=== PATIENT | female | born 1960 | race Caucasian/White ===

== ENCOUNTER → 2020-06-11 08:49 | Outpatient (BNVA) | payer BC, SELFPAY | PROVIDERS: PCP Internal Medicine; Referring Provider Internal Medicine; Visit Provider Orthopaedic Surgery | DX: Z76.89 Persons encountering health services in other specified circumstances (principal) ==

== ENCOUNTER → 2020-07-31 09:37 | Outpatient (BNVA) | payer BC, SELFPAY | PROVIDERS: PCP Internal Medicine; Visit Provider Physician Assistant ==

== ENCOUNTER 2020-09-11 10:22 | Day surgery (SDC) | payer BC, SELFPAY ==
--- NOTE | 2020-09-10 10:02 | HO.ANESPROP2 ---
Documented by User: Marianne Alvarez 09/10/20 10:02 HPI - Anesthesia Eval Consult details Narrative: 60yo F for Colonoscopy PMFSH Active Problems Active Problems: All Active Problems (Updated 07/31/20 @ 10:30 by Helena Sousa PA-C) Family history of colonic polyps (Acute) Past Medical History Medical History Acid reflux Hematuria High cholesterol Hypertension Osteoarthritis of left hip Family History Family History Father Cancer Mother Cancer Maternal Grandmother Colon cancer Surgical History Surgical History H/O total hysterectomy with bilateral salpingo-oophorectomy (BSO) History of umbilical hernia repair Status post total hip replacement, left (~06/07/19) Social History Social History Household Members: Significant Other and Children Alcohol intake: current Alcohol intake frequency: a few times a week Smoking Status: Never smoker Use of substances other than those prescribed or required for medical reasons: No Advance Directives: No Advance Directives Information Provided: Yes Current occupational status: employed 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 Meds Allergies Allergy/AdvReac Type Severity Reaction Status Date / Time No Known Allergies Allergy Verified 06/11/20 09:21 [No Known Allergies*] Home Medications Medication Instructions Recorded Confirmed Last Taken Type amlodipine 5 mg tablet 5 mg PO DAILY 06/11/20 07/31/20 Unknown History atorvastatin 10 mg tablet 10 mg PO BEDTIME 06/11/20 07/31/20 Unknown History omeprazole 20 mg capsule,delayed 20 mg PO BID 06/11/20 07/31/20 09/11/20 07:30 History release Exam Exam Date and Time: September 10, 2020 1002 Assessment and Plan Assessment Anesthesia Assessment: Chart Reviewed Documented by User: Samira Vanegas 09/11/20 12:44 PMFSH Past Medical History Medical History Acid reflux Hematuria High cholesterol Hypertension Osteoarthritis of left hip Family History Family History Father Cancer Mother Cancer Maternal Grandmother Colon cancer Surgical History Surgical History H/O total hysterectomy with bilateral salpingo-oophorectomy (BSO) History of umbilical hernia repair Status post total hip replacement, left (~06/07/19) Social History Social History Household Members: Significant Other and Children Alcohol intake: current Alcohol intake frequency: a few times a week Smoking Status: Never smoker Use of substances other than those prescribed or required for medical reasons: No Advance Directives: No Advance Directives Information Provided: Yes Current occupational status: employed 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
[2020-09-11 10:55] VITALS: BP 153/92; PULSE 82; RESP 16; TEMP 36.5; O2SAT 98; BMI 25.7
[2020-09-11] MEDS: Lactated Ringers 1,000 ML 100 ML IVCONT (11:02)
--- NOTE | 2020-09-11 11:15 | P.HPSUR_ITS ---
Pre-Procedural Eval Section B Chief Complaint: Screening Details of Present Illness: COLON CANCER SCREENING--SISTER WITH MULTIPLE POLYPS- MGM COLON CA/POLYPS NO CLINICAL CHANGE Relevant Family History (Specify if Yes): Yes Relevant Social History: None Present Medications: see Short Stay Collaborative assessment Medical History: Significant History (GERD, HYPERTENSION) History of Previous Operations: Relevant previous surgery/procedure and date(s) (COLO 10 YR AGO NEG) Allergies: Allergies Allergy/AdvReac Type Severity Reaction Status Date / Time No Known Allergies Allergy Verified 06/11/20 09:21 [No Known Allergies*] Review of Systems Sugical H&P ROS: Negative: Constitution, Respiratory, Neurological, Psychiatric and Gastrointestinal and Yes, Specify: Cardiovascular (HTN) Exam Surgical H&P Exam: Normal: HEENT, Normal: Heart, Normal: Lungs, Normal: Extremities, Normal: Abdomen and Normal: Skin Plan Diagnosis/Plan: Unchanged I have reviewed the history and physical and performed a pertinent physical examination on my patient. No changes have occurred unless specified.YES
[2020-09-11 11:48] VITALS: BP 104/72; PULSE 78; RESP 16; TEMP 36.7; O2SAT 100
--- NOTE | 2020-09-11 11:51 | PM.OP ---
Brief Operative Note Date of Service: 09/11/20 Pre-op diagnosis: COLON CANCER SCREENING--NEW HX OF POLYPS IN HER SISTER. + HX MGM Post-op diagnosis: other (CECAL POLYP, INTERNAL HEMORRHOIDS) Procedure: COLONOSCOPY WITH EXCISIONAL POLYPECTOMY--COLD BX FORCEPS Implants: NONE Surgeon: Francia Clifton MD Anesthesia: MAC (MD BEVERLY) Estimated blood loss (mL): 5 Pathology: other (CECAL) Condition: stable Disposition: PACU
[2020-09-11 12:03] VITALS: BP 144/86; PULSE 79; RESP 17; TEMP 36.7; O2SAT 98
--- NOTE | 2020-09-11 12:47 | HO.POSTANES ---
Post Anesthesia Evaluation Post Anesthesia Evaluation Vital Signs: Vital Signs Temp Pulse Resp BP Pulse Ox 09/11/20 12:03 98.1 F 79 17 144/86 H 98 09/11/20 11:48 98.1 F 78 16 104/72 100 09/11/20 10:55 97.7 F 82 16 153/92 H 98 Anesthesia: Monitored Mental Status: Awake Pain Control: Satisfactory Nausea/Vomiting: None Hydration: Adequate Anesthesia-Related Issues: No Anes. Related Issues
--- NOTE | 2020-09-16 09:29 | W.PM.OPN ---
Operative Note Operative Note Date of Service: 09/11/20 Narrative: Pre-op diagnosis: COLON CANCER SCREENING--NEW HX OF POLYPS IN HER SISTER. + HX MGM Post-op diagnosis: other (CECAL POLYP, INTERNAL HEMORRHOIDS) Procedure: COLONOSCOPY WITH EXCISIONAL POLYPECTOMY--COLD BX FORCEPS Implants: NONE Surgeon: Francia Clifton MD Anesthesia: MAC (MD BEVERLY) FINDINGS: ELENI: Spincter tone adequate Adult slim colonoscope was introduced without difficulty and advanced into rectosigmoid, descending and transverse colon. As we approached the right colon some residue was noted requiring some additional flushing and suctioning. We entered cecum. Appendiceal orifice was seen;as was the ileocecal valve. There was a diminutive polyp excised in the cecum. Scope was slowly with drawn, good rotational views. ARV was clear. Estimated blood loss (mL): 5 Pathology: other (CECAL)-path: Tubular adenoma. Condition: stable Disposition: PACU PLAN: With family hx and diminutive tubular adenoma in the cecum, repeat colon cancer screening will be 5 years.
== END 2020-09-11 13:05 | disposition home or self-care (01) ==
PROVIDERS: PCP Internal Medicine; Visit Provider Internal Medicine Gastroenterology
PROC: 0DJD8ZZ Inspection of Lower Intestinal Tract, Via Natural or Artificial Opening Endoscopic (ICD-10-PCS; CPT 45378; principal; 2020-09-11 12:50)
DX: Z12.11 Encounter for screening for malignant neoplasm of colon (principal); Z83.71 Family history of colonic polyps; D12.0 Benign neoplasm of cecum; K57.30 Diverticulosis of large intestine without perforation or abscess without bleeding; K64.8 Other hemorrhoids; K21.9 Gastro-esophageal reflux disease without esophagitis; I10 Essential (primary) hypertension; Z79.899 Other long term (current) drug therapy; Z96.642 Presence of left artificial hip joint
CPT/HCPCS: 45380; 88305

== ENCOUNTER → 2020-10-02 13:04 | Outpatient (BNVA) | payer BC, SELFPAY | PROVIDERS: PCP Internal Medicine; Visit Provider Physician Assistant ==

== ENCOUNTER 2020-11-05 08:47 | Outpatient (REF) | payer BC, SELFPAY ==
[2020-11-05 10:42] LABS: Alanine Aminotransferase 49 U/L (0-31); Alkaline Phosphatase 94 U/L (39-117); Anion Gap 15 (12-20); Aspartate Amino Transferase 85 U/L (5-31); Bilirubin Direct 0.2 mg/dL (0.0-0.5); Bilirubin Total 0.5 mg/dL (0.0-1.0); Blood Urea Nitrogen 8 mg/dL (9-16); Carbon Dioxide 24 mmol/L (22-29); Chloride 103 mmol/L (96-108); Cholesterol 232 mg/dL; Estimated Glomerular Filt Rate > 60; Glucose Fasting 86 mg/dL (60-99); HDL Cholesterol 75 mg/dL; LDL Cholesterol Calculated 137 mg/dl; Lipase 10 U/L (8-78); Potassium 4.1 mmol/L (3.3-5.1); Sodium 138 mmol/L (135-145); Total Protein 6.7 g/dL (6.5-8.0); Triglycerides 101 mg/dL
== END 2020-11-05 08:48 | disposition home or self-care (01) ==
LOC: HO.10HDL 08:47
PROVIDERS: Visit Provider Internal Medicine
DX: E78.00 Pure hypercholesterolemia, unspecified (principal); R14.0 Abdominal distension (gaseous)
CPT/HCPCS: 36415; 80053; 80061; 80076; 82248; 83690

== ENCOUNTER 2020-11-21 07:41 | Outpatient (REF) | payer BC, SELFPAY ==
--- NOTE | ~2020-11-21 | US_ITS ---
EXAMINATION: US ABDOMEN COMPLETE CLINICAL INFORMATION: Elevated liver function tests. COMPARISON: CT abdomen and pelvis without and with contrast dated 07/24/2015. TECHNIQUE: Real-time imaging of the abdominal viscera. FINDINGS: PANCREAS: Normal. ABDOMINAL AORTA: The proximal, mid, and distal segments are normal in caliber. INFERIOR VENA CAVA: Visualized portions are normal. LIVER: Liver echotexture is increased The liver is normal in size. The liver contour is normal. No focal hepatic lesion. There is no intrahepatic biliary duct dilatation seen. GALLBLADDER: Normal. The gallbladder is physiologically distended without evidence of stones, sludge, polyps, wall thickening or pericholecystic fluid. COMMON BILE DUCT: Normal in caliber measuring 0.42 cm in diameter. RIGHT KIDNEY: Normal. No hydronephrosis. No renal calculi or focal parenchymal lesions. The kidney measures 10.6 cm in maximum dimension. LEFT KIDNEY: Normal. No hydronephrosis. No renal calculi or focal parenchymal lesions. The kidney measures 11.1 cm in maximum dimension. SPLEEN: Normal. The spleen measures 9.1 cm in maximum dimension. FREE FLUID: None. US/US abdomen complete IMPRESSION: Echogenic liver otherwise unremarkable exam.
== END 2020-11-21 07:42 | disposition home or self-care (01) ==
LOC: HO.US 07:41
PROVIDERS: Visit Provider Internal Medicine
DX: R94.5 Abnormal results of liver function studies (principal)
CPT/HCPCS: 76700

== ENCOUNTER 2021-01-13 09:44 | Inpatient (IN) | payer BC, SELFPAY ==
--- NOTE | ~2021-01-13 | CT_ITS ---
EXAMINATION: CT ABDOMEN AND PELVIS WITH CONTRAST CLINICAL INFORMATION: Left lower quadrant pain. Recent antibiotics for diverticulitis. COMPARISON: Ultrasound of the abdomen dated 11/21/2020. CT scan of the abdomen and pelvis dated 07/24/2015. TECHNIQUE: Multidetector CT volumetric acquisition of the abdomen and pelvis was performed after the administration of 85 mL of intravenous Omnipaque 350 The data set was reformatted in the sagittal and coronal planes and reviewed on an independent workstation. This CT examination was performed using dose optimization techniques as appropriate, variously including the following: *Automated exposure control *Adjustment of mA and/or kV according to patient size (this includes techniques or standardized protocols for targeted exams where dose is matched to indication/reason for exam; i.e. extremities or head) *Use of iterative reconstruction technique DLP: 656 mGy-cm. FINDINGS: LOWER CHEST: Scattered areas of atelectasis in the lung bases bilaterally. Small retrocardiac hiatal hernia is seen. LIVER, GALLBLADDER, BILIARY TREE: Liver normal size and diffusely lower in attenuation compared to the spleen, consistent with mild hepatic steatosis. Small volume ascites is seen surrounding the liver and extending into the right paracolic gutter and pelvis.. No focal cystic or solid hepatic mass or intra-or extrahepatic ductal dilatation. Hepatic and portal veins patent. Gallbladder partially distended and within normal limits. PANCREAS: Normal. No ductal dilatation, mass, or surrounding stranding. SPLEEN: Normal size and appearance. Splenic vein patent. ADRENAL GLANDS AND KIDNEYS: Adrenal glands normal. Kidneys bilaterally symmetric in size and function. No focal mass, hydronephrosis, nephrolithiasis or perinephric stranding. URETERS AND BLADDER: Ureters decompressed and within normal limits. Bladder decompressed and not adequately assessed. PELVIC ORGANS: Uterus surgically absent. Ovaries not visualized and likely also surgically absent. No suspicious adnexal mass. GASTROINTESTINAL TRACT: There is an approximately 10 cm long segment of the proximal sigmoid colon, which is circumferentially thickened with wall edema and prominent surrounding fat stranding and edema. There is also a focal adjacent to by 1.2 cm hypodense collection along the antimesenteric border of the colon (series 3, image 72), possibly a small contained microperforation with abscess formation. No free air is seen. There is relative obstruction to the upstream colon, which is markedly distended with multiple air-fluid levels seen. The ascending colon measures up to 7.4 cm in diameter and the transverse colon 6.5 cm in diameter. No evidence of pneumatosis intestinalis is seen. The terminal ileum and distal small bowel loops are also mildly dilated. Duodenum and jejunal loops are decompressed and unremarkable. ABDOMINAL WALL: Small fat-containing umbilical and supraumbilical ventral wall hernias noted. LYMPHOVASCULAR STRUCTURES: Abdominal aorta normal in caliber. No periaortic collections. Mildly enlarged retroperitoneal lymph nodes are seen, largest of which is a para-aortic 1.4 x 0.7 cm lymph node just below the level of the renal cornelia (series 3, image 34). . BONES: Left total hip arthroplasty is in place. No other significant bone findings. CT/CT abdomen pelvis w con IMPRESSION: 1. 10 cm long segment of proximal sigmoid colon: Inflammation is seen, likely representing acute segmental diverticulitis. There is suspicion of subtle contained microperforation with small abscess formation as described above. This segment of inflamed bowel does cause obstruction with abnormal dilatation and air-fluid levels seen within the upstream colon and distal ileum. Posttreatment, follow-up with barium enema or colonoscopy is recommended to exclude an underlying mass in this location. 2. Small volume free fluid in the abdomen and pelvis. 3. Nonspecific mild enlargement of retroperitoneal lymph nodes, measuring up to 1.4 x 0.7 cm. 4. Small retrocardiac hiatal hernia small fat-containing umbilical and supraumbilical ventral wall hernias. 5. Hepatic steatosis.: This critical result was discussed with 01/13/2021, 1:37 PM and it was ascertained that the content and urgency of this report was understood at the time of direct communication.
[2021-01-13 09:46] VITALS: BP 159/80; PULSE 103; RESP 19; TEMP 36.7; O2SAT 96; BMI 26.6
--- NOTE | 2021-01-13 10:07 | ED_ITS ---
HPI - Abdominal Pain General Chief Complaint: Abdominal Pain Stated Complaint: Abd pain Time Seen by Provider: 01/13/21 10:02 Source: patient Mode of arrival: ambulatory Limitations: no limitations History of Present Illness MD elicited complaint: abdominal pain Pertinent past history: diverticulitis Onset (ago): day(s) (10) Pain Consistency: constant Location: LLQ Severity: moderate Quality: stabbing Radiation: none Migration to: no migration Exacerbating factors: movement Relieving factors: other (constipation) Context: recent antibiotic use (jsut completed 10 days of cipro without any relief. ) Associated symptoms: nausea and constipation (mucousy intermittent bouts of blood no flatus today) Related Data Home Medications Medication Instructions Recorded Confirmed amlodipine 5 mg tablet 5 mg PO DAILY 06/11/20 01/13/21 atorvastatin 10 mg tablet 20 mg PO BEDTIME 06/11/20 01/13/21 omeprazole 20 mg capsule,delayed 20 mg PO BID 06/11/20 01/13/21 release fluoxetine 10 mg capsule 10 mg PO QAM 10/02/20 01/13/21 Allergies Allergy/AdvReac Type Severity Reaction Status Date / Time No Known Allergies Allergy Verified 01/13/21 09:46 [No Known Allergies*] Review of Systems Review of Systems Constitutional : No Weight loss, No Fever, No Chills ENT/Mouth : No sore throat, No Rhinorrhea Eyes: No Swelling, No Redness Cardiovascular : No Chest Pain, No SOB, NoEdema Respiratory : No Cough, No Sputum, No Wheezing Gastrointestinal : Positive Nausea, no Vomiting, no Diarrhea, positive abdominal Pain, pos Hematochezia, No Melena, pos constipation Genitourinary : No Dysuria, No Urinary Frequency, No Hematuria, No Urgency Musculoskeletal : No joint pain, No Myalgias, No Joint Swelling Skin : No Skin Lesions, No rash Neuro : No Weakness, No Numbness, No Dizziness, No Headache Psych : No Anxiety/Panic, No Depression Heme/Lymph: No Bruising, No Lymphadenopathy Endocrine : No Polyuria, No Polydipsia All other systems reviewed and are negative. Physical Exam Vital Signs: Vital Signs: Last Vital Signs Temp 98.1 F 01/13/21 09:46 Pulse 89 01/13/21 11:09 Resp 16 01/13/21 11:09 BP 161/89 H 01/13/21 11:09 Pulse Ox 97 01/13/21 11:09 Body Mass Index 26.6 Appearance: Alert. Oriented X3. No acute distress. Eyes: Pupils equal, round and reactive to light. ENT: Pharynx normal. Neck: Normal inspection. Neck supple. CVS: Normal heart rate and rhythm. Pulses normal. Respiratory: No respiratory distress. Breath sounds normal. Abdomen: Soft and distended with moderate LLQ pain, mild vol guarding no rebound, hypoactive BS Skin: Skin warm and dry. Normal skin color. Normal skin turgor. Extremities: No lower extremity edema. No calf ttp Neuro: Oriented X 3. No motor deficit. No sensory deficit. Course Course Course Narrative: at this time infection is suspected 138pm IV zosyn ordered call to surgery 138pm MDM - Abdominal Pain MDM Narrative Medical decision making narrative: 60 yo female hx of HTN, diverticulitis, prior hysterectomy and hernia repair as a child completed cipro x 10 days for presumed clinical diverticulitis, at this time worsening pain now constipation, lack of flatus and nausea - does not feel better, at this time labs, IVF, IV morphine for pain, CT scan for obstruction/mass/abscess - dispo per results and findings. Lab Data Result diagrams: 01/13/21 10:26 01/13/21 10:26 Labs: Lab Results 01/13/21 01/13/21 01/13/21 Range/Units 10:26 10:26 10:26 WBC 10.6 (4.8-10.8) X10*3/uL RBC 4.26 (4.20-5.50) X10*6/uL Hgb 13.6 (12.0-16.0) g/dl Hct 40.3 (37-47) % MCV 94.6 (80-98) fL MCH 31.9 (27.0-33.0) pg MCHC 33.7 (31.0-35.0) g/dl RDW 13.9 (11.0-16.0) % Plt Count 399 (160-400) X10*3/uL MPV 8.8 L (9.4-12.3) fL Immature Gran % (Auto) 1.2 H (0.0-0.4) % Neut % (Auto) 80.2 H (45-73) % Lymph % (Auto) 8.4 L (20-40) % [place] % (Auto) 9.8 (2-11) % Eos % (Auto) 0.2 (0-4) % Baso % (Auto) 0.2 (0-2) % Lymph # (Auto) 0.9 L (1.2-4.9) X10*3/uL [place] # (Auto) 1.0 (0.1-1.2) X10*3/uL Eos # (Auto) 0.0 (0.0-0.4) X10*3/uL Baso # (Auto) 0.0 (0.0-0.2) X10*3/uL Abs Immat Gran (auto) 0.13 H (0.00-0.03) X10*3/uL Absolute Neuts (auto) 8.5 H (2.0-8.3) X10*3/uL Absolute Nucleated RBC 0.000 (0.0-0.012) X10*3/uL Nucleated RBC % (auto) 0.0 (0.0-0.2) /100WBC PT 10.8 (9.9-13.0) SEC INR 1.0 (0.9-1.1) APTT 31.7 (24.1-38.0) SEC Sodium 137 (135-145) mmol/L Potassium 3.9 (3.3-5.1) mmol/L Chloride 101 (96-108) mmol/L Carbon Dioxide 23 (22-29) mmol/L Anion Gap 17 (12-20) BUN 8 L (9-16) mg/dL Creatinine 0.71 (0.5-1.4) mg/dL Estim Creat Clear Calc 86.2 Estimated GFR > 60 Random Glucose 115 (60-115) mg/dL Lactic Acid (0.5-2.0) mmol/L Calcium 8.7 (8.4-10.2) mg/dL Magnesium 2.5 (1.6-2.6) mg/dL Total Bilirubin 0.7 (0.0-1.0) mg/dL Direct Bilirubin 0.3 (0.0-0.5) mg/dL AST 34 H D (5-31) U/L ALT 23 (0-31) U/L Alkaline Phosphatase 90 (39-117) U/L Total Protein 6.3 L (6.5-8.0) g/dL Albumin 3.5 (3.5-5.0) g/dL Lipase 24 (8-78) U/L COVID-19 (NAE) (Negative) COVID-19 Clin Com 01/13/21 01/13/21 Range/Units 10:26 10:48 WBC (4.8-10.8) X10*3/uL RBC (4.20-5.50) X10*6/uL Hgb (12.0-16.0) g/dl Hct (37-47) % MCV (80-98) fL MCH (27.0-33.0) pg MCHC (31.0-35.0) g/dl RDW (11.0-16.0) % Plt Count (160-400) X10*3/uL MPV (9.4-12.3) fL Immature Gran % (Auto) (0.0-0.4) % Neut % (Auto) (45-73) % Lymph % (Auto) (20-40) % [place]ima % (Auto) (2-11) % Eos % (Auto) (0-4) % Baso % (Auto) (0-2) % Lymph # (Auto) (1.2-4.9) X10*3/uL [place] # (Auto) (0.1-1.2) X10*3/uL Eos # (Auto) (0.0-0.4) X10*3/uL Baso # (Auto) (0.0-0.2) X10*3/uL Abs Immat Gran (auto) (0.00-0.03) X10*3/uL Absolute Neuts (auto) (2.0-8.3) X10*3/uL Absolute Nucleated RBC (0.0-0.012) X10*3/uL Nucleated RBC % (auto) (0.0-0.2) /100WBC PT (9.9-13.0) SEC INR (0.9-1.1) APTT (24.1-38.0) SEC Sodium (135-145) mmol/L Potassium (3.3-5.1) mmol/L Chloride (96-108) mmol/L Carbon Dioxide (22-29) mmol/L Anion Gap (12-20) BUN (9-16) mg/dL Creatinine (0.5-1.4) mg/dL Estim Creat Clear Calc Estimated GFR Random Glucose (60-115) mg/dL Lactic Acid 1.2 (0.5-2.0) mmol/L Calcium (8.4-10.2) mg/dL Magnesium (1.6-2.6) mg/dL Total Bilirubin (0.0-1.0) mg/dL Direct Bilirubin (0.0-0.5) mg/dL AST (5-31) U/L ALT (0-31) U/L Alkaline Phosphatase (39-117) U/L Total Protein (6.5-8.0) g/dL Albumin (3.5-5.0) g/dL Lipase (8-78) U/L COVID-19 (NAE) Negative (Negative) COVID-19 Clin Com See Note Discharge Plan Discharge Clinical Impression: Diverticulitis, Obstruction of bowel, Diverticulitis of large intestine with complication Patient Disposition: Admitted As Inpatient Prescriptions: No Action omeprazole 20 mg capsule,delayed release(DR/EC) 20 mg PO BID RF: 0 atorvastatin 10 mg tablet 20 mg PO BEDTIME RF: 0 amlodipine 5 mg tablet 5 mg PO DAILY RF: 0 fluoxetine 10 mg capsule 10 mg PO QAM RF: 0 PMFSH Past Medical History Attestation statement: The following information was validated with the patient. Medical History Acid reflux Hematuria High cholesterol Hypertension Osteoarthritis of left hip Surgical History H/O total hysterectomy with bilateral salpingo-oophorectomy (BSO) History of dental surgery History of umbilical hernia repair Status post total hip replacement, left (~06/07/19) Family History Family History (Updated 10/02/20 @ 13:43 by Helena Sousa PA-C) Father Cancer Mother Cancer Maternal Grandmother Colon cancer Other Tubular adenoma Social History Social History (Updated 01/13/21 @ 10:30 by Domonique Osuna DO) Household Members: Significant Other and Children Alcohol intake: current Alcohol intake frequency: 0-2 drinks per day Patient Tobacco Use Status: Never used Tobacco Advance Directives: Yes Advance Directives Information Provided: Yes Advance Directives on File: No Patient : No Current occupational status: employed 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
[2021-01-13 10:34] LABS: MANUAL DIFF FLAG NO
[2021-01-13] MEDS: Morphine Sulfate 4 MG/ML CARTRIDGE IVPUSH (10:34)
[2021-01-13] MEDS: ondansetron HCL 4 MG/2 ML VIAL IVPUSH (10:34)
[2021-01-13] MEDS: 0.9 % Sodium Chloride 1,000 ML 999 ML IVCONT (10:34)
[2021-01-13 10:35] LABS: Basophils Percent Auto 0.2 % (0-2); Eosinophils Percent Auto 0.2 % (0-4); Hematocrit 40.3 % (37-47); Hemoglobin 13.6 g/dl (12.0-16.0); Imm Gran Abs Auto 0.13 X10*3/uL (0.00-0.03); Imm Gran Pct Auto 1.2 % (0.0-0.4); Lymphocytes Absolute Auto 0.9 X10*3/uL (1.2-4.9); Lymphocytes Percent Auto 8.4 % (20-40); Mean Corpuscular HGB Conc 33.7 g/dl (31.0-35.0); Mean Corpuscular Hemoglobin 31.9 pg (27.0-33.0); Mean Corpuscular Volume 94.6 fL (80-98); Mean Platelet Volume 8.8 fL (9.4-12.3); Monocytes Percent Auto 9.8 % (2-11); Neutrophils Absolute Auto 8.5 X10*3/uL (2.0-8.3); Neutrophils Percent Auto 80.2 % (45-73); Platelet Count 399 X10*3/uL (160-400); Red Blood Count 4.26 X10*6/uL (4.20-5.50); Red Cell Distribution Width 13.9 % (11.0-16.0); White Blood Count 10.6 X10*3/uL (4.8-10.8)
[2021-01-13 10:40] LABS: Prothrombin Time 10.8 SEC (9.9-13.0)
[2021-01-13 10:43] LABS: Partial Thromboplastin Time 31.7 SEC (24.1-38.0)
[2021-01-13 10:49] LABS: Lactic Acid 1.2 mmol/L (0.5-2.0)
[2021-01-13 11:07] LABS: Alanine Aminotransferase 23 U/L (0-31); Albumin Level 3.5 g/dL (3.5-5.0); Alkaline Phosphatase 90 U/L (39-117); Aspartate Amino Transferase 34 U/L (5-31); Bilirubin Direct 0.3 mg/dL (0.0-0.5); Bilirubin Total 0.7 mg/dL (0.0-1.0); Lipase 24 U/L (8-78); Magnesium 2.5 mg/dL (1.6-2.6); Total Protein 6.3 g/dL (6.5-8.0)
[2021-01-13 11:09] VITALS: BP 161/89; PULSE 89; RESP 16; O2SAT 97
[2021-01-13 11:25] LABS: COVID-19 Test Negative (Negative); IDNOW Serial# 9DD0AD1C
[2021-01-13 12:01] LABS: Anion Gap 17 (12-20); Blood Urea Nitrogen 8 mg/dL (9-16); Calcium 8.7 mg/dL (8.4-10.2); Carbon Dioxide 23 mmol/L (22-29); Chloride 101 mmol/L (96-108); Creatinine Clr Calc Pharmacy 86.2; Estimated Glomerular Filt Rate > 60; Glucose Random 115 mg/dL (60-115); Potassium 3.9 mmol/L (3.3-5.1); Sodium 137 mmol/L (135-145)
[2021-01-13] MEDS: iohexoL 350 MG/ML 100 ML INFUS..BTL IV (12:15)
[2021-01-13] MEDS: LORazepam 2 MG/ML VIAL 1 MG IVPUSH (14:03)
[2021-01-13] MEDS: Piperacillin Sodium/Tazobactam 3.375 GM in 0.9 % Sodium Chloride 50 ML IV ×2 (14:03→19:58)
[2021-01-13 14:04] VITALS: BP 147/79; PULSE 96; RESP 16; TEMP 36.7; O2SAT 96
--- NOTE | 2021-01-13 14:05 | PC.NURSE ---
PT DESCRIBES ONGOING INTERMITTENT LOWER ABD PAIN, SOMEWHAT IMPROVED WITH MOP GIVEN EARLIER TODAY. GIVEN ATIVAN, PT AGREEABLE TO PLAN FOR REASSESSMENT OF PAIN. ABX RUNNING. PT AWARE OF PLAN FOR CARE. VSS.
--- NOTE | 2021-01-13 15:07 | PC.NURSE ---
in to reassess for pain, pt sleeping at this time, will defer assessment until transport
--- NOTE | 2021-01-13 15:13 | PC.NURSE ---
REPORT GIVEN TO ENGINE DESIGNER
[2021-01-13 15:59] VITALS: BP 158/83; PULSE 94; RESP 18; TEMP 36.4; O2SAT 96
[2021-01-13] MEDS: Dextrose 5 % and Lactated Ring 1,000 ML 125 ML IVCONT (16:03)
[2021-01-13] MEDS: 0.9 % Sodium Chloride Flush 3 ML SYRINGE IVFLUSH (16:04)
[2021-01-13] MEDS: Omeprazole 20 MG CAPSULE.DR PO (16:06)
[2021-01-13] MEDS: Enoxaparin Sodium 40 MG/0.4 ML SYRINGE SUBCUT (16:07)
[2021-01-13 19:24] VITALS: BP 163/71; PULSE 87; RESP 18; TEMP 36.6; O2SAT 97
[2021-01-13] MEDS: Atorvastatin Calcium 20 MG TABLET PO (20:32)
[2021-01-13 22:03] LABS: Appearance Urine HAZY; Color Urine YELLOW; Glucose Urine UA NEG (NEG); Leukocyte Esterase Urine NEG (NEG); Nitrite Urine NEG (NEG); PH 5.5 (5.0-8.0); Urine Blood 3+ (NEG); Urine Ketones 5 MG/DL (NEG); Urine Protein 1+ MG/DL (NEG-TRACE)
[2021-01-13 22:13] LABS: WBC Urine 0 /HPF (0-4)
[2021-01-13 22:14] LABS: Bacteria Urine 1+ /LPF; Squamous Epithelial Cell Urine 1+ /LPF
[2021-01-13 23:20] VITALS: BP 127/73; PULSE 82; RESP 18; TEMP 36.3; O2SAT 96
[2021-01-14] MEDS: Dextrose 5 % and Lactated Ring 1,000 ML 125 ML IVCONT ×3 (01:06→20:29)
[2021-01-14] MEDS: Piperacillin Sodium/Tazobactam 3.375 GM in 0.9 % Sodium Chloride 50 ML IV ×4 (02:17→20:24)
[2021-01-14 03:56] VITALS: BP 136/65; PULSE 79; RESP 16; TEMP 36.3; O2SAT 96
[2021-01-14] MEDS: Omeprazole 20 MG CAPSULE.DR PO ×2 (05:22→14:48)
--- NOTE | 2021-01-14 05:43 | P.HPGS_ITS ---
History of Present Illness History of Present Illness Date of Service: 01/14/21 Chief complaint: SIGMOID DIVERTICULITIS WITH MICROPERFORATION Narrative: Swati Mackey is a 60 year old female presenting with complaints of abdominal pain in the left lower quadrant. She has a prior history of diverticulitis and was recently treated with a ten day course of Cipro, without resolution of her symptoms. The abdominal pain is associated with constipation. A recent colonoscopy performed by Dr. Clifton was significant only for a tubular adenoma. Evauation in the ED revealed a normal WBC but CT of the abdomen and pelvis noted acute diverticulitis with a microperforation. She is admitted to the surgical service for IV antibiotics. Review of Systems Constitutional: Constitutional: Denies chills, Denies fever(s), Denies headache(s) and Denies poor appetite ENT: Denies dizziness and Denies headache(s) Cardiovascular: Cardiovascular: Denies chest pain, Denies rapid heart rate, Denies palpitations and Denies slow heart rate Respiratory: Respiratory: Denies chest congestion, Denies cough, Denies pain on inspiration and Denies wheezing Gastrointestinal: Gastrointestinal: Reports abdominal pain, Reports bloating, Reports change in stool character, Reports constipation, Denies diarrhea, Denies nausea, Denies vomiting and Denies hematemesis Musculoskeletal: Musculoskeletal: Denies back pain, Denies arthralgias, Denies joint swelling and Denies numbness Integumentary/Breasts: Skin/Breast: Denies change in pigmentation, Denies erythema and Denies rash Neurologic: Denies dizziness, Denies headache(s) and Denies numbness Psychiatric: Psychiatric: Denies anxiety and Denies depression Endocrine: Endocrine: Denies palpitations Hematologic/Lymphatic: Hematologic/Lymphatic: Denies easy bleeding, Denies easy bruising and Denies lymphadenopathy Allergic/Immunologic: Allergic/Immunologic: Denies wheezing PMFSH Past Medical History Medical History Acid reflux Hematuria High cholesterol Hypertension Osteoarthritis of left hip Family History Family History Father Cancer Mother Cancer Maternal Grandmother Colon cancer Other Tubular adenoma Surgical History Surgical History H/O total hysterectomy with bilateral salpingo-oophorectomy (BSO) History of dental surgery History of umbilical hernia repair Status post total hip replacement, left (~06/07/19) Social History Social History Household Members: Significant Other and Children Housing: House Do you presently have visiting nurse or other home services: No Alcohol intake: current Alcohol intake frequency: 0-2 drinks per day Patient Tobacco Use Status: Never used Tobacco Use of substances other than those prescribed or required for medical reasons: No Currently Displaying Signs/Symptoms of Drug Intoxication Withdrawal: No Have you been hit, kicked, punched, or otherwise hurt by someone within the past year? If so, by whom?: No Do you feel safe in your current relationship?: Yes Is there a partner from a previous relationship who is making you feel unsafe now?: No Are you made to feel afraid or neglected: No Advance Directives: Yes Advance Directives Information Provided: Yes Advance Directives on File: No Advance Directives Date on File: 01/13/21 Do you have thoughts of harming others: None Do you have a plan to hurt others: No Plan Recently lost weight without trying: No How much weight loss: Not applicable Eating poorly because of decreased appetite: No Nutrition screen score: 0 Nutrition Risks: No Nutritional Risk Patient : No : No Poor oral hygiene: No Current occupational status: employed 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 Meds Allergies Allergy/AdvReac Type Severity Reaction Status Date / Time No Known Allergies Allergy Verified 01/13/21 09:46 [No Known Allergies*] Active Medications: Current Medications Generic Name Dose Route Start Last Admin Trade Name Freq PRN Reason Stop Dose Admin Acetaminophen 650 mg 01/13/21 14:58 Acetaminophen 325 Mg Tablet PO Q6H PRN Pain, Mild (Pain Scale 1-3) Amlodipine Besylate 5 mg 01/14/21 09:00 Amlodipine Besylate 5 Mg Tablet PO DAILY SESAR Protocol Atorvastatin Calcium 20 mg 01/13/21 21:00 01/13/21 20:32 Atorvastatin Calcium 20 Mg Tablet PO 20 mg BEDTIME SESAR Administration Enoxaparin Sodium 40 mg 01/13/21 15:00 01/13/21 16:07 Enoxaparin Sodium 40 Mg/0.4 Ml Syringe SUBCUT 40 mg Q24H SESAR Administration Fluoxetine HCl 10 mg 01/14/21 09:00 Fluoxetine Hcl 10 Mg Capsule PO DAILY SESAR Dextrose/Lactated Ringer's 1,000 mls @ 125 mls/hr 01/13/21 14:58 01/14/21 01:06 D5lr IVCONT 125 mls/hr .Q8H SESAR Administration Piperacillin Sod/Tazobactam 50 mls @ 100 mls/hr 01/13/21 20:00 01/14/21 03:10 Sod 3.375 gm/ Sodium Chloride IV Infused Q6H SESAR Infusion Morphine Sulfate 4 mg 01/13/21 14:58 Morphine Sulfate 4 Mg/Ml Cartridge IVPUSH Q3H PRN Pain, Severe (Pain Scale 7-10) Omeprazole 20 mg 01/13/21 16:30 01/14/21 05:22 Omeprazole 20 Mg Capsule.Dr PO 20 mg BID@0630,1630 SESAR Administration Oxycodone HCl 5 mg 01/13/21 14:58 Oxycodone Hcl Immed Release 5 Mg Tablet PO Q6H PRN Pain, Moderate (Pain Scale 4-6 Pharmacy Consult 1 each 01/13/21 10:12 Consult Rx Perform Med Rec MISCELLANE ONCE PRN Consult order Sodium Chloride 3 ml 01/13/21 16:00 01/14/21 01:35 0.9 % Sodium Chloride Flush 3 Ml Syringe IVFLUSH Not Given [facility] Zolpidem Tartrate 5 mg 01/13/21 14:58 Zolpidem Tartrate 5 Mg Tablet PO BEDTIME PRN Insomnia Home Medications Medication Instructions Recorded Confirmed Last Taken Type amlodipine 5 mg tablet 5 mg PO DAILY 06/11/20 01/13/21 01/13/21 History atorvastatin 10 mg tablet 20 mg PO BEDTIME 06/11/20 01/13/21 1 Day Ago History ~01/12/21 omeprazole 20 mg capsule,delayed 20 mg PO BID 06/11/20 01/13/21 01/13/21 History release fluoxetine 10 mg capsule 10 mg PO QAM 10/02/20 01/13/21 01/13/21 History Physical Exam Vital Signs: Vital Signs: Last Vital Signs Temp 97.3 F 01/14/21 03:56 Pulse 79 01/14/21 03:56 Resp 16 01/14/21 03:56 BP 136/65 01/14/21 03:56 Pulse Ox 96 01/14/21 03:56 Body Mass Index 26.6 Const: General: cooperative, comfortable and well developed Nutritional Appearance: well nourished Orientation/consciousness: patient oriented x3 Eyes: Sclerae: sclerae normal EOM: EOMs intact bilaterally Neck: Neck: Yes normal visual inspection Resp: Effort & Inspection: normal respiratory effort, no cough, no respiratory distress and no stridor Cardio: Jugular venous distension: no JVD GI: Inspection: Yes distended Palpation (GI): Firmness to palpation present (GI), Tenderness to palpation present (GI) in the LUQ, no guarding and not rigid Percussion: Yes dullness to percussion Auscultation: normal bowel sounds Rectal Exam - Female: deferred Skin: General skin exam: dry skin Rashes: no rashes Neuro: General: patient oriented x3 and no focal motor deficits Extrem: General: Yes full ROM and Yes no clubbing, cyanosis or edema Psych: Appearance: grossly normal Results Results Labs: Short CBC 01/13/21 Range/Units 10:26 WBC 10.6 (4.8-10.8) X10*3/uL Hgb 13.6 (12.0-16.0) g/dl Hct 40.3 (37-47) % Plt Count 399 (160-400) X10*3/uL BMP 01/13/21 10:26 Sodium 137 Potassium 3.9 Chloride 101 Carbon Dioxide 23 BUN 8 L Creatinine 0.71 Calcium 8.7 Liver Function 01/13/21 Range/Units 10:26 Total Bilirubin 0.7 (0.0-1.0) mg/dL Direct Bilirubin 0.3 (0.0-0.5) mg/dL AST 34 H D (5-31) U/L ALT 23 (0-31) U/L Alkaline Phosphatase 90 (39-117) U/L Albumin 3.5 (3.5-5.0) g/dL Urine 01/13/21 Range/Units 21:48 Urine Color YELLOW Urine Appearance HAZY Urine pH 5.5 (5.0-8.0) Ur Specific [place] 1.020 (1.005-1.025) Urine Protein 1+ H (NEG-TRACE) MG/DL Urine Glucose (UA) NEG (NEG) MG/DL Assessment and Plan (1) Diverticulitis of large intestine with complication: Status: Acute Patient presents with abdominal pain in the left lower quadrant found to have acute diverticulitis of the sigmoid colon with a localized micro perforation. She has had multiple episodes possibly up to 6 over the last several years but this is the 1st to require hospitalization. The symptoms usually improved with oral antibiotics. This morning she reports continued abdominal distension and pain but did pass some flatus and a small amount of stool which is the 1st time in 2 days. She will need continued IV antibiotics for the next several days. Ideally, once the current episode has resolved she would be scheduled for elective sigmoid colectomy to prevent further recurrences. The patient understands and agrees with the plan. (2) Obstruction of bowel: Qualifiers: Intestinal obstruction extent: unspecified extent Intestinal obstruction type: unspecified Qualified Code(s): K56.609 - Unspecified intestinal obstruction, unspecified as to partial versus complete obstruction Status: Acute Quality Stroke Does the patient have a stroke diagnosis?: No VTE Prior VTE?: No VTE Risk Level:: Surgical - moderate VTE Device Contraindication: N/A - Device Ordered VTE Drug Contraindication: N/A - Med Ordered Procedures Date of Service Date of Service: 01/14/21
[2021-01-14 06:44] LABS: MANUAL DIFF FLAG NO
[2021-01-14 06:53] LABS: Basophils Percent Auto 0.4 % (0-2); Eosinophils Percent Auto 0.5 % (0-4); Hematocrit 36.1 % (37-47); Hemoglobin 11.9 g/dl (12.0-16.0); Imm Gran Abs Auto 0.08 X10*3/uL (0.00-0.03); Lymphocytes Absolute Auto 1.1 X10*3/uL (1.2-4.9); Lymphocytes Percent Auto 13.2 % (20-40); Mean Corpuscular Hemoglobin 31.7 pg (27.0-33.0); Mean Corpuscular Volume 96.3 fL (80-98); Monocytes Absolute Auto 1.1 X10*3/uL (0.1-1.2); Monocytes Percent Auto 12.8 % (2-11); Neutrophils Percent Auto 72.1 % (45-73); Platelet Count 351 X10*3/uL (160-400); Red Blood Count 3.75 X10*6/uL (4.20-5.50); Red Cell Distribution Width 14.1 % (11.0-16.0); White Blood Count 8.3 X10*3/uL (4.8-10.8)
[2021-01-14 07:10] VITALS: BP 138/72; PULSE 112; RESP 18; TEMP 36.6; O2SAT 91
[2021-01-14 07:42] LABS: Anion Gap 11 (12-20); Blood Urea Nitrogen 8 mg/dL (9-16); Calcium 8.1 mg/dL (8.4-10.2); Carbon Dioxide 28 mmol/L (22-29); Chloride 104 mmol/L (96-108); Creatinine Clr Calc Pharmacy 87.4; Estimated Glomerular Filt Rate > 60; Glucose Random 119 mg/dL (60-115); Potassium 3.8 mmol/L (3.3-5.1); Sodium 139 mmol/L (135-145)
[2021-01-14] MEDS: amLODIPine Besylate 5 MG TABLET PO (09:01)
[2021-01-14] MEDS: FLUoxetine HCl 10 MG CAPSULE PO (09:01)
--- NOTE | 2021-01-14 10:05 | MHC.CM.PN ---
CM MET WITH PT WHO REPORTS SHE LIVES WITH HER SON AND S/O. SHE REPORTS SHE IS FULLY INDEPENDENT WITH ALL CARE AND MOBILITY, USES NO DME AND HAS NO SERVICES. PT REPORTS SHE HAS A HCP COMPLETED NAMING HER SISTER, JOE, HER AGENT. PT CONFIRMS HER PCP IS SAMMI UGALDE. CURRENT DC PLAN IS HOME WITH NO SERVICES PT WILL SELF ARRANGE TRANSPORTATION
[2021-01-14 11:20] VITALS: BP 150/90; PULSE 88; RESP 18; TEMP 35.5; O2SAT 94
[2021-01-14] MEDS: oxyCODONE HCl Immed Release 5 MG TABLET PO (14:48)
[2021-01-14] MEDS: Enoxaparin Sodium 40 MG/0.4 ML SYRINGE SUBCUT (14:49)
[2021-01-14 15:17] VITALS: BP 161/84; PULSE 89; RESP 20; TEMP 36; O2SAT 97
[2021-01-14] MEDS: Simethicone 80 MG TAB.CHEW 160 MG PO (15:39)
[2021-01-14 19:14] VITALS: BP 157/80; PULSE 94; RESP 20; TEMP 36.5; O2SAT 97
[2021-01-14] MEDS: Atorvastatin Calcium 20 MG TABLET PO (20:25)
[2021-01-14 23:38] VITALS: BP 165/78; PULSE 86; RESP 18; TEMP 36.1; O2SAT 96
[2021-01-15] VITALS (7 sets, daily range): BP systolic 141–170; BP diastolic 66–82; PULSE 80–95; RESP 17–20; TEMP 36.1–37.2; O2SAT 93–97
[2021-01-15] MEDS: Piperacillin Sodium/Tazobactam 3.375 GM in 0.9 % Sodium Chloride 50 ML IV ×4 (02:02→20:54)
[2021-01-15] MEDS: Omeprazole 20 MG CAPSULE.DR PO ×2 (06:20→15:43)
[2021-01-15] MEDS: Dextrose 5 % and Lactated Ring 1,000 ML 125 ML IVCONT ×2 (06:21→15:43)
--- NOTE | 2021-01-15 08:38 | PM.PNGS ---
Subjective Subjective Date of Service: 01/15/21 Interval history: Reports gas pain after starting clear liquid diet. She feels she drank too much which increased her distension. She is passing gas denies any bowel movement. Physical Exam Vital Signs: Vital Signs: Last Vital Signs Temp 97.2 F 01/15/21 07:12 Pulse 82 01/15/21 07:12 Resp 18 01/15/21 07:12 BP 169/78 H 01/15/21 07:12 Pulse Ox 95 01/15/21 07:12 Body Mass Index 26.6 Const: General: comfortable and no acute distress Nutritional Appearance: well nourished Orientation/consciousness: patient oriented x3 Resp: Effort & Inspection: normal respiratory effort GI: Other: Distended, tympanitic, tender left lower quadrant without rebound or guarding Skin: Other: Warm, dry, no rash Neuro: General: patient oriented x3 Extrem: Other: No edema Progress Note: A&P Assessment and plan (1) Diverticulitis of large intestine with complication: Status: Acute Assessment and Plan: 60-year-old female presenting with recurrent episode of diverticulitis with micro perforation. Patient continues to have abdominal pain and now reports abdominal distention after starting clear liquids. I recommended she hold off on the clear liquids. She was encouraged to ambulate in the hallways today. Continue IV antibiotics. Will not advance diet until she begins passing her bowels. Fall Risk Details Current Medications: Current Medications Generic Name Dose Route Start Last Admin Trade Name Freq PRN Reason Stop Dose Admin Acetaminophen 650 mg 01/13/21 14:58 Acetaminophen 325 Mg Tablet PO Q6H PRN Pain, Mild (Pain Scale 1-3) Amlodipine Besylate 5 mg 01/14/21 09:00 01/14/21 09:01 Amlodipine Besylate 5 Mg Tablet PO 5 mg DAILY SESAR Administration Protocol Atorvastatin Calcium 20 mg 01/13/21 21:00 01/14/21 20:25 Atorvastatin Calcium 20 Mg Tablet PO 20 mg BEDTIME SESAR Administration Enoxaparin Sodium 40 mg 01/13/21 15:00 01/14/21 14:49 Enoxaparin Sodium 40 Mg/0.4 Ml Syringe SUBCUT 40 mg Q24H SESAR Administration Fluoxetine HCl 10 mg 01/14/21 09:00 01/14/21 09:01 Fluoxetine Hcl 10 Mg Capsule PO 10 mg DAILY SESAR Administration Dextrose/Lactated Ringer's 1,000 mls @ 125 mls/hr 01/13/21 14:58 01/15/21 06:21 D5lr IVCONT 125 mls/hr .Q8H SESAR Administration Piperacillin Sod/Tazobactam 50 mls @ 100 mls/hr 01/13/21 20:00 01/15/21 03:53 Sod 3.375 gm/ Sodium Chloride IV Infused Q6H SESAR Infusion Morphine Sulfate 4 mg 01/13/21 14:58 Morphine Sulfate 4 Mg/Ml Cartridge IVPUSH Q3H PRN Pain, Severe (Pain Scale 7-10) Omeprazole 20 mg 01/13/21 16:30 01/15/21 06:20 Omeprazole 20 Mg Capsule.Dr PO 20 mg BID@0630,1630 SESAR Administration Oxycodone HCl 5 mg 01/13/21 14:58 01/14/21 14:48 Oxycodone Hcl Immed Release 5 Mg Tablet PO 5 mg Q6H PRN Administration Pain, Moderate (Pain Scale 4-6 Pharmacy Consult 1 each 01/13/21 10:12 Consult Rx Perform Med Rec MISCELLANE ONCE PRN Consult order Sodium Chloride 3 ml 01/13/21 16:00 01/15/21 01:30 0.9 % Sodium Chloride Flush 3 Ml Syringe IVFLUSH Not Given QSHIFT [facility] Zolpidem Tartrate 5 mg 01/13/21 14:58 Zolpidem Tartrate 5 Mg Tablet PO BEDTIME PRN Insomnia Time Spent With Patient Time: Total time spent is greater than 50% in coordination of care (as documented) at patient's floor/unit and/or counseling patient: Time with patient: 15 - 24 minutes Procedures Date of Service Date of Service: 01/15/21 Quality Stroke Does the patient have a stroke diagnosis?: No VTE Prior VTE?: No VTE Risk Level:: Surgical - moderate VTE Device Contraindication: N/A - Device Ordered VTE Drug Contraindication: N/A - Med Ordered
[2021-01-15] MEDS: amLODIPine Besylate 5 MG TABLET PO (09:06)
[2021-01-15] MEDS: Simethicone 80 MG TAB.CHEW PO ×3 (09:06→20:53)
[2021-01-15] MEDS: FLUoxetine HCl 10 MG CAPSULE PO (09:06)
[2021-01-15] MEDS: Enoxaparin Sodium 40 MG/0.4 ML SYRINGE SUBCUT (14:07)
[2021-01-15] MEDS: oxyCODONE HCl Immed Release 5 MG TABLET PO ×2 (14:08→20:54)
[2021-01-15] MEDS: Atorvastatin Calcium 20 MG TABLET PO (20:53)
[2021-01-15] MEDS: 0.9 % Sodium Chloride Flush 3 ML SYRINGE IVFLUSH (20:54)
[2021-01-16] MEDS: Piperacillin Sodium/Tazobactam 3.375 GM in 0.9 % Sodium Chloride 50 ML IV ×4 (01:14→19:50)
[2021-01-16 03:43] VITALS: BP 147/70; PULSE 83; RESP 18; TEMP 36.1; O2SAT 93
[2021-01-16] MEDS: Omeprazole 20 MG CAPSULE.DR PO ×2 (06:19→15:26)
[2021-01-16] MEDS: Dextrose 5 % and Lactated Ring 1,000 ML 125 ML IVCONT ×3 (06:20→13:35)
[2021-01-16 08:00] VITALS: BP 164/80; PULSE 87; RESP 18; TEMP 36.1; O2SAT 96
[2021-01-16] MEDS: amLODIPine Besylate 5 MG TABLET PO (08:53)
[2021-01-16] MEDS: FLUoxetine HCl 10 MG CAPSULE PO (08:54)
--- NOTE | 2021-01-16 09:24 | P.PNGS_ITS ---
Subjective Subjective Date of Service: 01/16/21 Interval history: Patient reports passing bowels which are loose but not diarrhea. She continues to pass flatus. She feels less distended. She seems to be tolerating the clear liquids. She would like to try solid food Physical Exam Vital Signs: Vital Signs: Last Vital Signs Temp 97.0 F 01/16/21 08:00 Pulse 87 01/16/21 08:00 Resp 18 01/16/21 08:00 BP 164/80 H 01/16/21 08:00 Pulse Ox 96 01/16/21 08:00 Body Mass Index 26.6 Const: General: comfortable and no acute distress Resp: Effort & Inspection: normal respiratory effort GI: Other: Distended and tympanitic but less so the compared to yesterday Inspection: Yes normal to inspection Palpation (GI): Soft to palpation and Firmness to palpation present (GI) Skin: Other: Warm and dry, no rash Extrem: Other: No edema Progress Note: A&P Assessment and plan (1) Diverticulitis: Status: Acute (2) Obstruction of bowel: Status: Acute Assessment and Plan: The patient is slowly improving and is now passing stool therefore I will increase her diet to a regular low residue diet. I suggested she go slow and hold off if she becomes more distended. She expressed understanding and agrees with the plan. Continue IV antibiotics. Fall Risk Details Current Medications: Current Medications Generic Name Dose Route Start Last Admin Trade Name Freq PRN Reason Stop Dose Admin Acetaminophen 650 mg 01/13/21 14:58 Acetaminophen 325 Mg Tablet PO Q6H PRN Pain, Mild (Pain Scale 1-3) Amlodipine Besylate 5 mg 01/14/21 09:00 01/16/21 08:53 Amlodipine Besylate 5 Mg Tablet PO 5 mg DAILY SESAR Administration Protocol Atorvastatin Calcium 20 mg 01/13/21 21:00 01/15/21 20:53 Atorvastatin Calcium 20 Mg Tablet PO 20 mg BEDTIME SESAR Administration Enoxaparin Sodium 40 mg 01/13/21 15:00 01/15/21 14:07 Enoxaparin Sodium 40 Mg/0.4 Ml Syringe SUBCUT 40 mg Q24H SESAR Administration Fluoxetine HCl 10 mg 01/14/21 09:00 01/16/21 08:54 Fluoxetine Hcl 10 Mg Capsule PO 10 mg DAILY SESAR Administration Dextrose/Lactated Ringer's 1,000 mls @ 125 mls/hr 01/13/21 14:58 01/16/21 06:20 D5lr IVCONT 125 mls/hr .Q8H SESAR Administration Piperacillin Sod/Tazobactam 50 mls @ 100 mls/hr 01/13/21 20:00 01/16/21 08:53 Sod 3.375 gm/ Sodium Chloride IV 100 mls/hr Q6H SESAR Administration Morphine Sulfate 4 mg 01/13/21 14:58 Morphine Sulfate 4 Mg/Ml Cartridge IVPUSH Q3H PRN Pain, Severe (Pain Scale 7-10) Omeprazole 20 mg 01/13/21 16:30 01/16/21 06:19 Omeprazole 20 Mg Capsule.Dr PO 20 mg BID@0630,1630 SESAR Administration Oxycodone HCl 5 mg 01/13/21 14:58 01/15/21 20:54 Oxycodone Hcl Immed Release 5 Mg Tablet PO 5 mg Q6H PRN Administration Pain, Moderate (Pain Scale 4-6 Pharmacy Consult 1 each 01/13/21 10:12 Consult Rx Perform Med Rec MISCELLANE ONCE PRN Consult order Simethicone 80 mg 01/15/21 08:37 01/15/21 20:53 Simethicone 80 Mg Tab.Chew PO 80 mg QID PRN Administration Gas pain Sodium Chloride 3 ml 01/13/21 16:00 01/16/21 08:53 0.9 % Sodium Chloride Flush 3 Ml Syringe IVFLUSH Not Given QSHIFT [facility] Zolpidem Tartrate 5 mg 01/13/21 14:58 Zolpidem Tartrate 5 Mg Tablet PO BEDTIME PRN Insomnia Time Spent With Patient Time: Total time spent is greater than 50% in coordination of care (as documented) at patient's floor/unit and/or counseling patient: Time with patient: 15 - 24 minutes Procedures Date of Service Date of Service: 01/16/21 Quality Stroke Does the patient have a stroke diagnosis?: No VTE Prior VTE?: No VTE Risk Level:: Surgical - moderate VTE Device Contraindication: N/A - Device Ordered VTE Drug Contraindication: N/A - Med Ordered
[2021-01-16 12:00] VITALS: BP 158/91; PULSE 90; RESP 18; TEMP 36.1; O2SAT 94
[2021-01-16] MEDS: Simethicone 80 MG TAB.CHEW PO (13:35)
[2021-01-16] MEDS: Enoxaparin Sodium 40 MG/0.4 ML SYRINGE SUBCUT (13:36)
[2021-01-16 15:50] VITALS: BP 171/87; PULSE 87; RESP 16; TEMP 35.7; O2SAT 94
[2021-01-16 16:01] VITALS: BP 147/65
[2021-01-16 17:16] VITALS: BP 148/53; PULSE 106; RESP 20; TEMP 36.3; O2SAT 97
[2021-01-16] MEDS: Atorvastatin Calcium 20 MG TABLET PO (19:51)
[2021-01-17] VITALS: BP 152/72; PULSE 82; RESP 16; TEMP 36.7; O2SAT 94
[2021-01-17] MEDS: 0.9 % Sodium Chloride Flush 3 ML SYRINGE IVFLUSH ×2 (01:05→08:18)
[2021-01-17] MEDS: Piperacillin Sodium/Tazobactam 3.375 GM in 0.9 % Sodium Chloride 50 ML IV ×2 (02:19→08:18)
[2021-01-17 04:00] VITALS: BP 158/90; PULSE 74; RESP 16; TEMP 36.6; O2SAT 97
[2021-01-17] MEDS: Omeprazole 20 MG CAPSULE.DR PO (06:13)
[2021-01-17 07:14] VITALS: BP 159/79; PULSE 80; RESP 18; TEMP 36.2; O2SAT 94
[2021-01-17] MEDS: FLUoxetine HCl 10 MG CAPSULE PO (08:18)
[2021-01-17] MEDS: amLODIPine Besylate 5 MG TABLET PO (08:18)
--- NOTE | 2021-01-17 08:45 | P.DS_ITS ---
DS: Providers Provider Date of Service: 01/17/21 Date of admission: 01/13/21 14:37 Date of discharge: 01/17/21 Primary care physician: Vaibhav Mccormack MD Admitting clinician: Nitish Ibarra Discharging clinician: Nitish Ibarra DS: Diagnosis Discharge Diagnosis (1) Diverticulitis: Status: Acute (2) Obstruction of bowel: Status: Acute DS: Medications Discharge Medications Home Medications: Home Medications Medication Instructions Recorded Confirmed amlodipine 5 mg tablet 5 mg PO DAILY 06/11/20 01/13/21 atorvastatin 10 mg tablet 20 mg PO BEDTIME 06/11/20 01/13/21 omeprazole 20 mg capsule,delayed 20 mg PO BID 06/11/20 01/13/21 release fluoxetine 10 mg capsule 10 mg PO QAM 10/02/20 01/13/21 DS: Summary Hospital Course Hospital Course: Swati Mackey is a 60 year old female presenting with complaints of abdominal p ain in the left lower quadrant. She has a prior history of diverticulitis and was recently treated with a ten day course of Cipro, without resolution of her symptoms. The abdominal pain is associated with constipation. A recent colonoscopy performed by Dr. Clifton was significant only for a tubular adenoma. Evauation in the ED revealed a normal WBC but CT of the abdomen and pelvis noted acute diverticulitis with a microperforation. She is admitted to the surgical service for IV antibiotics. On examination the patient was noted to be tender in the left lower quadrant with no palpable mass. She was distended with tympany to percussion. The patient was made NPO started on IV fluids and IV Zosyn. Over the next several days the abdominal pain did improve and she began to pass flatus. She was subsequently started on clear liquids and after starting with a liquid bowel movement on 01/16/2021, she was advanced to a regular diet. She initially noted marked distention of the abdomen after eating a peanut butter sandwich but over the next 24 hours she was able to tolerate a regular diet without nausea, vomiting, or increased abdominal distension. Her bowels continue to move in the abdominal pain is subsiding. Patient will be discharged to home today, 01/17/2021. She will be placed on Augmentin for the next 10 days. I have asked her to return to the office in 1 week for follow-up examination. She understands that she had a micro perforation of the sigmoid colon due to diverticulitis which is recurrence. This would be amenable to an elective sigmoid colectomy which could be performed laparoscopically. We will discuss this further when she returns to the office next week. She should return to the hospital if she develops increased abdominal pain, fever, chills, or difficulty passing her stool. Time Spent with Patient Time attestation: Total time spent providing and/or coordinating discharge s ervices: Discharge coordination time: Less than 30 minutes Quality: Stroke Does the patient have a stroke diagnosis?: No Physical Exam Vital Signs: Vital Signs: Last Vital Signs Temp 97.2 F 01/17/21 07:14 Pulse 80 01/17/21 07:14 Resp 18 01/17/21 07:14 BP 159/79 H 01/17/21 07:14 Pulse Ox 94 01/17/21 07:14 Body Mass Index 26.6 Const General: cooperative, comfortable and well developed Nutritional Appearance: well nourished Orientation/consciousness: patient oriented x3 Resp Effort & Inspection: normal respiratory effort GI Inspection: Yes normal to inspection and Yes distended Palpation (GI): Soft to palpation, nontender and no guarding Percussion: Yes tympanic to percussion Auscultation: normal bowel sounds Skin General skin exam: no rashes or lesions noted Neuro General: patient oriented x3 Extrem General: No edema DS: Data Data Completed and Pending Labs on day of discharge: Preliminary micro results at discharge 01/13/21 10:48 Blood Culture - Preliminary Blood - Venous No growth after 48 hours. 01/13/21 10:26 Blood Culture - Preliminary Blood - Venous No growth after 48 hours. Discharge Plan Discharge Patient Disposition: Home, Self-Care Discharge Diagnosis: Sigmoid diverticulitis, perforation Referrals: Nitish Ibarra MD [Physician] - 1 Week Vaibhav Mccormack MD [Primary Care Provider] - 1 Week Discharge Medications: New amoxicillin-pot clavulanate [Augmentin] 500-125 mg tablet 1 tab PO Q8H Qty: 30 RF: 0 Continued omeprazole 20 mg capsule,delayed release(DR/EC) 20 mg PO BID RF: 0 atorvastatin 10 mg tablet 20 mg PO BEDTIME RF: 0 amlodipine 5 mg tablet 5 mg PO DAILY RF: 0 fluoxetine 10 mg capsule 10 mg PO QAM RF: 0 Discharge Orders: Discharge Order (Routine); Ordered 01/17/21 Ordered By: Nitish Ibarra Diet: advance to usual diet Activity on Discharge: As tolerated Stand Alone Forms: Patient Portal Discharge page Care Plan Goals: abdominal pain left lower abdomen Health Concerns: diverticulitis Plan of Treatment: po antibiotics, follow up in one week Assessment: sigmoid diverticulitis with micro perforation
--- NOTE | 2021-01-17 08:47 | MHC.CM.PN ---
PATIENT IS DISCHARGED HOME - SELF CARE. RN AWARE OF PLAN.
[2021-01-17 11:39] VITALS: BP 141/75; PULSE 83; RESP 16; TEMP 36.3; O2SAT 95
--- NOTE | 2021-01-17 12:10 | P.PNGS_ITS ---
Subjective Subjective Date of Service: 01/17/21 Interval history: Patient feels much improved, tolerating regular diet, moving her bowels with decreased distension and decreased abdominal pain. She feels ready for discharge to home. Physical Exam Vital Signs: Vital Signs: Last Vital Signs Temp 97.3 F 01/17/21 11:39 Pulse 83 01/17/21 11:39 Resp 16 01/17/21 11:39 BP 141/75 H 01/17/21 11:39 Pulse Ox 95 01/17/21 11:39 Body Mass Index 26.6 Const: General: cooperative, comfortable and well developed Nutritional Appearance: well nourished Orientation/consciousness: patient oriented x3 Resp: Effort & Inspection: normal respiratory effort GI: Inspection: Yes normal to inspection and Yes distended Palpation (GI): Soft to palpation, nontender and no guarding Percussion: Yes tympanic to percussion Auscultation: normal bowel sounds Skin: General skin exam: no rashes or lesions noted Neuro: General: patient oriented x3 Extrem: General: No edema Progress Note: A&P Assessment and plan (1) Diverticulitis of large intestine with complication: Status: Acute Assessment and Plan: Patient feels much improved today, reports moving her bowels and flatus. She is tolerating regular diet without nausea or vomiting. She still has some distension but this is much improved from yesterday. She feels ready for discharge to home. She will be discharged on oral antibiotics. I have asked her to return to the office in 1-2 weeks for follow-up examination. She expressed understanding and agrees with the plan. Fall Risk Details Current Medications: Current Medications Generic Name Dose Route Start Last Admin Trade Name Jorge Luis PRN Reason Stop Dose Admin Acetaminophen 650 mg 01/13/21 14:58 Acetaminophen 325 Mg Tablet PO Q6H PRN Pain, Mild (Pain Scale 1-3) Amlodipine Besylate 5 mg 01/14/21 09:00 01/17/21 08:18 Amlodipine Besylate 5 Mg Tablet PO 5 mg DAILY SESAR Administration Protocol Atorvastatin Calcium 20 mg 01/13/21 21:00 01/16/21 19:51 Atorvastatin Calcium 20 Mg Tablet PO 20 mg BEDTIME SESAR Administration Enoxaparin Sodium 40 mg 01/13/21 15:00 01/16/21 13:36 Enoxaparin Sodium 40 Mg/0.4 Ml Syringe SUBCUT 40 mg Q24H SESAR Administration Fluoxetine HCl 10 mg 01/14/21 09:00 01/17/21 08:18 Fluoxetine Hcl 10 Mg Capsule PO 10 mg DAILY SESAR Administration Piperacillin Sod/Tazobactam 50 mls @ 100 mls/hr 01/13/21 20:00 01/17/21 09:02 Sod 3.375 gm/ Sodium Chloride IV Infused Q6H SESAR Infusion Morphine Sulfate 4 mg 01/13/21 14:58 Morphine Sulfate 4 Mg/Ml Cartridge IVPUSH Q3H PRN Pain, Severe (Pain Scale 7-10) Omeprazole 20 mg 01/13/21 16:30 01/17/21 06:13 Omeprazole 20 Mg Capsule.Dr PO 20 mg BID@0630,1630 SESAR Administration Oxycodone HCl 5 mg 01/13/21 14:58 01/15/21 20:54 Oxycodone Hcl Immed Release 5 Mg Tablet PO 5 mg Q6H PRN Administration Pain, Moderate (Pain Scale 4-6 Pharmacy Consult 1 each 01/13/21 10:12 Consult Rx Perform Med Rec MISCELLANE ONCE PRN Consult order Simethicone 80 mg 01/15/21 08:37 01/16/21 13:35 Simethicone 80 Mg Tab.Chew PO 80 mg QID PRN Administration Gas pain Sodium Chloride 3 ml 01/13/21 16:00 01/17/21 08:18 0.9 % Sodium Chloride Flush 3 Ml Syringe IVFLUSH 3 ml QSHIFT SESAR Administration Zolpidem Tartrate 5 mg 01/13/21 14:58 Zolpidem Tartrate 5 Mg Tablet PO BEDTIME PRN Insomnia Time Spent With Patient Time: Total time spent is greater than 50% in coordination of care (as doc umented) at patient's floor/unit and/or counseling patient: Time with patient: 15 - 24 minutes Procedures Date of Service Date of Service: 01/17/21 Quality Stroke Does the patient have a stroke diagnosis?: No VTE Prior VTE?: No VTE Risk Level:: Surgical - moderate VTE Device Contraindication: N/A - Device Ordered VTE Drug Contraindication: N/A - Med Ordered
== END 2021-01-17 12:30 | disposition home or self-care (01) | DRG 244 ==
LOC: HO.ED 13:49 → HO.EDOVER 14:40 → HO.S3 14:50
PROVIDERS: Admitting Provider Surgery; Emergency Provider Emergency Medicine; PCP Internal Medicine; Visit Provider Surgery
DX: K57.80 Diverticulitis of intestine, part unspecified, with perforation and abscess without bleeding (principal); K56.609 Unspecified intestinal obstruction, unspecified as to partial versus complete obstruction; Z20.822 Contact with and (suspected) exposure to COVID-19; Z79.899 Other long term (current) drug therapy
CPT/HCPCS: 36415; 74177; 80048; 80076; 81001; 81003; 83605; 83690; 83735; 85025; 85610; 85730; 87040; 87635; 99285; J1650; J2060; J2270; J2405; J2543; Q9967

== ENCOUNTER → 2021-01-25 09:57 | Outpatient (BNVA) | payer BC, SELFPAY | PROVIDERS: PCP Internal Medicine; Referring Provider Internal Medicine; Visit Provider Surgery ==

== ENCOUNTER 2021-02-05 10:36 | Inpatient (IN) | payer BC, SELFPAY ==
--- NOTE | ~2021-02-05 | XR_ITS ---
EXAMINATION: XR CHEST CLINICAL INFORMATION: Tube placement. COMPARISON: None TECHNIQUE: Frontal portable view of the chest was obtained. 9:33 PM FINDINGS: Gastric catheter tube tip in stomach. Gaseous distended loops of bowel seen in the upper abdomen. Lungs are normally aerated. No pleural effusion or pneumothorax. The cardiac and mediastinal contours are normal. There is no pulmonary vascular congestion. XR/XR chest 1V IMPRESSION: Gastric catheter tube tip in stomach.
--- NOTE | ~2021-02-05 | XR_ITS ---
EXAMINATION: XR ABDOMEN KUB CLINICAL INDICATION: Bowel dilatation. Follow-up. COMPARISON: KUB 02/05/2021. CT abdomen and pelvis 02/05/2021 TECHNIQUE: Supine portable AP x2 views of the abdomen. FINDINGS: There is a nasogastric tube present with tip overlying the proximal stomach and sidehole likely at the esophagogastric junction. There is gaseous distention of the large and small bowel, both appear mildly decreased from prior exam 02/05/2021. There is no definite pneumatosis. No interval bowel displacement. Visualized lung bases appear clear. XR/XR KUB IMPRESSION: 1. Gaseous distention large and small bowel mildly decreased from prior exam 02/05/2021. 2. NG tube in proximal stomach, side hole likely at the esophagogastric junction.
--- NOTE | ~2021-02-05 | XR_ITS ---
EXAMINATION: XR ABDOMEN COMPLETE CLINICAL INDICATION: Abdominal pain, distention and vomiting fecal material COMPARISON: None TECHNIQUE: 2 views of the abdomen. FINDINGS: There is moderate distended small bowel and colonic loops with gas suggestive of generalized ileus. Grossly no free fluid seen. There is no organomegaly. No gross bony abnormality. XR/XR abdomen min 2V IMPRESSION: Distended small bowel loops and colon suggestive of generalized ileus. Recommend CT abdomen and pelvis exam with IV contrast
--- NOTE | ~2021-02-05 | CT_ITS ---
EXAMINATION: CT ABDOMEN AND PELVIS WITH CONTRAST CLINICAL INFORMATION: abd pain, rule out complicated diverticulitis COMPARISON: None. TECHNIQUE: Multidetector volumetric imaging was performed from the superior aspect of the liver through the pubic symphysis following administration of 85 cc of Omnipaque intravenous contrast Sagittal and coronal reformatted images were obtained on the technologist workstation.. This CT examination was performed using dose optimization techniques as appropriate, variously including the following: *Automated exposure control *Adjustment of mA and/or kV according to patient size (this includes techniques or standardized protocols for targeted exams where dose is matched to indication/reason for exam; i.e. extremities or head) *Use of iterative reconstruction technique DLP: 612 mGy-cm FINDINGS: LUNG BASES: The visualized lung bases are unremarkable. Small hiatal hernia LIVER, GALLBLADDER, AND BILIARY TREE: The liver is normal in size, shape, and attenuation. No focal hepatic lesion or biliary ductal dilatation is present. The gallbladder is unremarkable with no evidence of radiopaque gallstones, gallbladder wall thickening, or obvious pericholecystic inflammatory changes. PANCREAS: Unremarkable. SPLEEN: Unremarkable. ADRENAL GLANDS: Unremarkable. KIDNEYS AND URETERS: The kidneys are normal in size, shape, and attenuation. No hydronephrosis, hydroureter, or calculi seen. No perinephric stranding. BLADDER: Decompressed GASTROINTESTINAL TRACT: Scattered colonic diverticulosis. There is focal colonic wall thickening seen or so in the region of the sigmoid colon where there is pericolonic inflammatory changes and surrounding fluid. There is distention to the more proximal colon and small bowel concerning for distal bowel obstruction. ABDOMINAL WALL: No significant hernia is appreciated. LYMPHOVASCULAR STRUCTURES: Vascular calcification within the aorta iliac system. Atherosclerotic disease within the aorta iliac system with the calcified and soft thrombus seen in the distal aorta in particular. Circumaortic left renal vein. PELVIC VISCERA: Surgically absent. OSSEOUS STRUCTURES: Unremarkable. CT/CT abdomen pelvis w con IMPRESSION: Dilated fluid-filled loops of distal small bowel and colon extending up to focal circumferential thickening in the proximal sigmoid colon with pericolonic inflammatory change and fluid. There are scattered diverticula seen. Overall the degree of focal inflammatory changes have slightly decreased from 01/13/2021. Although sequela of focal diverticulitis would be possible, the degree of upstream obstruction is somewhat atypical. Underlying lesion and/or perforated lesion in this location cannot be excluded with clinical correlation and/or colonoscopy recommended.
[2021-02-05 11:54] VITALS: BP 149/96; PULSE 118; RESP 18; TEMP 36.6; O2SAT 99; BMI 26.6
[2021-02-05 12:13] LABS: Hematocrit 41.7 % (37-47); Hemoglobin 14.2 g/dl (12.0-16.0); Mean Corpuscular HGB Conc 34.1 g/dl (31.0-35.0); Platelet Count 522 X10*3/uL (160-400); Red Blood Count 4.58 X10*6/uL (4.20-5.50); Red Cell Distribution Width 14.6 % (11.0-16.0); White Blood Count 7.8 X10*3/uL (4.8-10.8)
[2021-02-05 12:48] LABS: Alanine Aminotransferase 21 U/L (0-31); Albumin Level 3.8 g/dL (3.5-5.0); Alkaline Phosphatase 100 U/L (39-117); Anion Gap 21 (12-20); Aspartate Amino Transferase 14 U/L (5-31); Bilirubin Direct 0.4 mg/dL (0.0-0.5); Bilirubin Total 0.6 mg/dL (0.0-1.0); Blood Urea Nitrogen 37 mg/dL (9-16); Calcium 9.1 mg/dL (8.4-10.2); Carbon Dioxide 25 mmol/L (22-29); Chloride 94 mmol/L (96-108); Creatinine Clr Calc Pharmacy 58.2; Estimated Glomerular Filt Rate 54; Glucose Random 137 mg/dL (60-115); Lipase < 4 U/L (8-78); Potassium 4.3 mmol/L (3.3-5.1); Sodium 136 mmol/L (135-145); Total Protein 6.8 g/dL (6.5-8.0)
[2021-02-05 12:54] LABS: Atypical Lymph Absolute Manual 0.1 x10*3/uL; Atypical Lymphs Percent Manual 1 % (0-6); Band Neutrophils Percent 7 % (3-5); Basophils Abs Manual 0.1 X10*3/uL (0.0-0.3); Basophils Percent Manual 1 % (0-1); Lymphocytes Absolute Manual 0.9 X10*3/uL (0.6-4.8); Lymphocytes Percent Manual 11 % (20-40); Monocytes Absolute Manual 0.8 X10*3/uL (0.0-1.2); Monocytes Percent Manual 10 % (2-11); Neutrophils Percent Manual 70 % (45-73)
[2021-02-05 12:55] LABS: Large Platelet PRESENT; Platelet Estimate INCREASED (NORMAL); Platelet Morphology Comment NOTED; RBC Morphology NORMAL
--- NOTE | 2021-02-05 17:35 | ED_ITS ---
HPI - Abdominal Pain General Chief Complaint: Abdominal Pain Stated Complaint: destruction, throwing up Time Seen by Provider: 02/05/21 17:32 Source: patient Mode of arrival: ambulatory Limitations: no limitations History of Present Illness HPI narrative: 60-year-old female with history of diverticular disease, patient was admitted recently for diverticulitis with microperforation, patient scheduled to have colectomy by Dr. Ibarra as an outpatient in a week, patient returned today for persistent of the abdominal pain, unable to have bowel movement with vomiting, patient had a bowel movement before coming to the hospital today and passing gas. No fever, no chills. Patient was discharged home on Augmentin. Related Data Home Medications Medication Instructions Recorded Confirmed amlodipine 5 mg tablet 5 mg PO DAILY 06/11/20 01/25/21 atorvastatin 10 mg tablet 20 mg PO BEDTIME 06/11/20 01/13/21 omeprazole 20 mg capsule,delayed 20 mg PO BID 06/11/20 01/13/21 release fluoxetine 10 mg capsule 10 mg PO QAM 10/02/20 01/13/21 Previous Rx's Medication Instructions Recorded amoxicillin 500 mg-potassium 1 tab PO Q8H #30 tab 01/17/21 clavulanate 125 mg tablet (Augmentin) erythromycin 500 mg tablet 500 mg PO .COMPLEX #6 tab 01/25/21 neomycin 500 mg tablet 1 g PO TID #6 tab 01/25/21 sodium,potassium,mag sulfates 17.5 480 ml PO .COMPLEX 1 Days #354 ml 01/29/21 gram-3.13 gram-1.6 gram oral soln (Suprep Bowel Prep Kit) Allergies Allergy/AdvReac Type Severity Reaction Status Date / Time No Known Allergies Allergy Verified 01/13/21 09:46 [No Known Allergies*] Review of Systems Review of Systems All other systems are reviewed and are negative Constitutional: Reports as per HPI and Reports no additional constitutional complaints Eyes: Reports as per HPI and Reports no additional eye complaints Reports system reviewed and no additional complaints, except as documented Cardiovascular: Reports as per HPI and Reports no additional cardiovascular complaints Respiratory: Reports as per HPI and Reports no additional respiratory complaints Gastrointestinal: Reports as per HPI and Reports no additional gastrointestinal complaints Genitourinary: Reports no additional female genitourinary complaints Musculoskeletal: Reports no additional musculoskeletal complaints Skin/Breast: Reports system reviewed and no additional complaints, except as docu Psychiatric: Reports no additional psychiatric complaints Endocrine: Reports no additional endocrine complaints Hematologic/Lymphatic: Reports no additional hematologic/lymphatic complaints Allergic/Immunologic: Reports no additional allergic/immunologic complaints Reports system reviewed and no additional complaints, except as documented and Reports Abnormal speech present Physical Exam Vital Signs: Vital Signs: Last Vital Signs Temp 98.7 F 02/05/21 19:13 Pulse 110 H 02/05/21 19:13 Resp 18 02/05/21 19:13 BP 159/91 H 02/05/21 19:13 Pulse Ox 99 02/05/21 19:13 Body Mass Index 26.6 Vital signs have been reviewed as appeared to be correct. Blood pressure normal. Heart rate elevated. Respiration rate normal. Temperature normal. Oxygen saturation normal. Appearance: Alert. Oriented X3. No acute distress. Head: Normal external exam. Normocephalic. Atraumatic. No Singh signs noted. No raccoon eyes noted Eyes: PERRLA. EOMI. Conjunctiva and sclera normal. Eyelids normal. ENT: TM's Normal. Pharynx normal. Uvula midline. Moist mucous membranes. No trismus noted. No drooling noted. No muffled voice noted. Neck: Normal inspection. Neck supple. FROM. No adenopathy. Thyroid Normal. No meningeal signs. No neck mass noted. CVS: Normal heart rate and rhythm. Heart sound normal. No murmurs noted. Pulses normal throughout. Respiratory: No respiratory distress. Painless inspiration. Breath sounds normal. No wheezes/rales/rhonchi noted. Chest nontender. No accessory muscle usage noted or decreased air movement noted. Abdomen: Distended, mild diffuse tenderness, no rebound tenderness, no guarding. Bowel sounds normal in all 4 quadrants. No distention noted. No organomegaly noted. No visible injury noted. Back: No CVA tenderness. Full range of motion noted. Skin: Skin warm and dry. Normal skin color. Normal skin turgor. No rashes/lesions/lacerations noted. Extremities: No lower extremity edema. Extremities exhibit normal range of motion. Extremities nontender. Neuro: Oriented X 3. Cranial nerve exam: II-XII are grossly intact No motor deficit. No sensory deficit. Reflexes normal. Course Course Course Narrative: Assessment and plan. A 60 year old female history of diverticular disease patient is already scheduled to have elective colectomy by Dr. Ibarra, patient had a recent admission for diverticular disease and microperforation patient return for distended abdomen, vomiting fecal material, however patient today had 1 small bowel movement and passing small amounts of flatus. CT abdomen pelvis is consistent with bowel obstruction, the case discussed with Dr. Martin who recommended patient to get NGT and admit to the surgical service. MDM - Abdominal Pain Medical Records Attestation: I reviewed the patient's medical records. Lab Data Attestation: I reviewed the patient's lab results. Result diagrams: 02/05/21 12:05 02/05/21 12:04 Labs: Lab Results 02/05/21 02/05/21 Range/Units 12:04 12:05 WBC 7.8 (4.8-10.8) X10*3/uL RBC 4.58 D (4.20-5.50) X10*6/uL Hgb 14.2 (12.0-16.0) g/dl Hct 41.7 (37-47) % MCV 91.0 (80-98) fL MCH 31.0 (27.0-33.0) pg MCHC 34.1 (31.0-35.0) g/dl RDW 14.6 (11.0-16.0) % Plt Count 522 H D (160-400) X10*3/uL MPV 9.0 L (9.4-12.3) fL Immature Gran % (Auto) Cancelled Neut % (Auto) Cancelled Lymph % (Auto) Cancelled [place] % (Auto) Cancelled Eos % (Auto) Cancelled Baso % (Auto) Cancelled Lymph # (Auto) Cancelled [place] # (Auto) Cancelled Eos # (Auto) Cancelled Baso # (Auto) Cancelled Abs Immat Gran (auto) Cancelled Absolute Neuts (auto) Cancelled Absolute Nucleated RBC 0.000 (0.0-0.012) X10*3/uL Nucleated RBC % (auto) 0.0 (0.0-0.2) /100WBC Neutrophils % (Manual) 70 (45-73) % Band Neutrophils % 7 H (3-5) % Lymphocytes % (Manual) 11 L (20-40) % Atypical Lymphs % (Man) 1 (0-6) % Monocytes % (Manual) 10 (2-11) % Basophils % (Manual) 1 (0-1) % Abs Neuts (Manual) 6.0 (2.2-7.9) X10*3/uL Lymphocytes # (Manual) 0.9 (0.6-4.8) X10*3/uL Atyp Lymphs # (Manual) 0.1 x10*3/uL Monocytes # (Manual) 0.8 (0.0-1.2) X10*3/uL Basophils # (Manual) 0.1 (0.0-0.3) X10*3/uL Platelet Estimate INCREASED (NORMAL) Large Platelets PRESENT Plt Morphology Comment NOTED RBC Morphology NORMAL Sodium 136 (135-145) mmol/L Potassium 4.3 (3.3-5.1) mmol/L Chloride 94 L (96-108) mmol/L Carbon Dioxide 25 (22-29) mmol/L Anion Gap 21 H (12-20) BUN 37 H D (9-16) mg/dL Creatinine 1.05 (0.5-1.4) mg/dL Estim Creat Clear Calc 58.2 Estimated GFR 54 Random Glucose 137 H (60-115) mg/dL Calcium 9.1 D (8.4-10.2) mg/dL Total Bilirubin 0.6 (0.0-1.0) mg/dL Direct Bilirubin 0.4 (0.0-0.5) mg/dL AST 14 D (5-31) U/L ALT 21 (0-31) U/L Alkaline Phosphatase 100 (39-117) U/L Total Protein 6.8 (6.5-8.0) g/dL Albumin 3.8 (3.5-5.0) g/dL Lipase < 4 L (8-78) U/L Imaging Data CT scan - abdomen: Radiologist's impression: Dilated fluid-filled loops of distal small bowel and colon extending up to focal circumferential thickening in the proximal sigmoid colon with pericolonic inflammatory change and fluid. There are scattered diverticula seen. Overall the degree of focal inflammatory changes have slightly decreased from 01/13/2021. Although sequela of focal diverticulitis would be possible, the degree of upstream obstruction is somewhat atypical. Underlying lesion and/or perforated lesion in this location cannot be excluded with clinical correlation and/or colonoscopy recommended. Discharge Plan Discharge Clinical Impression: 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, Partial small bowel obstruction Patient Disposition: Admitted As Inpatient Prescriptions: No Action Suprep Bowel Prep Kit 17.5-3.13-1.6 gram recon soln 480 ml PO .COMPLEX 1 Days Qty: 354 RF: 0 amoxicillin-pot clavulanate [Augmentin] 500-125 mg tablet 1 tab PO Q8H Qty: 30 RF: 0 omeprazole 20 mg capsule,delayed release(DR/EC) 20 mg PO BID RF: 0 atorvastatin 10 mg tablet 20 mg PO BEDTIME RF: 0 amlodipine 5 mg tablet 5 mg PO DAILY RF: 0 fluoxetine 10 mg capsule 10 mg PO QAM RF: 0 neomycin 500 mg tablet 1 g PO TID Qty: 6 RF: 0 erythromycin 500 mg tablet 500 mg PO .COMPLEX Qty: 6 RF: 0 PMFSH Past Medical History Medical History Acid reflux Diverticulitis Hematuria High cholesterol Hypertension Osteoarthritis of left hip Surgical History H/O total hysterectomy with bilateral salpingo-oophorectomy (BSO) History of dental surgery History of umbilical hernia repair Status post total hip replacement, left (~06/07/19) Family History Family History Father Cancer Mother Cancer Maternal Grandmother Colon cancer Other Tubular adenoma Social History Social History Household Members: Significant Other and Children Housing: House Do you presently have visiting nurse or other home services: No Alcohol intake: current Alcohol intake frequency: 0-2 drinks per day Alcohol type: wine Patient Tobacco Use Status: Never used Tobacco Use of substances other than those prescribed or required for medical reasons: No Advance Directives: Yes Advance Directives on File: Yes Advance Directives Date on File: 01/13/21 Patient : No service: No Current occupational status: employed Current occupation: [employer]- right handed
[2021-02-05 19:13] VITALS: BP 159/91; PULSE 110; RESP 18; TEMP 37.1; O2SAT 99
--- NOTE | 2021-02-05 19:17 | PC.NURSE ---
pt a&ox3, iv inserted, pt aware we need a urine, pt awaiting ct scan, vss, will continue to monitor.
[2021-02-05] MEDS: iohexoL 350 MG/ML 100 ML INFUS..BTL IV (19:36)
[2021-02-05] MEDS: Lidocaine HCl 4 % MPF w/MADgic 5 ML AMPUL 1 APPL TOPICAL (21:37)
--- NOTE | 2021-02-05 21:40 | PC.NURSE ---
NG tube placed, pt tolerated well, cxr ordered to confirm placement, will continue to monitor.
--- NOTE | 2021-02-05 21:53 | PHA.MEDREC ---
Pharmacy Consult ? Medication Reconciliation Pharmacy has completed the medication reconciliation.
--- NOTE | 2021-02-05 22:03 | PM.HPGS ---
History of Present Illness History of Present Illness Date of Service: 02/05/21 Chief complaint: destruction, throwing up Narrative: Swati Mackey is a 60 year old female who recently was admitted for treatment of sigmoid diverticulitis with micro perforation. She completed her antibiotic therapy on an outpatient basis. Following discharge, she had increasing difficulty with constipation. She met with Dr. Ibarra and plans were made to proceed with elective surgery. She was started on MiraLax. The symptoms of constipation seem to wax and wane. Over the past few days, she has become more distended. She reports that her abdomen is uncomfortable. She has been experiencing moderately severe crampy abdominal pain. This morning, she had an episode of feculent emesis. She then passed significant amount of loose stool. She came to the emergency department for further evaluation. Laboratory studies demonstrated a normal white blood count. BUN was elevated at 37. A CT scan of the abdomen and pelvis was obtained. It showed some improvement in the appearance of the sigmoid diverticulitis. The small bowel appeared dilated through the ileocecal valve. The right colon was fluid-filled. Review of Systems Constitutional: Constitutional: Reports no additional constitutional complaints and Denies headache(s) Eyes: Eyes: Reports requires corrective lenses ENT: Reports Normal hearing present, Denies dizziness and Denies headache(s) Cardiovascular: Cardiovascular: Denies chest pain, Denies irregular heart rhythm, Denies palpitations and Reports dyspnea (Associated with current abdominal distension and pressure) Respiratory: Respiratory: Denies cough, Reports dyspnea (Associated with current abdominal distension and pressure) and Denies wheezing Gastrointestinal: Gastrointestinal: Reports abdominal pain (Intermittent, crampy), Denies hematochezia, Reports change in bowel habits, Reports constipation and Denies nausea Genitourinary: Genitourinary: Denies urinary frequency, Denies nocturia and Denies dysuria Musculoskeletal: Comments: Left hip pain, history of total hip Integumentary/Breasts: Skin/Breast: Denies pruritus and Denies rash Neurologic: Reports Normal hearing present, Denies dizziness, Denies headache(s), Denies memory loss and Denies convulsions Psychiatric: Psychiatric: Denies memory loss Endocrine: Endocrine: Denies cold intolerance, Denies heat intolerance and Denies palpitations Hematologic/Lymphatic: Hematologic/Lymphatic: Denies easy bleeding Allergic/Immunologic: Allergic/Immunologic: Denies wheezing PMFSH Past Medical History Medical History Acid reflux Diverticulitis Hematuria High cholesterol Hypertension Osteoarthritis of left hip Family History Family History (Updated 02/05/21 @ 22:11 by Gianna Martin MD) Father Cancer Mother Cancer Maternal Grandmother Colon cancer Other Tubular adenoma Surgical History Surgical History H/O total hysterectomy with bilateral salpingo-oophorectomy (BSO) History of dental surgery History of umbilical hernia repair Status post total hip replacement, left (~06/07/19) Social History Social History Household Members: Significant Other and Children Housing: House Do you presently have visiting nurse or other home services: No Alcohol intake: current Alcohol intake frequency: 0-2 drinks per day Alcohol type: wine Patient Tobacco Use Status: Never used Tobacco Use of substances other than those prescribed or required for medical reasons: No Advance Directives: Yes Advance Directives on File: Yes Advance Directives Date on File: 01/13/21 Patient : No service: No Current occupational status: retired Current occupation: [employer]- right handed Meds Allergies Allergy/AdvReac Type Severity Reaction Status Date / Time No Known Allergies Allergy Verified 01/13/21 09:46 [No Known Allergies*] Active Medications: Current Medications Generic Name Dose Route Start Last Admin Trade Name Freq PRN Reason Stop Dose Admin Pharmacy Consult 1 each 02/05/21 21:39 Consult Rx Perform Med Rec MISCELLANE ONCE PRN Consult order Home Medications Medication Instructions Recorded Confirmed Last Taken Type amlodipine 5 mg tablet 5 mg PO DAILY 06/11/20 02/05/21 02/04/21 History omeprazole 20 mg capsule,delayed 20 mg PO BID 06/11/20 02/05/21 02/04/21 History release fluoxetine 10 mg capsule 10 mg PO QAM 10/02/20 02/05/21 02/04/21 History atorvastatin 20 mg tablet 1 tab PO BEDTIME 02/05/21 02/05/21 02/04/21 History Physical Exam Vital Signs: Vital Signs: Last Vital Signs Temp 98.7 F 02/05/21 19:13 Pulse 110 H 08/10/21 19:13 Resp 18 02/05/21 19:13 BP 159/91 H 02/05/21 19:13 Pulse Ox 99 02/05/21 19:13 Body Mass Index 26.6 Const: General: cooperative, healthy appearing and anxious Orientation/consciousness: patient oriented x3 HENMT: Head: Yes normocephalic and Yes atraumatic Eyes: Sclerae: sclerae normal EOM: EOMs intact bilaterally Resp: Effort & Inspection: normal respiratory effort Auscultation: clear to auscultation bilaterally Cardio: Rate: regular rate Rhythm: regular rhythm GI: Other: Distended, soft, bowel sounds active, no palpable masses, nontender Rectal Exam - Female: deferred Skin: Other: Normal color, warm and dry Neuro: General: patient oriented x3 Cranial nerves: Yes Normal hearing present Extrem: General: Yes normal to inspection Results Results Labs: Short CBC 02/05/21 Range/Units 12:05 WBC 7.8 (4.8-10.8) X10*3/uL Hgb 14.2 (12.0-16.0) g/dl Hct 41.7 (37-47) % Plt Count 522 H D (160-400) X10*3/uL BMP 02/05/21 12:04 Sodium 136 Potassium 4.3 Chloride 94 L Carbon Dioxide 25 BUN 37 H D Creatinine 1.05 Calcium 9.1 D Liver Function 02/05/21 Range/Units 12:04 Total Bilirubin 0.6 (0.0-1.0) mg/dL Direct Bilirubin 0.4 (0.0-0.5) mg/dL AST 14 D (5-31) U/L ALT 21 (0-31) U/L Alkaline Phosphatase 100 (39-117) U/L Albumin 3.8 (3.5-5.0) g/dL Chest x-ray: image reviewed Abdomen CT scan report/results: report reviewed and image reviewed Assessment and Plan (1) Diverticulitis of large intestine with complication: Status: Acute (2) Partial small bowel obstruction: Status: Acute 60-year-old female with diverticulitis of the sigmoid colon now presenting with signs of partial large bowel obstruction, obstipation and small-bowel distension. She has evidence of dehydration as well with mild tachycardia and elevated BUN. NG tube has been placed. IV hydration has been initiated and will be continued. She will be placed on Zosyn. She is scheduled for elective resection of the sigmoid colon in about 2 weeks, but it appears that more urgent surgery will be needed. If she demonstrates significant clinical the improvement over a short period of time, an attempt at gentle bowel prep prior to surgery may be appropriate. Further plans will be made depending upon clinical progress. Quality Stroke Does the patient have a stroke diagnosis?: No VTE Prior VTE?: No VTE Risk Level:: Surgical - moderate VTE Device Contraindication: N/A - Device Ordered VTE Drug Contraindication: Treatment Not Indicated Procedures Date of Service Date of Service: 02/05/21
--- NOTE | 2021-02-05 22:22 | MHC.CM.PN ---
CM met with admitted pt, with bed assignment pending. Pt is A&Ox3. Was recently admitted to [facility] 01/13-01/17 with diverticulitis/microperforation. Admitted with diverticulitis/small bowel obstruction. HCP is not on file. HCP/sister Meenakshi Borges ([phone]). Copy requested. Pt lives with S.O. and her son. Pt is retired. Pt has no DME and no services. Pt is very independent. D/C plan is home without services. Pt will arrange transportation. CM to follow for d/c needs.
--- NOTE | 2021-02-05 22:23 | PC.NURSE ---
surgeon came to see patient, requested NG tube to be places at [facility], surgeon is allowing the patient to have ice chips at this time.
[2021-02-05] MEDS: Piperacillin Sodium/Tazobactam 3.375 GM in 0.9 % Sodium Chloride 50 ML IV (23:16)
[2021-02-05 23:20] VITALS: BP 116/95; PULSE 108; RESP 20; O2SAT 98
[2021-02-05 23:21] LABS: Influenza A PCR NEGATIVE (Negative); Influenza B PCR NEGATIVE (Negative); Resp Syncy Virus RNA Qual PCR NEGATIVE (Negative); SARS COV2 PCR INHOUSE NEGATIVE (Negative)
[2021-02-05] MEDS: Dextrose 5 % and Lactated Ring 1,000 ML 100 ML IVCONT (23:40)
[2021-02-06 00:38] LABS: Appearance Urine CLEAR; Color Urine YELLOW; Glucose Urine UA NEG (NEG); Leukocyte Esterase Urine NEG (NEG); Nitrite Urine NEG (NEG); UACC Culture Trigger NO; Urine Blood 2+ (NEG); Urine Ketones NEG (NEG); Urine Protein NEG (NEG-TRACE)
[2021-02-06 00:40] LABS: UPreg QC Valid YES; Urine Pregnancy NEGATIVE (NEGATIVE)
[2021-02-06 00:48] LABS: Bacteria Urine TRACE /LPF; Squamous Epithelial Cell Urine 1+ /LPF; WBC Urine 0 /HPF (0-4)
--- NOTE | 2021-02-06 02:45 | PC.NURSE ---
Report given to M/S RN.
[2021-02-06 03:30] VITALS: BMI 25.8
[2021-02-06 04:00] VITALS: BP 142/79; PULSE 94; RESP 16; TEMP 36.2; O2SAT 98
[2021-02-06] MEDS: Piperacillin Sodium/Tazobactam 3.375 GM in 0.9 % Sodium Chloride 50 ML IV ×4 (05:34→22:06)
[2021-02-06 06:49] LABS: Hematocrit 33.8 % (37-47); Hemoglobin 11.5 g/dl (12.0-16.0); Mean Corpuscular Volume 91.1 fL (80-98); Mean Platelet Volume 9.1 fL (9.4-12.3); Platelet Count 429 X10*3/uL (160-400); Red Blood Count 3.71 X10*6/uL (4.20-5.50); Red Cell Distribution Width 14.6 % (11.0-16.0); White Blood Count 6.1 X10*3/uL (4.8-10.8)
[2021-02-06 07:09] LABS: Anion Gap 14 (12-20); Blood Urea Nitrogen 30 mg/dL (9-16); Carbon Dioxide 29 mmol/L (22-29); Chloride 98 mmol/L (96-108); Creatinine Clr Calc Pharmacy 70.1; Estimated Glomerular Filt Rate > 60; Glucose Fasting 104 mg/dL (60-99); Potassium 3.7 mmol/L (3.3-5.1); Sodium 137 mmol/L (135-145)
[2021-02-06 07:26] LABS: Calcium 7.9 mg/dL (8.4-10.2)
[2021-02-06 07:39] VITALS: BP 153/76; PULSE 87; RESP 16; TEMP 37.1; O2SAT 99
[2021-02-06] MEDS: FLUoxetine HCl 10 MG CAPSULE PO (08:04)
[2021-02-06] MEDS: amLODIPine Besylate 5 MG TABLET PO (08:04)
--- NOTE | 2021-02-06 08:48 | P.PNGS_ITS ---
Subjective Subjective Date of Service: 02/06/21 <Christina Johnson PA-C - Last Filed: 02/06/21 08:53> 02/06/21 <Vaibhav Velasquez MD - Last Filed: 02/06/21 09:11> Interval history: Feels a little better this morning. Wants NGT out. Passing flatus and has liquid BM. <Christina Johnson PA-C - Last Filed: 02/06/21 08:53> Physical Exam Vital Signs: Vital Signs: Last Vital Signs Temp 98.7 F 02/06/21 07:39 Pulse 87 02/06/21 07:39 Resp 16 02/06/21 07:39 BP 153/76 H 02/06/21 07:39 Pulse Ox 99 02/06/21 07:39 Body Mass Index 25.8 <CAROL Adame Last Filed: 02/06/21 08:53> Const: General: no acute distress <Christina Johnson PA-C - Last Filed: 02/06/21 08:53> Orientation/consciousness: patient oriented x3 <Christina Johnson PA-C - Last Filed: 02/06/21 08:53> Resp: Effort & Inspection: normal respiratory effort <CAROL Adame Last Filed: 02/06/21 08:53> Auscultation: clear to auscultation bilaterally <Christina Johnson PA-C - Last Filed: 02/06/21 08:53> Cardio: Rate: regular rate <Christina Johnson PA-C - Last Filed: 02/06/21 08:53> GI: Inspection: Yes distended <CAROL Adame Last Filed: 02/06/21 08:53> Palpation (GI): Soft to palpation, Tenderness to palpation present (GI) (mild), no guarding and not rigid <CAROL Adame Last Filed: 02/06/21 08:53> Percussion: Yes tympanic to percussion <CAROL Adame Last Filed: 02/06/21 08:53> Skin: General skin exam: no rashes or lesions noted <Christina Johnson PA-C - Last Filed: 02/06/21 08:53> Neuro: General: patient oriented x3 <Christina Johnson PA-C - Last Filed: 02/06/21 08:53> Extrem: General: Yes no clubbing, cyanosis or edema <Christina Johnson PA-C - Last Filed: 02/06/21 08:53> Procedures Date of Service Date of Service: 02/06/21 <Christina Johnson PA-C - Last Filed: 02/06/21 08:53> Progress Note: A&P Assessment and plan (1) Diverticulosis large intestine w/o perforation or abscess w/o bleeding: Status: Acute <CAROL Adame Last Filed: 02/06/21 08:53> Assessment and Plan: She passing flatus and BMs She has she has mild pain Abdomen distended but soft no guarding rebound I have reviewed her CAT scan with radiologist - tapering of the an area of the sigmoid consistent with narrowing likely from diverticular disease, patent otherwise with stool distally Will do serial abdominal exam Explained to the patient that if she does not get better, she may need resection, possible stoma this admission Otherwise benign findings currently Seen and examined - agree with TYESHA Johnson <Vaibhav Velasquez MD - Last Filed: 02/06/21 09:11> Assessment and Plan: ?60-year-old female with history of diverticulitis of the sigmoid colon now presenting with signs of partial large bowel obstruction, obstipation and small-bowel distension.? Patient feels slightly improved this morning. NGT with scanty output. Remains distended and tympanitic. Will review imaging. Will likely need resection during stay given the obstruction. Encouraged OOB/ambulation.? Further plans will be made depending upon clinical progress. Patient comfortable with plan. <CAROL Adame Last Filed: 02/06/21 08:53> Fall Risk Details Current Medications: Current Medications Generic Name Dose Route Start Last Admin Trade Name Freq PRN Reason Stop Dose Admin Acetaminophen 650 mg 02/05/21 22:23 Acetaminophen 325 Mg Tablet PO Q6H PRN Fever Amlodipine Besylate 5 mg 02/06/21 09:00 02/06/21 08:04 Amlodipine Besylate 5 Mg Tablet PO 5 mg DAILY SESAR Administration Protocol Fluoxetine HCl 10 mg 02/06/21 09:00 02/06/21 08:04 Fluoxetine Hcl 10 Mg Capsule PO 10 mg DAILY SESAR Administration Dextrose/Lactated Ringer's 1,000 mls @ 100 mls/hr 02/05/21 22:23 02/06/21 06:08 D5lr IVCONT 100 mls/hr .Q10H SESAR Infusion Piperacillin Sod/Tazobactam 50 mls @ 100 mls/hr 02/05/21 23:00 02/06/21 06:08 Sod 3.375 gm/ Sodium Chloride IV Infused Q6H SESAR Infusion Morphine Sulfate 4 mg 02/05/21 22:23 Morphine Sulfate 4 Mg/Ml Cartridge IVPUSH Q3H PRN Pain, severe Protocol Multi-Ingred Medicated Throat [place] 1 spray 02/05/21 22:23 Throat [place], Medicated 20 Ml Bottle MUCOUS MEM Q2H PRN Sore Throat Omeprazole 20 mg 02/06/21 06:30 02/06/21 06:07 Omeprazole 20 Mg Capsule.Dr TAO Not Given BID@0630,1630 [facility] Ondansetron HCl 4 mg 02/05/21 22:23 Ondansetron Hcl 4 Mg/2 Ml Vial IVPUSH Q8H PRN Nausea Pharmacy Consult 1 each 02/05/21 21:39 Consult Rx Perform Med Rec MISCELLANE ONCE PRN Consult order <Christina Johnson PA-C - Last Filed: 02/06/21 08:53> Time Spent With Patient Time: Total time spent is greater than 50% in coordination of care (as documented) at patient's floor/unit and/or counseling patient: <Christina Johnson PA-C - Last Filed: 02/06/21 08:53> Time with patient: 15 - 24 minutes <Christina Johnson PA-C - Last Filed: 02/06/21 08:53> Quality Stroke Does the patient have a stroke diagnosis?: No <Christina Johnson PA-C - Last Filed: 02/06/21 08:53> VTE Prior VTE?: No <Christina Johnson PA-C - Last Filed: 02/06/21 08:53> VTE Risk Level:: Surgical - moderate <Christina Johnson PA-C - Last Filed: 02/06/21 08:53> VTE Device Contraindication: N/A - Device Ordered <Christina Johnson PA-C - Last Filed: 02/06/21 08:53> VTE Drug Contraindication: Treatment Not Indicated <Christina Johnson PA-C - Last Filed: 02/06/21 08:53>
[2021-02-06] MEDS: Acetaminophen 325 MG TABLET 650 MG PO ×2 (08:57→17:25)
[2021-02-06] MEDS: Dextrose 5 % and Lactated Ring 1,000 ML 100 ML IVCONT ×2 (10:16→22:04)
[2021-02-06 11:39] VITALS: BP 151/72; PULSE 91; RESP 18; TEMP 36.3; O2SAT 98
--- NOTE | 2021-02-06 12:04 | MHC.CM.PN ---
EMR REVIEWED, PT REMAINS NPO W/NASOGASTRIC TUBE, MILD PAIN, +LOOSE STOOL, PER SURGICAL LIKELY PT WILL NEED COLON RESECTION THIS ADMISSION, NO PLAN FOR D/C TODAY. CM WILL FOLLOW.
[2021-02-06 15:10] VITALS: BP 148/71; PULSE 82; RESP 20; TEMP 36; O2SAT 98
--- NOTE | 2021-02-06 16:17 | PM.EVENT ---
Event Note Date of Service: 02/06/21 Event Note: Seen on afternoon rounds Says she feels better She states that she passed large amount of this afternoon Denies abdominal pain Abdomen softer Stable vital sign No guarding rebound No significant tenderness Exam remains benign follow-up x-ray tomorrow Clinically improved compared to earlier
[2021-02-06] MEDS: Omeprazole 20 MG CAPSULE.DR PO (17:24)
[2021-02-06 19:00] VITALS: BP 131/73; PULSE 84; RESP 20; TEMP 36.1; O2SAT 97
[2021-02-07] VITALS (7 sets, daily range): BP systolic 140–163; BP diastolic 70–82; PULSE 78–94; RESP 16–18; TEMP 36.2–36.8; O2SAT 96–98
[2021-02-07] MEDS: Omeprazole 20 MG CAPSULE.DR PO ×2 (05:43→17:36)
[2021-02-07] MEDS: Piperacillin Sodium/Tazobactam 3.375 GM in 0.9 % Sodium Chloride 50 ML IV ×3 (05:43→17:37)
[2021-02-07] MEDS: Dextrose 5 % and Lactated Ring 1,000 ML 100 ML IVCONT ×2 (08:49→20:38)
[2021-02-07] MEDS: FLUoxetine HCl 10 MG CAPSULE PO (08:50)
[2021-02-07] MEDS: amLODIPine Besylate 5 MG TABLET PO (08:50)
--- NOTE | 2021-02-07 10:34 | P.PNGS_ITS ---
Subjective Subjective Date of Service: 02/07/21 <Christina Johnson PA-C - Last Filed: 02/07/21 10:38> 02/07/21 <Vaibhav Velasquez MD - Last Filed: 02/07/21 13:54> Interval history: Feels a little better this morning, no pain. Continues to pass flatus. <Christina Johnson PA-C - Last Filed: 02/07/21 10:38> Physical Exam Vital Signs: Vital Signs: Last Vital Signs Temp 97.4 F 02/07/21 08:00 Pulse 92 02/07/21 08:00 Resp 18 02/07/21 08:00 BP 158/82 H 02/07/21 08:00 Pulse Ox 96 02/07/21 08:00 Body Mass Index 25.8 <CAROL Adame Last Filed: 02/07/21 10:38> Const: General: comfortable, no acute distress and alert <Christina Johnson PA-C - Last Filed: 02/07/21 10:38> Orientation/consciousness: patient oriented x3 <Christina Johnson PA-C - Last Filed: 02/07/21 10:38> HENMT: Other: NGT in place <Christina Johnson PA-C - Last Filed: 02/07/21 10:38> Resp: Effort & Inspection: normal respiratory effort <Christina Johnson PA-C - Last Filed: 02/07/21 10:38> GI: Inspection: Yes distended <Christina Johnson PA-C - Last Filed: 02/07/21 10:38> Palpation (GI): Soft to palpation, nontender, no guarding and not rigid <Christina Johnson PA-C - Last Filed: 02/07/21 10:38> Percussion: Yes tympanic to percussion <CAROL Adame Last Filed: 02/07/21 10:38> Skin: General skin exam: no rashes or lesions noted <CAROL Adame Last Filed: 02/07/21 10:38> Neuro: General: patient oriented x3 <CAROL Adame Last Filed: 02/07/21 10:38> Extrem: General: Yes no clubbing, cyanosis or edema <Christina Johnson PA-C - Last Filed: 02/07/21 10:38> Procedures Date of Service Date of Service: 02/07/21 <Christina Johnson PA-C - Last Filed: 02/07/21 10:38> Progress Note: A&P Assessment and plan (1) Diverticulitis of large intestine with complication: Status: Acute <Christina Johnson PA-C - Last Filed: 02/07/21 10:38> Assessment and Plan: Says she continues to pass flatus However, abdomen remains distended although soft She denies pain although does have discomfort Abdominal x-ray shows a little bit of improvement with regards to the small bowel dilatation CAT scans reviewed with the radiologist Dr. daugherty - seems to have long segment narrowing in sigmoid likely from diverticular disease, seen as well with previous CAT scans Seems unlikely to completely resolved If she does not improve significantly by tomorrow, plan sigmoid resection, likely stoma due to unprepped bowel and edema seen on CT scan Exam remains benign Seen and examined - agree with TYESHA Johnson <Vaibhav Velasquez MD - Last Filed: 02/07/21 13:54> Assessment and Plan: 60-year-old female with history of diverticulitis of the sigmoid colon now presenting with signs of partial large bowel obstruction, obstipation and small-bowel distension.? Patient feels improved and AXR with some interval improvement of bowel dilatation however she remains distended and tympanitic. Will continue ngt, NPO status, IVF and will observe for one more day. If no further improvement tomorrow, will need sigmoid resection, likely stoma. Encouraged OOB/ambulation. Patient comfortable with plan. <Christina Johnson PA-C - Last Filed: 02/07/21 10:38> Fall Risk Details Current Medications: Current Medications Generic Name Dose Route Start Last Admin Trade Name Freq PRN Reason Stop Dose Admin Acetaminophen 650 mg 02/05/21 22:23 02/06/21 17:25 Acetaminophen 325 Mg Tablet PO 650 mg Q6H PRN Administration Fever Amlodipine Besylate 5 mg 02/06/21 09:00 02/07/21 08:50 Amlodipine Besylate 5 Mg Tablet PO 5 mg DAILY SESAR Administration Protocol Fluoxetine HCl 10 mg 02/06/21 09:00 02/07/21 08:50 Fluoxetine Hcl 10 Mg Capsule PO 10 mg DAILY SESAR Administration Dextrose/Lactated Ringer's 1,000 mls @ 100 mls/hr 02/05/21 22:23 02/07/21 08:49 D5lr IVCONT 100 mls/hr .Q10H SESAR Administration Piperacillin Sod/Tazobactam 50 mls @ 100 mls/hr 02/05/21 23:00 02/07/21 07:09 Sod 3.375 gm/ Sodium Chloride IV Infused Q6H SESAR Infusion Morphine Sulfate 4 mg 02/05/21 22:23 Morphine Sulfate 4 Mg/Ml Cartridge IVPUSH Q3H PRN Pain, severe Protocol Multi-Ingred Medicated Throat [place] 1 spray 02/05/21 22:23 Throat [place], Medicated 20 Ml Bottle MUCOUS MEM Q2H PRN Sore Throat Omeprazole 20 mg 02/06/21 06:30 02/07/21 05:43 Omeprazole 20 Mg Capsule. PO 20 mg BID@0630,1630 SESRA Administration Ondansetron HCl 4 mg 02/05/21 22:23 Ondansetron Hcl 4 Mg/2 Ml Vial IVPUSH Q8H PRN Nausea Pharmacy Consult 1 each 02/05/21 21:39 Consult Rx Perform Med Rec MISCELLANE ONCE PRN Consult order <Christina Johnson PA-C - Last Filed: 02/07/21 10:38> Time Spent With Patient Time: Total time spent is greater than 50% in coordination of care (as d ocumented) at patient's floor/unit and/or counseling patient: <Christina Johnson PA-C - Last Filed: 02/07/21 10:38> Time with patient: less than 15 minutes <Christina Johnson PA-C - Last Filed: 02/07/21 10:38> Quality Stroke Does the patient have a stroke diagnosis?: No <Christina Johnson PA-C - Last Filed: 02/07/21 10:38> VTE Prior VTE?: No <Christina Johnson PA-C - Last Filed: 02/07/21 10:38> VTE Risk Level:: Surgical - moderate <Christina Johnson PA-C - Last Filed: 02/07/21 10:38> VTE Device Contraindication: N/A - Device Ordered <Christina Johnson PA-C - Last Filed: 02/07/21 10:38> VTE Drug Contraindication: Treatment Not Indicated <Christina Johnson PA-C - Last Filed: 02/07/21 10:38>
[2021-02-08] VITALS (20 sets, daily range): BP systolic 133–159; BP diastolic 64–83; PULSE 81–98; RESP 14–20; TEMP 36.1–36.6; O2SAT 95–100
[2021-02-08] MEDS: Piperacillin Sodium/Tazobactam 3.375 GM in 0.9 % Sodium Chloride 50 ML IV ×3 (00:06→17:56)
[2021-02-08] MEDS: Dextrose 5 % and Lactated Ring 1,000 ML 100 ML IVCONT ×3 (06:19→22:07)
--- NOTE | 2021-02-08 08:22 | PM.EVENT ---
Event Note Date of Service: 02/08/21 Event Note: seen and examined passing flatus abd however remains markedly distended she feels bloated as well will proceed with laparotomy, sigmoid resection, likely stoma reviewed with her the technique, explained risks, benefits and alterantives she wants to proceed - says she has been having these issues for a few months
[2021-02-08] MEDS: amLODIPine Besylate 5 MG TABLET PO (08:45)
--- NOTE | 2021-02-08 10:26 | HO.ANESPROP2 ---
[facility] Active Problems Active Problems: All Active Problems (Updated 02/05/21 @ 21:34 by Evita Maldonado MD) 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 (Acute) Partial small bowel obstruction (Acute) Diverticulitis of large intestine with complication (Acute) Diverticulosis large intestine w/o perforation or abscess w/o bleeding (Acute) Tubular adenoma (Acute) Family history of colonic polyps (Acute) Past Medical History Medical History Acid reflux Diverticulitis Hematuria High cholesterol Hypertension Osteoarthritis of left hip Family History Family History (Updated 02/05/21 @ 22:11 by Gianna Martin MD) Father Cancer Mother Cancer Maternal Grandmother Colon cancer Other Tubular adenoma Surgical History Surgical History H/O total hysterectomy with bilateral salpingo-oophorectomy (BSO) History of dental surgery History of umbilical hernia repair Status post total hip replacement, left (~06/07/19) Social History Social History Household Members: Significant Other Housing: House Do you presently have visiting nurse or other home services: No Alcohol intake: current Alcohol intake frequency: does not drink Alcohol type: wine Patient Tobacco Use Status: Never used Tobacco Smoked in Last 30 Days: No Second Hand Smoke Exposure: No Use of substances other than those prescribed or required for medical reasons: No Currently Displaying Signs/Symptoms of Drug Intoxication Withdrawal: No Any prior treatment program specific to substance use: No Have you been hit, kicked, punched, or otherwise hurt by someone within the past year? If so, by whom?: No Do you feel safe in your current relationship?: Yes Is there a partner from a previous relationship who is making you feel unsafe now?: No Are you made to feel afraid or neglected: No Are you DNR?: No Advance Directives: Yes Advance Directives Information Provided: No Advance Directives on File: Yes Advance Directives Date on File: 01/13/21 Do you have thoughts of harming others: None Do you have a plan to hurt others: No Plan Recently lost weight without trying: No Eating poorly because of decreased appetite: No Nutrition Risks: No Nutritional Risk Patient : No : No Poor oral hygiene: No service: No Current occupational status: retired Current occupation: [employer]- right handed Meds Allergies Allergy/AdvReac Type Severity Reaction Status Date / Time No Known Allergies Allergy Verified 01/13/21 09:46 [No Known Allergies*] Active Medications: Current Medications Generic Name Dose Route Start Last Admin Trade Name Jorge Luis PRN Reason Stop Dose Admin Acetaminophen 650 mg 02/05/21 22:23 02/06/21 17:25 Acetaminophen 325 Mg Tablet PO 650 mg Q6H PRN Administration Fever Amlodipine Besylate 5 mg 02/06/21 09:00 02/08/21 08:45 Amlodipine Besylate 5 Mg Tablet PO 5 mg DAILY SESAR Administration Protocol Fluoxetine HCl 10 mg 02/06/21 09:00 02/08/21 08:48 Fluoxetine Hcl 10 Mg Capsule PO Not Given DAILY SESAR Dextrose/Lactated Ringer's 1,000 mls @ 100 mls/hr 02/05/21 22:23 02/08/21 06:19 D5lr IVCONT 100 mls/hr .Q10H SESAR Administration Piperacillin Sod/Tazobactam 50 mls @ 100 mls/hr 02/05/21 23:00 02/08/21 06:21 Sod 3.375 gm/ Sodium Chloride IV Infused Q6H SESAR Infusion Morphine Sulfate 4 mg 02/05/21 22:23 Morphine Sulfate 4 Mg/Ml Cartridge IVPUSH Q3H PRN Pain, severe Protocol Multi-Ingred Medicated Throat [place] 1 spray 02/05/21 22:23 Throat [place], Medicated 20 Ml Bottle MUCOUS MEM Q2H PRN Sore Throat Omeprazole 20 mg 02/06/21 06:30 02/08/21 05:50 Omeprazole 20 Mg Capsule. PO Not Given BID@0630,1630 SESAR Ondansetron HCl 4 mg 02/05/21 22:23 Ondansetron Hcl 4 Mg/2 Ml Vial IVPUSH Q8H PRN Nausea Pharmacy Consult 1 each 02/05/21 21:39 Consult Rx Perform Med Rec MISCELLANE ONCE PRN Consult order Home Medications Medication Instructions Recorded Confirmed Last Taken Type amlodipine 5 mg tablet 5 mg PO DAILY 06/11/20 02/05/21 02/04/21 History omeprazole 20 mg capsule,delayed 20 mg PO BID 12/02/05/21 02/04/21 History release fluoxetine 10 mg capsule 10 mg PO QAM 10/02/20 02/05/21 02/04/21 History atorvastatin 20 mg tablet 1 tab PO BEDTIME 02/05/21 02/05/21 02/04/21 History Exam Exam Date and Time: February 08, 2021 1026 Height,Weight and Vital Signs: Height 5 ft 5 in Weight 70.4 kg Last Vital Signs Temp 97.0 F 02/08/21 10:03 Pulse 83 02/08/21 10:03 Resp 16 02/08/21 10:03 BP 159/77 H 02/08/21 10:03 Pulse Ox 96 02/08/21 10:03 Pertinent Lab Results Pertinent Lab Results: Laboratory Tests 02/05/21 02/05/21 02/05/21 12:04 12:05 22:27 WBC 7.8 RBC 4.58 D Hgb 14.2 Hct 41.7 MCV 91.0 MCH 31.0 MCHC 34.1 RDW 14.6 Plt Count 522 H D MPV 9.0 L Immature Gran % (Auto) Cancelled Neut % (Auto) Cancelled Lymph % (Auto) Cancelled [place] % (Auto) Cancelled Eos % (Auto) Cancelled Baso % (Auto) Cancelled Lymph # (Auto) Cancelled [place] # (Auto) Cancelled Eos # (Auto) Cancelled Baso # (Auto) Cancelled Abs Immat Gran (auto) Cancelled Absolute Neuts (auto) Cancelled Absolute Nucleated RBC 0.000 Nucleated RBC % (auto) 0.0 Neutrophils % (Manual) 70 Band Neutrophils % 7 H Lymphocytes % (Manual) 11 L Atypical Lymphs % (Man) 1 Monocytes % (Manual) 10 Basophils % (Manual) 1 Abs Neuts (Manual) 6.0 Lymphocytes # (Manual) 0.9 Atyp Lymphs # (Manual) 0.1 Monocytes # (Manual) 0.8 Basophils # (Manual) 0.1 Platelet Estimate INCREASED Large Platelets PRESENT Plt Morphology Comment NOTED RBC Morphology NORMAL Sodium 136 Potassium 4.3 Chloride 94 L Carbon Dioxide 25 Anion Gap 21 H BUN 37 H D Creatinine 1.05 Estim Creat Clear Calc 58.2 Estimated GFR 54 Random Glucose 137 H Fasting Glucose Calcium 9.1 D Total Bilirubin 0.6 Direct Bilirubin 0.4 AST 14 D ALT 21 Alkaline Phosphatase 100 Total Protein 6.8 Albumin 3.8 Lipase < 4 L Urine Color Urine Appearance Urine pH Ur Specific [place] Urine Protein Urine Glucose (UA) Urine Ketones Urine Blood Urine Nitrite Ur Leukocyte Esterase Urine RBC Urine WBC Ur Squamous Epith Cells Urine Bacteria Urine Test Coronavirus (PCR) NEGATIVE Influenza Type A (PCR) NEGATIVE Influenza Type B (PCR) NEGATIVE RSV RNA Qual (PCR) NEGATIVE 02/06/21 02/06/21 02/06/21 00:31 00:31 06:04 WBC 6.1 RBC 3.71 L Hgb 11.5 L Hct 33.8 L MCV 91.1 MCH 31.0 MCHC 34.0 RDW 14.6 Plt Count 429 H MPV 9.1 L Immature Gran % (Auto) Neut % (Auto) Lymph % (Auto) [place] % (Auto) Eos % (Auto) Baso % (Auto) Lymph # (Auto) [place] # (Auto) Eos # (Auto) Baso # (Auto) Abs Immat Gran (auto) Absolute Neuts (auto) Absolute Nucleated RBC 0.000 Nucleated RBC % (auto) 0.0 Neutrophils % (Manual) Band Neutrophils % Lymphocytes % (Manual) Atypical Lymphs % (Man) Monocytes % (Manual) Basophils % (Manual) Abs Neuts (Manual) Lymphocytes # (Manual) Atyp Lymphs # (Manual) Monocytes # (Manual) Basophils # (Manual) Platelet Estimate Large Platelets Plt Morphology Comment RBC Morphology Sodium Potassium Chloride Carbon Dioxide Anion Gap BUN Creatinine Estim Creat Clear Calc Estimated GFR Random Glucose Fasting Glucose Calcium Total Bilirubin Direct Bilirubin AST ALT Alkaline Phosphatase Total Protein Albumin Lipase Urine Color YELLOW Urine Appearance CLEAR Urine pH 6.0 Ur Specific [place] 1.010 Urine Protein NEG Urine Glucose (UA) NEG Urine Ketones NEG Urine Blood 2+ H Urine Nitrite NEG Ur Leukocyte Esterase NEG Urine RBC 10-14 H Urine WBC 0 Ur Squamous Epith Cells 1+ Urine Bacteria TRACE Urine Test NEGATIVE Coronavirus (PCR) Influenza Type A (PCR) Influenza Type B (PCR) RSV RNA Qual (PCR) 02/06/21 06:04 WBC RBC Hgb Hct MCV MCH MCHC RDW Plt Count MPV Immature Gran % (Auto) Neut % (Auto) Lymph % (Auto) [place] % (Auto) Eos % (Auto) Baso % (Auto) Lymph # (Auto) [place] # (Auto) Eos # (Auto) Baso # (Auto) Abs Immat Gran (auto) Absolute Neuts (auto) Absolute Nucleated RBC Nucleated RBC % (auto) Neutrophils % (Manual) Band Neutrophils % Lymphocytes % (Manual) Atypical Lymphs % (Man) Monocytes % (Manual) Basophils % (Manual) Abs Neuts (Manual) Lymphocytes # (Manual) Atyp Lymphs # (Manual) Monocytes # (Manual) Basophils # (Manual) Platelet Estimate Large Platelets Plt Morphology Comment RBC Morphology Sodium 137 Potassium 3.7 Chloride 98 Carbon Dioxide 29 Anion Gap 14 BUN 30 H Creatinine 0.86 Estim Creat Clear Calc 70.1 Estimated GFR > 60 Random Glucose Fasting Glucose 104 H Calcium 7.9 L D Total Bilirubin Direct Bilirubin AST ALT Alkaline Phosphatase Total Protein Albumin Lipase Urine Color Urine Appearance Urine pH Ur Specific [place] Urine Protein Urine Glucose (UA) Urine Ketones Urine Blood Urine Nitrite Ur Leukocyte Esterase Urine RBC Urine WBC Ur Squamous Epith Cells Urine Bacteria Urine Test Coronavirus (PCR) Influenza Type A (PCR) Influenza Type B (PCR) RSV RNA Qual (PCR) Airway Mallampati Class: II TM Dist: >3cm Neck ROM: Full
--- NOTE | 2021-02-08 12:33 | MHC.CM.PN ---
CM ATTEMPTED TO CHECK IN W/PT HOWEVER PT IN SURGERY FOR SIGMOID RECTION AT THIS TIME, NO PLAN FOR D/C, ANTICIPATE PT WILL BE HERE THROUGH W/E AND D/C EARLY NEXT WEEK. D/C PLAN: HOME NO SERVICES, FAMILY FOR TRANSPORT
--- NOTE | 2021-02-08 13:31 | W.PM.OPN ---
Operative Note Operative Note Date of Service: 02/08/21 Narrative: Preop diagnosis: Sigmoid obstruction Postop diagnosis: Sigmoid obstruction, with a long stricture, diverticular abscess, extensive adhesions, chronic fibrotic changes, with marked distention of the colon proximally and entire small bowel Procedure: Laparotomy, decompression of the small bowel loops via an enterotomy in the distal ileum, sigmoid resection, with extensive lysis of adhesions, drainage of diverticular abscess, end-colostomy Surgeon: Vaibhav Velasquez MD 1st dental front office assistant: TYESHA Johnson The patient is a 60 year female was at multiple admissions for some sigmoid obstruction likely from chronic diverticular disease. She was actually scheduled already for resection on February 19. However, she was readmitted 3 days ago for again colonic obstruction from the same segment in the sigmoid. She had marked distention of the proximal colon as well as the small bowel loops. She had an NG tube placed with some improvement. However, remained markedly distended despite passage of flatus so I explained to her that it will be best to proceed with resection and colostomy. I explained to her the technique of the procedure. I reviewed the risks including but not limited to bleeding, infections, bowel injury, urinary tract injury, stoma complications, postop pain, as well as the benefits and alternatives. She says she understood and wanted to proceed. She was brought to the operating room. I had marked ideal stoma locations on her abdominal wall. She was placed in general anesthesia via endotracheal tube. She was then positioned in modified lithotomy. I made sure that all pressure points on the legs and the extremities were protected. The abdomen and the perineum and perianal area were prepped and draped in the usual sterile fashion. A surgical time-out had been done. The patient received scheduled Zosyn preoperatively. I made a low midline incision using a blade 10 and this was carried down through the full-thickness of skin and subcutaneous fat to the fascia with electrocautery. The fascia was incised. The peritoneum was entered. Immediately, the markedly distended small bowel loops eviscerated through the incision. These bowel loops were also noted to be edematous and erythematous likely from increased intraluminal pressure. There was note of a lot of ascitic fluid as well. I initially attempted to retract these distended bowel loops away from the pelvis and placed the patient in head-down position. However, in view of the marked distention of the small bowel loops, we had difficulty with retraction and visualization. I therefore decided to decompress the small bowel loops in view of this marked distension. I chose a point in the distal ileum for our enterotomy. I applied stay sutures and a short longitudinal incision using electrocautery. The lumen was entered. We proceeded to then decompress the entire small bowel from the proximal jejunum by milking its contents all the way to the enterotomy and suctioning this with a pool sucker. This part of the procedure took several minutes because of the amount of enteric contents and gas that we had to suction. Eventually, I felt we had adequately decompressed the small bowel loops. Despite being decompressed, the small bowel loops were floppy in view of the likely chronic distension. I closed the enterotomy transversely with Dexon 2-0 sutures full-thickness fashion interrupted and running seromuscular Dexon 2-0 sutures, imbricating the closure underneath the muscular sutures. There was note of a good patent lumen after closure. I was therefore able to then position the small bowel loops away from the pelvis. Thesewere retracted into the upper abdomen using multiple lap pads, kept in place with the Bookwalter retractors. I had therefore achieved good visualization of the pelvis on the left side of the pelvis. I could immediately see a very edematous, long segment of fibrotic sigmoid colon. This was markedly adherent to the sidewall as well. There was note of a lot of omentum as well that were stuck around this area so we had to carefully divide this with the LigaSure. By doing so able I was able to achieve better visualization of this sigmoid colon. We were able to retract the omentum away from the pelvis as well and this was packed in the upper abdomen. I proceeded to then gently free up the fibrotic, densely adherent and edematous sigmoid colon from the pelvic sidewall by carefully dividing the peritoneal attachments in a fine dissection using the right angle clamp and electrocautery. We carefully proceeded with this form of dissection and intermittently did blunt dissection in a finger-fracture technique using my thumb and the index finger. We proceeded slowly starting from proximal to distal. We encountered a diverticular abscess in the distal area of the sigmoid colon adherent to the pelvic sidewall. Pus was drained and this was suctioned out. We continued to separate the sigmoid colon all the way and divided the peritoneal attachments in the distal sigmoid. This entire area appeared fibrotic, very indurated and friable. However, eventually , despite the poor planes, I was able to separate this chronically indurated and fibrotic segment from the pelvic sidewall. I was able to therefore feel for a supple distal sigmoid near the rectosigmoid. I divided the rest of the thickened peritoneal attachments of this segment of sigmoid using electrocautery to allow further mobilization. This allowed as better length of the sigmoid mesentery to work with. I was able to palpate for a supple segment of the proximal sigmoid. I was therefore at this time able to define the segment of the sigmoid that I would transect proximal and distal to this diseased area. I shows the point of transection. I thinned out the peritoneum and created a mesenteric defect. I used a TA 60 mm stapler and this segment of the distal sigmoid was transected using the stapler. I closed the open end of the distal sigmoid with a running Dexon 2-0 stitch to prevent leakage of stool. I then proceeded to create a mesenteric window at the supple area of the sigmoid proximal to this diseased segment. I again created a mesenteric defect. I divided this segment with the JOANNE 90 mm thick stapler. I then proceeded to continue to thin out the mesenteric attachments of this disease sigmoid using electrocautery. I then used the LigaSure to divide the mesentery and completely transected this diseased segment which was then sent as a specimen. This was about 10 cm in length. There was note of good hemostasis on the resected mesentery. I then proceeded to mobilize the proximal sigmoid and left colon by dividing the peritoneal attachments along the white line of Toldt. I used electrocautery with right angle clamps to divide the attachments. The remaining proximal sigmoid left colon remained very distended and the mesentery was foreshortened as well likely from this chronic process. I initially did not have enough length to allow the stump to go through the abdominal wall as the stoma. I therefore decided to mobilize more of the proximal left colon and part of the flexure. I therefore had to lengthen the fascial incision. I extended this to just above the level of the umbilicus. With retraction of the abdominal wall using a large Kennedy retractor, I was able to visualize more the proximal sigmoid at the lateral attachments and continued to divide this with electrocautery all the way to just at the splenic flexure. I divided the bands that were tethering the left colon to the retroperitoneum. We also contained did some blunt dissection to further lengthen the mesentery of the left colon. By doing so eventually, I was able to see that the remaining sigmoid and left colon would reach through the abdominal wall previously marked for the stoma site. I excised a discoid piece of skin using a blade 10 on the left lower quadrant that had been marked earlier. I cauterized the thick subcutaneous layer down to the anterior sheath. I incised the anterior sheath with electrocautery. I did muscle-splitting of the rectus muscle and incised the posterior sheath to create our stoma opening. I enlarged this opening using the Glaxstar retractors. I then dilated this opening to accommodate four of my fingers. I used a Laya to grasp the staple line of the proximal sigmoid and this was pulled out through the opening. It appeared that we had adequate length. I decided to mature the the stoma so we can observe for viability. I excised the staple line using scissors. I secured the edges of the bowel wall circumferentially with Dexon 3-0 interrupted sutures through the subdermal layer. We had good blood supply and the stoma appeared viable despite being erythematous. I then copiously irrigated the pelvis and the left side of the colon. We suctioned out the irrigant fluid. I observed for hemostasis. Once hemostasis was ensured, I then proceeded to remove all lap pads and retractors. I positioned the small bowel loops back into the abdominal cavity, making sure that there were no twisting. There was no evidence of any bowel injury throughout the entire small bowel loops as we inspected this from the jejunum all the way to the ileocecal valve. I then proceeded to close the fascia with a running Maxon 1 stitch. Skin closure was achieved with skin marybeth. All incisions were infiltrated with Marcaine 0.5% for postop analgesia. A stoma appliance was placed around the colostomy. Dressings were applied. The procedure was then completed. The stoma remained viable-looking and not ischemic on examination at the end. The patient tolerated the procedure well. There were no immediate complications noted. Initial and final counts of sponges and instruments were correct. Estimated blood loss was about 75 cc Patient was then extubated without difficulty and transferred to the recovery room with stable vital signs.
--- NOTE | 2021-02-08 13:55 | PM.OP ---
Brief Operative Note Date of Service: 02/08/21 Pre-op diagnosis: Sigmoid obstruction Post-op diagnosis: same (With long segment of fibrotic sigmoid, diverticular abscess, adhesions, marked distention of the proximal colon and small bowel) Procedure: Laparotomy, extensive lysis of adhesions, decompression of the small bowel with enterotomy, sigmoid resection, end colostomy Surgeon: Vaibhav Velasquez MD Anesthesia: GETA Was an Social And Political Studies Professor used for this Procedure?: Yes Social And Political Studies Professor: Christina Johnson Estimated blood loss (mL): 75 Pathology: other (Sigmoid) Condition: stable Disposition: PACU
[2021-02-08] MEDS: HYDROmorphone HCl 0.5 MG/0.5 ML SYRINGE IVPUSH (14:05)
--- NOTE | 2021-02-08 16:38 | PM.EVENT ---
Event Note Date of Service: 02/08/21 Event Note: Seen postop -underwent sigmoid resection, end colostomy today Pain seems adequately controlled Good urine output Abdomen soft Stoma appears viable - small amounts of gas passed Pain management - has HEARING CONSULTANT Incentive spirometry Hope to DC NG tube tomorrow Significant other Brian updated
--- NOTE | 2021-02-08 16:52 | PC.NURSE ---
P unable to document in MAR on CANVAS MARKER morphine pump,PACU notified IT department Morphine CANVAS MARKER pump in place,no basal rate,1 mg bolus available to patient every 10 min,maximum 6 boluses per hour E patient educated on use of CANVAS MARKER pump
[2021-02-09] VITALS (19 sets, daily range): BP systolic 124–151; BP diastolic 60–76; PULSE 87–104; RESP 16–20; TEMP 36–36.7; O2SAT 96–98
[2021-02-09] MEDS: Piperacillin Sodium/Tazobactam 3.375 GM in 0.9 % Sodium Chloride 50 ML IV ×4 (00:07→18:29)
--- NOTE | 2021-02-09 03:48 | PC.NURSE ---
PATIENTS GENETICS PHYSICIAN PUMP WAS DOCUMENTED PER WORKLIST FLOWSHEET, ORDERS NOTED AND MORPHINE 1MG BOLUS ALLOWED Q 10 MINUTES FOR MAX 6/HOUR. SOMEHOW THERE WAS AN INABILITY TO DOCUMENT ON THE MAR FOLLOWED OVER FROM PACU AND 09-06 SHIFT (SEE 09-06 RN NOTE) SHE ALERTED PHARMACY, IT, AND NURSING ACADEMIC INTERN. GENETICS PHYSICIAN USE AND EDUCATIONS PERFORMED WITH POST OP PATIENT. BUTTON TO ADMINISTER WITHIN REACH, PATIENT HOWEVER, STATES PAIN LEVEL 1/10 AND STATED NO NEED TO UTILIZE GENETICS PHYSICIAN BUT VERBALIZES UNDERSTANDING OF USAGE. WILL CONTINUE TO MONITOR CLOSELY.
[2021-02-09] MEDS: Dextrose 5 % and Lactated Ring 1,000 ML 100 ML IVCONT ×2 (06:41→16:22)
[2021-02-09 06:50] LABS: Hematocrit 33.4 % (37-47); Hemoglobin 11.1 g/dl (12.0-16.0); Mean Corpuscular HGB Conc 33.2 g/dl (31.0-35.0); Mean Corpuscular Hemoglobin 30.9 pg (27.0-33.0); Mean Platelet Volume 9.8 fL (9.4-12.3); Platelet Count 391 X10*3/uL (160-400); Red Blood Count 3.59 X10*6/uL (4.20-5.50); Red Cell Distribution Width 14.5 % (11.0-16.0); White Blood Count 7.6 X10*3/uL (4.8-10.8)
[2021-02-09 07:10] LABS: Anion Gap 13 (12-20); Blood Urea Nitrogen 9 mg/dL (9-16); Calcium 7.5 mg/dL (8.4-10.2); Carbon Dioxide 26 mmol/L (22-29); Chloride 105 mmol/L (96-108); Creatinine Clr Calc Pharmacy 86.2; Estimated Glomerular Filt Rate > 60; Glucose Fasting 155 mg/dL (60-99); Potassium 3.2 mmol/L (3.3-5.1); Sodium 141 mmol/L (135-145)
[2021-02-09 07:27] LABS: Band Neutrophils Percent 17 % (3-5); Lymphocytes Absolute Manual 1.1 X10*3/uL (0.6-4.8); Lymphocytes Percent Manual 15 % (20-40); Monocytes Absolute Manual 0.6 X10*3/uL (0.0-1.2); Monocytes Percent Manual 8 % (2-11); Neutrophils Absolute Manual 5.9 X10*3/uL (2.2-7.9); Neutrophils Percent Manual 60 % (45-73)
[2021-02-09 07:28] LABS: RBC Morphology NOTED
[2021-02-09 07:29] LABS: Burr Cells 2+ (3-5) /OIF; Platelet Estimate NORMAL (NORMAL); Platelet Morphology Comment NORMAL
[2021-02-09] MEDS: FLUoxetine HCl 10 MG CAPSULE PO (08:24)
[2021-02-09] MEDS: amLODIPine Besylate 5 MG TABLET PO (08:24)
--- NOTE | 2021-02-09 10:35 | PM.PNGS ---
Subjective Subjective Date of Service: 02/09/21 Interval history: Feels okay. Good pain control with IV acetaminophen and CLASP MACHINE OPERATOR. Would like NG tube removed. No nausea. Ostomy output has been moderate. RN has changed ostomy appliance and surgical dressing due to leakage from ostomy appliance. Physical Exam Vital Signs: Vital Signs: Last Vital Signs Temp 97 F 02/09/21 07:07 Pulse 92 02/09/21 08:00 Resp 18 02/09/21 08:00 BP 134/70 02/09/21 08:00 Pulse Ox 97 02/09/21 08:00 Body Mass Index 25.8 Const: Other: Alert, appears comfortable Orientation/consciousness: patient oriented x3 Resp: Effort & Inspection: normal respiratory effort Auscultation: clear to auscultation bilaterally Cardio: Rate: regular rate Rhythm: regular rhythm GI: Other: Softly distended, hypoactive bowel sounds, dressings clean dry and intact Skin: Other: Normal color, warm and dry Neuro: General: patient oriented x3 Cognition (Neuro): normal cognition Procedures Date of Service Date of Service: 02/09/21 Progress Note: A&P Assessment and plan (1) Partial small bowel obstruction: Status: Acute (2) Diverticulitis of large intestine with complication: Status: Acute Assessment and Plan: Doing well day 1 post Alexander procedure with decompression of distended small bowel. NG tube remains in place. Will clamped for 4 hours and if residual is low will remove NG tube and begin clear liquid diet. Continue CLASP MACHINE OPERATOR and IV fluids, IV acetaminophen. Out of bed, ambulate, DC Brown. Fall Risk Details Current Medications: Current Medications Generic Name Dose Route Start Last Admin Trade Name Jorge Luis PRN Reason Stop Dose Admin Amlodipine Besylate 5 mg 02/06/21 09:00 02/09/21 08:24 Amlodipine Besylate 5 Mg Tablet PO 5 mg DAILY SESAR Administration Protocol Fluoxetine HCl 10 mg 02/06/21 09:00 02/09/21 08:24 Fluoxetine Hcl 10 Mg Capsule PO 10 mg DAILY SESAR Administration Dextrose/Lactated Ringer's 1,000 mls @ 100 mls/hr 02/05/21 22:23 02/09/21 06:41 D5lr IVCONT 100 mls/hr .Q10H SESAR Administration Morphine Sulfate 100 mg in 100 mls @ 0 mls/hr 02/08/21 15:06 IVCONT .Q0M [facility] Protocol Per Protocol Acetaminophen 1,000 mg in 100 mls @ 400 mls/hr 02/08/21 16:13 02/09/21 10:18 Ofirmev IV Infused Q6H [facility] Infusion Piperacillin Sod/Tazobactam 50 mls @ 100 mls/hr 02/08/21 18:00 02/09/21 06:29 Sod 3.375 gm/ Sodium Chloride IV Infused Q6H SESAR Infusion Multi-Ingred Medicated Throat [place] 1 spray 02/05/21 22:23 Throat [place], Medicated 20 Ml Bottle MUCOUS MEM Q2H PRN Sore Throat Naloxone HCl 0.2 mg 02/08/21 16:13 Naloxone Hcl 0.4 Mg/Ml Vial IVPUSH Q2M PRN Excessive sedation or RR < 8 Ondansetron HCl 4 mg 02/05/21 22:23 Ondansetron Hcl 4 Mg/2 Ml Vial IVPUSH Q8H PRN Nausea Pharmacy Consult 1 each 02/05/21 21:39 Consult Rx Perform Med Rec MISCELLANE ONCE PRN Consult order Time Spent With Patient Time: Total time spent is greater than 50% in coordination of care (as documented) at patient's floor/unit and/or counseling patient: Time with patient: less than 15 minutes Quality Stroke Does the patient have a stroke diagnosis?: No VTE Prior VTE?: No VTE Risk Level:: Surgical - moderate VTE Device Contraindication: N/A - Device Ordered VTE Drug Contraindication: Treatment Not Indicated
--- NOTE | 2021-02-09 12:47 | HO.POSTANES ---
Post Anesthesia Evaluation Post Anesthesia Evaluation Vital Signs: Vital Signs Temp Pulse Resp BP Pulse Ox 02/09/21 11:09 98 F 91 20 149/76 H 96 02/09/21 10:00 88 20 138/68 96 02/09/21 08:00 92 18 134/70 97 02/09/21 07:07 97 F 92 18 134/70 97 02/09/21 06:00 87 18 134/74 97 02/09/21 05:56 96.8 F 87 18 134/71 97 02/09/21 04:00 89 18 142/69 H 97 02/09/21 03:54 97.8 F 89 18 142/69 H 97 02/09/21 02:00 96.8 F 87 18 124/71 98 Anesthesia: General Endotracheal-GETA and General Mental Status: Awake Pain Control: Satisfactory Nausea/Vomiting: None Hydration: Adequate Anesthesia-Related Issues: No Anes. Related Issues
--- NOTE | 2021-02-09 17:53 | PC.NURSE ---
1645: WITNESSED NEW MORPHINE BAG HUNG VIA PRINTING PRESSMAN PUMP. 100MG/100ML BAG. UNABLE TO DOCUMENT VIA COMPUTER SYSTEM DUE TO INABILITY TO ENTER 0 FOR CONTINUOUS RATE AND FIELD WAS REQUIRED. MARIO FROM PHARMACY CONTACTED BY CHAPINCITO VAUGHN. MORPHINE IS 1MG BOLUS WITH 10 MINUTE LOCKOUT AND 6 BOLUS PER HOUR ALLOWED.
--- NOTE | 2021-02-09 17:59 | PC.NURSE ---
P unable to document Kimber ,at 1645 changed Morphine bag 100mg/100ml on a INSURANCE ACCOUNT ASSISTANT,witnessed by RN Vianey Eaton ,as ordered 1mg bolus,every 10 min,maximum 6 boluses per hour I pharmacy notified of not being able to enter 0 under infusion rate on a flow sheet but unable to fix the problem,paper documentation in patient room,e-mail sent to IT Sabrina Villalba patient instructed on use of wood heel attacher ,pain controlled
[2021-02-10] VITALS (9 sets, daily range): BP systolic 131–155; BP diastolic 66–78; PULSE 85–96; RESP 8–20; TEMP 35.5–36.7; O2SAT 95–98
[2021-02-10] MEDS: Piperacillin Sodium/Tazobactam 3.375 GM in 0.9 % Sodium Chloride 50 ML IV ×4 (00:42→17:11)
[2021-02-10] MEDS: Dextrose 5 % and Lactated Ring 1,000 ML 100 ML IVCONT ×3 (02:04→22:06)
--- NOTE | 2021-02-10 06:45 | PC.NURSE ---
SPECIAL DELIVERY MAIL CARRIER DOCUMENTATION CONTINUES FROM THE WORKLIST AUG DOCUMENTATION ONLY, 09-06 RN STILL UNABLE TO SCAN AND FULFILL ON MED AUG. NSG JOURNALISM INTERN, PHARMACY, AND IT AWARE PER 09-06 RN REPORT. PATIENT PAIN WELL CONTROLLED, 08/08 THIS 8 HOUR SHIFT, VSS, SPECIAL DELIVERY MAIL CARRIER NOT UTILIZED, RUNNING TOTAL 1ML/MG SAME AT SHIFT START, PROGRAM IS 1MG EVERY 10 MINUTES FOR 6/HOUR
[2021-02-10] MEDS: FLUoxetine HCl 10 MG CAPSULE PO (08:51)
[2021-02-10] MEDS: amLODIPine Besylate 5 MG TABLET PO (08:51)
--- NOTE | 2021-02-10 11:03 | PC.NURSE ---
Witnessed morphine ROTARY DRILLER HELPER discontinue with Anahi Levine. 99ml wasted
--- NOTE | 2021-02-10 11:38 | P.PNGS_ITS ---
Subjective Subjective Date of Service: 02/10/21 Interval history: Feels okay. Still somewhat distended. Passing flatus and liquid stool per colostomy. Tolerating clear liquid diet but does not feel ready for solid food yet. Good pain control. Not using MARKING MACHINE TENDER. Physical Exam Vital Signs: Vital Signs: Last Vital Signs Temp 96 F L 02/10/21 10:00 Pulse 94 02/10/21 10:00 Resp 18 02/10/21 10:00 BP 145/78 H 02/10/21 10:00 Pulse Ox 96 02/10/21 10:00 Body Mass Index 25.8 Const: General: cooperative, no acute distress and alert Resp: Effort & Inspection: normal respiratory effort Auscultation: clear to auscultation bilaterally Cardio: Rate: regular rate Rhythm: regular rhythm GI: Other: Still somewhat distended, softer, no significant tenderness, bowel sounds active, left lower quadrant ostomy pink and healthy. Brown liquid stool present in bag. Incision clean, slightly open at superior aspect, no erythema Skin: Other: Normal color, warm and dry Procedures Date of Service Date of Service: 02/10/21 Progress Note: A&P Assessment and plan (1) Diverticulitis of large intestine with complication: Status: Acute (2) Partial small bowel obstruction: Status: Acute Assessment and Plan: Doing well day 2 post Alexander procedure for diverticular disease with stricture. Will DC MARKING MACHINE TENDER, continue acetaminophen, add oxycodone p.r.n.. Continue on clear liquid diet for now. Fall Risk Details Current Medications: Current Medications Generic Name Dose Route Start Last Admin Trade Name Freq PRN Reason Stop Dose Admin Amlodipine Besylate 5 mg 02/06/21 09:00 02/10/21 08:51 Amlodipine Besylate 5 Mg Tablet PO 5 mg DAILY SESAR Administration Protocol Fluoxetine HCl 10 mg 02/06/21 09:00 02/10/21 08:51 Fluoxetine Hcl 10 Mg Capsule PO 10 mg DAILY SESAR Administration Dextrose/Lactated Ringer's 1,000 mls @ 100 mls/hr 02/05/21 22:23 02/10/21 11:24 D5lr IVCONT 100 mls/hr .Q10H SESAR Administration Acetaminophen 1,000 mg in 100 mls @ 400 mls/hr 02/08/21 16:13 02/10/21 11:07 Ofirmev IV Infused Q6H SESAR Infusion Piperacillin Sod/Tazobactam 50 mls @ 100 mls/hr 02/08/21 18:00 02/10/21 11:24 Sod 3.375 gm/ Sodium Chloride IV 100 mls/hr Q6H SESAR Administration Multi-Ingred Medicated Throat [place] 1 spray 02/05/21 22:23 Throat [place], Medicated 20 Ml Bottle MUCOUS MEM Q2H PRN Sore Throat Naloxone HCl 0.2 mg 02/08/21 16:13 Naloxone Hcl 0.4 Mg/Ml Vial IVPUSH Q2M PRN Excessive sedation or RR < 8 Ondansetron HCl 4 mg 02/05/21 22:23 Ondansetron Hcl 4 Mg/2 Ml Vial IVPUSH Q8H PRN Nausea Pharmacy Consult 1 each 02/05/21 21:39 Consult Rx Perform Med Rec MISCELLANE ONCE PRN Consult order Time Spent With Patient Time: Total time spent is greater than 50% in coordination of care (as documented) at patient's floor/unit and/or counseling patient: Time with patient: less than 15 minutes Quality Stroke Does the patient have a stroke diagnosis?: No VTE Prior VTE?: No VTE Risk Level:: Surgical - moderate VTE Device Contraindication: N/A - Device Ordered VTE Drug Contraindication: Treatment Not Indicated
--- NOTE | 2021-02-10 12:44 | MHC.CM.PN ---
REFERRAL MADE TO [facility] PT WILL LIKELY NEED SN SERVICES FOR NEW OSTOMY.
[2021-02-11] VITALS (7 sets, daily range): BP systolic 116–153; BP diastolic 57–73; PULSE 85–92; RESP 15–18; TEMP 35.5–36.9; O2SAT 94–98
[2021-02-11] MEDS: Piperacillin Sodium/Tazobactam 3.375 GM in 0.9 % Sodium Chloride 50 ML IV ×5 (00:39→23:39)
[2021-02-11] MEDS: FLUoxetine HCl 10 MG CAPSULE PO (07:55)
[2021-02-11] MEDS: amLODIPine Besylate 5 MG TABLET PO (07:55)
[2021-02-11] MEDS: Dextrose 5 % and Lactated Ring 1,000 ML 100 ML IVCONT ×2 (07:55→23:39)
[2021-02-11] MEDS: ondansetron HCL 4 MG/2 ML VIAL IVPUSH (08:17)
--- NOTE | 2021-02-11 08:24 | PM.PNGS ---
Subjective Subjective Date of Service: 02/11/21 <Christina Johnson PA-C - Last Filed: 02/11/21 08:27> 02/11/21 <Vaibhav Velasquez MD - Last Filed: 02/11/21 08:39> Interval history: Feeling ok. Incision pain tolerable. Tolerating clear liquids. Feels hungry today. Colostomy began to have bilious output. Emptying bag on own. <Christina Johnson PA-C - Last Filed: 02/11/21 08:27> Physical Exam Vital Signs: Vital Signs: Last Vital Signs Temp 96.8 F 02/11/21 07:53 Pulse 88 02/11/21 07:55 Resp 18 02/11/21 04:00 BP 144/71 H 02/11/21 07:55 Pulse Ox 96 02/11/21 07:53 Body Mass Index 25.8 <Christina Johnson PA-C - Last Filed: 02/11/21 08:27> Const: General: comfortable, no acute distress and alert <Christina Johnson PA-C - Last Filed: 02/11/21 08:27> Orientation/consciousness: patient oriented x3 <CAROL Adame Last Filed: 02/11/21 08:27> Resp: Effort & Inspection: normal respiratory effort <CAROL Adame Last Filed: 02/11/21 08:27> Cardio: Rate: regular rate <Christina Johnson PA-C - Last Filed: 02/11/21 08:27> GI: Inspection: Yes incision (clean) and Yes other (ostomy pink centrally, bilious output in bag) <Christina Johnson PA-C - Last Filed: 02/11/21 08:27> Palpation (GI): Soft to palpation, Tenderness to palpation present (GI) (incisional, mild), no guarding and not rigid <CAROL Adame Last Filed: 02/11/21 08:27> Skin: General skin exam: no rashes or lesions noted <CAROL Adame Last Filed: 02/11/21 08:27> Neuro: General: patient oriented x3 <Christina Johnson PA-C - Last Filed: 02/11/21 08:27> Extrem: General: Yes no clubbing, cyanosis or edema <Christina Johnson PA-C - Last Filed: 02/11/21 08:27> Procedures Date of Service Date of Service: 02/11/21 <Christina Johnson PA-C - Last Filed: 02/11/21 08:27> Progress Note: A&P Assessment and plan (1) Partial small bowel obstruction: Status: Acute <CAROL Adame Last Filed: 02/11/21 08:27> (2) Diverticulitis of large intestine with complication: Status: Acute <Christina Johnson PA-C - Last Filed: 02/11/21 08:27> Assessment and Plan: She had been doing well over the weekend Stoma functioning well No significant pain She looks well However, she says she just had some bilious emesis now Abdomen remained soft Stoma with good output Will put back on clear liquids for now and re-evaluate later on Seen and examined - agree with TYESHA Johnson <Vaibhav Velasquez MD - Last Filed: 02/11/21 08:39> Assessment and Plan: Doing well day 3 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 Will advance to low residue diet. Begin ostomy education. <CAROL Adame Last Filed: 02/11/21 08:27> Fall Risk Details Current Medications: Current Medications Generic Name Dose Route Start Last Admin Trade Name Jorge Luis PRN Reason Stop Dose Admin Amlodipine Besylate 5 mg 02/06/21 09:00 02/11/21 07:55 Amlodipine Besylate 5 Mg Tablet PO 5 mg DAILY SESAR Administration Protocol Fluoxetine HCl 10 mg 02/06/21 09:00 02/11/21 07:55 Fluoxetine Hcl 10 Mg Capsule PO 10 mg DAILY SESAR Administration Dextrose/Lactated Ringer's 1,000 mls @ 100 mls/hr 02/05/21 22:23 02/11/21 07:55 [id number] IVCONT 100 mls/hr .Q10H SESAR Administration Acetaminophen 1,000 mg in 100 mls @ 400 mls/hr 02/08/21 16:13 02/11/21 05:05 Ofirmev IV Infused Q6H SESAR Infusion Piperacillin Sod/Tazobactam 50 mls @ 100 mls/hr 02/08/21 18:00 02/11/21 07:51 Sod 3.375 gm/ Sodium Chloride IV Infused Q6H SESAR Infusion Multi-Ingred Medicated Throat [place] 1 spray 02/05/21 22:23 Throat [place], Medicated 20 Ml Bottle MUCOUS MEM Q2H PRN Sore Throat Naloxone HCl 0.2 mg 02/08/21 16:13 Naloxone Hcl 0.4 Mg/Ml Vial IVPUSH Q2M PRN Excessive sedation or RR < 8 Ondansetron HCl 4 mg 02/05/21 22:23 02/11/21 08:17 Ondansetron Hcl 4 Mg/2 Ml Vial IVPUSH 4 mg Q8H PRN Administration Nausea Oxycodone HCl 5 mg 02/11/21 08:18 Oxycodone Hcl Immed Release 5 Mg Tablet PO Q4H PRN Pain, Moderate (Pain Scale 4-6 Pharmacy Consult 1 each 02/05/21 21:39 Consult Rx Perform Med Rec MISCELLANE ONCE PRN Consult order <Christina Johnson PA-C - Last Filed: 02/11/21 08:27> Time Spent With Patient Time: Total time spent is greater than 50% in coordination of care (as documented) at patient's floor/unit and/or counseling patient: <Christina Johnson PA-C - Last Filed: 02/11/21 08:27> Time with patient: 15 - 24 minutes <Christina Johnson PA-C - Last Filed: 02/11/21 08:27> Quality Stroke Does the patient have a stroke diagnosis?: No <Christina Johnson PA-C - Last Filed: 02/11/21 08:27> VTE Prior VTE?: No <CAROL Adame Last Filed: 02/11/21 08:27> VTE Risk Level:: Surgical - moderate <CAROL Adame Last Filed: 02/11/21 08:27> VTE Device Contraindication: N/A - Device Ordered <CAROL Adame Last Filed: 02/11/21 08:27> VTE Drug Contraindication: Treatment Not Indicated <Christina Johnson PA-C - Last Filed: 02/11/21 08:27>
--- NOTE | 2021-02-11 13:21 | MHC.CM.PN ---
EMR REVIEWED, PER SURGICAL PT PLACED BACK ON CLEAR LIQUIDS D/T BILIOUS EMESIS THIS MORNING, CM WILL CONT TO FOLLOW. D/C PLAN: HOME W/[facility], FAMILY FOR TRANSPORT
--- NOTE | 2021-02-11 16:22 | PM.EVENT ---
Event Note Date of Service: 02/11/21 Event Note: I had put her back on clear liquids after she had vomiting early this morning. She feels much better no further episodes of nausea or vomiting after that abdomen remained soft, nontender, stoma with good output including gas she says she still remains hungry so I really try her on regular diet again clinically looks well
[2021-02-12 03:56] VITALS: BP 155/60; PULSE 92; RESP 18; TEMP 36.1; O2SAT 95
[2021-02-12] MEDS: Piperacillin Sodium/Tazobactam 3.375 GM in 0.9 % Sodium Chloride 50 ML IV ×4 (06:04→23:39)
[2021-02-12 07:20] VITALS: BP 142/62; PULSE 84; RESP 18; TEMP 36.1; O2SAT 97
[2021-02-12] MEDS: amLODIPine Besylate 5 MG TABLET PO (07:45)
[2021-02-12] MEDS: FLUoxetine HCl 10 MG CAPSULE PO (07:45)
--- NOTE | 2021-02-12 11:12 | PM.PNGS ---
Subjective Subjective Date of Service: 02/12/21 <Christina Johnson PA-C - Last Filed: 02/12/21 11:15> 02/12/21 <Vaibhav Velasquez MD - Last Filed: 02/12/21 16:57> Interval history: No further vomiting yesterday. Tolerated solid diet. Some gas cramps but mild. OOB and ambulating. Stoma with good output. Can empty ostomy appliance. <Christina Johnson PA-C - Last Filed: 02/12/21 11:15> Physical Exam Vital Signs: Vital Signs: Last Vital Signs Temp 96.9 F 02/12/21 07:20 Pulse 84 02/12/21 07:20 Resp 18 02/12/21 07:20 BP 142/62 H 02/12/21 07:20 Pulse Ox 97 02/12/21 07:20 Body Mass Index 25.8 <Christina Johnson PA-C - Last Filed: 02/12/21 11:15> Const: General: no acute distress and alert <Christina Johnson PA-C - Last Filed: 02/12/21 11:15> Orientation/consciousness: patient oriented x3 <Christina Johnson PA-C - Last Filed: 02/12/21 11:15> Resp: Effort & Inspection: normal respiratory effort <CAROL Adame Last Filed: 02/12/21 11:15> GI: Other: stoma pink centrally, enteric output <Christina Johnson PA-C - Last Filed: 02/12/21 11:15> Inspection: No distended and Yes incision (clean) <Christina Johnson PA-C - Last Filed: 02/12/21 11:15> Palpation (GI): Soft to palpation, Tenderness to palpation present (GI) (mild, incisional), no guarding and not rigid <CAROL Adame Last Filed: 02/12/21 11:15> Skin: General skin exam: no rashes or lesions noted <CAROL Adame Last Filed: 02/12/21 11:15> Neuro: General: patient oriented x3 <CAROL Adame Last Filed: 02/12/21 11:15> Procedures Date of Service Date of Service: 02/12/21 <Christina Johnson PA-C - Last Filed: 02/12/21 11:15> Progress Note: A&P Assessment and plan (1) Diverticulitis of large intestine with complication: Status: Acute <Christina Johnson PA-C - Last Filed: 02/12/21 11:15> Assessment and Plan: Looks well Tolerating diet No vomiting Abdomen soft Stoma functioning well Incision clean Likely home tomorrow <Vaibhav Velasquez MD - Last Filed: 02/12/21 16:57> (2) Partial small bowel obstruction: Status: Acute <Christina Johnson PA-C - Last Filed: 02/12/21 11:15> Assessment and Plan: Doing well day 4 post Alexander procedure for diverticular disease with stricture. Continue pain control. Continue low residue diet. Dc IVF. Continue ostomy education. Will add metamucil to bulk up stools. Encouragd ambulation. Possible home in next 1-2 days if continues to do well. <Christina Johnson PA-C - Last Filed: 02/12/21 11:15> Fall Risk Details Current Medications: Current Medications Generic Name Dose Route Start Last Admin Trade Name Freq PRN Reason Stop Dose Admin Amlodipine Besylate 5 mg 02/06/21 09:00 02/12/21 07:45 Amlodipine Besylate 5 Mg Tablet PO 5 mg DAILY SESAR Administration Protocol Fluoxetine HCl 10 mg 02/06/21 09:00 02/12/21 07:45 Fluoxetine Hcl 10 Mg Capsule PO 10 mg DAILY SESAR Administration Piperacillin Sod/Tazobactam 50 mls @ 100 mls/hr 02/08/21 18:00 02/12/21 06:55 Sod 3.375 gm/ Sodium Chloride IV Infused Q6H SESAR Infusion Multi-Ingred Medicated Throat [place] 1 spray 02/05/21 22:23 Throat [place], Medicated 20 Ml Bottle MUCOUS MEM Q2H PRN Sore Throat Naloxone HCl 0.2 mg 02/08/21 16:13 Naloxone Hcl 0.4 Mg/Ml Vial IVPUSH Q2M PRN Excessive sedation or RR < 8 Ondansetron HCl 4 mg 02/05/21 22:23 02/11/21 08:17 Ondansetron Hcl 4 Mg/2 Ml Vial IVPUSH 4 mg Q8H PRN Administration Nausea Oxycodone HCl 5 mg 02/11/21 08:18 Oxycodone Hcl Immed Release 5 Mg Tablet PO Q4H PRN Pain, Moderate (Pain Scale 4-6 Pharmacy Consult 1 each 02/05/21 21:39 Consult Rx Perform Med Rec MISCELLANE ONCE PRN Consult order <Christina Johnson PA-C - Last Filed: 02/12/21 11:15> Time Spent With Patient Time: Total time spent is greater than 50% in coordination of care (as documented) at patient's floor/unit and/or counseling patient: <Christina Johnson PA-C - Last Filed: 02/12/21 11:15> Time with patient: 15 - 24 minutes <Christina Johnson PA-C - Last Filed: 02/12/21 11:15> Quality Stroke Does the patient have a stroke diagnosis?: No <Christina Johnson PA-C - Last Filed: 02/12/21 11:15> VTE Prior VTE?: No <Christina Johnson PA-C - Last Filed: 02/12/21 11:15> VTE Risk Level:: Surgical - moderate <Christina Johnson PA-C - Last Filed: 02/12/21 11:15> VTE Device Contraindication: N/A - Device Ordered <Christina Johnson PA-C - Last Filed: 02/12/21 11:15> VTE Drug Contraindication: Treatment Not Indicated <Christina Johnson PA-C - Last Filed: 02/12/21 11:15>
[2021-02-12 12:00] VITALS: BP 158/71; PULSE 100; RESP 18; TEMP 36.1; O2SAT 97
[2021-02-12 15:32] VITALS: BP 148/73; PULSE 92; RESP 18; TEMP 36.9; O2SAT 97
[2021-02-12 19:33] VITALS: BP 162/76; PULSE 95; RESP 18; TEMP 36.6; O2SAT 96
[2021-02-12 23:52] VITALS: BP 145/66; PULSE 87; RESP 16; TEMP 36.9; O2SAT 95
[2021-02-13 03:43] VITALS: BP 140/70; PULSE 86; RESP 16; TEMP 36.4; O2SAT 99
[2021-02-13] MEDS: Piperacillin Sodium/Tazobactam 3.375 GM in 0.9 % Sodium Chloride 50 ML IV (06:10)
[2021-02-13 07:24] VITALS: BP 140/75; PULSE 81; RESP 16; TEMP 36.4; O2SAT 96
--- NOTE | 2021-02-13 07:48 | P.PNGS_ITS ---
Subjective Subjective Date of Service: 02/13/21 <Christina Johnson PA-C - Last Filed: 02/13/21 08:17> 02/13/21 <Vaibhav Velasquez MD - Last Filed: 02/13/21 08:51> Interval history: Feels well. Tolerating solid diet without nausea, vomiting. Passing large amount of flatus via colostomy and enteric output. No significant abdominal pain. Wants to go home. <Christina Johnson PA-C - Last Filed: 02/13/21 08:17> Physical Exam Vital Signs: Vital Signs: Last Vital Signs Temp 97.5 F 02/13/21 07:24 Pulse 81 02/13/21 07:24 Resp 16 02/13/21 07:24 BP 140/75 H 02/13/21 07:24 Pulse Ox 96 02/13/21 07:24 Body Mass Index 25.8 <Chrsitina Johnson PA-C - Last Filed: 02/13/21 08:17> Const: General: comfortable, no acute distress and alert <Christina Johnson PA-C - Last Filed: 02/13/21 08:17> Orientation/consciousness: patient oriented x3 <Christina Johnson PA-C - Last Filed: 02/13/21 08:17> Resp: Effort & Inspection: normal respiratory effort <CAROL Adame Last Filed: 02/13/21 08:17> GI: Other: stoma pink centrally, enteric output in appliance <Christina Johnson PA-C - Last Filed: 02/13/21 08:17> Inspection: No distended and Yes incision (clean) <Christina Johnson PA-C - Last Filed: 02/13/21 08:17> Palpation (GI): Soft to palpation, nontender, no guarding and not rigid <CAROL Adame Last Filed: 02/13/21 08:17> Skin: General skin exam: no rashes or lesions noted <CAROL Adame Last Filed: 02/13/21 08:17> Neuro: General: patient oriented x3 <CAROL Adame Last Filed: 02/13/21 08:17> Extrem: General: Yes no clubbing, cyanosis or edema <Christina Johnson PA-C - Last Filed: 02/13/21 08:17> Procedures Date of Service Date of Service: 02/13/21 <CAROL Adame Last Filed: 02/13/21 08:17> Progress Note: A&P Assessment and plan (1) Diverticulitis of large intestine with complication: Status: Acute <CAROL Adame Last Filed: 02/13/21 08:17> Assessment and Plan: Continues to feel well Tolerating diet Good stoma function Abdomen soft Some redness on 1 small area of the incision - I released to skin marybeth, drained thick serosanguineous fluid consistent with subcutaneous fat necrosis Applied light packing and dressings Okay to DC home Seen and examined - agree with TYESHA Johnson <Vaibhav Velasquez MD - Last Filed: 02/13/21 08:51> (2) Partial small bowel obstruction: Status: Acute <CAROL Adame Last Filed: 02/13/21 08:17> Assessment and Plan: Continues to do well day 5 post Alexander procedure for diverticular disease with stricture. Tolerating solid diet with good ostomy output. VSS. Abd exam benign, ostomy viable with large amount of gas and enteric output. Incision clean. Stable for discharge to home today with VNA services and follow up in office. Patient comfortable with plan. <CAROL Adame Last Filed: 02/13/21 08:17> Fall Risk Details Current Medications: Current Medications Generic Name Dose Route Start Last Admin Trade Name Freq PRN Reason Stop Dose Admin Amlodipine Besylate 5 mg 02/06/21 09:00 02/12/21 07:45 Amlodipine Besylate 5 Mg Tablet PO 5 mg DAILY SESAR Administration Protocol Fluoxetine HCl 10 mg 02/06/21 09:00 02/12/21 07:45 Fluoxetine Hcl 10 Mg Capsule PO 10 mg DAILY SESAR Administration Piperacillin Sod/Tazobactam 50 mls @ 100 mls/hr 02/08/21 18:00 02/13/21 06:56 Sod 3.375 gm/ Sodium Chloride IV Infused Q6H SESAR Infusion Multi-Ingred Medicated Throat [place] 1 spray 02/05/21 22:23 Throat [place], Medicated 20 Ml Bottle MUCOUS MEM Q2H PRN Sore Throat Naloxone HCl 0.2 mg 02/08/21 16:13 Naloxone Hcl 0.4 Mg/Ml Vial IVPUSH Q2M PRN Excessive sedation or RR < 8 Ondansetron HCl 4 mg 02/05/21 22:23 02/11/21 08:17 Ondansetron Hcl 4 Mg/2 Ml Vial IVPUSH 4 mg Q8H PRN Administration Nausea Oxycodone HCl 5 mg 02/11/21 08:18 Oxycodone Hcl Immed Release 5 Mg Tablet PO Q4H PRN Pain, Moderate (Pain Scale 4-6 Pharmacy Consult 1 each 02/05/21 21:39 Consult Rx Perform Med Rec MISCELLANE ONCE PRN Consult order Psyllium Hydrophilic Mucilloid 3.4 gm 02/12/21 12:00 02/12/21 11:36 Psyllium Seed 3.4 Gm Powd.Pack PO 3.4 gm DAILY SESAR Administration <Christina Johnson PA-C - Last Filed: 02/13/21 08:17> Time Spent With Patient Time: Total time spent is greater than 50% in coordination of care (as doc umented) at patient's floor/unit and/or counseling patient: <Christina Johnson PA-C - Last Filed: 02/13/21 08:17> Time with patient: 15 - 24 minutes <Christina Johnson PA-C - Last Filed: 02/13/21 08:17> Quality Stroke Does the patient have a stroke diagnosis?: No <Christina Johnson PA-C - Last Filed: 02/13/21 08:17> VTE Prior VTE?: No <Christina Johnson PA-C - Last Filed: 02/13/21 08:17> VTE Risk Level:: Surgical - moderate <Christina Johnson PA-C - Last Filed: 02/13/21 08:17> VTE Device Contraindication: N/A - Device Ordered <CAROL Adame Last Filed: 02/13/21 08:17> VTE Drug Contraindication: Treatment Not Indicated <Christina Johnson PA-C - Last Filed: 02/13/21 08:17>
[2021-02-13] MEDS: FLUoxetine HCl 10 MG CAPSULE PO (08:32)
[2021-02-13] MEDS: amLODIPine Besylate 5 MG TABLET PO (08:32)
--- NOTE | 2021-02-13 09:05 | MHC.CM.PN ---
Addendum entered by Lorenza Gutierrez RN 02/13/21 09:08: PER VNA REQUEST, SUPPLIES WILL BE SENT HOME W/PT. Original Note: PT DISCHARGING HOME W/[facility] FOR ALF/ NEW OSTOMY, FAMILY FOR TRANSPORT.
--- NOTE | 2021-02-13 10:14 | W.MHC.F2F ---
Service Date Service Date: 02/13/21 Encounter Date of encounter: 02/13/21 Reasons for Services Signs and symptoms assessed: Abdominal pain, ostomy appearance and output, incision Reason for intermediate: wound care (ostomy care) and postoperative assessment and/or care MD Overseeing Care: Vaibhav Velasquez Homebound: Leaving the home is medically contraindicated at this time without the asist of a device and/or another person due th the listed conditions above and below. Reason homebound: weakness related to hospital stay and unable to drive Homebound supporting statement: Ms. Mackey is a 60 year old female who underwent a sav[place] procedure for diverticular stricture and SBO. She will need VNA services for ostomy care. Certification: Based on the above findings, I certify that this patient is confined to the home and needs intermittent intermediate care, physical therapy and/or speech therapy, or continues to need occupational therapy. The patient is under my care, and I have initiated the establishment of the plan of care. The patient will be followed by a physician who will periodically review the plan of care.
--- NOTE | 2021-02-13 10:45 | P.DS_ITS ---
DS: Providers Provider Date of Service: 02/13/21 Date of admission: 02/05/21 22:01 Primary care physician: Vaibhav Mccormack MD Admitting clinician: Gianna Martin Consults: 02/06/21 08:32 Consult to General Surgery Routine Consulting Provider: Gianna Martin Reason for consultation: sigmoid diverticular disease with obstruction Has provider been notified: Yes Attending physician on discharge: Vaibhav Velasquez DS: Diagnosis Discharge Diagnosis (1) Diverticulitis of large intestine with complication: Status: Acute (2) Partial small bowel obstruction: Status: Acute DS: Medications Discharge Medications Home Medications: Home Medications Medication Instructions Recorded Confirmed amlodipine 5 mg tablet 5 mg PO DAILY 06/11/20 02/05/21 omeprazole 20 mg capsule,delayed 20 mg PO BID 06/11/20 02/05/21 release fluoxetine 10 mg capsule 10 mg PO QAM 10/02/20 02/05/21 atorvastatin 20 mg tablet 1 tab PO BEDTIME 02/05/21 02/05/21 Previous Rx's Medication Instructions Recorded colostomy bags 11 06/30 655 mL #20 ea 02/13/21 ([employer] EasiClose Wide Outlet) oxycodone 5 mg tablet 5 mg PO Q4H PRN #30 tab 02/13/21 ring (ostomy supply) 2 #1 ea 02/13/21 DS: Summary Hospital Course Hospital Course: BRIEF HPI: Swati Mackey is a 60 year old female who recently was admitted for treatment of sigmoid diverticulitis with micro perforation.? She completed her antibiotic therapy on an outpatient basis.? Following discharge, she had increasing difficulty with constipation.? She met with Dr. Ibarra and plans were made to proceed with elective surgery.? She was started on MiraLax.? The symptoms of constipation seem to wax and wane.? Over the past few days, she has become more distended.? She reports that her abdomen is uncomfortable.? She has been experiencing moderately severe crampy abdominal pain.? This morning, she had an episode of feculent emesis.? She then passed significant amount of loose stool.? She came to the emergency department for further evaluation.? Laboratory studies demonstrated a normal white blood count.? BUN was elevated at 37. A CT scan of the abdomen and pelvis was obtained.? It showed some improvement in the appearance of the sigmoid diverticulitis.? The small bowel appeared dilated through the ileocecal valve.? The right colon was fluid-filled.? HOSPITAL COURSE: ?? She was admitted to the surgical service for further treatment of partial large bowel obstruction, obstipation and small-bowel distension.? An NG tube was been placed.? IV hydration was continued.? She was started on Zosyn.? She was scheduled for an elective resection of the sigmoid colon in about 2 weeks, but it was thought that more urgent surgery will be needed given her obstructive symptoms.? Over the next few days, she had no real improvement in her symptoms and still remained significantly distended. It was therefore recommended to proceed with ex lap, sigmoid resection, possible ostomy during the stay. The patient agreed and she was added onto the OR schedule. On 02/08/21, laparotomy, decompression of the small bowel loops via an enterotomy in the distal ileum, sigmoid resection, with extensive lysis of adhesions, drainage of diverticular abscess, end-colostomy was performed by Dr. Velasquez without immediate complications. The patient tolerated the procedure well. The patient had an uncomplicated recovery course. Her colostomy began to produce stool output immediately post operatively and this continued. On POD #1 her NGT was removed after trial clamping. She was started on clear liquids. Her price was removed. She was ambulated. 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 She had adequate pain control with this and this was continued until POD #2 when she was transitioned to PRN analgesics. On POD #3 she was advanced to solid food. She had one episode of nausea and vomiting but this resolved and she continued to tolerate solids afterwards. Colostomy education was performed and her bag was changed. Her ostomy looked viable appearing and continued with good stool output and flatus. On the day of discharge, the patient was clinically appearing well with good pain control, PO intake and good GI function with a clean incision and viable ostomy. She was discharged to home on 02/13/21 with VNA services. Status at Discharge Functional status at discharge: independent ambulation Overall status at discharge: patient is progressing back to baseline Time Spent with Patient Time attestation: Total time spent providing and/or coordinating discharge services: Discharge coordination time: Greater than 30 minutes Quality: Stroke Does the patient have a stroke diagnosis?: No Physical Exam Vital Signs: Vital Signs: Last Vital Signs Temp 97.5 F 02/13/21 07:24 Pulse 81 02/13/21 07:24 Resp 16 02/13/21 07:24 BP 140/75 H 02/13/21 07:24 Pulse Ox 96 02/13/21 07:24 Body Mass Index 25.8 Const: General: healthy appearing, comfortable, no acute distress and alert Orientation/consciousness: patient oriented x3 GI: Other: ostomy pink centrally, enteric output in bag Inspection: No distended and Yes incision (clean) Palpation (GI): Soft to palpation, Tenderness to palpation present (GI) (mild incisional), no guarding and not rigid Skin: General skin exam: no rashes or lesions noted Neuro: General: patient oriented x3 DS: Data Data Completed and Pending Completed studies during hospitalization [Text1]: 02/08/21 12:35 Surgical [PTH] Routine Colon, sigmoid, segmental resection:? Diverticular-associated segmental colitis. Discharge Plan Discharge Patient Disposition: Home Health Service Discharge Diagnosis: diverticular stricture Referrals: Lakshmi CANO [Outside] - 1 Day (PLEASE CALL ABOVE NUMBER IF YOU DO NOT HEAR FROM A NURSE BY NOON ON 02/14/21.) Vaibhav Velasquez MD [Physician] - 02/21/21 Vaibhav Mccormack MD [Primary Care Provider] - 1 Week Discharge Medications: New oxycodone 5 mg tablet 5 mg PO Q4H PRN (Reason: pain) Qty: 30 RF: 0 Continued atorvastatin 20 mg tablet 1 tab PO BEDTIME RF: 0 omeprazole 20 mg capsule,delayed release(DR/EC) 20 mg PO BID RF: 0 amlodipine 5 mg tablet 5 mg PO DAILY RF: 0 fluoxetine 10 mg capsule 10 mg PO QAM RF: 0 No Action No Sting Barrier Film Pads, Medicated 2 pad topical .each ostomy change Qty: 60 RF: 3 (DME) ring (ostomy supply) 2 misc See Rx Instructions .Route Qty: 1 RF: 10 (DME) [employer] EasiClose Wide Outlet 11 1/2-655 -mL misc See Rx Instructions .Route Qty: 20 RF: 2 Discharge Orders: Discharge Order (Routine); Ordered 02/13/21 Ordered By: Christina Johnson Diet: regular diet Activity on Discharge: No heavy lifting Stand Alone Forms: Patient Portal Discharge page Activity Restrictions/Additional Instructions: If the incision area is tender, you may apply an ice pack for short intervals (No more than 20 minutes on, followed by at least 20 minutes off). Do not apply heat. Do not use creams, lotions, or topical antibiotics unless instructed to do so by your surgeon. These can cause infection or allergic reaction. Ok to shower. You have marybeth closing your incision and these will be removed approximately 10-14 days after surgery. Okay to do dry dressings daily on open part of incision NO HEAVY LIFTING (>10lbs). Call Your Doctor If: -Your temperature exceeds 101.5? F -You experience excessive pain or swelling -You have an unexpected reaction to medication -You have excessive bleeding -You experience continued vomiting/nausea -Your incision begins to separate -Your incision shows signs of infection such as increased redness, swelling, excessive pain, drainage (light blood or clear fluid is normal) or heat Care Plan Goals: Return to baseline health and activity following recovery period. Health Concerns: Diverticular stricture, SBO s/p savannah procedure Plan of Treatment: discharge to home with vna services, f/u in office Assessment: 60 year old female with diverticular stricture, SBO s/p savannah procedure doing well and stable for discharge to home. Discharge Date/Time: 02/13/21 10:15
== END 2021-02-13 10:15 | disposition home health service (06) | DRG 221 ==
LOC: HO.ED 21:34 → HO.EDOVER 02-06 00:36 → HO.S3 02-06 02:22
PROVIDERS: Physician Assistant Surgical; Surgery; Admitting Provider Internal Medicine; Emergency Provider Emergency Medicine; PCP Internal Medicine; Visit Provider Surgery
PROC: 0D1N074 Bypass Sigmoid Colon to Cutaneous with Autologous Tissue Substitute, Open Approach (ICD-10-PCS; CPT 49000; principal; 2021-02-08 12:00)
DX: K57.40 Diverticulitis of both small and large intestine with perforation and abscess without bleeding (principal); E86.0 Dehydration; K66.0 Peritoneal adhesions (postprocedural) (postinfection); K57.32 Diverticulitis of large intestine without perforation or abscess without bleeding; K21.9 Gastro-esophageal reflux disease without esophagitis; Z20.822 Contact with and (suspected) exposure to COVID-19; Z96.642 Presence of left artificial hip joint
CPT/HCPCS: 0241U; 36415; 71045; 74018; 74019; 74177; 80048; 80076; 81001; 81025; 83690; 85007; 85025; 85027; 86850; 86900; 86901; 88307; 99024; 99285; J0131; J1100; J1170; J2250; J2270; J2405; J2543; Q9967

== ENCOUNTER 2021-02-20 20:02 | Emergency (ER) | payer BC, SELFPAY ==
[2021-02-20 20:30] VITALS: BP 136/75; PULSE 102; RESP 18; TEMP 36.9; O2SAT 97; BMI 25.0
--- NOTE | 2021-02-20 21:25 | PC.NURSE ---
patient coming to the desk stating that she just scheduled an appointment with her doctor in the am to get more colostomy supplies and follow up on the stoma care. patient offered to see a provider at this time and alerting provider staff to patient. patient contniues to state she is leaving and walking out from the department. breathing is even and unlabored no distress noted.
== END 2021-02-20 21:28 | disposition left against medical advice (07) ==
PROVIDERS: Emergency Provider Emergency Medicine; PCP Internal Medicine
DX: Z48.00 Encounter for change or removal of nonsurgical wound dressing (principal)
CPT/HCPCS: 99281

== ENCOUNTER → 2021-02-21 09:21 | Outpatient (BNVA) | payer BC, SELFPAY | PROVIDERS: PCP Internal Medicine; Visit Provider Surgery ==

== ENCOUNTER → 2021-03-07 09:21 | Outpatient (BNVA) | payer BC, SELFPAY | PROVIDERS: PCP Internal Medicine; Referring Provider Internal Medicine; Visit Provider Surgery ==

== ENCOUNTER 2021-03-26 14:57 | Outpatient (REF) | payer BC, SELFPAY ==
[2021-03-26 15:10] LABS: MANUAL DIFF FLAG NO
[2021-03-26 15:22] LABS: Basophils Absolute Auto 0.1 X10*3/uL (0.0-0.2); Basophils Percent Auto 0.5 % (0-2); Eosinophils Percent Auto 0.3 % (0-4); Hematocrit 34.9 % (37-47); Hemoglobin 11.4 g/dl (12.0-16.0); Imm Gran Abs Auto 0.06 X10*3/uL (0.00-0.03); Imm Gran Pct Auto 0.6 % (0.0-0.4); Lymphocytes Absolute Auto 1.3 X10*3/uL (1.2-4.9); Mean Corpuscular HGB Conc 32.7 g/dl (31.0-35.0); Mean Corpuscular Hemoglobin 32.2 pg (27.0-33.0); Mean Corpuscular Volume 98.6 fL (80-98); Mean Platelet Volume 8.9 fL (9.4-12.3); Monocytes Absolute Auto 1.1 X10*3/uL (0.1-1.2); Monocytes Percent Auto 11.2 % (2-11); Neutrophils Absolute Auto 7.5 X10*3/uL (2.0-8.3); Neutrophils Percent Auto 74.4 % (45-73); Platelet Count 287 X10*3/uL (160-400); Red Blood Count 3.54 X10*6/uL (4.20-5.50); Red Cell Distribution Width 20.9 % (11.0-16.0)
[2021-03-26 15:54] LABS: Alanine Aminotransferase 24 U/L (0-31); Albumin Level 4.4 g/dL (3.5-5.0); Alkaline Phosphatase 100 U/L (39-117); Anion Gap 18 (12-20); Aspartate Amino Transferase 32 U/L (5-31); Blood Urea Nitrogen 17 mg/dL (9-16); C Reactive Protein 0.57 mg/dL (< or = 0.50); Calcium 9.8 mg/dL (8.4-10.2); Carbon Dioxide 22 mmol/L (22-29); Chloride 104 mmol/L (96-108); Estimated Glomerular Filt Rate > 60; Glucose Random 106 mg/dL (60-115); Potassium 5.2 mmol/L (3.3-5.1); Sodium 139 mmol/L (135-145); Total Protein 7.3 g/dL (6.5-8.0)
[2021-03-26 16:19] LABS: Vitamin B12 185 pg/mL (200-900)
== END 2021-03-26 14:58 | disposition home or self-care (01) ==
LOC: HO.LAB 14:57
PROVIDERS: PCP Internal Medicine; Visit Provider Internal Medicine
DX: R21 Rash and other nonspecific skin eruption (principal); I10 Essential (primary) hypertension; Z93.3 Colostomy status
CPT/HCPCS: 36415; 80053; 82607; 85025; 86140

== ENCOUNTER → 2021-04-10 09:52 | Outpatient (BNVA) | payer BC, SELFPAY | PROVIDERS: PCP Internal Medicine; Visit Provider Surgery ==

== ENCOUNTER → 2021-05-20 15:11 | Outpatient (BNVA) | payer BC, SELFPAY | PROVIDERS: PCP Internal Medicine; Referring Provider Internal Medicine; Visit Provider Surgery ==

== ENCOUNTER 2021-06-11 10:55 | Outpatient (REF) | payer BC, SELFPAY ==
[2021-06-11 12:21] LABS: Blood Urea Nitrogen 10 mg/dL (9-16); Estimated Glomerular Filt Rate > 60
== END 2021-06-11 10:56 | disposition home or self-care (01) ==
LOC: HO.LAB 10:55
PROVIDERS: Visit Provider Surgery
DX: K57.40 Diverticulitis of both small and large intestine with perforation and abscess without bleeding (principal); Z93.3 Colostomy status
CPT/HCPCS: 36415; 82565; 84520

== ENCOUNTER 2021-06-17 08:51 | Outpatient (REF) | payer BC, SELFPAY ==
--- NOTE | ~2021-06-17 | CT_ITS ---
EXAMINATION: CT ABDOMEN AND PELVIS WITH CONTRAST CLINICAL INFORMATION: Colostomy status COMPARISON: KUB 02/07/[address] abdomen pelvis 02/05/2021 TECHNIQUE: Multidetector volumetric images were obtained from the superior aspect of the liver through the pubic symphysis following administration 85 mL of Omnipaque 350 intravenous contrast. Sagittal and coronal reformatted images were obtained on the technologist's workstation. This CT examination was performed using dose optimization techniques as appropriate, variously including the following: *Automated exposure control *Adjustment of mA and/or kV according to patient size (this includes techniques or standardized protocols for targeted exams where dose is matched to indication/reason for exam; i.e. extremities or head) *Use of iterative reconstruction technique DLP: 365 mGy-cm FINDINGS: Visualized lung bases demonstrate minimal dependent atelectasis. The liver is normal in size but demonstrates diffusely decreased attenuation. The gallbladder is normal in appearance. The pancreas, spleen and adrenal glands are unremarkable. Symmetrically enhancing kidneys. There is no hydronephrosis bilaterally. The stomach is relatively decompressed. Normal caliber loops of small bowel. The patient is status post partial left colectomy with a left lower quadrant ostomy. The distalmost approximately 25 cm of colon is decompressed and therefore not accurately evaluated, however, there does appear to be mild diffuse mucosal thickening in this region. Anastomotic suture line within the distal sigmoid colon is unremarkable. Normal caliber abdominal aorta which demonstrates mild atherosclerotic disease. Circumaortic left renal vein. No gross retroperitoneal lymphadenopathy. The bladder is essentially decompressed and therefore not accurately evaluated. The uterus is surgically absent. No gross free pelvic fluid. No inguinal lymphadenopathy. Partially visualized left hip prosthesis. Mild diffuse degenerative changes of the spine. CT/CT abdomen pelvis w con IMPRESSION: 1. The patient is status post partial left colectomy with a left lower quadrant ostomy. The distalmost approximately 25 cm of colon is decompressed and therefore not accurately evaluated, however, there does appear to be mild diffuse mucosal thickening in this region. Clinical correlation recommended. 2. Diffusely decreased liver attenuation suggesting hepatic steatosis. Correlation with liver enzymes recommended. Fleischner guidelines were followed.
[2021-06-17] MEDS: iohexoL 350 MG/ML 100 ML INFUS..BTL 85 ML IV (09:56)
== END 2021-06-17 08:52 | disposition home or self-care (01) ==
LOC: HO.CT 08:51
PROVIDERS: PCP Internal Medicine; Visit Provider Surgery
DX: R93.3 Abnormal findings on diagnostic imaging of other parts of digestive tract (principal); Z93.3 Colostomy status
CPT/HCPCS: 74177; Q9967

== ENCOUNTER → 2021-06-27 09:20 | Outpatient (BNVA) | payer BC, SELFPAY | PROVIDERS: PCP Internal Medicine; Referring Provider Internal Medicine; Visit Provider Surgery ==

== ENCOUNTER 2021-08-02 12:39 | Inpatient (IN) | payer BC, SELFPAY ==
--- NOTE | 2021-07-24 | ECG_ITS ---
Test Reason : preop Blood Pressure : / mmHG Vent. Rate : 087 BPM Atrial Rate : 087 BPM P-R Int : 118 ms QRS Dur : 076 ms QT Int : 366 ms P-R-T Axes : 019 031 -08 degrees QTc Int : 440 ms Normal sinus rhythm Nonspecific ST abnormality Abnormal ECG When compared with ECG of 10-MAY-2019 09:44, Nonspecific T wave abnormality, worse in Inferior leads Referred By: Marianne Alvarez Electronically Signed By:SHAHRIAR HERRERA MD
[2021-07-24 11:57] VITALS: BP 134/65; PULSE 102; RESP 20; O2SAT 97; BMI 27.8
--- NOTE | 2021-07-24 12:04 | P.CONAN_ITS ---
Documented by User: Marianne Alvarez NP 08/06/21 14:38 HPI - Anesthesia Eval Consult details Narrative: 61yo F for Hand Assisted Laparoscopic Colostomy Reversal, Poss open, Poss Divert ing Stoma s/p bowel resection with ostomy 01/2021 with GA-ETT 7 Covid + 07/03/21, mild symptoms, fully resolved by PAT appointment PMF Active Problems Active Problems: All Active Problems (Updated 07/24/21 @ 11:53 by Marichuy Parra RN) Family history of colonic polyps (Acute) Tubular adenoma (Acute) 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 (Acute) Partial small bowel obstruction (Acute) Status post Alexander procedure (Acute) Past Medical History Medical History Acid reflux COVID-19 vaccine series completed Diverticulitis Hematuria High cholesterol History of COVID-19 Hypertension Osteoarthritis of left hip Family History Family History Father Cancer Mother Cancer Maternal Grandmother Colon cancer Other Tubular adenoma Family history of problems with anesthesia: No Surgical History Surgical History H/O colonoscopy H/O total hysterectomy with bilateral salpingo-oophorectomy (BSO) History of colon resection History of dental surgery Hx of bilateral inguinal hernia repair Hx of cystoscopy Status post total hip replacement, left (~06/07/19) History of Problems with Anesthesia: No Social History Social History Household Members: Family Housing: House Are you a primary home care and home health aides teacher to a significant other at home: No Do you presently have visiting nurse or other home services: No Alcohol intake: current Alcohol intake frequency: does not drink Alcohol type: wine Patient Tobacco Use Status: Never used Tobacco Second Hand Smoke Exposure: No Advance Directives Date on File: 01/13/21 service: No 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 Narrative Narrative: Covid at start of June, fully recovered No CP/SOB with ADLs and activity >4mets Meds Allergies Allergy/AdvReac Type Severity Reaction Status Date / Time No Known Allergies Allergy Verified 06/27/21 09:29 [No Known Allergies*] Home Medications Medication Instructions Recorded Confirmed Last Taken Type amlodipine 5 mg tablet 5 mg PO DAILY 06/11/20 07/24/21 08/02/21 History omeprazole 20 mg capsule,delayed 20 mg PO BID 06/11/20 07/24/21 08/02/21 History release atorvastatin 20 mg tablet 1 tab PO BEDTIME 02/05/21 07/24/21 02/04/21 History Lactobacillus acidophilus and 1 cap PO DAILY 07/24/21 07/24/21 Unknown History rhamnosus 15 billion cell capsule (Probiotic) Exam Exam Date and Time: July 24, 2021 1204 Pertinent Lab Results Pertinent Lab Results: Lab Results 07/24/21 07/24/21 07/24/21 Range/Units 12:42 12:55 12:55 WBC 13.0 H (4.8-10.8) X10*3/uL RBC 3.51 L (4.20-5.50) X10*6/uL Hgb 11.3 L (12.0-16.0) g/dl Hct 34.3 L (37.0-47.0) % MCV 97.7 (80.0-98.0) fL MCH 32.2 (27.0-33.0) pg MCHC 32.9 (31.0-35.0) g/dl RDW 13.6 (11.0-16.0) % Plt Count 296 (160-400) X10*3/uL MPV 9.5 (9.4-12.3) fL Absolute Nucleated RBC 0.000 (0.0-0.012) X10*3/uL Nucleated RBC % (auto) 0.0 (0.0-0.2) /100WBC Sodium 137 (135-145) mmol/L Potassium 4.8 (3.3-5.1) mmol/L Chloride 103 (96-108) mmol/L Carbon Dioxide 22 (22-29) mmol/L Anion Gap 17 (12-20) BUN 15 (9-16) mg/dL Creatinine 1.26 (0.5-1.4) mg/dL Estim Creat Clear Calc 47.5 Estimated GFR 43 Random Glucose 95 (60-115) mg/dL Calcium 9.4 (8.4-10.2) mg/dL Blood Type O Positive Antibody Screen NEGATIVE Narrative Narrative: EKG 06/2021 NSR @ [address] abn Airway Adult Head Mouth w/Numbe Teeth: 1. pending implants, missing teeth Heart: RRR Lungs: CTAB Assessment and Plan Assessment Anesthesia Assessment: Anesthesia Plan Discussed and PAT Visit Final Anesthetic Review Family History of Problems with Anesthesia: No History of Problems with Anesthesia: No Documented by User: Monse Sánchez MD 08/02/21 08:32 [facility] Past Medical History Medical History Acid reflux COVID-19 vaccine series completed Diverticulitis Hematuria High cholesterol History of COVID-19 Hypertension Osteoarthritis of left hip Family History Family History Father Cancer Mother Cancer Maternal Grandmother Colon cancer Other Tubular adenoma Surgical History Surgical History H/O colonoscopy H/O total hysterectomy with bilateral salpingo-oophorectomy (BSO) History of colon resection History of dental surgery Hx of bilateral inguinal hernia repair Hx of cystoscopy Status post total hip replacement, left (~06/07/19) Social History Social History Household Members: Family Housing: House Are you a primary home care and home health aides teacher to a significant other at home: No Do you presently have visiting nurse or other home services: No Alcohol intake: current Alcohol intake frequency: does not drink Alcohol type: wine Patient Tobacco Use Status: Never used Tobacco Second Hand Smoke Exposure: No Advance Directives Date on File: 01/13/21 service: No 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 Allergies Allergy/AdvReac Type Severity Reaction Status Date / Time No Known Allergies Allergy Verified 06/27/21 09:29 [No Known Allergies*] Home Medications Medication Instructions Recorded Confirmed Last Taken Type amlodipine 5 mg tablet 5 mg PO DAILY 12/14/20 01/26/22 02/04/22 History omeprazole 20 mg capsule,delayed 20 mg PO BID 06/11/20 07/24/21 08/02/21 History release atorvastatin 20 mg tablet 1 tab PO BEDTIME 02/05/21 07/24/21 02/04/21 History Lactobacillus acidophilus and 1 cap PO DAILY 07/24/21 07/24/21 Unknown History rhamnosus 15 billion cell capsule (Probiotic) Exam Airway Mallampati Class: II TM Dist: >3cm Neck ROM: Full Adult Head Mouth w/Numbe Teeth: 1. pending implants, missing teeth Loose/Missing/Broken Teeth: No Assessment and Plan Final Anesthetic Review NPO: Yes ASA Class: II Final Preanesthetic Review: Meds/Allgs Chart Reviewed, Consent Obtained/Reviewed and Anes Risks/Benef Reviewed Patient Risk: Low Procedure Risk: Low Anesthetic Plan Anesthetic Plan: GA Disposition: Standard PACU
[2021-07-24 13:38] LABS: Hematocrit 34.3 % (37.0-47.0); Hemoglobin 11.3 g/dl (12.0-16.0); Mean Corpuscular HGB Conc 32.9 g/dl (31.0-35.0); Mean Corpuscular Hemoglobin 32.2 pg (27.0-33.0); Mean Corpuscular Volume 97.7 fL (80.0-98.0); Mean Platelet Volume 9.5 fL (9.4-12.3); Platelet Count 296 X10*3/uL (160-400); Red Blood Count 3.51 X10*6/uL (4.20-5.50); Red Cell Distribution Width 13.6 % (11.0-16.0)
[2021-07-24 13:57] LABS: Anion Gap 17 (12-20); Blood Urea Nitrogen 15 mg/dL (9-16); Calcium 9.4 mg/dL (8.4-10.2); Carbon Dioxide 22 mmol/L (22-29); Chloride 103 mmol/L (96-108); Creatinine Clr Calc Pharmacy 47.5; Estimated Glomerular Filt Rate 43; Glucose Random 95 mg/dL (60-115); Potassium 4.8 mmol/L (3.3-5.1); Sodium 137 mmol/L (135-145)
[2021-08-02] VITALS (17 sets, daily range): BP systolic 135–164; BP diastolic 62–87; PULSE 76–100; RESP 16–18; TEMP 36.1–36.6; O2SAT 96–99
[2021-08-02 07:53] LABS: COVID-19 Test Negative (Negative)
[2021-08-02] MEDS: Lactated Ringers 1,000 ML 100 ML IVCONT ×2 (08:10→23:10)
--- NOTE | 2021-08-02 08:20 | P.HPSUR_ITS ---
Pre-Procedural Eval Section A Date of Service: 08/02/21 Section B Chief Complaint: Status post Alexander procedure Details of Present Illness: Has a history of urgent sigmoidresection with end-colostomy last January 2021 for diverticular disease; has been doing well since then Relevant Social History: None Present Medications: see Short Stay Collaborative assessment Medical History: Significant History History of Previous Operations: Relevant previous surgery/procedure and date(s) ( Alexander's procedure in January 2021) Allergies: Allergies Allergy/AdvReac Type Severity Reaction Status Date / Time No Known Allergies Allergy Verified 06/27/21 09:29 [No Known Allergies*] Review of Systems Sugical H&P ROS: Negative: Constitution, Cardiovascular, Respiratory, Neurological, Psychiatric, Hem-Onc, Allergic/Immunologic, Gastrointestinal, Genitourinary, Musculoskeletal, Integumentary, Endocrine and Eyes/Ears/Nose/Throat Exam Surgical H&P Exam: Normal: HEENT, Normal: Heart, Normal: Lungs, Normal: E xtremities, Normal: Skin and Normal: Neurological and Significant Findings: Abdomen ( has stoma on the left side) Plan Diagnosis/Plan: Unchanged I have reviewed the history and physical and performed a pertinent physical examination on my patient. No changes have occurred unless specified.
--- NOTE | 2021-08-02 12:26 | W.PM.OPN ---
Operative Note Operative Note Date of Service: 08/02/21 Narrative: Preop diagnosis: Status post Alexander's procedure for diverticular stricture Postop diagnosis: The same Procedure: Hand assisted laparoscopic reversal of colostomy with anastomosis of the remaining sigmoid to the rectum, extensive lysis of adhesions, diverting loop ileostomy , intraop flexible sigmoidoscopy Surgeon: Vaibhav Velasquez MD warehouse administrative assistant: TYESHA Vasquez Alex Patient is a 61 year female who had gone urgent sigmoid resection with end colostomy last January, because of diverticular stricture It obstruction. She also had some this is at that time. She is here to have the cyst stoma reversed. She understood technique of planned reversal with laparoscopic had a cyst, the possibility of a diverting stoma. She was aware of the risks, benefits, and alternatives She was brought to the operating room placed in modified lithotomy position under general anesthesia via endotracheal tube. Brown catheter was inserted. I closed the stoma with a running Dexon 1 stitch to prevent this from leaking during the procedure. The abdomen and the noe anal area were prepped and draped in the usual sterile fashion. A surgical time-out was done. The patient received Cefotan 2 g IV preoperatively. I made a short midline infraumbilical incision using blade 15. This was carried down with electrocautery through the full-thickness skin down to the fascia. This noted that the area is significantly fibrotic because of her previous laparotomy. We incised the fascia and opened the peritoneum. There was note of a lot of adherent omentum surrounding the area so we had to do a lot of lysis of adhesions using electrocautery, Metzenbaum scissors, and blunt dissection of the fingers. This took some extended period of time. Eventually was able to position the GelPort into the area. We insufflated to a pressure of 15 mmHg. With laparoscopic visualization through the GelPort, I was able to insert 5/12 mm port in the epigastric area below the subcostal margin. Of the laparoscope into this epigastric port. I placed my hand through the GelPort. The patient placed in a head down and right side down position. This allowed us to reflect some of the small bowel loops away from the pelvis. However, there was note of extensive adhesions tethering many of the small bowel was to the pelvis and we had to do a lot of dissection using the LigaSure. Again this part of the procedure took an extended period of the time until were able to reflect the small bowel loops away from the pelvis. I was able to therefore to the pelvis and we attempted to visualize the [place]. There was note of a lot of scattering and fibrotic changes in the pelvis although I saw what appeared to be the end of the pouch. However the rest of the the sigmoid seemed to be very adherent to the pelvic side wall and we could not clearly identify this. I therefore had the 1st senior executive assistant TYESHA Johnson insert a dilator through the rectum. We then proceeded to try to advance it although the very end of the pouch but we could not advance this because of significantly angulated rectum which was very adherent to the left pelvic sidewall. The rectosigmoid was also markedly adherent to the sidewall making it difficult to achieve a good angle to allow the dilator to advance to the end of the pouch We therefore proceeded to mobilize more of this plastered sigmoid by dividing the peritoneum tethering this to the sidewall. We had to proceed carefully to avoid injury to the retroperitoneal area including the ureter The planes were not very define but were able to at least separate the rectum and rectosigmoid from the left pelvic sidewall with this careful dissection. This allowed us to released the angulation in the rectum and the rectosigmoid. We therefore attempted to advance the dilator through anus and were now able to advance close to the beginning of the Alexander's pouch. with adequate mobilization of the Alexander's pouch, we then proceeded to bring down the end-colostomy I deflated and then made an incision on the skin surrounding the stoma using blade 15. this was carried down full-thickness of the skin and subcutaneous fat with electrocautery. With continued with gentle dissection with the right angle clamp and electrocautery to separate the bowel wall from the of the subcutaneous fat until we were able to reach the fascia. I was able to therefore define the interface of the serosa of the bowel and the fascial edge. We entered the peritoneum and gently this entire stoma from the the defect with Metzenbaum scissors as well as electrocautery. We dissected circumferentially releasing all these adhesions until were able to completely bring down the stoma into the peritoneal cavity. I then proceeded to close the fascia on this old colostomy site. I then proceeded to out and of the stoma through the midline incision. Excised the end of this to open the lumen. I then proceeded to make this with a medium-sized dilator. I applied appy Prolene 3-0 pursestring. I positioned the anvil of the 28 mm EEA stapler through the lumen and tighten the pursestring. I removed some of the thick fat surrounding the anvil. I tested the remaining colon sigmoid for length and these appeared to reach all the way down into the pelvis without any tension. I did lyse some more adhesions the left colon to the omentum using Metzenbaum scissors and electrocautery to allow as more length. I then proceeded to we apply the GelPort and re-insufflated. It my hand into the GelPort and reflected all the bowel loops away from the pelvis. The 1st senior executive assistant then proceeded to advance the 28 mm EEA apparatus to the anus and gently advanced this to the length of the pouch until we were able to reach the very beginning of the pouch. It was noted earlier that there was a lot of residual stool in this pouch. I was able to position the center of the stapler on the anterior wall of the pouch. The spike was therefore activated. We attached the anvil into the spike and this was locked in place. We made sure that there was no twisting on the left colon. We then proceeded to activate the EEA stapler to create our circumferential anastomosis. The entire apparatus was pulled out without difficulty. we insufflated the rectum with a bulb syringe to see if there was any leak from the staple line with this immersed in irrigating fluid. There was no bubbling despite multiple insufflations. I also did an intraop flexible sigmoidoscopy to examine the anastomotic line. We were able to see this and this appeared intact. Furthermore, these appeared to be viable and healthy looking I proceeded to desufflate and removed the entire flexible sigmoidoscope. I then examined the anastomotic donuts. I had noticed that 1 quadrant of the do not at the distal ring appeared to be thinned out. I therefore felt that it would be best to divert this anastomosis because of the risk of leaking. with laparoscopic visualization therefore, I proceeded to identify the cecum and by doing so I was able to identify the terminal ileum. I traced the terminal ileum proximally and identified a segment that would pull out as loop ileostomy to the old stoma opening I created a small mesenteric defect into this segment and passed a Lazara drainage through this. We then proceeded to pull up the Lazara drain to the stoma opening. We applied the stoma bridge. Examination of this exteriorized segment of follows however reveal that there was a small tear from the stoma bridge and was drain so we had to repair this with full-thickness Dexon 3-0 sutures along with a 2nd layer of his seromuscular stitch I also decided to bring out stoma more proximally to this . I created a mesenteric defect more proximally. I brought out this segment which is just maybe an inch more proximal than the previous segment. The stoma bridge was reposition I then proceeded to retrace this loop distally and confirmed that this was going into the terminal ileum. The fascial opening on the stoma will appeared to be too large so I closed this and tighten this a little bit with a Maxon 1 stitch. I then copiously irrigated the peritoneal cavity. There was no evidence of any injury any leak. There was no evidence of bleeding and there was good hemostasis on all the areas of dissection. I therefore removed the GelPort and the Esteban wound retractor.. I closed the fascia with a running Maxon 1 stitch. I closed the skin vision with skin marybeth after irrigating the subcutaneous layer . The epigastric port was still in place we examined the holmium laparoscopically. There was no bowel loops caught within the fascial closure. Stoma was noted and this appeared viable and not twisted I therefore desufflated through this port and removed all ports. I but sure the stoma by making an incision transversely on the anterior wall and entering the lumen. I secured the thickness of the bowel looked with Dexon 3-0 sutures to the subdermal layer circumferentially I test did the efferent and afferent limbs of the loop ostomy in this were both patent We infiltrated the incisions with Marcaine 0.5% for postop analgesia. Dressings were applied. The stoma appliance was position The procedure was then completed. The patient tolerated procedure well. There were no complication noted. Initial and final counts of sponges and instruments were correct. Estimated blood loss was about 200 cc . The patient was extubated without difficulty and transferred to the recovery room with stable vital signs. There was note of good urine output and this was clear and nonbloody
--- NOTE | 2021-08-02 12:45 | P.BOP_ITS ---
Brief Operative Note Date of Service: 08/02/21 <CAROL Adame Last Filed: 08/02/21 12:48> Pre-op diagnosis: colostomy in place, s/p savannah procedure <CAROL Adame Last Filed: 08/02/21 12:48> Post-op diagnosis: same <Christina Johnson PA-C - Last Filed: 08/02/21 12:48> Procedure: hand assisted laparoscopic colostomy closure with rectosigmoid anastomosis and diverting loop ileostomy, extensive lysis of adhesions, intraop flex sig <Christina Johnson PA-C - Last Filed: 08/02/21 12:48> Surgeon: Vaibhav Velasquez MD <CAROL Adame Last Filed: 08/02/21 12:48> Anesthesia: GETA <Christina Johnson PA-C - Last Filed: 08/02/21 12:48> Was an Automotive Software Engineer used for this Procedure?: Yes <Christina Johnson PA-C - Last Filed: 08/02/21 12:48> No <Vaibhav Velasquez MD - Last Filed: 08/02/21 14:57> Automotive Software Engineer: Christina Johnson <CAROL Adame Last Filed: 08/02/21 12:48> Estimated blood loss (mL): 50 <CAROL Adame Last Filed: 08/02/21 12:48> Pathology: other (colostomy) <CAROL Adame Last Filed: 08/02/21 12:48> Condition: stable <CAROL Adame Last Filed: 08/02/21 12:48> Disposition: PACU <CAROL Adame Last Filed: 08/02/21 12:48>
[2021-08-02] MEDS: fentaNYL citrate/PF 100 MCG/2 ML VIAL 50 MCG IVPUSH (13:02)
[2021-08-02] MEDS: fentaNYL citrate/PF 100 MCG/2 ML VIAL 25 MCG IVPUSH ×3 (13:11→13:38)
[2021-08-02] MEDS: Morphine Sulfate/NS 100 MG/100 ML PLAST..BAG IVCONT (14:30)
--- NOTE | 2021-08-02 14:57 | PM.EVENT ---
Event Note Date of Service: 08/02/21 Event Note: Seen postop Underwent hand assisted laparoscopic reversal of a colostomy with getting ileostomy today Seems to have adequate pain control Urine output adequate, clear Stable vital signs Abdomen soft, stoma viable I had explained to the patient the procedure with was done Her significant other Brian Serna was also updated by phone [phone] Doing well postop
[2021-08-02] MEDS: Omeprazole 20 MG CAPSULE.DR PO (17:16)
[2021-08-02] MEDS: Atorvastatin Calcium 20 MG TABLET PO (21:09)
[2021-08-03 03:53] VITALS: BP 140/73; PULSE 103; RESP 20; TEMP 36.6; O2SAT 96
[2021-08-03] MEDS: Omeprazole 20 MG CAPSULE.DR PO ×2 (05:52→15:13)
[2021-08-03 06:07] LABS: MANUAL DIFF FLAG NO
[2021-08-03 06:12] LABS: Basophils Percent Auto 0.2 % (0-2); Eosinophils Percent Auto 0.1 % (0-4); Hematocrit 30.8 % (37.0-47.0); Hemoglobin 10.1 g/dl (12.0-16.0); Imm Gran Abs Auto 0.05 X10*3/uL (0.00-0.03); Imm Gran Pct Auto 0.5 % (0.0-0.4); Lymphocytes Absolute Auto 1.1 X10*3/uL (1.2-4.9); Lymphocytes Percent Auto 10.1 % (20-40); Mean Corpuscular HGB Conc 32.8 g/dl (31.0-35.0); Mean Corpuscular Hemoglobin 33.2 pg (27.0-33.0); Mean Corpuscular Volume 101.3 fL (80.0-98.0); Mean Platelet Volume 9.7 fL (9.4-12.3); Monocytes Percent Auto 9.4 % (2-11); Neutrophils Absolute Auto 8.5 x10*3/uL (2.0-8.3); Neutrophils Percent Auto 79.7 % (45-73); Platelet Count 242 X10*3/uL (160-400); Red Blood Count 3.04 X10*6/uL (4.20-5.50); Red Cell Distribution Width 14.6 % (11.0-16.0); White Blood Count 10.7 X10*3/uL (4.8-10.8)
[2021-08-03 06:38] LABS: Anion Gap 11 (12-20); Blood Urea Nitrogen 7 mg/dL (9-16); Calcium 8.1 mg/dL (8.4-10.2); Carbon Dioxide 26 mmol/L (22-29); Chloride 106 mmol/L (96-108); Creatinine Clr Calc Pharmacy 71.3; Estimated Glomerular Filt Rate > 60; Glucose Random 134 mg/dL (60-115); Potassium 3.9 mmol/L (3.3-5.1); Sodium 139 mmol/L (135-145)
[2021-08-03] MEDS: amLODIPine Besylate 5 MG TABLET PO (07:17)
[2021-08-03 07:25] VITALS: BP 136/66; PULSE 101; RESP 18; TEMP 36.9; O2SAT 95
--- NOTE | 2021-08-03 09:20 | MHC.CM.PN ---
FULLY INDEPENDENT LIVES WITH SON AND SIGNIFICANT OTHER NO DME OTHER THAN COLOSTOMY SUPPLIES. HCP IN CHART. PLAN IS HOME WITH NO NEED FOR SERVICES SHE HAS BEEN VACCINATED AGAINST COVID-19 WITH THE MODERNA SERIES AND BOOSTER (BOOSTER WAS 06/07/21) CASE MANAGEMENT FOLLOWING
--- NOTE | 2021-08-03 09:44 | P.PNGS_ITS ---
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 otherwise no events Physical Exam Verdana 4l Vital Signs: Verdana 4d Verdana 4d Vital Signs: Verdana 4d Verdana 4Bd Last Vital Signs Verdana 4d Chief Security And Safety Officer New 4d Chief Security And Safety Officer New 4d Temp 98.4 F 08/03/21 07:25 Chief Security And Safety Officer New 4d Pulse 101 H 08/03/21 07:25 Chief Security And Safety Officer New 4d Resp 18 08/03/21 07:25 BP 136/66 08/03/21 07:25 Pulse Ox 95 08/03/21 07:25 BMI result Body Mass Index 27.8 Const: General: comfortable and no acute distress Resp: Effort & Inspection: normal respiratory effort Cardio: Rhythm: regular rhythm GI: Other: soft, no guarding, stoma with liquid stools, dressings dry Objective Data Active Medications Amlodipine Besylate (Amlodipine Besylate 5 Mg Tablet) 5 mg PO DAILY [facility]; Protocol Last Admin: 08/03/21 07:17 Dose: 5 mg Documented by: AMY Atorvastatin Calcium (Atorvastatin Calcium 20 Mg Tablet) 20 mg PO BEDTIME [facility] Last Admin: 08/02/21 21:09 Dose: 20 mg Documented by: REMEDIOS Diphenhydramine HCl (Diphenhydramine Hcl 50 Mg/Ml Vial) 25 mg IVPUSH Q6H PRN PRN Reason: Itching Heparin Sodium (Porcine) (Heparin Sodium,Porcine 5,000 Unit/Ml Vial) 5,000 unit SUBCUT Q8H [facility] Lactated Ringer's (Lr) 1,000 mls @ 100 mls/hr IVCONT .Q10H [facility] Last Admin: 08/02/21 23:10 Dose: 100 mls/hr Documented by: REMEDIOS Morphine Sulfate () 100 mg in 100 mls @ 0 mls/hr IVCONT .Q0M [facility]; Protocol Last Admin: 08/02/21 14:30 Dose: 0.1 mg/hr, 0.1 mls/hr Documented by: KEEGAN Acetaminophen (Ofirmev) 1,000 mg in 100 mls @ 400 mls/hr IV Q6H PRN PRN Reason: Pain, Severe (Pain Scale 7-10) Melatonin (Melatonin 3 Mg Tablet) 6 mg PO BEDTIME PRN PRN Reason: Insomnia Naloxone HCl (Naloxone Hcl 0.4 Mg/Ml Vial) 0.2 mg IVPUSH Q2M PRN PRN Reason: Excessive sedation or RR < 8 Omeprazole (Omeprazole 20 Mg Capsule.) 20 mg PO BID@0630,1630 [facility] Last Admin: 08/03/21 05:52 Dose: 20 mg Documented by: REMEDIOS Ondansetron HCl (Ondansetron Hcl 4 Mg/2 Ml Vial) 4 mg IVPUSH Q8H PRN PRN Reason: Nausea and Vomiting Sodium Chloride (0.9 % Sodium Chloride Flush 3 Ml Syringe) 3 ml IVFLUSH QSHIFT [facility] Last Admin: 08/03/21 07:18 Dose: Not Given Documented by: AMY Non-Admin Reason: IV Running Labs CBC & Chem 7: 08/03/21 05:22 08/03/21 05:22 Labs: Laboratory Results - last 24 hr 08/03/21 08/03/21 05:22 05:22 MCV 101.3 H MCH 33.2 H MCHC 32.8 RDW 14.6 Plt Count 242 MPV 9.7 Immature Gran % (Auto) 0.5 H Neut % (Auto) 79.7 H Lymph % (Auto) 10.1 L [place] % (Auto) 9.4 Eos % (Auto) 0.1 Baso % (Auto) 0.2 Lymph # (Auto) 1.1 L [place] # (Auto) 1.0 Eos # (Auto) 0.0 Baso # (Auto) 0.0 Abs Immat Gran (auto) 0.05 H Absolute Neuts (auto) 8.5 H Absolute Nucleated RBC 0.000 Nucleated RBC % (auto) 0.0 Anion Gap 11 L Estim Creat Clear Calc 71.3 Estimated GFR > 60 Random Glucose 134 H Calcium 8.1 L D Procedures Date of Service Date of Service: 08/03/21 Progress Note: A&P Assessment and plan (1) Status post Alexander procedure: Status: Acute Assessment and Plan: s/p reversal of colostomy, diverting ileostomy stoma with liquid stools looks well pain mgt OOB labs ok dc Brown Fall Risk Details Current Medications: Current Medications Amlodipine Besylate (Amlodipine Besylate 5 Mg Tablet) 5 mg PO DAILY [facility]; Protocol Last Admin: 08/03/21 07:17 Dose: 5 mg Documented by: Atorvastatin Calcium (Atorvastatin Calcium 20 Mg Tablet) 20 mg PO BEDTIME [facility] Last Admin: 08/02/21 21:09 Dose: 20 mg Documented by: Diphenhydramine HCl (Diphenhydramine Hcl 50 Mg/Ml Vial) 25 mg IVPUSH Q6H PRN PRN Reason: Itching Heparin Sodium (Porcine) (Heparin Sodium,Porcine 5,000 Unit/Ml Vial) 5,000 unit SUBCUT Q8H [facility] Lactated Ringer's (Lr) 1,000 mls @ 100 mls/hr IVCONT .Q10H [facility] Last Admin: 08/02/21 23:10 Dose: 100 mls/hr Documented by: Morphine Sulfate () 100 mg in 100 mls @ 0 mls/hr IVCONT .Q0M [facility]; Protocol Last Admin: 08/02/21 14:30 Dose: 0.1 mg/hr, 0.1 mls/hr Documented by: Acetaminophen (Ofirmev) 1,000 mg in 100 mls @ 400 mls/hr IV Q6H PRN PRN Reason: Pain, Severe (Pain Scale 7-10) Melatonin (Melatonin 3 Mg Tablet) 6 mg PO BEDTIME PRN PRN Reason: Insomnia Naloxone HCl (Naloxone Hcl 0.4 Mg/Ml Vial) 0.2 mg IVPUSH Q2M PRN PRN Reason: Excessive sedation or RR < 8 Omeprazole (Omeprazole 20 Mg Capsule.Dr) 20 mg PO BID@0630,1630 [facility] Last Admin: 08/03/21 05:52 Dose: 20 mg Documented by: Ondansetron HCl (Ondansetron Hcl 4 Mg/2 Ml Vial) 4 mg IVPUSH Q8H PRN PRN Reason: Nausea and Vomiting Sodium Chloride (0.9 % Sodium Chloride Flush 3 Ml Syringe) 3 ml IVFLUSH QSHIFT [facility] Last Admin: 08/03/21 07:18 Dose: Not Given Documented by: Time Spent With Patient Time: Total time spent is greater than 50% in coordination of care (as documented) at patient's floor/unit and/or counseling patient: Time with patient: 15 - 24 minutes Quality Stroke Does the patient have a stroke diagnosis?: No VTE Prior VTE?: No VTE Risk Level:: Medical - moderate - high VTE Device Contraindication: N/A - Device Ordered VTE Drug Contraindication: N/A - Med Ordered
[2021-08-03] MEDS: Lactated Ringers 1,000 ML 100 ML IVCONT ×2 (10:27→21:49)
[2021-08-03] MEDS: Heparin Sodium,Porcine 5,000 UNIT/ML VIAL 5000 UNIT SUBCUT ×2 (11:48→18:43)
[2021-08-03 12:00] VITALS: BP 140/72; PULSE 109; RESP 18; TEMP 37.1; O2SAT 92
[2021-08-03 16:00] VITALS: BP 156/70; PULSE 107; RESP 18; TEMP 36.8; O2SAT 92
--- NOTE | 2021-08-03 17:33 | HO.POSTANES ---
Post Anesthesia Evaluation Post Anesthesia Evaluation Vital Signs: Vital Signs Temp Pulse Resp BP Pulse Ox 08/03/21 16:00 98.2 F 107 H 18 156/70 H 92 08/03/21 12:00 98.8 F 109 H 18 140/72 H 92 08/03/21 07:25 98.4 F 101 H 18 136/66 95 Anesthesia: General Endotracheal-GETA Mental Status: Awake Pain Control: Satisfactory Nausea/Vomiting: None Hydration: Adequate Anesthesia-Related Issues: No Anes. Related Issues
[2021-08-03 19:56] VITALS: BP 171/77; PULSE 111; RESP 18; TEMP 36.6; O2SAT 92
[2021-08-03] MEDS: Atorvastatin Calcium 20 MG TABLET PO (21:49)
[2021-08-03 23:25] VITALS: BP 154/80; PULSE 111; RESP 20; TEMP 36.6; O2SAT 90
[2021-08-04 03:10] VITALS: BP 167/79; PULSE 102; RESP 20; TEMP 36.1; O2SAT 92
[2021-08-04] MEDS: Heparin Sodium,Porcine 5,000 UNIT/ML VIAL 5000 UNIT SUBCUT ×3 (03:48→17:57)
[2021-08-04] MEDS: Omeprazole 20 MG CAPSULE.DR PO ×2 (05:54→15:58)
[2021-08-04] MEDS: amLODIPine Besylate 5 MG TABLET PO (07:19)
[2021-08-04] MEDS: 0.9 % Sodium Chloride Flush 3 ML SYRINGE IVFLUSH (07:19)
[2021-08-04 07:47] VITALS: BP 163/84; PULSE 98; RESP 18; TEMP 36; O2SAT 92
[2021-08-04] MEDS: Lactated Ringers 1,000 ML 100 ML IVCONT ×2 (09:36→20:21)
--- NOTE | 2021-08-04 09:54 | P.PNGS_ITS ---
Subjective Subjective Date of Service: 08/04/21 Interval history: good pain control stoma functioning well says she had small emesis with broth last night but everything else was ok has gotten out of bed Physical Exam Verdana 4l Vital Signs: Verdana 4d Verdana 4d Vital Signs: Verdana 4d Verdana 4Bd Last Vital Signs Verdana 4d Senior It Engineer New 4d Senior It Engineer New 4d Temp 96.8 F 08/04/21 07:47 Senior It Engineer New 4d Pulse 98 08/04/21 07:47 Senior It Engineer New 4d Resp 18 08/04/21 07:47 BP 163/84 H 08/04/21 07:47 Pulse Ox 92 08/04/21 07:47 BMI result Body Mass Index 27.8 Const: General: comfortable and no acute distress Resp: Effort & Inspection: normal respiratory effort Cardio: Rate: regular rate GI: Other: soft, dressings dry, stoma with good output - stool and gas Objective Data Active Medications Amlodipine Besylate (Amlodipine Besylate 5 Mg Tablet) 5 mg PO DAILY [facility]; Protocol Last Admin: 08/04/21 07:19 Dose: 5 mg Documented by: AMY Atorvastatin Calcium (Atorvastatin Calcium 20 Mg Tablet) 20 mg PO BEDTIME [facility] Last Admin: 08/03/21 21:49 Dose: 20 mg Documented by: REMEDIOS Diphenhydramine HCl (Diphenhydramine Hcl 50 Mg/Ml Vial) 25 mg IVPUSH Q6H PRN PRN Reason: Itching Heparin Sodium (Porcine) (Heparin Sodium,Porcine 5,000 Unit/Ml Vial) 5,000 unit SUBCUT Q8H [facility] Last Admin: 08/04/21 09:30 Dose: 5,000 unit Documented by: AMY Lactated Ringer's (Lr) 1,000 mls @ 100 mls/hr IVCONT .Q10H [facility] Last Admin: 08/04/21 09:36 Dose: 100 mls/hr Documented by: AMY Morphine Sulfate () 100 mg in 100 mls @ 0 mls/hr IVCONT .Q0M [facility]; Protocol Last Admin: 08/02/21 14:30 Dose: 0.1 mg/hr, 0.1 mls/hr Documented by: KEEGAN Acetaminophen (Ofirmev) 1,000 mg in 100 mls @ 400 mls/hr IV Q6H PRN PRN Reason: Pain, Severe (Pain Scale 7-10) Melatonin (Melatonin 3 Mg Tablet) 6 mg PO BEDTIME PRN PRN Reason: Insomnia Naloxone HCl (Naloxone Hcl 0.4 Mg/Ml Vial) 0.2 mg IVPUSH Q2M PRN PRN Reason: Excessive sedation or RR < 8 Omeprazole (Omeprazole 20 Mg Capsule.) 20 mg PO BID@0630,1630 [facility] Last Admin: 08/04/21 05:54 Dose: 20 mg Documented by: REMEDIOS Ondansetron HCl (Ondansetron Hcl 4 Mg/2 Ml Vial) 4 mg IVPUSH Q8H PRN PRN Reason: Nausea and Vomiting Sodium Chloride (0.9 % Sodium Chloride Flush 3 Ml Syringe) 3 ml IVFLUSH QSHIFT [facility] Last Admin: 08/04/21 07:19 Dose: 3 ml Documented by: AMY Labs CBC & Chem 7: 08/03/21 05:22 08/03/21 05:22 Procedures Date of Service Date of Service: 08/04/21 Progress Note: A&P Assessment and plan (1) 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: Status: Acute Assessment and Plan: s/p reversal of colostomy, diverting loop ileostomy doing well 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 incentive spirometry diet as tolerated pt voiding freely - sees blood in urine after Brown was removed - likely Brown trauma Fall Risk Details Current Medications: Current Medications Amlodipine Besylate (Amlodipine Besylate 5 Mg Tablet) 5 mg PO DAILY [facility]; Protocol Last Admin: 08/04/21 07:19 Dose: 5 mg Documented by: Atorvastatin Calcium (Atorvastatin Calcium 20 Mg Tablet) 20 mg PO BEDTIME [facility] Last Admin: 08/03/21 21:49 Dose: 20 mg Documented by: Diphenhydramine HCl (Diphenhydramine Hcl 50 Mg/Ml Vial) 25 mg IVPUSH Q6H PRN PRN Reason: Itching Heparin Sodium (Porcine) (Heparin Sodium,Porcine 5,000 Unit/Ml Vial) 5,000 unit SUBCUT Q8H [facility] Last Admin: 08/04/21 09:30 Dose: 5,000 unit Documented by: Lactated Ringer's (Lr) 1,000 mls @ 100 mls/hr IVCONT .Q10H [facility] Last Admin: 08/04/21 09:36 Dose: 100 mls/hr Documented by: Morphine Sulfate () 100 mg in 100 mls @ 0 mls/hr IVCONT .Q0M [facility]; Protocol Last Admin: 08/02/21 14:30 Dose: 0.1 mg/hr, 0.1 mls/hr Documented by: Acetaminophen (Ofirmev) 1,000 mg in 100 mls @ 400 mls/hr IV Q6H PRN PRN Reason: Pain, Severe (Pain Scale 7-10) Melatonin (Melatonin 3 Mg Tablet) 6 mg PO BEDTIME PRN PRN Reason: Insomnia Naloxone HCl (Naloxone Hcl 0.4 Mg/Ml Vial) 0.2 mg IVPUSH Q2M PRN PRN Reason: Excessive sedation or RR < 8 Omeprazole (Omeprazole 20 Mg Capsule.Dr) 20 mg PO BID@0630,1630 [facility] Last Admin: 08/04/21 05:54 Dose: 20 mg Documented by: Ondansetron HCl (Ondansetron Hcl 4 Mg/2 Ml Vial) 4 mg IVPUSH Q8H PRN PRN Reason: Nausea and Vomiting Sodium Chloride (0.9 % Sodium Chloride Flush 3 Ml Syringe) 3 ml IVFLUSH QSHIFT [facility] Last Admin: 08/04/21 07:19 Dose: 3 ml Documented by: Time Spent With Patient Time: Total time spent is greater than 50% in coordination of care (as documented) at patient's floor/unit and/or counseling patient: Time with patient: 15 - 24 minutes Quality Stroke Does the patient have a stroke diagnosis?: No VTE Prior VTE?: No VTE Risk Level:: Medical - moderate - high VTE Device Contraindication: N/A - Device Ordered VTE Drug Contraindication: N/A - Med Ordered
[2021-08-04 12:00] VITALS: BP 168/80; PULSE 104; RESP 18; TEMP 37.1; O2SAT 94
[2021-08-04 15:41] VITALS: BP 174/79; PULSE 102; RESP 18; TEMP 37.1; O2SAT 93
[2021-08-04] MEDS: ondansetron HCL 4 MG/2 ML VIAL IVPUSH (18:04)
[2021-08-04] MEDS: oxyCODONE HCl Immed Release 5 MG TABLET 10 MG PO (18:04)
[2021-08-04 19:23] VITALS: BP 179/80; PULSE 93; RESP 18; TEMP 36.3; O2SAT 93
[2021-08-04] MEDS: Atorvastatin Calcium 20 MG TABLET PO (20:21)
[2021-08-04 23:35] VITALS: BP 155/72; PULSE 93; RESP 16; TEMP 36.2; O2SAT 92
[2021-08-05] VITALS (7 sets, daily range): BP systolic 142–176; BP diastolic 60–84; PULSE 87–444; RESP 14–18; TEMP 36.2–37.1; O2SAT 91–96
[2021-08-05] MEDS: Heparin Sodium,Porcine 5,000 UNIT/ML VIAL 5000 UNIT SUBCUT ×3 (03:37→19:12)
[2021-08-05] MEDS: Omeprazole 20 MG CAPSULE.DR PO ×2 (06:22→15:50)
[2021-08-05] MEDS: Lactated Ringers 1,000 ML 100 ML IVCONT (06:23)
[2021-08-05] MEDS: amLODIPine Besylate 5 MG TABLET PO (07:37)
--- NOTE | 2021-08-05 10:45 | P.PNGS_ITS ---
Subjective Subjective Date of Service: 08/06/21 Interval history: Says she feels well Adequate pain control Tolerating regular diet Stoma functioning well Physical Exam Vital Signs: Vital Signs: Last Vital Signs Temp 98.8 F 08/05/21 07:40 Pulse 91 08/05/21 07:40 Resp 16 08/05/21 07:40 BP 143/60 H 08/05/21 07:40 Pulse Ox 91 L 08/05/21 07:40 BMI result Body Mass Index 27.8 Const: General: comfortable and no acute distress Resp: Effort & Inspection: normal respiratory effort Cardio: Rate: regular rate GI: Other: Soft, stoma functioning well, and viable, midline incision dry Objective Data Active Medications Amlodipine Besylate (Amlodipine Besylate 5 Mg Tablet) 5 mg PO DAILY [facility]; Protocol Last Admin: 08/05/21 07:37 Dose: 5 mg Documented by: MANDY Atorvastatin Calcium (Atorvastatin Calcium 20 Mg Tablet) 20 mg PO BEDTIME [facility] Last Admin: 08/04/21 20:21 Dose: 20 mg Documented by: REMEDIOS Diphenhydramine HCl (Diphenhydramine Hcl 50 Mg/Ml Vial) 25 mg IVPUSH Q6H PRN PRN Reason: Itching Heparin Sodium (Porcine) (Heparin Sodium,Porcine 5,000 Unit/Ml Vial) 5,000 unit SUBCUT Q8H [facility] Last Admin: 08/05/21 09:49 Dose: 5,000 unit Documented by: TING Acetaminophen (Ofirmev) 1,000 mg in 100 mls @ 400 mls/hr IV Q6H PRN PRN Reason: Pain, Severe (Pain Scale 7-10) Melatonin (Melatonin 3 Mg Tablet) 6 mg PO BEDTIME PRN PRN Reason: Insomnia Morphine Sulfate (Morphine Sulfate 2 Mg/Ml Cartridge) 2 mg IVPUSH Q3H PRN; Protocol PRN Reason: Pain, Severe (Pain Scale 7-10) Naloxone HCl (Naloxone Hcl 0.4 Mg/Ml Vial) 0.2 mg IVPUSH Q2M PRN PRN Reason: Excessive sedation or RR < 8 Omeprazole (Omeprazole 20 Mg Capsule.) 20 mg PO BID@0630,1630 [facility] Last Admin: 08/05/21 06:22 Dose: 20 mg Documented by: LETITIA Ondansetron HCl (Ondansetron Hcl 4 Mg/2 Ml Vial) 4 mg IVPUSH Q8H PRN PRN Reason: Nausea and Vomiting Last Admin: 08/04/21 18:04 Dose: 4 mg Documented by: AMY Oxycodone HCl (Oxycodone Hcl Immed Release 5 Mg Tablet) 10 mg PO Q4H PRN PRN Reason: Pain, Moderate (Pain Scale 4-6 Last Admin: 08/04/21 18:04 Dose: 10 mg Documented by: AMY Sodium Chloride (0.9 % Sodium Chloride Flush 3 Ml Syringe) [address] [facility] Last Admin: 08/05/21 07:38 Dose: Not Given Documented by: MANDY Non-Admin Reason: IV Running Labs CBC & Chem 7: 08/03/21 05:22 08/03/21 05:22 Procedures Date of Service Date of Service: 08/06/21 Progress Note: A&P Assessment and plan (1) Status post Alexander procedure: Status: Acute Assessment and Plan: Status post reversal of end colostomy, with a diverting loop ileostomy Looks well, has been ambulating Seems to have good pain control On regular diet Plan to DC home once pain control is adequate on p.o. pills Will remove stoma bridge prior to discharge home She looks well overall Fall Risk Details Current Medications: Current Medications Amlodipine Besylate (Amlodipine Besylate 5 Mg Tablet) 5 mg PO DAILY [facility]; Protocol Last Admin: 08/05/21 07:37 Dose: 5 mg Documented by: Atorvastatin Calcium (Atorvastatin Calcium 20 Mg Tablet) 20 mg PO BEDTIME [facility] Last Admin: 08/04/21 20:21 Dose: 20 mg Documented by: Diphenhydramine HCl (Diphenhydramine Hcl 50 Mg/Ml Vial) 25 mg IVPUSH Q6H PRN PRN Reason: Itching Heparin Sodium (Porcine) (Heparin Sodium,Porcine 5,000 Unit/Ml Vial) 5,000 unit SUBCUT Q8H [facility] Last Admin: 08/05/21 09:49 Dose: 5,000 unit Documented by: [facility]aminophen ([facility]) 1,000 mg in 100 mls @ 400 mls/hr IV Q6H PRN PRN Reason: Pain, Severe (Pain Scale 7-10) Melatonin (Melatonin 3 Mg Tablet) 6 mg PO BEDTIME PRN PRN Reason: Insomnia Morphine Sulfate (Morphine Sulfate 2 Mg/Ml Cartridge) 2 mg IVPUSH Q3H PRN; Protocol PRN Reason: Pain, Severe (Pain Scale 7-10) Naloxone HCl (Naloxone Hcl 0.4 Mg/Ml Vial) 0.2 mg IVPUSH Q2M PRN PRN Reason: Excessive sedation or RR < 8 Omeprazole (Omeprazole 20 Mg Capsule.Dr) 20 mg PO BID@0630,1630 [facility] Last Admin: 08/05/21 06:22 Dose: 20 mg Documented by: Ondansetron HCl (Ondansetron Hcl 4 Mg/2 Ml Vial) 4 mg IVPUSH Q8H PRN PRN Reason: Nausea and Vomiting Last Admin: 08/04/21 18:04 Dose: 4 mg Documented by: Oxycodone HCl (Oxycodone Hcl Immed Release 5 Mg Tablet) 10 mg PO Q4H PRN PRN Reason: Pain, Moderate (Pain Scale 4-6 Last Admin: 08/04/21 18:04 Dose: 10 mg Documented by: Sodium Chloride (0.9 % Sodium Chloride Flush 3 Ml Syringe) [facility] Last Admin: 08/05/21 07:38 Dose: Not Given Documented by: Time Spent With Patient Time: Total time spent is greater than 50% in coordination of care (as documented) at patient's floor/unit and/or counseling patient: Time with patient: 15 - 24 minutes Quality Stroke Does the patient have a stroke diagnosis?: No VTE Prior VTE?: No VTE Risk Level:: Medical - moderate - high VTE Device Contraindication: N/A - Device Ordered VTE Drug Contraindication: N/A - Med Ordered
--- NOTE | 2021-08-05 14:57 | MHC.CM.PN ---
EMR REVIEWED, PER SURGICAL PT TOLERATING DIET, OSTOMY APPEARS TO BE WORKING, ANTIC PT WILL D/C TUES HOME NO SERVICES, PT WILL NEED OSTOMY SUPPLIES UPON D/C, FAMILY FOR TRANSPORT.
[2021-08-05] MEDS: 0.9 % Sodium Chloride Flush 3 ML SYRINGE IVFLUSH (15:50)
[2021-08-05] MEDS: Atorvastatin Calcium 20 MG TABLET PO (20:35)
[2021-08-06] MEDS: 0.9 % Sodium Chloride Flush 3 ML SYRINGE IVFLUSH (00:14)
[2021-08-06] MEDS: Heparin Sodium,Porcine 5,000 UNIT/ML VIAL 5000 UNIT SUBCUT (02:37)
[2021-08-06 03:43] VITALS: BP 151/78; PULSE 84; RESP 16; TEMP 36.6; O2SAT 94
[2021-08-06] MEDS: Omeprazole 20 MG CAPSULE.DR PO (06:26)
[2021-08-06 07:29] VITALS: BP 146/73; PULSE 84; RESP 18; TEMP 36.7; O2SAT 96
--- NOTE | 2021-08-06 08:33 | PM.PNGS ---
Subjective Subjective Date of Service: 08/06/21 <Christina Johnson PA-C - Last Filed: 08/06/21 08:37> 08/06/21 <Vaibhav Velasquez MD - Last Filed: 08/06/21 09:51> Interval history: Feels well today. Pain is mild. Tolerating solid diet. Ostomy functioning well. OOB without difficulty. <Christina Johnson PA-C - Last Filed: 08/06/21 08:37> Physical Exam Vital Signs: Vital Signs: Last Vital Signs Temp 98.0 F 08/06/21 07:29 Pulse 84 08/06/21 07:29 Resp 18 08/06/21 07:29 BP 146/73 H 08/06/21 07:29 Pulse Ox 96 08/06/21 07:29 BMI result Body Mass Index 27.8 <CAROL Adame Last Filed: 08/06/21 08:37> Const: General: comfortable, no acute distress and alert <Christina Johnson PA-C - Last Filed: 08/06/21 08:37> Orientation/consciousness: patient oriented x3 <Christina Johnson PA-C - Last Filed: 08/06/21 08:37> Resp: Effort & Inspection: normal respiratory effort <CAROL Adame Last Filed: 08/06/21 08:37> GI: Other: ostomy viable appearing, soft stool in appliance <Christina Johnson PA-C - Last Filed: 08/06/21 08:37> Inspection: No distended and Yes incision (clean) <Christina Johnson PA-C - Last Filed: 08/06/21 08:37> Palpation (GI): Soft to palpation, Tenderness to palpation present (GI) (very mild incisional), no guarding and not rigid <CAROL Adame Last Filed: 08/06/21 08:37> Skin: General skin exam: no rashes or lesions noted <CAROL Adame Last Filed: 08/06/21 08:37> Neuro: General: patient oriented x3 <CAROL Adame Last Filed: 08/06/21 08:37> Extrem: General: Yes no clubbing, cyanosis or edema <Christina Johnson PA-C - Last Filed: 08/06/21 08:37> Objective Data Active Medications Amlodipine Besylate (Amlodipine Besylate 5 Mg Tablet) 5 mg PO DAILY [facility]; Protocol Last Admin: 08/05/21 07:37 Dose: 5 mg Documented by: MANDY Atorvastatin Calcium (Atorvastatin Calcium 20 Mg Tablet) 20 mg PO BEDTIME [facility] Last Admin: 08/05/21 20:35 Dose: 20 mg Documented by: MELITON Diphenhydramine HCl (Diphenhydramine Hcl 50 Mg/Ml Vial) 25 mg IVPUSH Q6H PRN PRN Reason: Itching Heparin Sodium (Porcine) (Heparin Sodium,Porcine 5,000 Unit/Ml Vial) 5,000 unit SUBCUT Q8H [facility] Last Admin: 08/06/21 02:37 Dose: 5,000 unit Documented by: LETITIA Acetaminophen (Ofirmev) 1,000 mg in 100 mls @ 400 mls/hr IV Q6H PRN PRN Reason: Pain, Severe (Pain Scale 7-10) Melatonin (Melatonin 3 Mg Tablet) 6 mg PO BEDTIME PRN PRN Reason: Insomnia Morphine Sulfate (Morphine Sulfate 2 Mg/Ml Cartridge) 2 mg IVPUSH Q3H PRN; Protocol PRN Reason: Pain, Severe (Pain Scale 7-10) Naloxone HCl (Naloxone Hcl 0.4 Mg/Ml Vial) 0.2 mg IVPUSH Q2M PRN PRN Reason: Excessive sedation or RR < 8 Omeprazole (Omeprazole 20 Mg Capsule.) 20 mg PO BID@0630,1630 [facility] Last Admin: 08/06/21 06:26 Dose: 20 mg Documented by: LETITIA Ondansetron HCl (Ondansetron Hcl 4 Mg/2 Ml Vial) 4 mg IVPUSH Q8H PRN PRN Reason: Nausea and Vomiting Last Admin: 08/04/21 18:04 Dose: 4 mg Documented by: AMY Oxycodone HCl (Oxycodone Hcl Immed Release 5 Mg Tablet) 10 mg PO Q4H PRN PRN Reason: Pain, Moderate (Pain Scale 4-6 Last Admin: 08/04/21 18:04 Dose: 10 mg Documented by: AMY Sodium Chloride (0.9 % Sodium Chloride Flush 3 Ml Syringe) 3 ml IVFLUSH QSHIFT [facility] Last Admin: 08/06/21 00:14 Dose: 3 ml Documented by: LETITIA <Christina Johnson PA-C - Last Filed: 08/06/21 08:37> Labs CBC & Chem 7: : 08/03/21 05:22 08/03/21 05:22 <Christina Johnson PA-C - Last Filed: 08/06/21 08:37> Procedures Date of Service Date of Service: 08/06/21 <CAROL Adame Last Filed: 08/06/21 08:37> Progress Note: A&P Assessment and plan (1) 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: Status: Acute <CAROL Adame Last Filed: 08/06/21 08:37> (2) Status post Alexander procedure: Status: Acute <CAROL Adame Last Filed: 08/06/21 08:37> Assessment and Plan: status post reversal of colostomy, diverting loop ileostomy looks well good GI function good stoma function abdomen soft okay to DC home follow-up in the office seen examined independently - agree with TYESHA Johnson <Vaibhav Velasquez MD - Last Filed: 08/06/21 09:51> (3) Ileostomy status: Status: Acute <Christina Johnson PA-C - Last Filed: 08/06/21 08:37> Plan 61 year old female POD #4 s/p colostomy closure with diverting loop ileostomy. Doing well post op. Tolerating solid diet and pain well controlled. Ostomy viable appearing with good output. Incision clean. Ostomy bridge removed and appliance changed. She feels ready for discharge. Will d/c to home today. She feels comfortable without VNA services.F/u in office with Dr. Velasquez 2 weeks post op. <CAROL Adame Last Filed: 08/06/21 08:37> Fall Risk Details Current Medications: Current Medications Amlodipine Besylate (Amlodipine Besylate 5 Mg Tablet) 5 mg PO DAILY [facility]; Protocol Last Admin: 08/05/21 07:37 Dose: 5 mg Documented by: Atorvastatin Calcium (Atorvastatin Calcium 20 Mg Tablet) 20 mg PO BEDTIME [facility] Last Admin: 08/05/21 20:35 Dose: 20 mg Documented by: Diphenhydramine HCl (Diphenhydramine Hcl 50 Mg/Ml Vial) 25 mg IVPUSH Q6H PRN PRN Reason: Itching Heparin Sodium (Porcine) (Heparin Sodium,Porcine 5,000 Unit/Ml Vial) 5,000 unit SUBCUT Q8H [facility] Last Admin: 08/06/21 02:37 Dose: 5,000 unit Documented by: Acetaminophen ([facility]) 1,000 mg in 100 mls @ 400 mls/hr IV Q6H PRN PRN Reason: Pain, Severe (Pain Scale 7-10) Melatonin (Melatonin 3 Mg Tablet) 6 mg PO BEDTIME PRN PRN Reason: Insomnia Morphine Sulfate (Morphine Sulfate 2 Mg/Ml Cartridge) 2 mg IVPUSH Q3H PRN; Protocol PRN Reason: Pain, Severe (Pain Scale 7-10) Naloxone HCl (Naloxone Hcl 0.4 Mg/Ml Vial) 0.2 mg IVPUSH Q2M PRN PRN Reason: Excessive sedation or RR < 8 Omeprazole (Omeprazole 20 Mg Capsule.Dr) 20 mg PO BID@0630,1630 [facility] Last Admin: 08/06/21 06:26 Dose: 20 mg Documented by: Ondansetron HCl (Ondansetron Hcl 4 Mg/2 Ml Vial) 4 mg IVPUSH Q8H PRN PRN Reason: Nausea and Vomiting Last Admin: 08/04/21 18:04 Dose: 4 mg Documented by: Oxycodone HCl (Oxycodone Hcl Immed Release 5 Mg Tablet) 10 mg PO Q4H PRN PRN Reason: Pain, Moderate (Pain Scale 4-6 Last Admin: 08/04/21 18:04 Dose: 10 mg Documented by: Sodium Chloride (0.9 % Sodium Chloride Flush 3 Ml Syringe) 3 ml IVFLUSH QSHIFT [facility] Last Admin: 08/06/21 00:14 Dose: 3 ml Documented by: <Christina Johnson PA-C - Last Filed: 08/06/21 08:37> Time Spent With Patient Time: Total time spent is greater than 50% in coordination of care (as documented) at patient's floor/unit and/or counseling patient: <Christina Johnson PA-C - Last Filed: 08/06/21 08:37> Time with patient: 25 - 35 minutes <Christina Johnson PA-C - Last Filed: 08/06/21 08:37> Quality Stroke Does the patient have a stroke diagnosis?: No <Christina Johnson PA-C - Last Filed: 08/06/21 08:37> VTE Prior VTE?: No <Christina Johnson PA-C - Last Filed: 08/06/21 08:37> VTE Risk Level:: Medical - moderate - high <Christina Johnson PA-C - Last Filed: 08/06/21 08:37> VTE Device Contraindication: N/A - Device Ordered <Christina Johnson PA-C - Last Filed: 08/06/21 08:37> VTE Drug Contraindication: N/A - Med Ordered <Christina Johnson PA-C - Last Filed: 08/06/21 08:37>
--- NOTE | 2021-08-06 08:56 | MHC.CM.PN ---
PT MEDICALLY CLEARED FOR D/C HOME SELF-CARE W/OSTOMY SUPPLIES, FAMILY FOR TRANSPORT
[2021-08-06] MEDS: amLODIPine Besylate 5 MG TABLET PO (09:03)
--- NOTE | 2021-08-06 14:06 | P.DS_ITS ---
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 She now presents for colostomy closure. HOSPITAL COURSE: On 08/02/21, a hand assisted laparoscopic reversal of colostomy with anastomosis of the remaining sigmoid to the rectum, extensive lysis of adhesions, diverting loop ileostomy, intraop?flexible sigmoidoscopy was performed by Dr. Velasquez without complication. The patient tolerated the procedure well, completed routine recovery in PACU and was admitted to the medical/surgical floor for observation. She had an uncomplicated recovery course. On POD #1, she was having incisional pain but comfortable with the R[employer] MACHINE OPERATOR. She was tolerating clear liquids and her ostomy was having liquid output. She was advanced to a solid diet. She was ambulated. Her price was removed. Her ROTARY MACHINE OPERATOR was discontinued on POD #2 and she was transitioned to PRN analgesics. She had some nausea and a small emesis. She remained inpatient for the next couple days for pain control. She began to tolerate a solid food without any nausea or vomiting. Her ostomy was viable appearing and had flatus and good solid stool output. The incision was clean appearing and her abdomen benign. Her ostomy bridge was removed and appliance ch anged on POD #4. She felt ready for discharge. She was discharged to home on 08/06/21 in stable condition. She is to follow up with Dr. Velasquez in office. Status at Discharge Functional status at discharge: independent ambulation Overall status at discharge: patient is progressing back to baseline Time Spent with Patient Time attestation: Total time spent providing and/or coordinating discharge services: Discharge coordination time: Greater than 30 minutes Quality: Stroke Does the patient have a stroke diagnosis?: No Physical Exam Vital Signs: Vital Signs: Last Vital Signs Temp 98.0 F 08/06/21 07:29 Pulse 84 08/06/21 07:29 Resp 18 08/06/21 07:29 BP 146/73 H 08/06/21 07:29 Pulse Ox 96 08/06/21 07:29 BMI result Body Mass Index 27.8 Const: General: comfortable, no acute distress and alert Orientation/consciousness: patient oriented x3 Resp: Effort & Inspection: normal respiratory effort GI: Other: ostomy pink, bridge removed, soft stool in appliance Inspection: No distended and Yes incision (clean) Palpation (GI): Soft to palpation, Tenderness to palpation present (GI) (very mild, incisional ), no guarding and not rigid Percussion: Yes normal to percussion Skin: General skin exam: no rashes or lesions noted Neuro: General: patient oriented x3 DS: Data Data Completed and Pending Completed studies during hospitalization [Text1]: Procedures Bypass Sigmoid Colon to Cutaneous with Autologous Tissue Substitute, Open Approach (02/05/21) Drainage of Ileum, Open Approach (02/05/21) Drainage of Sigmoid Colon, Open Approach (02/05/21) Excision of Sigmoid Colon, Open Approach (02/05/21) Release Peritoneum, Open Approach (02/05/21) Discharge Plan Discharge Patient Disposition: Home, Self-Care Discharge Diagnosis: s/p colostomy closure and loop ileostomy Referrals: Vaibhav Mccormack MD [Primary Care Provider] - 1 Week Vabihav Velasquez MD [Physician] - 2 Weeks Discharge Medications: New oxycodone 5 mg tablet 5 mg PO Q4H PRN (Reason: pain (scale score 7-10)) Qty: 24 0RF Continued No Sting Barrier Film Pads, Medicated 2 pad topical .each ostomy change Qty: 60 3RF (DME) ring (ostomy supply) 2 misc See Rx Instructions .Route Qty: 1 10RF Rx Instructions: As directed (DME) [employer] EasiClose Wide Outlet 11 1/2-655 -mL misc See Rx Instructions .Route Qty: 20 2RF Rx Instructions: As directed Suprep Bowel Prep Kit 17.5-3.13-1.6 gram recon soln See Rx Instructions PO .COMPLEX Qty: 354 0RF Rx Instructions: DILUTE; drink full amount early evening before AND next morning at least 2 hr before procedure; follow w 32 oz. water PO atorvastatin 20 mg tablet 1 tab PO BEDTIME 0RF Probiotic 15 billion cell Capsule 1 cap PO DAILY 0RF omeprazole 20 mg capsule,delayed release(DR/EC) 20 mg PO BID 0RF amlodipine 5 mg tablet 5 mg PO DAILY 0RF Discharge Orders: Discharge Order (Routine); Ordered 08/06/21 Ordered By: Christina Johnson Diet: advance to usual diet Activity on Discharge: No heavy lifting Stand Alone Forms: Patient Portal Discharge page Activity Restrictions/Additional Instructions: If the incision area is tender, you may apply an ice pack for short intervals (No more than 20 minutes on, followed by at least 20 minutes off). Do not apply heat. Do not use creams, lotions, or topical antibiotics unless instructed to do so by your surgeon. These can cause infection or allergic reaction. Ok to shower. You have marybeth closing your incision and these will be removed approximately 10-14 days after surgery. NO HEAVY LIFTING (>10lbs). Follow up in office. ([phone]) Call Your Doctor If: -Your temperature exceeds 101.5? F -You experience excessive pain or swelling -You have an unexpected reaction to medication -You have excessive bleeding -You experience continued vomiting/nausea -Your incision begins to separate -Your incision shows signs of infection such as increased redness, swelling, excessive pain, drainage (light blood or clear fluid is normal) or heat Care Plan Goals: Return to baseline health and gradual return to activity following recovery period. Ileostomy reversal. Health Concerns: hx of perforated diverticulitis, s/p end colostomy Plan of Treatment: S/p colostomy reversal with diverting loop ileostomy Assessment: Doing well post op Discharge Date/Time: 08/06/21 11:42
== END 2021-08-06 11:42 | disposition home or self-care (01) | DRG 221 ==
LOC: HO.SSSA 12:49 → HO.S3 13:25
PROVIDERS: Nurse Practitioner; Physician Assistant Surgical; Admitting Provider Surgery; PCP Internal Medicine; Visit Provider Surgery
PROC: 0DTE0ZZ Resection of Large Intestine, Open Approach (ICD-10-PCS; principal; 2021-08-02 08:40)
DX: Z43.3 Encounter for attention to colostomy (principal); K66.0 Peritoneal adhesions (postprocedural) (postinfection); Z20.822 Contact with and (suspected) exposure to COVID-19; Z79.899 Other long term (current) drug therapy
CPT/HCPCS: 36415; 80048; 85025; 85027; 86850; 86900; 86901; 87635; 93005; 99024; C1758; J0131; J1100; J1170; J2250; J2270; J2405; J3010

== ENCOUNTER → 2021-08-15 10:02 | Outpatient (BNVA) | payer BC, SELFPAY | PROVIDERS: PCP Internal Medicine; Referring Provider Internal Medicine; Visit Provider Surgery ==

== ENCOUNTER → 2021-09-12 11:22 | Outpatient (BNVA) | payer BC, SELFPAY | PROVIDERS: PCP Internal Medicine; Referring Provider Internal Medicine; Visit Provider Surgery | DX: Z93.2 Ileostomy status (principal) ==

== ENCOUNTER 2021-10-24 09:43 | Outpatient (REF) | payer BC, SELFPAY ==
--- NOTE | ~2021-10-24 | FL_ITS ---
EXAMINATION: XR BARIUM ENEMA CLINICAL INFORMATION: Evaluate colonic anastomosis and ileostomy. COMPARISON: CT abdomen and pelvis 06/17/2021. TECHNIQUE: A KUB of the abdomen was obtained. Subsequently, a single contrast was retrogradely administered through a balloon-inflated rectal tube under fluoroscopy. FINDINGS: A single supine view of the abdomen reveals a left hip prosthesis. There is scattered stool and gas in the colon. No radiopaque gallstones or renal calculi. No gross bony abnormality. Following retrograde administration of thin barium contrast, there is normal retrograde flow seen from the rectum, sigmoid and anastomotic segment, descending, transverse and into the ascending colon with reflux into the terminal ileum. No obstruction, narrowing or intraluminal filling defects seen at any of the colonic levels. Scattered diverticula are seen throughout the colon. Postevacuation images reveal [id number] distention of barium in colon. There are moderate-sized diverticuli at the sigmoid/distal colon anastomosis. FLUOROSCOPY TIME: 2.8 minutes. DOSE AREA PRODUCT: 65.891 uGy-m2 (microgray-meter squared). FL/FL barium enema IMPRESSION: Widely patent sigmoid anastomotic site with retrograde barium contrast extending to the level of the cecum and into the terminal ileum. There are [id number]-sized diverticuli of the sigmoid colon. The rest the colon is unremarkable.
== END 2021-10-24 09:44 | disposition home or self-care (01) ==
LOC: HO.XRAY 09:43
PROVIDERS: Visit Provider Surgery
DX: Z93.2 Ileostomy status (principal)
CPT/HCPCS: 74270

== ENCOUNTER 2021-12-06 08:36 | Inpatient (IN) | payer BC, SELFPAY ==
[2021-11-28 10:12] VITALS: BMI 26.6
--- NOTE | 2021-12-05 10:30 | HO.ANESPROP2 ---
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 (Acute) Partial small bowel obstruction (Acute) Status post Alexander procedure (Acute) Ileostomy status (Acute) Past Medical History Medical History Acid reflux COVID-19 vaccine series completed Diverticulitis Hematuria High cholesterol History of COVID-19 Hypertension Osteoarthritis of left hip Seasonal allergies Family History Family History Father Cancer Mother Cancer Maternal Grandmother Colon cancer Other Tubular adenoma Family history of problems with anesthesia: No Surgical History Surgical History H/O colonoscopy H/O total hysterectomy with bilateral salpingo-oophorectomy (BSO) History of colon resection History of colostomy reversal History of dental surgery Hx of bilateral inguinal hernia repair Hx of cystoscopy Status post total hip replacement, left (~06/07/19) History of Problems with Anesthesia: No Social History Social History Household Members: Family Housing: House Are you a primary acute care clinical nurse specialist to a significant other at home: No Do you presently have visiting nurse or other home services: No Alcohol intake: current Alcohol intake frequency: a few times a week Alcohol type: wine Patient Tobacco Use Status: Never used Tobacco Second Hand Smoke Exposure: No Use of substances other than those prescribed or required for medical reasons: No Have you been hit, kicked, punched, or otherwise hurt by someone within the past year? 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 Allergies Allergy/AdvReac Type Severity Reaction Status Date / Time No Known Allergies Allergy Verified 11/28/21 10:07 [No Known Allergies*] Home Medications Medication Instructions Recorded Confirmed Last Taken Type amlodipine 5 mg tablet 5 mg PO DAILY blood pressure 06/11/20 11/28/21 08/02/21 History omeprazole 20 mg capsule,delayed 20 mg PO BID 06/11/20 11/28/21 08/02/21 History release atorvastatin 20 mg tablet 1 tab PO BEDTIME 02/05/21 11/28/21 02/04/21 History Lactobacillus acidophilus and 1 cap PO DAILY 07/24/21 11/28/21 Unknown History rhamnosus 15 billion cell capsule (Probiotic) Exam Exam Date and Time: December 05, 2021 1030 Height,Weight and Vital Signs: Height 5 ft 5 in Weight 72.575 kg Pertinent Lab Results Pertinent Lab Results: Laboratory Tests 08/03/21 08/03/21 05:22 05:22 WBC 10.7 Hgb 10.1 L Hct 30.8 L Plt Count 242 Sodium 139 Potassium 3.9 Chloride 106 Carbon Dioxide 26 BUN 7 L D Creatinine 0.84 Narrative Narrative: EKG 06/2021 Vent. Rate : 087 BPM ? ? Atrial Rate : 087 BPM ?? P-R Int : 118 ms? QRS Dur : 076 ms ? ? QT Int : 366 ms ? ? ? P-R-T Axes : 019 031 -08 degrees ?? QTc Int : 440 ms ? Normal sinus rhythm Nonspecific ST abnormality Abnormal ECG When compared with ECG of 10-MAY-2019 09:44, Nonspecific T wave abnormality, worse in Inferior leads Assessment and Plan Assessment Anesthesia Assessment: Chart Reviewed Final Anesthetic Review Family History of Problems with Anesthesia: No History of Problems with Anesthesia: No Documented by User: Monse Sánchez MD 12/06/21 09:05 [facility] Past Medical History Medical History Acid reflux COVID-19 vaccine series completed Diverticulitis Hematuria High cholesterol History of COVID-19 Hypertension Osteoarthritis of left hip Seasonal allergies Family History Family History Father Cancer Mother Cancer Maternal Grandmother Colon cancer Other Tubular adenoma Surgical History Surgical History H/O colonoscopy H/O total hysterectomy with bilateral salpingo-oophorectomy (BSO) History of colon resection History of colostomy reversal History of dental surgery Hx of bilateral inguinal hernia repair Hx of cystoscopy Status post total hip replacement, left (~06/07/19) Social History Social History Household Members: Family Housing: House Are you a primary acute care clinical nurse specialist to a significant other at home: No Do you presently have visiting nurse or other home services: No Alcohol intake: current Alcohol intake frequency: a few times a week Alcohol type: wine Patient Tobacco Use Status: Never used Tobacco Second Hand Smoke Exposure: No Use of substances other than those prescribed or required for medical reasons: No Have you been hit, kicked, punched, or otherwise hurt by someone within the past year? 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 Allergies Allergy/AdvReac Type Severity Reaction Status Date / Time No Known Allergies Allergy Verified 11/28/21 10:07 [No Known Allergies*] Home Medications Medication Instructions Recorded Confirmed Last Taken Type amlodipine 5 mg tablet 5 mg PO DAILY blood pressure 06/11/20 11/28/21 08/02/21 History omeprazole 20 mg capsule,delayed 20 mg PO BID 06/11/20 11/28/21 08/02/21 History release atorvastatin 20 mg tablet 1 tab PO BEDTIME 02/05/21 11/28/21 02/04/21 History Lactobacillus acidophilus and 1 cap PO DAILY 07/24/21 11/28/21 Unknown History rhamnosus 15 billion cell capsule (Probiotic) Exam Airway Mallampati Class: II TM Dist: >3cm Neck ROM: Full Loose/Missing/Broken Teeth: No Heart: RRR Lungs: CTA Assessment and Plan Final Anesthetic Review NPO: Yes ASA Class: II Final Preanesthetic Review: Meds/Allgs Chart Reviewed, Consent Obtained/Reviewed and Anes Risks/Benef Reviewed Patient Risk: Low Procedure Risk: Intermediate Anesthetic Plan Anesthetic Plan: GA Disposition: Standard PACU
[2021-12-06] VITALS (13 sets, daily range): BP systolic 138–172; BP diastolic 61–94; PULSE 76–113; RESP 16–22; TEMP 36.2–37.4; O2SAT 96–99
[2021-12-06] MEDS: Lactated Ringers 1,000 ML 100 ML IVCONT ×2 (08:13→21:39)
[2021-12-06 08:16] LABS: COVID-19 Test Negative (Negative); IDNOW Serial# 55D5AD1C
--- NOTE | 2021-12-06 08:41 | P.HPSUR_ITS ---
Pre-Procedural Eval Section A Date of Service: 12/06/21 Section B Chief Complaint: Reversal of loop ileostomy Details of Present Illness: Had Alexander's procedure for sigmoid obstruction for diverticular stricture last January, with eventual reversal of the end-colostomy with a diverting loop ileostomy. barium enema study had revealed good patent anastomosis with no extravasation Relevant Family History (Specify if Yes): No Relevant Social History: None Present Medications: see Short Stay Collaborative assessment Medical History: Significant History ( history of tubular adenoma, and diverticular disease) History of Previous Operations: Relevant previous surgery/procedure and date(s) ( Alexander's procedure, January 2021, reversal of end colostomy, July 2021) Allergies: Allergies Allergy/AdvReac Type Severity Reaction Status Date / Time No Known Allergies Allergy Verified 11/28/21 10:07 [No Known Allergies*] Review of Systems Sugical H&P ROS: Negative: Constitution, Cardiovascular, Respiratory, Neurologic al, Psychiatric, Hem-Onc, Allergic/Immunologic, Gastrointestinal, Genitourinary, Musculoskeletal, Integumentary, Endocrine and Eyes/Ears/Nose/Throat Exam Surgical H&P Exam: Normal: HEENT, Normal: Heart, Normal: Lungs, Normal: Extremities, Normal: Skin and Normal: Neurological and Significant Findings: Abdomen ( diverting loop ileostomy on the left side) Plan Diagnosis/Plan: Unchanged I have reviewed the history and physical and performed a pertinent physical examination on my patient. No changes have occurred unless specified.
--- NOTE | 2021-12-06 10:54 | W.PM.OPN ---
Operative Note Operative Note Date of Service: 12/06/21 Narrative: Preop diagnosis: Status post diverting loop ileostomy after bursal of colostomy Postop diagnose: The same Procedure: Reversal of a diverting loop ileostomy Surgeon: Vaibhav Velasquez MD Wooden Barrel Mechanic: danny Clinton student The patient is a 61 year female who had previously undergone emergency Alexander's procedure for sigmoid obstruction from diverticular stricture. She had her colostomy reversed last July. She is here for reversal of her loop ileostomy. Her prior enema test that revealed a patent anastomosis without any extravasation She understood the technique of reversal of the ileostomy. She was well aware of the risks, benefits, and alternatives She was brought to the operating room. She was placed supine. A Brown catheter had been inserted. The patient received cefazolin 2 g IV preoperatively. A surgical time-out was done. I closed both limbs of the diverting loop ileostomy was this with a running Dexon 2-0 stitch. The abdomen was then prepped and draped in the usual sterile fashion. I infiltrated the planned line of incision with lidocaine 1%. I made an elliptical incision on the skin around the ileostomy using blade 15. This was carried down with electrocautery through the full-thickness of skin subcutaneous fat until reach the fascia. We identified the interface between the fascia and the limbs of the ileostomy. I then did to separate the bowel loops from the fascial edge with careful dissection with the Metzenbaum scissors. I applied Imani clamps on the defined fascia once this was visible. Proceeded to continue to separate the entire semi off of the fascial layer using the Metzenbaum scissors circumferentially until this was completely . There was note of a lot of adhesions underneath the limbs of the ileostomy which had to carefully using Metzenbaum scissors. This part of the procedure took an extended period of time. After this was achieved, were able to pull up more length of the ileostomy limbs. I resected both limbs of the ileostomy with a JOANNE 60 mm stapler. I divided the attached mesentery and this was sent as a specimen I opened up the apex of each staple line to enter the of both limbs. I had to do more lysis of adhesions to allow good position of the anti mesenteric area of the ileostomy limbs I then positioned each arm of the JOANNE 60 mm stapler into the lumen. I aligned the marybeth at the anti mesenteric border. I made sure that there was no bowel loops caught between the staple line. Once this was confirmed I closed the stapler and fired to create our [id number] anastomosis. I examined the staple line from both inside the lumen and outside. This appeared to be intact. There was note of good hemostasis. I then closed the enterotomy TA 60 mm stapler to complete our anastomosis. I was able to palpate a good anastomotic staple line which was patent The anastomotic site appeared to be viable without any evidence of ischemia. I applied a seromuscular Dexon 3-0 stitch at the crotch of the staple line Once hemostasis was ensured and viability was confirmed, I replaced the bowel loops back into the peritoneal cavity. I had irrigated earlier I then closed the fascia with a running Maxon 1 stitch. Irrigation of the subcutaneous layer was done I closed the skin with skin marybeth loosely and applied iodoform packings The incision was infiltrated with Marcaine 0.5% for postop analgesia. Dressings were applied. The procedure was completed The patient tolerated well. No complication noted. Initial and final counts of sponges and instruments were correct. Estimated blood loss was about 25 cc The patient was extubated without difficulty and transferred to the recovery room with stable vital signs. The Brown catheter was removed at the end of the procedure.
[2021-12-06] MEDS: oxyCODONE HCl Immed Release 5 MG TABLET PO (11:31)
[2021-12-06] MEDS: diphenhydrAMINE HCL 50 MG/ML VIAL 25 MG IVPUSH (12:29)
[2021-12-06] MEDS: Omeprazole 20 MG CAPSULE.DR PO (15:46)
--- NOTE | 2021-12-06 17:48 | PM.EVENT ---
Event Note Date of Service: 12/06/21 Event Note: seen postop underwent reversal of loop ileostomy earlier says she has good pain control dressings dry pain mgt on clear liquids - await return of GI function has iodophorm packings in incision updated earlier
[2021-12-07] VITALS (7 sets, daily range): BP systolic 137–175; BP diastolic 64–86; PULSE 79–98; RESP 18; TEMP 36.3–36.8; O2SAT 95–98
[2021-12-07] MEDS: Omeprazole 20 MG CAPSULE.DR PO ×2 (05:34→16:01)
[2021-12-07] MEDS: Lactated Ringers 1,000 ML 100 ML IVCONT ×2 (06:28→16:01)
[2021-12-07] MEDS: Heparin Sodium,Porcine 5,000 UNIT/ML VIAL 5000 UNIT SUBCUT ×2 (09:58→21:32)
--- NOTE | 2021-12-07 10:02 | PM.PNGS ---
Subjective Subjective Date of Service: 12/07/21 Interval history: Patient feels well and denies significant abdominal pain. She is tolerating clear liquids and reports being hungry. She is passing flatus but no bowel movement yet. Physical Exam Vital Signs: Vital Signs: Last Vital Signs Temp 97.5 F 12/07/21 08:00 Pulse 81 12/07/21 08:00 Resp 18 12/07/21 08:00 BP 144/64 H 12/07/21 08:00 Pulse Ox 98 12/07/21 08:00 O2 Del Method 12/07/21 08:00 O2 Flow Rate 2 12/06/21 11:35 BMI result Body Mass Index 26.6 Const: General: no acute distress Nutritional Appearance: well nourished Orientation/consciousness: patient oriented x3 Limitations: no limitations Resp: Effort & Inspection: normal respiratory effort, no audible wheezes, no cough and no respiratory distress GI: Other: Dressings changed and claude advanced. Wounds are clean and intact. Inspection: Yes normal to inspection Palpation (GI): Soft to palpation, nontender and no guarding Skin: Other: Warm, dry, no rash Neuro: General: patient oriented x3 Extrem: Other: No pedal edema Objective Data Active Medications Albuterol Sulfate (Albuterol Sulfate (0.083%) 2.5 Mg/3 Ml Vial.Neb) 2.5 mg INHALE ONCE PRN PRN Reason: Wheezing Fentanyl (Fentanyl Citrate/Pf 100 Mcg/2 Ml Vial) 50 mcg IVPUSH Q5M PRN; Protocol PRN Reason: Pain, Severe (Pain Scale 7-10) Fentanyl (Fentanyl Citrate/Pf 100 Mcg/2 Ml Vial) 25 mcg IVPUSH Q5M PRN; Protocol PRN Reason: Pain, Moderate (Pain Scale 4-6 Heparin Sodium (Porcine) (Heparin Sodium,Porcine 5,000 Unit/Ml Vial) 5,000 unit SUBCUT Q12H [facility] Last Admin: 12/07/21 09:58 Dose: 5,000 unit Documented By: ELIDA Lactated Ringer's (Lr) 1,000 mls @ 100 mls/hr IVCONT .Q10H [facility] Last Admin: 12/07/21 06:28 Dose: 100 mls/hr Documented By: DENI Promethazine HCl 6.25 mg/ (Sodium Chloride) 50.25 mls @ 201 mls/hr IV ONCE PRN PRN Reason: Nausea and Vomiting Morphine Sulfate (Morphine Sulfate 4 Mg/Ml Cartridge) 3 mg IVPUSH Q3H PRN; Protocol PRN Reason: Pain, Severe (Pain Scale 7-10) Omeprazole (Omeprazole 20 Mg Capsule.Dr) 20 mg PO BID@0630,1630 [facility] Last Admin: 12/07/21 05:34 Dose: 20 mg Documented By: DENI Ondansetron HCl (Ondansetron Hcl 4 Mg/2 Ml Vial) 4 mg IVPUSH ONCE PRN PRN Reason: Nausea and Vomiting Ondansetron HCl (Ondansetron Hcl 4 Mg/2 Ml Vial) 4 mg IVPUSH Q8H PRN PRN Reason: nausea Sodium Chloride (0.9 % Sodium Chloride Flush 3 Ml Syringe) 3 ml IVFLUSH QSHIFT [facility] Last Admin: 12/07/21 09:59 Dose: Not Given Documented By: ELIDA Non-Admin Reason: IV Running Procedures Date of Service Date of Service: 12/07/21 Progress Note: A&P Assessment and plan (1) Status post Alexander procedure: Status: Acute Plan S/P reversal of colostomy pod 1. Patient is comfortable and tolerating clear liquids. She is passing flatus but no bowel movement yet. Her incisions are clean and intact. Abdomen is soft and nondistended. Will advance to a regular low-fiber diet today. Patient encouraged to ambulate in the hallways continue incentive spirometry. Time Spent With Patient Time: Total time spent is greater than 50% in coordination of care (as documented) at patient's floor/unit and/or counseling patient: Quality Stroke Does the patient have a stroke diagnosis?: No VTE Prior VTE?: No VTE Risk Level:: Medical - moderate - high VTE Device Contraindication: N/A - Device Ordered VTE Drug Contraindication: N/A - Med Ordered
--- NOTE | 2021-12-07 11:04 | MHC.CM.PN ---
PATIENT IS FULLY INDEPENDENT NO DME OR VNA SERVICES AND SHE DOES NOT ANTICIPATE THE NEED FOR VNA AT DISCHARGE. SHE LIVES WITH SIGNIFICANT OTHER AND SON. COVID VACCINATED X 4 (MODERNA) HCP ON FILE AND VERIFIED. PLAN IS ADVANCE DIET TODAY. IF TOLERATES, POSSIBLE RETURN HOME Thursday12/08/21. SIGNIFICANT OTHER TO TRANSPORT.
[2021-12-08] MEDS: Lactated Ringers 1,000 ML 100 ML IVCONT (01:35)
[2021-12-08 03:17] VITALS: BP 161/81; PULSE 76; RESP 18; TEMP 37.1; O2SAT 97
[2021-12-08] MEDS: Omeprazole 20 MG CAPSULE.DR PO (05:30)
[2021-12-08 07:58] VITALS: BP 160/70; PULSE 82; RESP 18; TEMP 37.1; O2SAT 95
--- NOTE | 2021-12-08 08:37 | P.PNGS_ITS ---
Subjective Subjective Date of Service: 12/08/21 Interval history: Feels improved with decreased abdominal pain. Reports passing a bowel movement and lots of flatus. Tolerating regular diet without nausea or vomiting. Physical Exam Vital Signs: Vital Signs: Last Vital Signs Temp 98.7 F 12/08/21 07:58 Pulse 82 12/08/21 07:58 Resp 18 12/08/21 07:58 BP 160/70 H 12/08/21 07:58 Pulse Ox 95 12/08/21 07:58 O2 Del Method 12/08/21 07:58 O2 Flow Rate 2 12/06/21 11:35 BMI result Body Mass Index 26.6 Const: General: healthy appearing and no acute distress Nutritional Appearance: well nourished Orientation/consciousness: patient oriented x3 Limitations: no limitations Resp: Effort & Inspection: normal respiratory effort, no audible wheezes, no cough and no respiratory distress GI: Other: Soft, tympanitic, distended, normal bowel sounds. Incision is clean. Maik removed and sterile dressings applied. Abdomen image: 1. Skin: Other: Warm, dry, no rash Neuro: General: patient oriented x3 Objective Data Active Medications Amlodipine Besylate (Amlodipine Besylate 5 Mg Tablet) 5 mg PO DAILY [facility]; Protocol Heparin Sodium (Porcine) (Heparin Sodium,Porcine 5,000 Unit/Ml Vial) 5,000 unit SUBCUT Q12H [facility] Last Admin: 12/07/21 21:32 Dose: 5,000 unit Documented By: SOORINOrville Morphine Sulfate (Morphine Sulfate 4 Mg/Ml Cartridge) 3 mg IVPUSH Q3H PRN; Protocol PRN Reason: Pain, Severe (Pain Scale 7-10) Omeprazole (Omeprazole 20 Mg Capsule.) 20 mg PO BID@0630,1630 [facility] Last Admin: 12/08/21 05:30 Dose: 20 mg Documented By: SOORINOrville Ondansetron HCl (Ondansetron Hcl 4 Mg/2 Ml Vial) 4 mg IVPUSH Q8H PRN PRN Reason: nausea Oxycodone HCl (Oxycodone Hcl Immed Release 5 Mg Tablet) 5 mg PO Q6H PRN PRN Reason: Pain, Moderate (Pain Scale 4-6 Sodium Chloride (0.9 % Sodium Chloride Flush 3 Ml Syringe) 3 ml IVFLUSH QSHIFT [facility] Last Admin: 12/08/21 07:48 Dose: Not Given Documented By: ELIDA Non-Admin Reason: IV Running Procedures Date of Service Date of Service: 12/08/21 Progress Note: A&P Assessment and plan (1) Status post Alexander procedure: Status: Acute Plan S/P reversal of colostomy. Patient doing well with return of bowel function although her abdomen still feels fairly distended. I recommended staying for an additional day. She was encouraged to ambulate in the hallways. Possible discharge in a.m.. Time Spent With Patient Time: Total time spent is greater than 50% in coordination of care (as documented) at patient's floor/unit and/or counseling patient: Quality Stroke Does the patient have a stroke diagnosis?: No VTE Prior VTE?: No VTE Risk Level:: Medical - moderate - high VTE Device Contraindication: N/A - Device Ordered VTE Drug Contraindication: N/A - Med Ordered
[2021-12-08] MEDS: amLODIPine Besylate 5 MG TABLET PO (08:57)
[2021-12-08] MEDS: Heparin Sodium,Porcine 5,000 UNIT/ML VIAL 5000 UNIT SUBCUT (11:58)
[2021-12-08 12:00] VITALS: BP 159/74; PULSE 93; RESP 18; TEMP 36.6; O2SAT 96
--- NOTE | 2021-12-08 14:34 | MHC.CM.PN ---
PT WILL DC HOME TODAY WITH NO SERVICES PT TO SELF ARRANGE TRANSPORT
--- NOTE | 2021-12-10 15:57 | PM.DS ---
DS: Providers Provider Date of Service: 12/06/21 Date of admission: 12/06/21 08:36 Date of discharge: 12/08/21 Primary care physician: Vaibhav Mccormack MD Admitting clinician: Vaibhav Velasquez DS: Diagnosis Discharge Diagnosis (1) Status post Alexander procedure: Status: Acute DS: Summary Hospital Course Hospital Course: 61-year-old female with history of Alexander's procedure for sigmoid obstruction from diverticular stricture, with eventual reversal of the end-colostomy with a diverting loop ileostomy, admitted on 12/06/2021 for reversal of her ileostomy. She underwent this procedure and tolerated the procedure well. There were no immediate complications. She was started on clear liquids postoperatively. She was managed on the [facility] floor. She continued to do well and her diet was advanced as she started to pass flatus. She tolerated advance of her diet. She continued to have good pain control and good function so was discharged on November 2021. Time spent discussing smoking cessation with patient: 3 to 10 minutes Time Spent with Patient Time attestation: Total time spent providing and/or coordinating discharge services: Discharge coordination time: Less than 30 minutes Quality: Safe Use of Opioids Does Pt have an Active Cancer Diagnosis on the Problem List?: No Quality: Stroke Does the patient have a stroke diagnosis?: No Physical Exam Vital Signs: Vital Signs: Last Vital Signs Temp 97.9 F 12/08/21 12:00 Pulse 93 12/08/21 12:00 Resp 18 12/08/21 12:00 BP 159/74 H 12/08/21 12:00 Pulse Ox 96 12/08/21 12:00 O2 Del Method 12/08/21 12:00 O2 Flow Rate 2 12/06/21 11:35 BMI result Body Mass Index 26.6 Const: General: comfortable and no acute distress Orientation/consciousness: patient oriented x3 Neck: Neck: Yes no lymphadenopathy Resp: Auscultation: clear to auscultation bilaterally Cardio: Rhythm: regular rhythm GI: Other: Incision clean, not infected, marybeth intact Palpation (GI): Soft to palpation, nontender and no guarding Neuro: General: patient oriented x3 DS: Data Data Completed and Pending Completed studies during hospitalization [Text1]: Pending at discharge 12/06/21 10:10 Surgical [PTH] Routine Procedures Bypass Ileum to Cutaneous, Open Approach (08/02/21) Bypass Sigmoid Colon to Cutaneous with Autologous Tissue Substitute, Open Approach (02/05/21) Drainage of Ileum, Open Approach (02/05/21) Drainage of Sigmoid Colon, Open Approach (02/05/21) Excision of Sigmoid Colon, Open Approach (02/05/21) Release Peritoneum, Open Approach (08/02/21) Reposition Sigmoid Colon, Open Approach (08/02/21) Discharge Plan Discharge Patient Disposition: Home, Self-Care Discharge Diagnosis: Diverticulitis, s/p closure of colostomy Referrals: Vaibhav Mccormcak MD [Primary Care Provider] - 1 Week Vaibhav Velasquez MD [Physician] - 1 Week Discharge Medications: New oxycodone 5 mg tablet 5 mg PO Q6H PRN (Reason: pain (scale score 7-10)) Qty: 14 0RF Rx Instructions: Partial Fill upon patient request. Continued atorvastatin 20 mg tablet 1 tab PO BEDTIME Probiotic 15 billion cell Capsule 1 cap PO DAILY omeprazole 20 mg capsule,delayed release(DR/EC) 20 mg PO BID amlodipine 5 mg tablet 5 mg PO DAILY Discontinued No Sting Barrier Film Pads, Medicated 2 pad topical .each ostomy change Qty: 60 3RF (DME) ring (ostomy supply) 2 misc See Rx Instructions .Route Qty: 1 10RF Rx Instructions: As directed (DME) [employer] EasiClose Wide Outlet 11 1/2-655 -mL misc See Rx Instructions .Route Qty: 20 2RF Rx Instructions: As directed Discharge Orders: Discharge Order (Routine); Ordered 12/08/21 Ordered By: Nitish Ibarra Diet: advance to usual diet Activity on Discharge: No heavy lifting Stand Alone Forms: Patient Portal Discharge page Activity Restrictions/Additional Instructions: If the incision area is tender, you may apply an ice pack for short intervals (No more than 20 minutes on, followed by at least 20 minutes off). Do not apply heat. Do not use creams, lotions, or topical antibiotics unless instructed to do so by your surgeon. These can cause infection or allergic reaction. Ok to shower. You have marybeth closing your incision and these will be removed approximately 10-14 days after surgery. Call Your Doctor If: -Your temperature exceeds 101.5? F -You experience excessive pain or swelling -You have an unexpected reaction to medication -You have excessive bleeding -You experience continued vomiting/nausea -Your incision begins to separate -Your incision shows signs of infection such as increased redness, swelling, excessive pain, drainage (light blood or clear fluid is normal) or heat Care Plan Goals: Return to normal activity and diet Health Concerns: sigmoid diverticulitis S/P Alexander procedure Plan of Treatment: closure of colostomy Assessment: sigmoid diverticulitis Discharge Date/Time: 12/08/21 14:12
== END 2021-12-08 14:12 | disposition home or self-care (01) | DRG 223 ==
LOC: HO.SSSA 08:42 → HO.S3 12:12
PROVIDERS: Nurse Practitioner; Admitting Provider Surgery; PCP Internal Medicine; Visit Provider Surgery
PROC: 0DSB4ZZ Reposition Ileum, Percutaneous Endoscopic Approach (ICD-10-PCS; CPT 44620; principal; 2021-12-06 09:10)
DX: Z43.2 Encounter for attention to ileostomy (principal); Z20.822 Contact with and (suspected) exposure to COVID-19; Z86.16 Personal history of COVID-19; Z96.642 Presence of left artificial hip joint; Z79.899 Other long term (current) drug therapy
CPT/HCPCS: 87635; 88304; J0131; J0690; J1100; J1170; J1200; J2250; J2405; J2795; J3010

== ENCOUNTER 2022-01-17 10:47 | Outpatient (REF) | payer BC, SELFPAY ==
[2022-01-17 13:35] LABS: MANUAL DIFF FLAG NO
[2022-01-17 13:41] LABS: Basophils Absolute Auto 0.1 X10*3/uL (0.0-0.2); Basophils Percent Auto 0.6 % (0-2); Eosinophils Percent Auto 0.4 % (0-4); Hematocrit 35.9 % (37.0-47.0); Hemoglobin 12.1 g/dl (12.0-16.0); Imm Gran Abs Auto 0.05 X10*3/uL (0.00-0.03); Imm Gran Pct Auto 0.6 % (0.0-0.4); Lymphocytes Absolute Auto 1.2 X10*3/uL (1.2-4.9); Mean Corpuscular HGB Conc 33.7 g/dl (31.0-35.0); Mean Corpuscular Hemoglobin 33.2 pg (27.0-33.0); Mean Corpuscular Volume 98.4 fL (80.0-98.0); Mean Platelet Volume 9.8 fL (9.4-12.3); Monocytes Absolute Auto 0.8 X10*3/uL (0.1-1.2); Monocytes Percent Auto 8.6 % (2-11); Neutrophils Percent Auto 76.8 % (45-73); Platelet Count 269 X10*3/uL (160-400); Red Blood Count 3.65 X10*6/uL (4.20-5.50); Red Cell Distribution Width 13.7 % (11.0-16.0); White Blood Count 9.1 X10*3/uL (4.8-10.8)
[2022-01-17 13:53] LABS: Alanine Aminotransferase 32 U/L (0-31); Alkaline Phosphatase 85 U/L (39-117); Anion Gap 16 (12-20); Aspartate Amino Transferase 64 U/L (5-31); Blood Urea Nitrogen 8 mg/dL (9-16); Calcium 9.2 mg/dL (8.4-10.2); Carbon Dioxide 23 mmol/L (22-29); Chloride 102 mmol/L (96-108); Estimated Glomerular Filt Rate > 60; Glucose Random 105 mg/dL (60-115); Potassium 4.4 mmol/L (3.3-5.1); Sodium 137 mmol/L (135-145); Total Protein 6.5 g/dL (6.5-8.0)
[2022-01-17 14:59] LABS: Vitamin B12 303 pg/mL (200-900)
== END 2022-01-17 10:48 | disposition home or self-care (01) ==
LOC: HO.10HDL 10:47
PROVIDERS: Visit Provider Internal Medicine
DX: I10 Essential (primary) hypertension (principal); E78.00 Pure hypercholesterolemia, unspecified; E53.8 Deficiency of other specified B group vitamins; R60.9 Edema, unspecified
CPT/HCPCS: 36415; 80053; 82607; 84443; 85025

== ENCOUNTER 2022-02-26 08:02 | Outpatient (REF) | payer BC, SELFPAY ==
--- NOTE | ~2022-02-26 | MM_ITS ---
EXAMINATION: MM SCREENING DIGITAL BREAST TOMOSYNTHESIS, BILATERAL CLINICAL INFORMATION: Screening. Asymptomatic. The lifetime risk of breast cancer based on the Tyrer-Cuzick Model is 11%. COMPARISON: Mammography: 02/25/2019, 01/19/2018, 12/15/2016 TECHNIQUE: Digital breast tomosynthesis is performed in both the craniocaudal and mediolateral oblique views along with computer-aided detection (CAD). Synthesized 2D images are generated from the tomosynthesis. FINDINGS: The breasts are heterogeneously dense, which may obscure small masses (ACR BI-RADS breast composition Category c). There are no significant masses, abnormal calcifications, or other abnormalities. Parenchymal pattern is similar to prior studies. No developing density or architectural changes. The axilla are unremarkable. MM/MM tomosynthesis screening BI IMPRESSION: No mammographic evidence of malignancy. ASSESSMENT: BI-RADS 1: Negative RECOMMENDATION: Routine annual mammography screening. This patient's information was entered into a reminder system with a target due date for their next mammogram.
== END 2022-02-26 08:03 | disposition home or self-care (01) ==
LOC: HO.MAMMO 08:02
PROVIDERS: Visit Provider Internal Medicine
DX: Z12.31 Encounter for screening mammogram for malignant neoplasm of breast (principal)
CPT/HCPCS: 77063; 77067

== ENCOUNTER 2022-04-15 06:05 | Day surgery (SDC) | payer BC, SELFPAY ==
[2022-04-09 10:56] VITALS: BMI 26.8
--- NOTE | 2022-04-14 08:39 | HO.ANESPROP2 ---
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 (Acute) Partial small bowel obstruction (Acute) Ileostomy status (Acute) Incisional hernia (Acute) Past Medical History Medical History Acid reflux COVID-19 vaccine series completed Diverticulitis Hematuria High cholesterol History of COVID-19 Hypertension Incisional hernia Osteoarthritis of left hip Seasonal allergies Family History Family History Father Cancer Mother Cancer Maternal Grandmother Colon cancer Other Tubular adenoma Family history of problems with anesthesia: No Surgical History Surgical History H/O colonoscopy H/O total hysterectomy with bilateral salpingo-oophorectomy (BSO) History of colon resection History of colostomy reversal History of dental surgery History of reversal of ileostomy Hx of bilateral inguinal hernia repair Hx of cystoscopy Status post Alexander procedure Status post total hip replacement, left (~06/07/19) History of Problems with Anesthesia: No Social History Social History Household Members: Significant Other and Family Housing: House Are you a primary medicare coordinator to a significant other at home: No Do you presently have visiting nurse or other home services: No Alcohol intake: current Alcohol intake frequency: a few times a week Alcohol type: wine Patient Tobacco Use Status: Never used Tobacco Second Hand Smoke Exposure: No Use of substances other than those prescribed or required for medical reasons: No Have you been hit, kicked, punched, or otherwise hurt by someone within the past year? 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 Allergies Allergy/AdvReac Type Severity Reaction Status Date / Time No Known Allergies Allergy Verified 04/09/22 10:53 [No Known Allergies*] Home Medications Medication Instructions Recorded Confirmed Last Taken Type omeprazole 20 mg capsule,delayed 20 mg PO BID 06/11/20 04/08/22 04/15/22 History release atorvastatin 20 mg tablet 1 tab PO BEDTIME 02/05/21 04/08/22 02/04/21 History Lactobacillus acidophilus and 1 cap PO DAILY 07/24/21 04/08/22 Unknown History rhamnosus 15 billion cell capsule (Probiotic) losartan 50 mg tablet 1 tab PO DAILY 04/08/22 04/08/22 Unknown History Exam Exam Date and Time: April 14, 2022 0839 Height,Weight and Vital Signs: Height 5 ft 5 in Weight 73.028 kg Narrative Narrative: EKG 06/2021 Vent. Rate : 087 BPM ? ? Atrial Rate : 087 BPM ?? P-R Int : 118 ms? QRS Dur : 076 ms ? ? QT Int : 366 ms ? ? ? P-R-T Axes : 019 031 -08 degrees ?? QTc Int : 440 ms ? Normal sinus rhythm Nonspecific ST abnormality Abnormal ECG When compared with ECG of 10-MAY-2019 09:44, Nonspecific T wave abnormality, worse in Inferior leads Assessment and Plan Assessment Anesthesia Assessment: Chart Reviewed Final Anesthetic Review Family History of Problems with Anesthesia: No History of Problems with Anesthesia: No Documented by User: Monse Sánchez MD 04/15/22 08:01 [facility] Past Medical History Medical History Acid reflux COVID-19 vaccine series completed Diverticulitis Hematuria High cholesterol History of COVID-19 Hypertension Incisional hernia Osteoarthritis of left hip Seasonal allergies Family History Family History Father Cancer Mother Cancer Maternal Grandmother Colon cancer Other Tubular adenoma Surgical History Surgical History H/O colonoscopy H/O total hysterectomy with bilateral salpingo-oophorectomy (BSO) History of colon resection History of colostomy reversal History of dental surgery History of reversal of ileostomy Hx of bilateral inguinal hernia repair Hx of cystoscopy Status post Alexander procedure Status post total hip replacement, left (~06/07/19) Social History Social History Household Members: Significant Other and Family Housing: House Are you a primary medicare coordinator to a significant other at home: No Do you presently have visiting nurse or other home services: No Alcohol intake: current Alcohol intake frequency: a few times a week Alcohol type: wine Patient Tobacco Use Status: Never used Tobacco Second Hand Smoke Exposure: No Use of substances other than those prescribed or required for medical reasons: No Have you been hit, kicked, punched, or otherwise hurt by someone within the past year? 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 Allergies Allergy/AdvReac Type Severity Reaction Status Date / Time No Known Allergies Allergy Verified 04/09/22 10:53 [No Known Allergies*] Home Medications Medication Instructions Recorded Confirmed Last Taken Type omeprazole 20 mg capsule,delayed 20 mg PO BID 06/11/20 04/08/22 04/15/22 History release atorvastatin 20 mg tablet 1 tab PO BEDTIME 02/05/21 04/08/22 02/04/21 History Lactobacillus acidophilus and 1 cap PO DAILY 07/24/21 04/08/22 Unknown History rhamnosus 15 billion cell capsule (Probiotic) losartan 50 mg tablet 1 tab PO DAILY 04/08/22 04/08/22 Unknown History Exam Airway Mallampati Class: III TM Dist: >3cm Neck ROM: Full Loose/Missing/Broken Teeth: No Heart: RRR Lungs: CTA Assessment and Plan Assessment Anesthesia Assessment: Anesthesia Plan Discussed Final Anesthetic Review NPO: Yes ASA Class: II Final Preanesthetic Review: Meds/Allgs Chart Reviewed, Consent Obtained/Reviewed and Anes Risks/Benef Reviewed Patient Risk: Low Procedure Risk: Low Anesthetic Plan Anesthetic Plan: GA Disposition: Standard PACU
[2022-04-15] VITALS (16 sets, daily range): BP systolic 135–173; BP diastolic 69–97; PULSE 89–111; RESP 14–20; TEMP 36.3–37.2; O2SAT 95–99
[2022-04-15] MEDS: Lactated Ringers 1,000 ML 100 ML IVCONT ×2 (06:31→15:04)
[2022-04-15 06:34] LABS: COVID-19 Test Negative (Negative); IDNOW Serial# 9DB6401D
--- NOTE | 2022-04-15 07:09 | PC.NURSE ---
Patient to SSS with congested cough, when questioned if new patient states no I have it every morning then it goes away. Lung sounds initially rhonchi upper lobes, but easily cleared with cough.
--- NOTE | 2022-04-15 07:35 | P.HPSUR_ITS ---
Pre-Procedural Eval Section A Date of Service: 04/15/22 Section B Chief Complaint: Incisional hernia without obstruction or gangrene Details of Present Illness: has reducible hernia in the epigastric area, multiple previous abdominal surgeries for perforated diverticulitis Relevant Family History (Specify if Yes): No Relevant Social History: None Present Medications: see Short Stay Collaborative assessment Medical History: Significant History ( Alexanedr's procedure, reversal of colostomy, reversal of loop ileostomy) Allergies: Allergies Allergy/AdvReac Type Severity Reaction Status Date / Time No Known Allergies Allergy Verified 04/09/22 10:53 [No Known Allergies*] Review of Systems Sugical H&P ROS: Negative: Constitution, Cardiovascular, Respiratory, Neurological, Psychiatric, Hem-Onc, Allergic/Immunologic, Gastrointestinal, Genitourinary, Musculoskeletal, Integumentary, Endocrine and Eyes/Ears/Nose/Throat Exam Surgical H&P Exam: Normal: HEENT, Normal: Heart, Normal: Lungs, Normal: Extr emities, Normal: Abdomen, Normal: Skin and Normal: Neurological Exam Comment: palpable hernia the gastric area about 4 cm defect Plan Diagnosis/Plan: Unchanged I have reviewed the history and physical and performed a pertinent physical examination on my patient. No changes have occurred unless specified.
--- NOTE | 2022-04-15 10:22 | P.OP_ITS ---
Operative Note Operative Note Date of Service: 04/15/22 Narrative: Preop diagnosis: Incisional hernia Postop diagnosis: Large incisional hernia measuring 15 cm long by 7 cm wide Procedure: Repair of a large incisional hernia with Phasix mesh, extensive lysis of adhesions Surgeon: Vaibhav Velasquez MD The patient is a 61-year-old female with multiple abdominal surgeries for a perforated diverticulitis. She came to the office because of what appeared to be an incisional hernia epigastric area. Wanted this repaired. I therefore scheduled her for repair of his incisional hernia with mesh. I explained to her the risks, benefits, and alternatives. She understood the above and had wanted to proceed. She was brought to the operating room and placed supine under general anesthesia via endotracheal tube. The abdomen was prepped and draped in the usual sterile fashion. Surgical time-out was done. The patient received cefazolin 2 g IV preoperatively. The hernia. To be palpable and epigastric area. I made an incision on the skin overlying this. This carried down with electrocautery through the full- thickness of the skin subcutaneous fat. Hernias then seen. This contained bowel loops. I proceeded to gently do sharp dissection of the rest of the sac off of the fascia. This was done with electrocautery as well as Metzenbaum scissors. I proceeded to continue to dissect down to the fascial edge on the upper part of the fascial defect until was able to apply Imani clamps on the fascial edge on both sides. We then proceeded to inspect the hernia and this seemed to actually extend inferiorly. Was note of a lot of adherent small bowel loops as as well as omentum on both sides the fascia so we had to proceed slowly with extensive lysis of adhesions. We carried this down with traction and counter traction on the fascia using Metzenbaum scissors as well for type dissection. We continued to do this method of dissection to define the fascial edge on both the left and right side. it then appeared that the fascial defect actually extended more clearly. We continued to define this with the same manner of dissection, with careful extensive lysis of adhesions of adherent small bowel loops on both sides of the fascia. This part of the procedure therefore took an extended period of time. Continued all the way to the most inferior edge of the fascial defect. This was a much longer hernia then earlier felt. The length was about almost 15 cm and the with was 7 cm. The fascial edge however came a together without any tension easily. The small bowel loops were examined there was no evidence of any injury . I made sure that we had clear margins on the peritoneal side of the fascia to apply a large mesh. I used a 15 x 20 Phasix mesh. This was positioned flat under the fascia. I then used the Optifix tackers to secure the inside of the mesh to the abdominal wall circumferentially with 2 rows. We made sure that there were no bowel loops caught between the attacks as well as between the mesh and abdominal wall We secured the mesh circumferentially and we used up two of these Optifix tackers. We then started to close the fascial layer a Maxon 1 stitch. At this point we had started counting the flaps and we were missing 1 lap sponge so we had to remove the mesh to examine in the peritoneal cavity. There was 1 lap lap sponge that was immediately seen released the mesh We then proceeded to reposition the mesh again with multiple rows of tacks to secure this to the abdominal wall circumferentially. Again we made sure that there were no bowel loops caught between the mesh and the abdominal wall We then proceeded to close the fascia with a running Maxon 1 stitch. I irrigated then proceeded to close the skin with skin marybeth. I infiltrated the area of the incision with Marcaine 0.5% for postop analgesia. Dressings were applied. Brown catheter was inserted at the end of the procedure The procedure was then completed. The patient tolerated procedure well. There were no immediate complications. I nitial and final counts of sponges and instruments were correct. Estimated blood loss about 100 cc The patient was extubated without difficulty and transferred to the recovery room with stable vital signs.
[2022-04-15] MEDS: diphenhydrAMINE HCL 50 MG/ML VIAL 25 MG IVPUSH (10:40)
--- NOTE | 2022-04-15 10:43 | PHA.MEDREC ---
Pharmacy Consult ? Medication Reconciliation Pharmacy has reviewed the medication reconciliation completed by nursing.
[2022-04-15] MEDS: HYDROmorphone HCl 0.5 MG/0.5 ML SYRINGE 0.25 MG IVPUSH ×2 (10:45→10:50)
[2022-04-15] MEDS: oxyCODONE HCl Immed Release 5 MG TABLET 10 MG PO ×2 (10:59→16:29)
[2022-04-15] MEDS: Lactated Ringers 1,000 ML 80 ML IVCONT ×2 (11:24→21:37)
[2022-04-15] MEDS: Omeprazole 20 MG CAPSULE.DR PO (16:24)
[2022-04-15] MEDS: Ketorolac Tromethamine 15 MG/ML VIAL IVPUSH ×2 (16:24→21:38)
--- NOTE | 2022-04-15 17:50 | PM.EVENT ---
Event Note Date of Service: 04/15/22 Event Note: seen postop after for large incisional hernia with Phasix mesh Seems to have adequate pain control abdomen soft stable vital signs Good urine output instructed on incentive spirometry pain management
[2022-04-15] MEDS: Atorvastatin Calcium 20 MG TABLET PO (20:16)
[2022-04-15] MEDS: Morphine Sulfate 4 MG/ML CARTRIDGE 3 MG IVPUSH (20:16)
[2022-04-16] VITALS: BP 163/84; PULSE 79; RESP 16; TEMP 36.4; O2SAT 95
[2022-04-16] MEDS: diphenhydrAMINE HCL 25 MG CAPSULE PO (00:35)
[2022-04-16 03:53] VITALS: BP 161/82; PULSE 83; RESP 16; TEMP 36.4; O2SAT 94
[2022-04-16] MEDS: Morphine Sulfate 4 MG/ML CARTRIDGE 3 MG IVPUSH (06:14)
[2022-04-16] MEDS: Omeprazole 20 MG CAPSULE.DR PO ×2 (06:14→16:34)
[2022-04-16 06:29] LABS: Hematocrit 31.8 % (37.0-47.0); Hemoglobin 10.5 g/dl (12.0-16.0); Mean Corpuscular Hemoglobin 32.9 pg (27.0-33.0); Mean Corpuscular Volume 99.7 fL (80.0-98.0); Mean Platelet Volume 9.8 fL (9.4-12.3); Platelet Count 188 X10*3/uL (160-400); Red Blood Count 3.19 X10*6/uL (4.20-5.50); Red Cell Distribution Width 14.8 % (11.0-16.0); White Blood Count 8.3 X10*3/uL (4.8-10.8)
[2022-04-16 06:52] LABS: Anion Gap 19 (12-20); Blood Urea Nitrogen 17 mg/dL (9-16); Calcium 7.6 mg/dL (8.4-10.2); Carbon Dioxide 20 mmol/L (22-29); Chloride 102 mmol/L (96-108); Creatinine Clr Calc Pharmacy 49.6; Estimated Glomerular Filt Rate 45; Glucose Random 113 mg/dL (60-115); Potassium 5.5 mmol/L (3.3-5.1); Sodium 135 mmol/L (135-145)
[2022-04-16 07:42] VITALS: BP 154/84; PULSE 95; RESP 16; TEMP 37; O2SAT 95
--- NOTE | 2022-04-16 08:27 | PM.PNGS ---
Subjective Subjective Date of Service: 04/17/22 Interval history: says incision hurts tolerating clear liquids passing flatus has been ambulating, says she gets tired easily Physical Exam Vital Signs: Vital Signs: Last Vital Signs Temp 98.6 F 04/16/22 07:42 Pulse 95 04/16/22 07:42 Resp 16 04/16/22 07:42 BP 154/84 H 04/16/22 07:42 Pulse Ox 95 04/16/22 07:42 O2 Del Method 04/16/22 07:42 O2 Flow Rate 2 04/15/22 12:20 BMI result Body Mass Index 26.8 Const: Other: looks well General: no acute distress Resp: Effort & Inspection: normal respiratory effort Cardio: Rate: regular rate GI: Other: soft, dressings dry, binder in place Objective Data Active Medications Albuterol Sulfate (Albuterol Sulfate (0.083%) 2.5 Mg/3 Ml Vial.Neb) 2.5 mg INHALE ONCE PRN PRN Reason: Wheezing Atorvastatin Calcium (Atorvastatin Calcium 20 Mg Tablet) 20 mg PO BEDTIME [facility] Last Admin: 04/15/22 20:16 Dose: 20 mg Documented By: FREEDOM Fentanyl (Fentanyl Citrate/Pf 100 Mcg/2 Ml Vial) 25 mcg IVPUSH Q5M PRN; Protocol PRN Reason: Pain, Moderate (Pain Scale 4-6 Fentanyl (Fentanyl Citrate/Pf 100 Mcg/2 Ml Vial) 50 mcg IVPUSH Q5M PRN; Protocol PRN Reason: Pain, Severe (Pain Scale 7-10) Heparin Sodium (Porcine) (Heparin Sodium,Porcine 5,000 Unit/Ml Vial) 5,000 unit SUBCUT Q12H [facility] Hydromorphone HCl (Hydromorphone Hcl 0.5 Mg/0.5 Ml Syringe) 0.25 mg IVPUSH Q5M PRN; Protocol PRN Reason: Pain, Severe (Pain Scale 7-10) Last Admin: 04/15/22 10:50 Dose: 0.25 mg Documented By: LEONOR Lactated Ringer's (Lr) 1,000 mls @ 80 mls/hr IVCONT .[id number] [facility] Last Admin: 04/15/22 21:37 Dose: 80 mls/hr Documented By: FREEDOM Diphenhydramine HCl 25 mg/ (Sodium Chloride) 50.5 mls @ 200 mls/hr IV ONCE [facility] Last Infusion: 04/15/22 15:05 Dose: 0 mls/hr Documented By: JULIO CESAR Ketorolac Tromethamine (Ketorolac Tromethamine 15 Mg/Ml Vial) 15 mg IVPUSH Q6H [facility] Last Admin: 04/16/22 06:15 Dose: Not Given Documented By: FREEDOM Non-Admin Reason: Patient Refused Losartan Potassium (Losartan Potassium 50 Mg Tablet) 50 mg PO DAILY [facility]; Protocol Morphine Sulfate (Morphine Sulfate 4 Mg/Ml Cartridge) 3 mg IVPUSH Q3H PRN; Protocol PRN Reason: Pain, Severe (Pain Scale 7-10) Last Admin: 04/16/22 06:14 Dose: 3 mg Documented By: FREEDOM Omeprazole (Omeprazole 20 Mg Capsule.Dr) 20 mg PO BID@0630,1630 [facility] Last Admin: 04/16/22 06:14 Dose: 20 mg Documented By: FREEDOM Ondansetron HCl (Ondansetron Hcl 4 Mg/2 Ml Vial) 4 mg IVPUSH ONCE PRN PRN Reason: Nausea and Vomiting Ondansetron HCl (Ondansetron Hcl 4 Mg/2 Ml Vial) 4 mg IVPUSH Q6H PRN PRN Reason: nausea Oxycodone HCl (Oxycodone Hcl Immed Release 5 Mg Tablet) 5 mg PO ONCE PRN PRN Reason: Pain, Severe (Pain Scale 7-10) Oxycodone HCl (Oxycodone Hcl Immed Release 5 Mg Tablet) 10 mg PO Q4H PRN PRN Reason: Pain, Moderate (Pain Scale 4-6 Last Admin: 04/15/22 16:29 Dose: 10 mg Documented By: JULIO CESAR Sodium Chloride (0.9 % Sodium Chloride Flush 3 Ml Syringe) 3 ml IVFLUSH QSHIFT [facility] Last Admin: 04/15/22 20:20 Dose: Not Given Documented By: FREEDOM Non-Admin Reason: IV Running Labs CBC & Chem 7: 04/16/22 05:42 04/17/22 05:20 Labs: Laboratory Results - last 24 hr 04/16/22 04/16/22 05:42 05:42 MCV 99.7 H MCH 32.9 MCHC 33.0 RDW 14.8 Plt Count 188 D MPV 9.8 Absolute Nucleated RBC 0.000 Nucleated RBC % (auto) 0.0 Anion Gap 19 Estim Creat Clear Calc 49.6 Estimated GFR 45 Random Glucose 113 Calcium 7.6 L D Procedures Date of Service Date of Service: 04/16/22 Progress Note: A&P Assessment and plan (1) Incisional hernia: Status: Acute Assessment and Plan: S/P repair of large incisional hernia, with Phasix mesh looks well advance diet K high - consult Hospitalist pain mgt letty Brown Time Spent With Patient Time: Total time spent is greater than 50% in coordination of care (as documented) at patient's floor/unit and/or counseling patient: Quality Stroke Does the patient have a stroke diagnosis?: No VTE Prior VTE?: No VTE Risk Level:: Medical - moderate - high VTE Device Contraindication: N/A - Device Ordered VTE Drug Contraindication: N/A - Med Ordered
[2022-04-16] MEDS: Heparin Sodium,Porcine 5,000 UNIT/ML VIAL 5000 UNIT SUBCUT ×2 (09:16→20:16)
[2022-04-16] MEDS: Losartan Potassium 50 MG TABLET PO (09:16)
[2022-04-16] MEDS: Ketorolac Tromethamine 15 MG/ML VIAL IVPUSH (09:17)
[2022-04-16] MEDS: 0.9 % Sodium Chloride 1,000 ML 80 ML IVCONT ×2 (09:18→19:22)
--- NOTE | 2022-04-16 09:41 | MHC.CM.PN ---
EMR REVIEWED, PT ADMITTED W/LARGE INCISIONAL HERNIA REPAIR W/MESH, CM MET W/PT WHO IS A&OX4, PT REPORTS SHE LIVES W/S.O. AND 27YO SON, PT DENIES USE OF DME/HOME SERVICES, PT REPORTS SHE IS OPEN TO [facility] IF RECOMMENDED BY SURGEON HOWEVER HAS NO PREFERENCE OF WHICH VNA AND HCP IS SISTER JOE CROFT [phone] AND COPY IS ON FILE FROM PREVIOUS VISIT. D/C PLAN: HOME VS HOME W/[facility], FAMILY FOR TRANSPORT.
[2022-04-16 11:12] VITALS: BP 163/78; PULSE 95; RESP 18; TEMP 36.3; O2SAT 95
[2022-04-16] MEDS: oxyCODONE HCl Immed Release 5 MG TABLET 10 MG PO ×3 (12:41→21:31)
--- NOTE | 2022-04-16 14:40 | HO.POSTANES ---
Post Anesthesia Evaluation Post Anesthesia Evaluation Vital Signs: Vital Signs Temp Pulse Resp BP Pulse Ox O2 Del Method 04/16/22 11:12 97.3 F 95 18 163/78 H 95 Room Air 04/16/22 07:42 98.6 F 95 16 154/84 H 95 Room Air 04/16/22 03:53 97.5 F 83 16 161/82 H 94 Room Air Anesthesia: General Endotracheal-GETA Mental Status: Awake Pain Control: Satisfactory (incisional pain) Nausea/Vomiting: Mild Hydration: Adequate Anesthesia-Related Issues: No Anes. Related Issues
[2022-04-16 15:22] VITALS: BP 153/70; PULSE 98; RESP 17; TEMP 37.1; O2SAT 93
--- NOTE | 2022-04-16 16:47 | P.CONIM_ITS ---
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 She had the colostomy reversed last August 2021, with the protective loop ileostomy which was reversed last November,.? She had been doing well since that time.? However, sometime last month, she says that she started to notice a mass on the midline just above the umbilicus. Patient was admitted for hernia repair-status postlarge incisional hernia with Phasix mesh?yesterday. Medical medical consult was called for medical med management: Patient was seen and examined and labs reviewed: Patient said that after hernia repair she is feeling better but still has lot of abdominal soreness in the operation area. Passing gases but no BM yet Denies any urinary complaints or nausea or vomiting or cough or phlegm or fever or chills or chest pain or shortness of breath or weakness or numbness, sitting on the chair pleasant.. Labs reviewed: Patient has possible mild JEREMIAS and hyperkalemia. Review of Systems Review of Systems: As above. [facility] Medical History Acid reflux COVID-19 vaccine series completed Diverticulitis Hematuria High cholesterol History of COVID-19 Hypertension Incisional hernia Osteoarthritis of left hip Seasonal allergies Family History Father Cancer Mother Cancer Maternal Grandmother Colon cancer Other Tubular adenoma Surgical History H/O colonoscopy H/O total hysterectomy with bilateral salpingo-oophorectomy (BSO) History of colon resection History of colostomy reversal History of dental surgery History of reversal of ileostomy Hx of bilateral inguinal hernia repair Hx of cystoscopy Status post Alexander procedure Status post total hip replacement, left (~06/07/19) Social History Household Members: Significant Other and Children Housing: House Are you a primary interior plant caretaker to a significant other at home: No Do you presently have visiting nurse or other home services: No Alcohol intake: current Alcohol intake frequency: a few times a week Alcohol type: wine Patient Tobacco Use Status: Never used Tobacco Second Hand Smoke Exposure: No Use of substances other than those prescribed or required for medical reasons: No Currently Displaying Signs/Symptoms of Drug Intoxication Withdrawal: No Have you been hit, kicked, punched, or otherwise hurt by someone within the past year? If so, by whom?: No Do you feel safe in your current relationship?: Yes Is there a partner from a previous relationship who is making you feel unsafe now?: No Are you made to feel afraid or neglected: No Are you DNR?: No Advance Directives: Yes Advance Directives Information Provided: No Advance Directives on File: Yes Advance Directives Date on File: 08/02/21 Do you have thoughts of harming others: None Do you have a plan to hurt others: No Plan Recently lost weight without trying: No Eating poorly because of decreased appetite: No Nutrition Risks: No Nutritional Risk Patient : No Poor oral hygiene: No service: No Current occupational status: retired Current occupation: [employer]- right handed Meds Allergies Allergy/AdvReac Type Severity Reaction Status Date / Time No Known Allergies Allergy Verified 04/09/22 10:53 [No Known Allergies*] Active Medications: Current Medications Albuterol Sulfate (Albuterol Sulfate (0.083%) 2.5 Mg/3 Ml Vial.Neb) 2.5 mg INHALE ONCE PRN PRN Reason: Wheezing Atorvastatin Calcium (Atorvastatin Calcium 20 Mg Tablet) 20 mg PO BEDTIME [facility] Last Admin: 04/15/22 20:16 Dose: 20 mg Carvedilol (Carvedilol 3.125 Mg Tablet) 3.125 mg PO BID [facility]; Protocol Fentanyl (Fentanyl Citrate/Pf 100 Mcg/2 Ml Vial) 25 mcg IVPUSH Q5M PRN; Protocol PRN Reason: Pain, Moderate (Pain Scale 4-6 Fentanyl (Fentanyl Citrate/Pf 100 Mcg/2 Ml Vial) 50 mcg IVPUSH Q5M PRN; Protocol PRN Reason: Pain, Severe (Pain Scale 7-10) Heparin Sodium (Porcine) (Heparin Sodium,Porcine 5,000 Unit/Ml Vial) 5,000 unit SUBCUT Q12H [facility] Last Admin: 04/16/22 09:16 Dose: 5,000 unit Hydromorphone HCl (Hydromorphone Hcl 0.5 Mg/0.5 Ml Syringe) 0.25 mg IVPUSH Q5M PRN; Protocol PRN Reason: Pain, Severe (Pain Scale 7-10) Last Admin: 04/15/22 10:50 Dose: 0.25 mg Diphenhydramine HCl 25 mg/ (Sodium Chloride) 50.5 mls @ 200 mls/hr IV ONCE [facility] Last Infusion: 04/15/22 15:05 Dose: Infused Sodium Chloride (Ns) 1,000 mls @ 80 mls/hr IVCONT .[id number] [facility] Last Admin: 04/16/22 09:18 Dose: 80 mls/hr Losartan Potassium (Losartan Potassium 50 Mg Tablet) 50 mg PO DAILY [facility]; Protocol Last Admin: 04/16/22 09:16 Dose: 50 mg Morphine Sulfate (Morphine Sulfate 4 Mg/Ml Cartridge) 3 mg IVPUSH Q3H PRN; Protocol PRN Reason: Pain, Severe (Pain Scale 7-10) Last Admin: 04/16/22 06:14 Dose: 3 mg Omeprazole (Omeprazole 20 Mg Capsule.Dr) 20 mg PO BID@0630,1630 [facility] Last Admin: 04/16/22 16:34 Dose: 20 mg Ondansetron HCl (Ondansetron Hcl 4 Mg/2 Ml Vial) 4 mg IVPUSH ONCE PRN PRN Reason: Nausea and Vomiting Ondansetron HCl (Ondansetron Hcl 4 Mg/2 Ml Vial) 4 mg IVPUSH Q6H PRN PRN Reason: nausea Oxycodone HCl (Oxycodone Hcl Immed Release 5 Mg Tablet) 5 mg PO ONCE PRN PRN Reason: Pain, Severe (Pain Scale 7-10) Oxycodone HCl (Oxycodone Hcl Immed Release 5 Mg Tablet) 10 mg PO Q4H PRN PRN Reason: Pain, Moderate (Pain Scale 4-6 Last Admin: 04/16/22 12:41 Dose: 10 mg Sodium Chloride (0.9 % Sodium Chloride Flush 3 Ml Syringe) 3 ml IVFLUSH QSHIFT [facility] Last Admin: 04/16/22 15:00 Dose: Not Given Home Medications Medication Instructions Recorded Confirmed Last Taken Type omeprazole 20 mg capsule,delayed 20 mg PO BID 06/11/20 04/08/22 04/15/22 History release atorvastatin 20 mg tablet 1 tab PO BEDTIME 02/05/21 04/08/22 02/04/21 History Lactobacillus acidophilus and 1 cap PO DAILY 07/24/21 04/08/22 Unknown History rhamnosus 15 billion cell capsule (Probiotic) losartan 50 mg tablet 1 tab PO DAILY 04/08/22 04/08/22 Unknown History Physical Exam Vital Signs and Narrative: Vital Signs: Last Vital Signs Temp 98.7 F 04/16/22 15: Pulse 98 04/16/22 15:22 Resp 17 04/16/22 15: BP 153/70 H 04/16/22 15: Pulse Ox 93 04/16/22 15:22 O2 Del Method 04/16/22 15: O2 Flow Rate 2 04/15/22 12:20 BMI result Body Mass Index 26.8 Appearance: Alert.? Oriented X3.? not in distress.? Eyes: Pupils equal, round and reactive to light.? Sclera nonicteric.? ENT: Pharynx normal.? Moist mucous membranes. cvs: rrr, [id number] . res: clear to auscultation ,no rhonchii or wheezing abd: no rebound or guarding ,abd is sore in opertion area otherwise benign, bs present. ext pulses present , no cyanosis . neuro: axo3 , nonfocal. Results Labs CBC and Chem 7: 04/16/22 05:42 04/16/22 05:42 Labs: Laboratory Results - last 24 hr 04/16/22 04/16/22 05:42 05:42 MCV 99.7 H MCH 32.9 MCHC 33.0 RDW 14.8 Plt Count 188 D MPV 9.8 Absolute Nucleated RBC 0.000 Nucleated RBC % (auto) 0.0 Anion Gap 19 Estim Creat Clear Calc 49.6 Estimated GFR 45 Random Glucose 113 Calcium 7.6 L D Assessment and Plan (1) JEERMIAS (acute kidney injury): Status: Acute (2) Hyperkalemia: Status: Acute Plan 61-year-old female with past medical history of hypertension, hypercholesteremia, GERD-Patient was admitted for hernia repair-status incisional hernia with Phasix mesh?yesterday. 1. Patient was admitted for hernia repair-status postlarge incisional hernia wi th Phasix mesh?yesterday. Management as per primary team. Need good pain control -she says that pain is considerably controlled currently. 2. Hypertension: Blood pressure is slightly suboptimal. Will hold losartan because of JEREMIAS, add Coreg for now for blood pressure. She says amlodipine she cannot take due to leg swelling happens because of it. 3. JEREMIAS: Hold losartan, DC keterolec, continue IV fluids. Bladder scan, if urinary retention greater than 350 please straight cath 4. Hyperkalemia: Will give Each[employer] Check BMP in the morning. 5. GERD: Continue omeprazole. 6 Hlp: continue statin. dvt prophylax: s/c heparin as per primary team. Above management discussed the patient in detail length she understand and in agreement with the above plan, time spent 70 minute.
[2022-04-16] MEDS: ondansetron HCL 4 MG/2 ML VIAL IVPUSH (17:36)
[2022-04-16] MEDS: Sodium Zirconium Cyclosilicate 10 GM POWD.PACK PO (17:36)
[2022-04-16 19:13] VITALS: BP 169/80; PULSE 105; RESP 17; TEMP 36.9; O2SAT 92
[2022-04-16] MEDS: Atorvastatin Calcium 20 MG TABLET PO (20:15)
[2022-04-16] MEDS: carvediloL 3.125 MG TABLET PO (20:15)
[2022-04-17] VITALS (8 sets, daily range): BP systolic 155–218; BP diastolic 78–108; PULSE 81–103; RESP 16–18; TEMP 36.1–36.8; O2SAT 93–98
[2022-04-17] MEDS: ondansetron HCL 4 MG/2 ML VIAL IVPUSH (02:12)
[2022-04-17] MEDS: Morphine Sulfate 4 MG/ML CARTRIDGE 3 MG IVPUSH (02:12)
--- NOTE | 2022-04-17 02:25 | PC.NURSE ---
0200 pt c/o of headache bp-218/108 manually hr-100. notified orderd tylenol and hydralazine 5mg IV.pt medicated with morphine 3mg iv for 6/10 H/A and abd pain also vomitted small amt medicated with zofran 4mg IV at 0212.
[2022-04-17] MEDS: hydrALAZINE HCl 20 MG/ML VIAL 5 MG IVPUSH (02:36)
[2022-04-17] MEDS: Acetaminophen 325 MG TABLET 650 MG PO (02:36)
--- NOTE | 2022-04-17 02:40 | PC.NURSE ---
0236 pt medicated with 2 tyenol for 6/10 H/A medicated with hydralazine 5mg iv for elevated bp.will continue to monitor.
[2022-04-17] MEDS: Omeprazole 20 MG CAPSULE.DR PO ×2 (05:31→16:15)
[2022-04-17] MEDS: oxyCODONE HCl Immed Release 5 MG TABLET 10 MG PO ×2 (05:34→16:19)
[2022-04-17] MEDS: 0.9 % Sodium Chloride 1,000 ML 80 ML IVCONT (05:35)
--- NOTE | 2022-04-17 05:38 | PC.NURSE ---
04/16/22 2030 pt voided 150 cc in br bladder scanned for 102 cc.04/17/22 12am voided 200cc bladder scanned for 17cc.
[2022-04-17 06:07] LABS: Anion Gap 16 (12-20); Blood Urea Nitrogen 14 mg/dL (9-16); Calcium 7.9 mg/dL (8.4-10.2); Carbon Dioxide 20 mmol/L (22-29); Chloride 104 mmol/L (96-108); Creatinine Clr Calc Pharmacy 58.8; Estimated Glomerular Filt Rate 55; Glucose Random 129 mg/dL (60-115); Potassium 4.1 mmol/L (3.3-5.1); Sodium 136 mmol/L (135-145)
--- NOTE | 2022-04-17 08:43 | PM.PNGS ---
Subjective Subjective Date of Service: 04/18/22 Interval history: Pain is well controlled However blood pressures been elevated up to 200 systolic overnight She has had headaches therefore because of this Tolerating diet well Physical Exam Vital Signs: Vital Signs: Last Vital Signs Temp 97.6 F 04/17/22 07:26 Pulse 81 04/17/22 07:26 Resp 18 04/17/22 07:26 BP 191/90 H 04/17/22 07:26 Pulse Ox 97 04/17/22 07:26 O2 Del Method 04/17/22 07:26 O2 Flow Rate 2 04/17/22 07:26 BMI result Body Mass Index 26.8 Const: General: comfortable and no acute distress Resp: Effort & Inspection: normal respiratory effort Cardio: Rate: regular rate GI: Palpation (GI): Soft to palpation, not firm and no guarding Objective Data Active Medications Acetaminophen (Acetaminophen 325 Mg Tablet) 650 mg PO Q6H PRN PRN Reason: Pain, Mild (Pain Scale 1-3) Last Admin: 04/17/22 02:36 Dose: 650 mg Documented By: ALIZE Albuterol Sulfate (Albuterol Sulfate (0.083%) 2.5 Mg/3 Ml Vial.Neb) 2.5 mg INHALE ONCE PRN PRN Reason: Wheezing Atorvastatin Calcium (Atorvastatin Calcium 20 Mg Tablet) 20 mg PO BEDTIME [facility] Last Admin: 04/16/22 20:15 Dose: 20 mg Documented By: ALIZE Carvedilol (Carvedilol 3.125 Mg Tablet) 6.25 mg PO BID [facility]; Protocol Fentanyl (Fentanyl Citrate/Pf 100 Mcg/2 Ml Vial) 25 mcg IVPUSH Q5M PRN; Protocol PRN Reason: Pain, Moderate (Pain Scale 4-6 Fentanyl (Fentanyl Citrate/Pf 100 Mcg/2 Ml Vial) 50 mcg IVPUSH Q5M PRN; Protocol PRN Reason: Pain, Severe (Pain Scale 7-10) Heparin Sodium (Porcine) (Heparin Sodium,Porcine 5,000 Unit/Ml Vial) 5,000 unit SUBCUT Q12H [facility] Last Admin: 04/16/22 20:16 Dose: 5,000 unit Documented By: ALIZE Hydralazine HCl (Hydralazine Hcl 20 Mg/Ml Vial) 5 mg IVPUSH Q6H PRN; Protocol PRN Reason: sbp>180 Last Admin: 04/17/22 02:36 Dose: 5 mg Documented By: ALIZE Hydromorphone HCl (Hydromorphone Hcl 0.5 Mg/0.5 Ml Syringe) 0.25 mg IVPUSH Q5M PRN; Protocol PRN Reason: Pain, Severe (Pain Scale 7-10) Last Admin: 04/15/22 10:50 Dose: 0.25 mg Documented By: LEONOR Diphenhydramine HCl 25 mg/ (Sodium Chloride) 50.5 mls @ 200 mls/hr IV ONCE [facility] Last Infusion: 04/15/22 15:05 Dose: 0 mls/hr Documented By: JULIO CESAR Losartan Potassium (Losartan Potassium 50 Mg Tablet) 50 mg PO DAILY [facility]; Protocol Last Admin: 04/16/22 09:16 Dose: 50 mg Documented By: FLO Morphine Sulfate (Morphine Sulfate 4 Mg/Ml Cartridge) 3 mg IVPUSH Q3H PRN; Protocol PRN Reason: Pain, Severe (Pain Scale 7-10) Last Admin: 04/17/22 02:12 Dose: 3 mg Documented By: ALIZE Omeprazole (Omeprazole 20 Mg Capsule.Dr) 20 mg PO BID@0630,1630 [facility] Last Admin: 04/17/22 05:31 Dose: 20 mg Documented By: ALIZE Ondansetron HCl (Ondansetron Hcl 4 Mg/2 Ml Vial) 4 mg IVPUSH Q6H PRN PRN Reason: nausea Last Admin: 04/16/22 17:36 Dose: 4 mg Documented By: FLO Oxycodone HCl (Oxycodone Hcl Immed Release 5 Mg Tablet) 5 mg PO ONCE PRN PRN Reason: Pain, Severe (Pain Scale 7-10) Oxycodone HCl (Oxycodone Hcl Immed Release 5 Mg Tablet) 10 mg PO Q4H PRN PRN Reason: Pain, Moderate (Pain Scale 4-6 Last Admin: 04/17/22 05:34 Dose: 10 mg Documented By: ALIZE Sodium Chloride (0.9 % Sodium Chloride Flush 3 Ml Syringe) 3 ml IVFLUSH QSHIFT [facility] Last Admin: 04/16/22 21:26 Dose: Not Given Documented By: ALIZE Non-Admin Reason: IV Running Labs CBC & Chem 7: 04/16/22 05:42 04/17/22 05:20 Labs: Laboratory Results - last 24 hr 04/17/22 05:20 Anion Gap 16 Estim Creat Clear Calc 58.8 Estimated GFR 55 Random Glucose 129 H Calcium 7.9 L Procedures Date of Service Date of Service: 04/17/22 Progress Note: A&P Assessment and plan (1) Incisional hernia: Status: Acute Assessment and Plan: Status post repair with mesh Good pain control Has headaches - blood pressure very high BP meds being adjusted by hospitalist Potassium better, creatinine better Getting out of bed to chair Otherwise looks well Time Spent With Patient Time: Total time spent is greater than 50% in coordination of care (as documented) at patient's floor/unit and/or counseling patient: Quality Stroke Does the patient have a stroke diagnosis?: No VTE Prior VTE?: No VTE Risk Level:: Medical - moderate - high VTE Device Contraindication: N/A - Device Ordered VTE Drug Contraindication: N/A - Med Ordered
[2022-04-17] MEDS: carvediloL 3.125 MG TABLET 6.25 MG PO ×2 (09:59→20:38)
[2022-04-17] MEDS: 0.9 % Sodium Chloride Flush 3 ML SYRINGE IVFLUSH ×3 (10:00→20:41)
[2022-04-17] MEDS: Heparin Sodium,Porcine 5,000 UNIT/ML VIAL 5000 UNIT SUBCUT ×2 (10:00→20:39)
--- NOTE | 2022-04-17 11:33 | HO.PM.IMPN ---
Subjective Subjective Date of Service: 04/17/22 Interval History: jeremias,unconteolled htn, hyperkalemia Review of Systems Patient seems to be improving Blood pressure uncontrolled overnight Denies any chest pain or shortness of breath or fever or chills or cough or phlegm. Still has soreness in the abdominal area Physical Exam Vital Signs: Vital Signs: Last Vital Signs Temp 97 F 04/17/22 11:12 Pulse 92 04/17/22 11:12 Resp 18 04/17/22 11:12 BP 168/86 H 04/17/22 11:12 Pulse Ox 96 04/17/22 11:12 O2 Del Method 04/17/22 11:12 O2 Flow Rate 2 04/17/22 11:12 BMI result Body Mass Index 26.8 Appearance: Alert.? Oriented X3.? not in distress.?. cvs: rrr, [id number] . res: clear to auscultation ,no rhonchii or wheezing abd: no rebound or guarding ,abd is sore in opertion area otherwise benign, bs present. ext pulses present , no cyanosis . neuro: axo3 , nonfocal. Objective Data Active Medications Acetaminophen (Acetaminophen 325 Mg Tablet) 650 mg PO Q6H PRN PRN Reason: Pain, Mild (Pain Scale 1-3) Last Admin: 04/17/22 02:36 Dose: 650 mg Documented By: ALIZE Albuterol Sulfate (Albuterol Sulfate (0.083%) 2.5 Mg/3 Ml Vial.Neb) 2.5 mg INHALE ONCE PRN PRN Reason: Wheezing Atorvastatin Calcium (Atorvastatin Calcium 20 Mg Tablet) 20 mg PO BEDTIME [facility] Last Admin: 04/16/22 20:15 Dose: 20 mg Documented By: ALIZE Carvedilol (Carvedilol 3.125 Mg Tablet) 6.25 mg PO BID [facility]; Protocol Last Admin: 04/17/22 09:59 Dose: 6.25 mg Documented By: ZACH Fentanyl (Fentanyl Citrate/Pf 100 Mcg/2 Ml Vial) 25 mcg IVPUSH Q5M PRN; Protocol PRN Reason: Pain, Moderate (Pain Scale 4-6 Fentanyl (Fentanyl Citrate/Pf 100 Mcg/2 Ml Vial) 50 mcg IVPUSH Q5M PRN; Protocol PRN Reason: Pain, Severe (Pain Scale 7-10) Heparin Sodium (Porcine) (Heparin Sodium,Porcine 5,000 Unit/Ml Vial) 5,000 unit SUBCUT Q12H [facility] Last Admin: 04/17/22 10:00 Dose: 5,000 unit Documented By: ZACH Hydralazine HCl (Hydralazine Hcl 20 Mg/Ml Vial) 5 mg IVPUSH Q6H PRN; Protocol PRN Reason: sbp>180 Last Admin: 04/17/22 02:36 Dose: 5 mg Documented By: ALIZE Hydralazine HCl (Hydralazine Hcl 10 Mg Tablet) 10 mg PO TID [facility]; Protocol Hydromorphone HCl (Hydromorphone Hcl 0.5 Mg/0.5 Ml Syringe) 0.25 mg IVPUSH Q5M PRN; Protocol PRN Reason: Pain, Severe (Pain Scale 7-10) Last Admin: 04/15/22 10:50 Dose: 0.25 mg Documented By: LEONOR Diphenhydramine HCl 25 mg/ (Sodium Chloride) 50.5 mls @ 200 mls/hr IV ONCE [facility] Last Infusion: 04/15/22 15:05 Dose: 0 mls/hr Documented By: JULIO CESAR Losartan Potassium (Losartan Potassium 50 Mg Tablet) 50 mg PO DAILY [facility]; Protocol Last Admin: 04/16/22 09:16 Dose: 50 mg Documented By: FLO Morphine Sulfate (Morphine Sulfate 4 Mg/Ml Cartridge) 3 mg IVPUSH Q3H PRN; Protocol PRN Reason: Pain, Severe (Pain Scale 7-10) Last Admin: 04/17/22 02:12 Dose: 3 mg Documented By: ALIZE Omeprazole (Omeprazole 20 Mg Capsule.Dr) 20 mg PO BID@0630,1630 [facility] Last Admin: 04/17/22 05:31 Dose: 20 mg Documented By: ALIZE Ondansetron HCl (Ondansetron Hcl 4 Mg/2 Ml Vial) 4 mg IVPUSH Q6H PRN PRN Reason: nausea Last Admin: 04/16/22 17:36 Dose: 4 mg Documented By: FLO Oxycodone HCl (Oxycodone Hcl Immed Release 5 Mg Tablet) 5 mg PO ONCE PRN PRN Reason: Pain, Severe (Pain Scale 7-10) Oxycodone HCl (Oxycodone Hcl Immed Release 5 Mg Tablet) 10 mg PO Q4H PRN PRN Reason: Pain, Moderate (Pain Scale 4-6 Last Admin: 04/17/22 05:34 Dose: 10 mg Documented By: ALIZE Sodium Chloride (0.9 % Sodium Chloride Flush 3 Ml Syringe) 3 ml IVFLUSH QSHIFT [facility] Last Admin: 04/17/22 10:00 Dose: 3 ml Documented By: ZACH Labs CBC & Chem 7: 04/16/22 05:42 04/17/22 05:20 Labs: Laboratory Results - last 24 hr 04/17/22 05:20 Anion Gap 16 Estim Creat Clear Calc 58.8 Estimated GFR 55 Random Glucose 129 H Calcium 7.9 L Assessment and Plan (1) JEREMIAS (acute kidney injury): Status: Acute (2) HTN (hypertension): Status: Acute Plan 61-year-old female with past medical history of hypertension, hypercholesteremia, GERD-Patient was admitted for hernia repair-status ? incisional hernia with Phasix mesh?yesterday. 1. Patient was admitted for hernia repair-status postlarge incisional hernia with Phasix mesh?04/15. Management as per primary team. Need good pain control -she says that pain is considerably controlled currently. 2. Hypertension: Blood pressure is suboptimal. Will hold losartan because of JEREMIAS, adjusted Coreg and added hydralazine . She says amlodipine she cannot take due to leg swelling happens because of it. pain control also mighthelp with blood pressure management. 3. JEREMIAS: improving Hold losartan, DC keterolec, continue IV fluids. Bladder scan, if urinary retention greater than 350 please straight cath 4. Hyperkalemia: given Lokelma improved. 5. GERD:? Continue omeprazole. 6 Hlp: continue statin. dvt prophylax: s/c heparin as per primary team. inaptient need:Patient was admitted for hernia repair-status postlarge incisional hernia with Phasix mesh?-iv pain management ,jeremias need iv hydration, uncontrolled htn. Quality Stroke Does the patient have a stroke diagnosis?: No VTE Prior VTE?: No VTE Risk Level:: Medical - moderate - high VTE Device Contraindication: N/A - Device Ordered VTE Drug Contraindication: N/A - Med Ordered
[2022-04-17] MEDS: hydrALAZINE HCl 10 MG TABLET PO ×2 (14:38→20:39)
[2022-04-17] MEDS: Atorvastatin Calcium 20 MG TABLET PO (20:38)
[2022-04-18 03:08] VITALS: BP 161/81; PULSE 86; RESP 16; TEMP 36.3; O2SAT 96
[2022-04-18] MEDS: Omeprazole 20 MG CAPSULE.DR PO (05:30)
[2022-04-18 07:16] VITALS: BP 180/95; PULSE 81; RESP 19; TEMP 35.5; O2SAT 97
--- NOTE | 2022-04-18 07:51 | P.PNIM_ITS ---
Subjective Subjective Date of Service: 04/18/22 Interval History: uncontrolled htn Review of Systems seems im Physical Exam Vital Signs: Vital Signs: Last Vital Signs Temp 96 F L 04/18/22 07:16 Pulse 81 04/18/22 07:16 Resp 19 04/18/22 07:16 BP 180/95 H 04/18/22 07:16 Pulse Ox 97 04/18/22 07:16 O2 Del Method 04/18/22 07:16 O2 Flow Rate 2 04/18/22 07:16 BMI result Body Mass Index 26.8 Appearance: Alert.? Oriented X3.? not in distress.?. cvs: rrr, [id number] . res: clear to auscultation ,no rhonchii or wheezing abd: no rebound or guarding ,abd is sore in opertion area otherwise benign, bs present. ext pulses present , no cyanosis . neuro: axo3 , nonfocal. Objective Data Active Medications Acetaminophen (Acetaminophen 325 Mg Tablet) 650 mg PO Q6H PRN PRN Reason: Pain, Mild (Pain Scale 1-3) Last Admin: 04/17/22 02:36 Dose: 650 mg Documented By: ALIZE Albuterol Sulfate (Albuterol Sulfate (0.083%) 2.5 Mg/3 Ml Vial.Neb) 2.5 mg INHALE ONCE PRN PRN Reason: Wheezing Atorvastatin Calcium (Atorvastatin Calcium 20 Mg Tablet) 20 mg PO BEDTIME [facility] Last Admin: 04/17/22 20:38 Dose: 20 mg Documented By: ALIZE Carvedilol (Carvedilol 3.125 Mg Tablet) 6.25 mg PO BID [facility]; Protocol Last Admin: 04/17/22 20:38 Dose: 6.25 mg Documented By: ALIZE Fentanyl (Fentanyl Citrate/Pf 100 Mcg/2 Ml Vial) 25 mcg IVPUSH Q5M PRN; Protocol PRN Reason: Pain, Moderate (Pain Scale 4-6 Fentanyl (Fentanyl Citrate/Pf 100 Mcg/2 Ml Vial) 50 mcg IVPUSH Q5M PRN; Protocol PRN Reason: Pain, Severe (Pain Scale 7-10) Heparin Sodium (Porcine) (Heparin Sodium,Porcine 5,000 Unit/Ml Vial) 5,000 unit SUBCUT Q12H [facility] Last Admin: 04/17/22 20:39 Dose: 5,000 unit Documented By: ALIZE Hydralazine HCl (Hydralazine Hcl 20 Mg/Ml Vial) 5 mg IVPUSH Q6H PRN; Protocol PRN Reason: sbp>180 Last Admin: 04/17/22 02:36 Dose: 5 mg Documented By: ALIZE Hydralazine HCl (Hydralazine Hcl 10 Mg Tablet) 10 mg PO TID [facility]; Protocol Last Admin: 04/17/22 20:39 Dose: 10 mg Documented By: ALIZE Hydromorphone HCl (Hydromorphone Hcl 0.5 Mg/0.5 Ml Syringe) 0.25 mg IVPUSH Q5M PRN; Protocol PRN Reason: Pain, Severe (Pain Scale 7-10) Last Admin: 04/15/22 10:50 Dose: 0.25 mg Documented By: LEONOR Diphenhydramine HCl 25 mg/ (Sodium Chloride) 50.5 mls @ 200 mls/hr IV ONCE [facility] Last Infusion: 04/15/22 15:05 Dose: 0 mls/hr Documented By: JULIO CESAR Losartan Potassium (Losartan Potassium 50 Mg Tablet) 50 mg PO DAILY [facility]; Protocol Last Admin: 04/16/22 09:16 Dose: 50 mg Documented By: FLO Morphine Sulfate (Morphine Sulfate 4 Mg/Ml Cartridge) 3 mg IVPUSH Q3H PRN; Prot ocol PRN Reason: Pain, Severe (Pain Scale 7-10) Last Admin: 04/17/22 02:12 Dose: 3 mg Documented By: ALIZE Omeprazole (Omeprazole 20 Mg Capsule.Dr) 20 mg PO BID@0630,1630 [facility] Last Admin: 04/18/22 05:30 Dose: 20 mg Documented By: ALIZE Ondansetron HCl (Ondansetron Hcl 4 Mg/2 Ml Vial) 4 mg IVPUSH Q6H PRN PRN Reason: nausea Last Admin: 04/16/22 17:36 Dose: 4 mg Documented By: FLO Oxycodone HCl (Oxycodone Hcl Immed Release 5 Mg Tablet) 5 mg PO ONCE PRN PRN Reason: Pain, Severe (Pain Scale 7-10) Oxycodone HCl (Oxycodone Hcl Immed Release 5 Mg Tablet) 10 mg PO Q4H PRN PRN Reason: Pain, Moderate (Pain Scale 4-6 Last Admin: 04/17/22 16:19 Dose: 10 mg Documented By: DONOVAN Sodium Chloride (0.9 % Sodium Chloride Flush 3 Ml Syringe) 3 ml IVFLUSH QSHIFT [facility] Last Admin: 04/17/22 20:41 Dose: 3 ml Documented By: ALIZE Labs CBC & Chem 7: 04/16/22 05:42 04/18/22 07:59 Assessment and Plan (1) HTN (hypertension): Status: Acute (2) Hyperkalemia: Status: Acute Plan 61-year-old female with past medical history of hypertension, hypercholesteremia, GERD-Patient was admitted for hernia repair-status ? incisional hernia with Phasix mesh?yesterday. 1. Patient was admitted for hernia repair-status postlarge incisional hernia with Phasix mesh?04/15. Management as per primary team. Need good pain control -she says that pain is considerably controlled currently. 2. Hypertension: Blood pressure is suboptimal. added back losartan/coreg if blood pressure impoves ,continue above meds at home 3. JEREMIAS: improved with hydration improved by DC keterolec and IV fluids. 4. Hyperkalemia: given Lokelma improved. advised low potassium diet until repeat bmp out patiently 5. GERD:? Continue omeprazole. 6 Hlp: continue statin. dvt prophylax: s/c heparin as per primary team. Above management discussed with the primary team in detail length- uncontrolled htn- if blood pressure improves , will sign off . Quality Stroke Does the patient have a stroke diagnosis?: No VTE Prior VTE?: No VTE Risk Level:: Medical - moderate - high VTE Device Contraindication: N/A - Device Ordered VTE Drug Contraindication: N/A - Med Ordered
--- NOTE | 2022-04-18 08:44 | P.PNGS_ITS ---
Subjective Subjective Date of Service: 04/22/22 Interval history: pain wellcontrolled has some headache BP high this AM - BP was better yesterday afternoon good PO intake has been ambulating Physical Exam Vital Signs: Vital Signs: Last Vital Signs Temp 96 F L 04/18/22 07:16 Pulse 81 04/18/22 07:16 Resp 19 04/18/22 07:16 BP 180/95 H 04/18/22 07:16 Pulse Ox 97 04/18/22 07:16 O2 Del Method 04/18/22 07:16 O2 Flow Rate 2 04/18/22 07:16 BMI result Body Mass Index 26.8 Const: General: comfortable and no acute distress Resp: Effort & Inspection: normal respiratory effort Cardio: Rate: regular rate GI: Other: incision clean Palpation (GI): Soft to palpation, not firm and no guarding Objective Data Active Medications Acetaminophen (Acetaminophen 325 Mg Tablet) 650 mg PO Q6H PRN PRN Reason: Pain, Mild (Pain Scale 1-3) Last Admin: 04/17/22 02:36 Dose: 650 mg Documented By: ALIZE Albuterol Sulfate (Albuterol Sulfate (0.083%) 2.5 Mg/3 Ml Vial.Neb) 2.5 mg INHALE ONCE PRN PRN Reason: Wheezing Atorvastatin Calcium (Atorvastatin Calcium 20 Mg Tablet) 20 mg PO BEDTIME [facility] Last Admin: 04/17/22 20:38 Dose: 20 mg Documented By: ALIZE Carvedilol (Carvedilol 12.5 Mg Tablet) 12.5 mg PO BID [facility]; Protocol Fentanyl (Fentanyl Citrate/Pf 100 Mcg/2 Ml Vial) 25 mcg IVPUSH Q5M PRN; Protocol PRN Reason: Pain, Moderate (Pain Scale 4-6 Fentanyl (Fentanyl Citrate/Pf 100 Mcg/2 Ml Vial) 50 mcg IVPUSH Q5M PRN; Protocol PRN Reason: Pain, Severe (Pain Scale 7-10) Heparin Sodium (Porcine) (Heparin Sodium,Porcine 5,000 Unit/Ml Vial) 5,000 unit SUBCUT Q12H [facility] Last Admin: 04/17/22 20:39 Dose: 5,000 unit Documented By: ALIZE Hydralazine HCl (Hydralazine Hcl 20 Mg/Ml Vial) 5 mg IVPUSH Q6H PRN; Protocol PRN Reason: sbp>180 Last Admin: 04/17/22 02:36 Dose: 5 mg Documented By: ALIZE Hydralazine HCl (Hydralazine Hcl 10 Mg Tablet) 10 mg PO TID [facility]; Protocol Last Admin: 04/17/22 20:39 Dose: 10 mg Documented By: ALIZE Hydromorphone HCl (Hydromorphone Hcl 0.5 Mg/0.5 Ml Syringe) 0.25 mg IVPUSH Q5M PRN; Protocol PRN Reason: Pain, Severe (Pain Scale 7-10) Last Admin: 04/15/22 10:50 Dose: 0.25 mg Documented By: LEONOR Diphenhydramine HCl 25 mg/ (Sodium Chloride) 50.5 mls @ 200 mls/hr IV ONCE [facility] Last Infusion: 04/15/22 15:05 Dose: 0 mls/hr Documented By: JULIO CESAR Losartan Potassium (Losartan Potassium 50 Mg Tablet) 50 mg PO DAILY [facility]; Protocol Last Admin: 04/16/22 09:16 Dose: 50 mg Documented By: FLO Morphine Sulfate (Morphine Sulfate 4 Mg/Ml Cartridge) 3 mg IVPUSH Q3H PRN; Protocol PRN Reason: Pain, Severe (Pain Scale 7-10) Last Admin: 04/17/22 02:12 Dose: 3 mg Documented By: ALIZE Omeprazole (Omeprazole 20 Mg Capsule.Dr) 20 mg PO BID@0630,1630 [facility] Last Admin: 04/18/22 05:30 Dose: 20 mg Documented By: ALIZE Ondansetron HCl (Ondansetron Hcl 4 Mg/2 Ml Vial) 4 mg IVPUSH Q6H PRN PRN Reason: nausea Last Admin: 04/16/22 17:36 Dose: 4 mg Documented By: FLO Oxycodone HCl (Oxycodone Hcl Immed Release 5 Mg Tablet) 5 mg PO ONCE PRN PRN Reason: Pain, Severe (Pain Scale 7-10) Oxycodone HCl (Oxycodone Hcl Immed Release 5 Mg Tablet) 10 mg PO Q4H PRN PRN Reason: Pain, Moderate (Pain Scale 4-6 Last Admin: 04/17/22 16:19 Dose: 10 mg Documented By: DONOVAN Sodium Chloride (0.9 % Sodium Chloride Flush 3 Ml Syringe) 3 ml IVFLUSH QSHIFT [facility] Last Admin: 04/17/22 20:41 Dose: 3 ml Documented By: ALIZE Labs CBC & Chem 7: 04/16/22 05:42 04/18/22 07:59 Procedures Date of Service Date of Service: 04/18/22 Progress Note: A&P Assessment and plan (1) Incisional hernia: Status: Acute Assessment and Plan: good pain control BP high this AM will resume same home BP meds she wants to go home looks well possibly dc home if BP better after restarting home meds (2) Hyperkalemia: Status: Acute Time Spent With Patient Time: Total time spent is greater than 50% in coordination of care (as documented) at patient's floor/unit and/or counseling patient: Quality Stroke Does the patient have a stroke diagnosis?: No VTE Prior VTE?: No VTE Risk Level:: Medical - moderate - high VTE Device Contraindication: N/A - Device Ordered VTE Drug Contraindication: N/A - Med Ordered
[2022-04-18 08:51] LABS: Anion Gap 14 (12-20); Blood Urea Nitrogen 12 mg/dL (9-16); Calcium 8.3 mg/dL (8.4-10.2); Carbon Dioxide 22 mmol/L (22-29); Chloride 105 mmol/L (96-108); Creatinine Clr Calc Pharmacy 68.1; Estimated Glomerular Filt Rate > 60; Glucose Random 109 mg/dL (60-115); Sodium 137 mmol/L (135-145)
[2022-04-18] MEDS: Heparin Sodium,Porcine 5,000 UNIT/ML VIAL 5000 UNIT SUBCUT (08:51)
[2022-04-18] MEDS: hydrALAZINE HCl 10 MG TABLET PO (08:51)
[2022-04-18] MEDS: carvediloL 12.5 MG TABLET PO (08:51)
[2022-04-18] MEDS: oxyCODONE HCl Immed Release 5 MG TABLET 10 MG PO (09:00)
[2022-04-18] MEDS: 0.9 % Sodium Chloride Flush 3 ML SYRINGE IVFLUSH (10:48)
[2022-04-18] MEDS: Losartan Potassium 50 MG TABLET PO (10:48)
[2022-04-18 11:08] VITALS: BP 146/79; PULSE 82; RESP 18; TEMP 36.1; O2SAT 95
--- NOTE | 2022-04-18 12:30 | MHC.CM.PN ---
pt medically cleared to d/c home no services ordered and family for transport
--- NOTE | 2022-04-18 14:11 | PM.DS ---
DS: Providers Provider Date of Service: 04/18/22 Primary care physician: Vaibhav Mccormack MD Attending physician on admission: Vaibhav Velasquez Consults: 04/16/22 08:30 Consult to Hospitalist Routine Consulting Provider: Hospitalist Reason For Exam: elevated K Attending physician on discharge: Vaibhav Velasquez DS: Diagnosis Discharge Diagnosis (1) HTN (hypertension): Status: Acute (2) Hyperkalemia: Status: Acute DS: Summary Hospital Course Hospital Course: BRIEF HPI: The patient is a 61-year-old female who required multiple abdominal surgeries for perforated diverticulitis. She came to the office because of what appeared to be an incisional hernia in the epigastric area and she wanted this repaired. She now presents for repair of this incisional hernia with mesh. HOSPITAL COURSE: On 04/15/22, repair of a large incisional hernia with Phasix mesh, extensive lysis of adhesions was performed by Dr. Velasquez without complication. The patient tolerated the procedure well and she was admitted following to the medical/surgical floor for observation. She had an uncomplicated surgical recovery course. She was started on clear liquids and then advanced to solid food on POD #1. She was passing flatus. Her price was removed. She was ambulated. She remained inpatient for pain control and treatment of uncontrolled hypertension and an JEREMIAS. A medicine consult was obtained for medical management. She had hyperkalemia which resolved with Lokelma. Her JEREMIAS resolved with IV hydration. Her losartan was held due to her kidney function and she was started on carvedilol and hydralazine as needed. Losartan was added once her JEREMIAS resolved. Her blood pressure control improved. She felt overall improved. On the day of discharge, she was tolerating a solid diet, had good pain control on PO analgesics with a benign abd exam and a clean incision with stable vitals. She overall felt well and was discharged to home on 04/18/22 in stable condition. She is to follow up with Dr. Velasquez in office. She is to have a follow up BMP in 1 week and see her PCP. Status at Discharge Functional status at discharge: independent ambulation Overall status at discharge: patient is progressing back to baseline Time Spent with Patient Time attestation: Total time spent providing and/or coordinating discharge services: Discharge coordination time: Greater than 30 minutes Quality: Safe Use of Opioids Does Pt have an Active Cancer Diagnosis on the Problem List?: No Quality: Stroke Does the patient have a stroke diagnosis?: No Physical Exam Vital Signs: Vital Signs: Last Vital Signs Temp 97 F 04/18/22 11:08 Pulse 82 04/18/22 11:08 Resp 18 04/18/22 11:08 BP 146/79 H 04/18/22 11:08 Pulse Ox 95 04/18/22 11:08 O2 Del Method 04/18/22 11:08 O2 Flow Rate 2 04/18/22 07:16 BMI result Body Mass Index 26.8 Const: Orientation/consciousness: patient oriented x3 Resp: Effort & Inspection: normal respiratory effort Cardio: Rate: regular rate GI: Inspection: Yes incision (clean, ecchymosis at left superior aspect) Palpation (GI): Soft to palpation, Tenderness to palpation present (GI) (mild, incisional), no guarding and not rigid Skin: General skin exam: no rashes or lesions noted Neuro: General: patient oriented x3 DS: Data Data Completed and Pending Completed studies during hospitalization [Text1]: Procedures Bypass Ileum to Cutaneous, Open Approach (08/02/21) Bypass Sigmoid Colon to Cutaneous with Autologous Tissue Substitute, Open Approach (02/05/21) Drainage of Ileum, Open Approach (02/05/21) Drainage of Sigmoid Colon, Open Approach (02/05/21) Excision of Sigmoid Colon, Open Approach (02/05/21) Release Peritoneum, Open Approach (08/02/21) Reposition Ileum, Percutaneous Endoscopic Approach (12/06/21) Reposition Sigmoid Colon, Open Approach (08/02/21) Labs on day of discharge: Laboratory Results - last 24 hr 04/18/22 07:59 Sodium 137 Potassium 4.0 Chloride 105 Carbon Dioxide 22 Anion Gap 14 BUN 12 Creatinine 0.89 Estim Creat Clear Calc 68.1 Estimated GFR > 60 Random Glucose 109 Calcium 8.3 L Discharge Plan Discharge Patient Disposition: Home, Self-Care Referrals: Vaibhav Mccormack MD [Primary Care Provider] - 1 Week Vaibhav Velasquez MD [Physician] - 1 Week Other Ambulatory Orders: Basic Metabolic Panel Fasting (Routine) Timeframe: 1 Week Facility: [facility] - Location: Laboratory Ordered By: Christina Johnson Discharge Medications: New oxycodone-acetaminophen [Percocet] 5-325 mg tablet 1 tab PO Q4-6H PRN (Reason: pain) Qty: 30 0RF Rx Instructions: Partial Fill upon patient request. ibuprofen 600 mg tablet 600 mg PO Q6H PRN (Reason: pain) Qty: 30 0RF carvedilol 3.125 mg Tablet 6.25 mg PO BID Qty: 60 0RF Protocol: Hold for SBP/HR < HOLD for SBP < : 90 HOLD for HR < : 60 Continued atorvastatin 20 mg tablet 1 tab PO BEDTIME Probiotic 15 billion cell Capsule 1 cap PO DAILY losartan 50 mg tablet 1 tab PO DAILY omeprazole 20 mg capsule,delayed release(DR/EC) 20 mg PO BID Discharge Orders: Discharge Order (Routine); Ordered 04/18/22 Ordered By: Christina Johnson Patient Instructions: Potassium Content of Foods List (DC), Chronic Hypertension (DC) Activity Restrictions/Additional Instructions: If the incision area is tender, you may apply an ice pack for short intervals (No more than 20 minutes on, followed by at least 20 minutes off). Do not apply heat. Do not use creams, lotions, or topical antibiotics unless instructed to do so by your surgeon. These can cause infection or allergic reaction. OK to shower No lifting more than 20 lbs No strenuous activities Call the office for follow-up in 2 weeks - with Dr. Velasquez Call Your Doctor If: -Your temperature exceeds 101.5? F -You experience excessive pain or swelling -You have an unexpected reaction to medication -You have excessive bleeding -You experience continued vomiting/nausea -Your incision begins to separate -Your incision shows signs of infection such as increased redness, swelling, excessive pain, drainage (light blood or clear fluid is normal) or heat HTN uncontrolled: added coreg in addition losartan. moniter bmp in 1 week outpatient.moniter blood pressure with pcp and further management and uptitrate blood pressure meds outpatient if needed for Htn control. Low potassium diet. Discharge Date/Time: 04/18/22 14:40
== END 2022-04-18 14:40 | disposition home or self-care (01) ==
LOC: HO.SSS 06:06 → HO.S3 14:20
PROVIDERS: Nurse Practitioner; PCP Internal Medicine; Responsible Provider Internal Medicine; Visit Provider Surgery
PROC: (CPT 49560; principal; 2022-04-15 07:30)
DX: K43.2 Incisional hernia without obstruction or gangrene (principal); K66.0 Peritoneal adhesions (postprocedural) (postinfection); N17.9 Acute kidney failure, unspecified; I10 Essential (primary) hypertension; E78.5 Hyperlipidemia, unspecified; Z79.899 Other long term (current) drug therapy; Z20.822 Contact with and (suspected) exposure to COVID-19; Z23 Encounter for immunization; Z98.0 Intestinal bypass and anastomosis status; Z90.49 Acquired absence of other specified parts of digestive tract
CPT/HCPCS: 49560; 49568; 36415; 80048; 85027; 87635; 90686; C1758; C1781; J0131; J0690; J1100; J1170; J1200; J1885; J2250; J2270; J2405; J2550; J2795; J3010

== ENCOUNTER 2022-04-24 11:21 | Outpatient (REF) | payer BC, SELFPAY ==
[2022-04-24 13:18] LABS: Anion Gap 18 (12-20); Blood Urea Nitrogen 9 mg/dL (9-16); Calcium 8.6 mg/dL (8.4-10.2); Carbon Dioxide 19 mmol/L (22-29); Chloride 104 mmol/L (96-108); Estimated Glomerular Filt Rate > 60; Glucose Fasting 96 mg/dL (60-99); Potassium 4.7 mmol/L (3.3-5.1); Sodium 136 mmol/L (135-145)
== END 2022-04-24 11:22 | disposition home or self-care (01) ==
LOC: HO.LAB 11:21
PROVIDERS: PCP Internal Medicine; Visit Provider Physician Assistant Surgical
DX: E87.5 Hyperkalemia (principal)
CPT/HCPCS: 36415; 80048

== ENCOUNTER 2022-06-12 07:13 | Outpatient (REF) | payer BC, SELFPAY ==
[2022-06-12 07:17] LABS: MANUAL DIFF FLAG NO
[2022-06-12 07:43] LABS: Basophils Absolute Auto 0.1 X10*3/uL (0.0-0.2); Basophils Percent Auto 1.1 % (0-2); Eosinophils Absolute Auto 0.1 X10*3/uL (0.0-0.4); Hematocrit 33.9 % (37.0-47.0); Hemoglobin 11.6 g/dl (12.0-16.0); Imm Gran Abs Auto 0.02 X10*3/uL (0.00-0.03); Imm Gran Pct Auto 0.4 % (0.0-0.4); Lymphocytes Absolute Auto 1.2 X10*3/uL (1.2-4.9); Lymphocytes Percent Auto 21.4 % (20-40); Mean Corpuscular HGB Conc 34.2 g/dl (31.0-35.0); Mean Corpuscular Hemoglobin 32.7 pg (27.0-33.0); Mean Corpuscular Volume 95.5 fL (80.0-98.0); Mean Platelet Volume 8.8 fL (9.4-12.3); Monocytes Absolute Auto 0.7 X10*3/uL (0.1-1.2); Neutrophils Absolute Auto 3.5 x10*3/uL (2.0-8.3); Neutrophils Percent Auto 62.1 % (45-73); Platelet Count 202 X10*3/uL (160-400); Red Blood Count 3.55 X10*6/uL (4.20-5.50); Red Cell Distribution Width 14.1 % (11.0-16.0); White Blood Count 5.6 X10*3/uL (4.8-10.8)
[2022-06-12 08:05] LABS: Alanine Aminotransferase 42 U/L (0-31); Albumin Level 4.1 g/dL (3.5-5.0); Alkaline Phosphatase 81 U/L (39-117); Anion Gap 15 (12-20); Aspartate Amino Transferase 68 U/L (5-31); Bilirubin Total 0.7 mg/dL (0.0-1.0); Blood Urea Nitrogen 8 mg/dL (9-16); Calcium 9.3 mg/dL (8.4-10.2); Carbon Dioxide 22 mmol/L (22-29); Chloride 100 mmol/L (96-108); Cholesterol 256 mg/dL; Estimated Glomerular Filt Rate > 60; Glucose Fasting 89 mg/dL (60-99); HDL Cholesterol 95 mg/dL; LDL Cholesterol Calculated 133 mg/dl; Potassium 4.3 mmol/L (3.3-5.1); Sodium 133 mmol/L (135-145); Total Protein 6.5 g/dL (6.5-8.0); Triglycerides 143 mg/dL
== END 2022-06-12 07:14 | disposition home or self-care (01) ==
LOC: HO.LAB 07:13
PROVIDERS: PCP Internal Medicine; Visit Provider Internal Medicine
DX: I10 Essential (primary) hypertension (principal); E78.00 Pure hypercholesterolemia, unspecified; K21.9 Gastro-esophageal reflux disease without esophagitis
CPT/HCPCS: 36415; 80053; 80061; 85025

== ENCOUNTER → 2022-07-16 10:07 | Outpatient (BNVA) | payer BC, SELFPAY | PROVIDERS: PCP Internal Medicine; Visit Provider Surgery | DX: L76.82 Other postprocedural complications of skin and subcutaneous tissue (principal) ==

== ENCOUNTER 2022-09-29 10:37 | Outpatient (REF) | payer BC, SELFPAY ==
[2022-09-29 10:57] LABS: MANUAL DIFF FLAG NO
[2022-09-29 11:55] LABS: Basophils Percent Auto 0.6 % (0-2); Eosinophils Absolute Auto 0.1 X10*3/uL (0.0-0.4); Eosinophils Percent Auto 1.2 % (0-4); Hematocrit 34.6 % (37.0-47.0); Hemoglobin 11.8 g/dl (12.0-16.0); Imm Gran Abs Auto 0.07 X10*3/uL (0.00-0.03); Imm Gran Pct Auto 1.1 % (0.0-0.4); Lymphocytes Absolute Auto 0.9 X10*3/uL (1.2-4.9); Lymphocytes Percent Auto 13.1 % (20-40); Mean Corpuscular HGB Conc 34.1 g/dl (31.0-35.0); Mean Corpuscular Hemoglobin 33.6 pg (27.0-33.0); Mean Corpuscular Volume 98.6 fL (80.0-98.0); Mean Platelet Volume 9.2 fL (9.4-12.3); Monocytes Absolute Auto 0.6 X10*3/uL (0.1-1.2); Monocytes Percent Auto 9.5 % (2-11); Neutrophils Absolute Auto 4.9 x10*3/uL (2.0-8.3); Neutrophils Percent Auto 74.5 % (45-73); Platelet Count 185 X10*3/uL (160-400); Red Blood Count 3.51 X10*6/uL (4.20-5.50); Red Cell Distribution Width 13.5 % (11.0-16.0); White Blood Count 6.6 X10*3/uL (4.8-10.8)
[2022-09-29 12:46] LABS: Alanine Aminotransferase 30 U/L (0-31); Aspartate Amino Transferase 55 U/L (5-31); Cholesterol 237 mg/dL; HDL Cholesterol 92 mg/dL; Iron 67 mcg/dL (30-160); LDL Cholesterol Calculated 119 mg/dl; Percent Iron Saturation 27 % (15-50); Total Iron Binding Capacity 249 mcg/dL (228-428); Triglycerides 130 mg/dL; Unsaturated Iron Binding 182 ug/dL
== END 2022-09-29 10:38 | disposition home or self-care (01) ==
LOC: HO.LAB 10:37
PROVIDERS: PCP Internal Medicine; Visit Provider Internal Medicine
DX: E78.00 Pure hypercholesterolemia, unspecified (principal); D64.9 Anemia, unspecified
CPT/HCPCS: 36415; 80061; 82550; 83540; 84450; 84460; 85025

== ENCOUNTER 2022-10-26 04:24 | Inpatient (IN) | payer BC, SELFPAY ==
[2022-10-26] VITALS (7 sets, daily range): BP systolic 135–185; BP diastolic 70–97; PULSE 87–101; RESP 18–20; TEMP 36.3–37.3; O2SAT 95–100; BMI 28.0; BMI 27.4
--- NOTE | 2022-10-26 | ECG_ITS ---
Test Reason : SYNCOPE Blood Pressure : / mmHG Vent. Rate : 088 BPM Atrial Rate : 088 BPM P-R Int : 138 ms QRS Dur : 082 ms QT Int : 358 ms P-R-T Axes : 044 032 037 degrees QTc Int : 433 ms Normal sinus rhythm Nonspecific T wave abnormality Abnormal ECG When compared with ECG of 24-JUL-2021 12:37, Nonspecific T wave abnormality, improved in Inferior leads T wave inversion now evident in Anterior leads Referred By: Generic ED Physician Electronically Signed By:Madhu Hickman
--- NOTE | ~2022-10-26 | CT_ITS ---
EXAMINATION: CT HEAD WITHOUT CONTRAST CLINICAL INFORMATION: First time seizure COMPARISON: None. TECHNIQUE: Contiguous axial imaging was performed from the skull base to vertex without intravenous contrast. This CT examination was performed using dose optimization techniques as appropriate, variously including the following: * Automated exposure control * Adjustment of mA and/or kV according to patient size (this includes techniques or standardized protocols for targeted exams where dose is matched to indication/reason for exam; i.e. extremities or head) Use of iterative reconstruction technique DLP: 597 mGy-cm. FINDINGS: There is no evidence of acute intracranial hemorrhage or territorial infarction. No abnormal mass effect or midline shift is seen. Mcclelland to white matter differentiation is well preserved. No extra-axial fluid collections are identified. No hydrocephalus. Proportional prominence of the ventricles and sulcal spaces is consistent with mild volume loss. Patchy periventricular and deep white matter hypoattenuation is consistent with mild small vessel ischemic changes. The osseous structures and soft tissues are normal. The mastoid air cells and visualized portions of the paranasal sinuses are well aerated. CT/CT head/brain wo IV con IMPRESSION: No acute intracranial pathology. Mild volume loss with small vessel ischemic change.
[2022-10-26 04:56] LABS: Basophils Percent Auto 0.7 % (0-2); Eosinophils Absolute Auto 0.1 X10*3/uL (0.0-0.4); Hematocrit 35.8 % (37.0-47.0); Hemoglobin 12.4 g/dl (12.0-16.0); Imm Gran Abs Auto 0.09 X10*3/uL (0.00-0.03); Imm Gran Pct Auto 1.5 % (0.0-0.4); Lymphocytes Percent Auto 17.1 % (20-40); MANUAL DIFF FLAG NO; Mean Corpuscular HGB Conc 34.6 g/dl (31.0-35.0); Mean Corpuscular Hemoglobin 33.3 pg (27.0-33.0); Mean Corpuscular Volume 96.2 fL (80.0-98.0); Mean Platelet Volume 8.9 fL (9.4-12.3); Monocytes Absolute Auto 0.7 X10*3/uL (0.1-1.2); Monocytes Percent Auto 11.7 % (2-11); Neutrophils Absolute Auto 4.1 x10*3/uL (2.0-8.3); Platelet Count 112 X10*3/uL (160-400); Red Blood Count 3.72 X10*6/uL (4.20-5.50); Red Cell Distribution Width 13.2 % (11.0-16.0)
[2022-10-26 05:00] LABS: Glucose, Whole Blood 95 mg/dL (60-115)
--- NOTE | 2022-10-26 05:00 | PC.NURSE ---
Pt A&O to self and place, can not recall date, denies any pain. Per significant other Pt had 5 min long seizure, pt does not remember events. Pt placed on bedside monitor, IV line placed, blood work collected and sent to lab. Pt denies any SOB, CP or palpitations. Seizure precautions in place.
[2022-10-26 05:19] LABS: Alanine Aminotransferase 70 U/L (0-31); Albumin Level 3.9 g/dL (3.5-5.0); Alkaline Phosphatase 95 U/L (39-117); Anion Gap 21 (12-20); Aspartate Amino Transferase 155 U/L (5-31); Bilirubin Total 1.5 mg/dL (0.0-1.0); Blood Urea Nitrogen 9 mg/dL (9-16); Calcium 9.4 mg/dL (8.4-10.2); Carbon Dioxide 17 mmol/L (22-29); Chloride 99 mmol/L (96-108); Creatinine Clr Calc Pharmacy 59.5; Estimated Glomerular Filt Rate 57; Glucose Random 83 mg/dL (60-115); Potassium 3.8 mmol/L (3.3-5.1); Sodium 133 mmol/L (135-145); Total Protein 6.5 g/dL (6.5-8.0)
[2022-10-26] MEDS: ondansetron HCL 4 MG/2 ML VIAL IVPUSH (05:40)
[2022-10-26 05:55] LABS: Lactic Acid 1.9 mmol/L (0.5-2.0)
--- NOTE | 2022-10-26 06:38 | ED_ITS ---
HPI - General Adult General Chief complaint: Seizure Stated complaint: seizure Time Seen by Provider: 10/26/22 06:35 Source: patient, family (patient's ) and EMS Mode of arrival: EMS Limitations: no limitations History of Present Illness HPI narrative: Patient is a 62 year old assigned female at with a history of HTN, diverticulitis, and alcohol use presenting to the emergency department today after a seizure. Patient states that she was asleep and when she woke up, she awoke to her saying she had a seizure. Patient's states that the patient began shaking in bed so he called 911. When questioned about her alcohol intake, the patient states that she has 3-4 cocktails a night. Patient denies any dizziness, lightheadedness, abdominal pain, nausea, vomiting, fever, chills, blurry vision, double vision, loss of vision, chest pain, difficulty breathing, shortness of breath, back pain, night sweats, pain with urination, increased urinary frequency, increased urinary urgency, blood in her urine or stool, syncope or a near syncopal episode, recent trauma or falls, bowel incontinence, bladder incontinence, bowel retention, bladder retention, or any other complaints at this time. Related Data Home Medications Medication Instructions Recorded Confirmed omeprazole 20 mg capsule,delayed 20 mg PO BID 06/11/20 09/30/22 release atorvastatin 20 mg tablet 1 tab PO BEDTIME 02/05/21 09/30/22 Lactobacillus acidophilus and 1 cap PO DAILY 07/24/21 09/30/22 rhamnosus 15 billion cell capsule (Probiotic) losartan 50 mg tablet 1 tab PO DAILY 04/08/22 09/30/22 Previous Rx's Medication Instructions Recorded ibuprofen 600 mg tablet 600 mg PO Q6H PRN pain #30 tabs 04/17/22 carvedilol 3.125 mg tablet 6.25 mg PO BID #60 tabs 04/18/22 Allergies Allergy/AdvReac Type Severity Reaction Status Date / Time No Known Allergies Allergy Verified 09/30/22 13:50 [No Known Allergies*] Review of Systems Constitutional: Constitutional: Reports no additional constitutional complaints, Denies chills, Denies fever(s) and Denies night sweats Eyes: Eyes: Reports no additional eye complaints, Denies blurry vision, Denies change in vision, Denies diplopia, Denies eye discharge, Denies loss of vision and Denies eye pain ENT: Denies dizziness Cardiovascular: Cardiovascular: Reports no additional cardiovascular complaints, Denies chest pain, Denies lightheadedness, Denies Loss of Consciousness and Denies dyspnea Respiratory: Respiratory: Reports no additional respiratory complaints and Denies dyspnea Gastrointestinal: Gastrointestinal: Reports no additional gastrointestinal complaints, Denies abdominal pain, Denies melena, Denies hematochezia, Denies change in bowel habits and Denies change in stool character Genitourinary: Genitourinary: Denies hematuria, Denies urinary frequency, Denies dysuria, Denies urinary incontinence, Denies urinary hesitancy and Denies urinary urgency Musculoskeletal: Musculoskeletal: Reports no additional musculoskeletal complaints, Denies numbness and Denies tingling Neurologic: Denies dizziness, Denies loss of vision, Denies numbness, Reports seizure-like activity and Denies tingling Psychiatric: Psychiatric: Reports no additional psychiatric complaints Endocrine: Endocrine: Reports no additional endocrine complaints Hematologic/Lymphatic: Hematologic/Lymphatic: Reports no additional hematologic/lymphatic complaints Allergic/Immunologic: Allergic/Immunologic: Reports no additional allergic/i mmunologic complaints [facility] Past Medical History Attestation statement: The following information was validated with the patient. (all information validated with the patient's ) Source: old records reviewed, obtained from family (patient's ) and nursing notes reviewed Medical History Acid reflux COVID-19 vaccine series completed Diverticulitis Hematuria High cholesterol History of COVID-19 Hypertension Incisional hernia Incisional hernia Incisional pain Osteoarthritis of left hip Seasonal allergies Surgical History H/O colonoscopy H/O total hysterectomy with bilateral salpingo-oophorectomy (BSO) History of colon resection History of colostomy reversal History of dental surgery History of reversal of ileostomy Hx of bilateral inguinal hernia repair Hx of cystoscopy Status post Alexander procedure Status post total hip replacement, left (~06/07/19) Family History Family History Father Cancer Mother Cancer Maternal Grandmother Colon cancer Sister Breast cancer Other Tubular adenoma Social History Social History Household Members: Significant Other and Children Housing: House Are you a primary insurance healthcare consultant to a significant other at home: No Do you presently have visiting nurse or other home services: No Alcohol intake: current Alcohol intake frequency: a few times a week Alcohol type: wine Patient Tobacco Use Status: Never used Tobacco Smoked in Last 30 Days: No Second Hand Smoke Exposure: No Use of substances other than those prescribed or required for medical reasons: No Advance Directives: Yes Advance Directives on File: Yes Advance Directives Date on File: 08/02/21 Patient : No service: No Current occupational status: retired 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 Physical Exam ED Vital Signs: Vital Signs - 24 hr 10/26/22 04:29 Temperature 99.2 F Pulse Rate 101 H Respiratory Rate 18 Blood Pressure 141/81 H Pulse Oximetry 96 Oxygen Delivery Method Room Air BMI result Body Mass Index 28.0 Const General: cooperative, no acute distress, alert and awake Nutritional Appearance: well nourished Orientation/consciousness: patient oriented x3 Limitations: no limitations HENMT Head: Yes normal to inspection and Yes atraumatic Ears: hearing grossly normal bilaterally and external ears normal General nose exam: Normal external nose present, no nasal discharge noted and no epistaxis Face and sinus: Yes normal facial exam, No abrasion and No laceration Mouth: Normal oral and palatal mucosa present, no drooling and no muffled voice Eyes General: appearance normal, both eyes and all related structures Periorbital: periorbital findings normal Eyelids: Yes eyelids normal Conjunctivae: conjunctivae normal Pupils: Equal, round and reactive pupils present EOM: EOMs intact bilaterally Neck Neck: Yes normal visual inspection, Yes full ROM and Yes no lymphadenopathy Chest Chest palpation & inspection: normal inspection of the chest Resp Effort & Inspection: normal respiratory effort and able to speak in complete sentences Auscultation: clear to auscultation bilaterally GI Inspection: Yes normal to inspection Palpation (GI): Soft to palpation, not firm, nontender and no guarding Neuro General: patient oriented x3 and moves all extremities Cranial nerves: Yes Equal, round and reactive pupils present Cognition (Neuro): normal cognition Motor exam (neuro): 5/5 motor strength present throughout Sensory Exam: Normal double simultaneous stimulation for sensation Coordination: [id number] test normal Extrem General: Yes normal to inspection, Yes full ROM and Yes capillary refill normal Psych Appearance: grossly normal Mental Status: mental status grossly normal Affect: normal affect Attitude: cooperative Thought process: Normal thought process present Thought content: Normal thought content present Insight: Good insight present (Psych) Medications Administered Generic Name Dose Route Start Last Admin Trade Name Freq PRN Reason Stop Dose Admin Sodium Chloride 1,000 mls @ 999 mls/hr 10/26/22 07:00 10/26/22 07:20 Ns IV 10/26/22 08:00 999 mls/hr .[id number] SESAR Administration Discontinued Medications Generic Name Dose Route Start Last Admin Trade Name Freq PRN Reason Stop Dose Admin Lorazepam 2 mg 10/26/22 07:16 10/26/22 07:20 Lorazepam 2 Mg/Ml Vial IVPUSH 10/26/22 07:17 2 mg ONCE ONE Administration Ondansetron HCl 4 mg 10/26/22 05:27 10/26/22 05:40 Ondansetron Hcl 4 Mg/2 Ml Vial IVPUSH 10/26/22 05:28 4 mg ONCE ONE Administration Medical Decision Making Medical Decision Making [facility] Narrative: Patient is a 62 year old assigned female at with a history of HTN, diverticulitis, and alcohol use presenting to the emergency department today after seizure like activity. Patient's physical exam showed minimal tongue trauma secondary to the patient seizing. While in the department, the patient suffered an additional seizure requiring ativan. Patient's blood work was unremarkable. Patient's EKG was unremarkable. Patient's head CT showed no acute process. Given the patient's current presentation, I am highly suspicious of alcohol withdrawal seizures. Patient has a CIWA of 6. I initiated the phenobarb protocol. I spoke to the hospitalist team who agreed to admission. I explained my physical exam findings as well as all test results to the patient and the patient's . I answered all questions asked by the patient and the patient's . Patient and the patient's verbalized agreement and understanding with this treatment plan and admission. Differential Diagnosis Differential Diagnoses: The differential diagnosis associated with the presentation includes alcohol abuse, alcohol withdrawal seizure Consult Healthcare Provider Management of the patient was discussed with: Hospitalist (agreed to admission) Lab Data [facility] Lab Attestation statement: I reviewed the patient's lab results. 10/26/22 04:50 10/26/22 04:50 Labs: Lab Results 10/26/22 10/26/22 10/26/22 Range/Units 04:50 04:50 04:56 WBC 6.0 (4.8-10.8) X10*3/uL RBC 3.72 L (4.20-5.50) X10*6/uL Hgb 12.4 (12.0-16.0) g/dl Hct 35.8 L (37.0-47.0) % MCV 96.2 (80.0-98.0) fL MCH 33.3 H (27.0-33.0) pg MCHC 34.6 (31.0-35.0) g/dl RDW 13.2 (11.0-16.0) % Plt Count 112 L D (160-400) X10*3/uL MPV 8.9 L (9.4-12.3) fL Immature Gran % (Auto) 1.5 H (0.0-0.4) % Neut % (Auto) 68.0 (45-73) % Lymph % (Auto) 17.1 L (20-40) % [place] % (Auto) 11.7 H (2-11) % Eos % (Auto) 1.0 (0-4) % Baso % (Auto) 0.7 (0-2) % Lymph # (Auto) 1.0 L (1.2-4.9) X10*3/uL [place] # (Auto) 0.7 (0.1-1.2) X10*3/uL Eos # (Auto) 0.1 (0.0-0.4) X10*3/uL Baso # (Auto) 0.0 (0.0-0.2) X10*3/uL Abs Immat Gran (auto) 0.09 H (0.00-0.03) X10*3/uL Absolute Neuts (auto) 4.1 (2.0-8.3) x10*3/uL Absolute Nucleated RBC 0.000 (0.0-0.012) X10*3/uL Nucleated RBC % (auto) 0.0 (0.0-0.2) /100WBC Sodium 133 L (135-145) mmol/L Potassium 3.8 (3.3-5.1) mmol/L Chloride 99 (96-108) mmol/L Carbon Dioxide 17 L (22-29) mmol/L Anion Gap 21 H (12-20) BUN 9 (9-16) mg/dL Creatinine 0.99 (0.5-1.4) mg/dL Estim Creat Clear Calc 59.5 Estimated GFR 57 POC Glucose 95 (60-115) mg/dL Random Glucose 83 (60-115) mg/dL Lactic Acid (0.5-2.0) mmol/L Calcium 9.4 (8.4-10.2) mg/dL Total Bilirubin 1.5 H (0.0-1.0) mg/dL AST 155 H (5-31) U/L ALT 70 H (0-31) U/L Alkaline Phosphatase 95 (39-117) U/L Total Protein 6.5 (6.5-8.0) g/dL Albumin 3.9 (3.5-5.0) g/dL 10/26/22 Range/Units 05:37 WBC (4.8-10.8) X10*3/uL RBC (4.20-5.50) X10*6/uL Hgb (12.0-16.0) g/dl Hct (37.0-47.0) % MCV (80.0-98.0) fL MCH (27.0-33.0) pg MCHC (31.0-35.0) g/dl RDW (11.0-16.0) % Plt Count (160-400) X10*3/uL MPV (9.4-12.3) fL Immature Gran % (Auto) (0.0-0.4) % Neut % (Auto) (45-73) % Lymph % (Auto) (20-40) % [place] % (Auto) (2-11) % Eos % (Auto) (0-4) % Baso % (Auto) (0-2) % Lymph # (Auto) (1.2-4.9) X10*3/uL [place] # (Auto) (0.1-1.2) X10*3/uL Eos # (Auto) (0.0-0.4) X10*3/uL Baso # (Auto) (0.0-0.2) X10*3/uL Abs Immat Gran (auto) (0.00-0.03) X10*3/uL Absolute Neuts (auto) (2.0-8.3) x10*3/uL Absolute Nucleated RBC (0.0-0.012) X10*3/uL Nucleated RBC % (auto) (0.0-0.2) /100WBC Sodium (135-145) mmol/L Potassium (3.3-5.1) mmol/L Chloride (96-108) mmol/L Carbon Dioxide (22-29) mmol/L Anion Gap (12-20) BUN (9-16) mg/dL Creatinine (0.5-1.4) mg/dL Estim Creat Clear Calc Estimated GFR POC Glucose (60-115) mg/dL Random Glucose (60-115) mg/dL Lactic Acid 1.9 (0.5-2.0) mmol/L Calcium (8.4-10.2) mg/dL Total Bilirubin (0.0-1.0) mg/dL AST (5-31) U/L ALT (0-31) U/L Alkaline Phosphatase (39-117) U/L Total Protein (6.5-8.0) g/dL Albumin (3.5-5.0) g/dL Independent Interpretation I performed an independent interpretation of an: EKG Interpretation: Vent. Rate: 088 BPM ? ? Atrial Rate: 088 BPM P-R Int: 138 ms? QRS Dur: 082 ms QT Int: 358 ms ? ? ? P-R-T Axes: 044 032 037 degrees QTc Int: 433 ms ? Normal sinus rhythm Nonspecific T wave abnormality Abnormal ECG When compared with ECG of 24-JUL-2021 12:37, Nonspecific T wave abnormality, improved in Inferior leads T wave inversion now evident in Anterior leads DD/ [id number] Radiology Impression Radiologist Impression: My interpretation is in agreement with the radiologist's impression of this imaging study. EXAMINATION: CT HEAD WITHOUT CONTRAST CLINICAL INFORMATION: First time seizure COMPARISON: None. TECHNIQUE: Contiguous axial imaging was performed from the skull base to vertex without intravenous contrast. This CT examination was performed using dose optimization techniques as appropriate, variously including the following: *? Automated exposure control *? Adjustment of mA and/or kV according to patient size (this includes techniques or standardized protocols for targeted exams where dose is matched to indication/reason for exam; i.e. extremities or head) Use of iterative reconstruction technique DLP: 597 mGy-cm. FINDINGS: There is no evidence of acute intracranial hemorrhage or territorial infarction. No abnormal mass effect or midline shift is seen. Mcclelland to white matter differentiation is well preserved. No extra-axial fluid collections are identified. No hydrocephalus. Proportional prominence of the ventricles and sulcal spaces is consistent with mild volume loss. Patchy periventricular and deep white matter hypoattenuation is consistent with mild small vessel ischemic changes. The osseous structures and soft tissues are normal. The mastoid air cells and visualized portions of the paranasal sinuses are well aerated. ? CT/CT head/brain wo IV con IMPRESSION: No acute intracranial pathology. Mild volume loss with small vessel ischemic change. Dictated By: eK Garrison MD Signed By: Electronically signed by Ke Garrison MD 10/26/22 0645 Independent Historian Clinical information obtained from an independent historian. History obtained from or confirmed by: Spouse (patient's ) and EMS Critical Care Time Critical Care Time Critical Care Time: Yes Total Critical Care Time: 60 Attestation: I spent 60 minutes of Critical Care Time with this patient. This does not include time spent on separately reported billable procedures. Discharge Plan Discharge Clinical Impression: Alcohol abuse, Alcohol withdrawal seizure Patient Disposition: Admitted As Inpatient
[2022-10-26] MEDS: LORazepam 2 MG/ML VIAL IVPUSH (07:20)
[2022-10-26] MEDS: 0.9 % Sodium Chloride 1,000 ML 999 ML IV (07:20)
[2022-10-26 08:05] LABS: Ethanol < 10 mg/dL
--- NOTE | 2022-10-26 08:08 | PHA.MEDREC ---
Pharmacy Consult ? Medication Reconciliation Pharmacy has completed the medication reconciliation. Patient not responsive s/p seizure. Told by to call pharmacy for med list Fawad
--- NOTE | 2022-10-26 08:24 | P.HPHOSP_ITS ---
History of Present Illness Date of Service: 10/26/22 Chief Complaint: seizure 62F PMH etoh dependence, HTN, diverticulitis, hld, presented with seizure. patient's partner reports patient was feeling a bit unwell on day ptp, went to a alliance party but drank less than usual. at about 4am on day of presentation started to have tonic clonic convulsions. patient has no history seizures. in ED patient had another seizure. she is unable to provide history, is oriented to person and place only. cth negative Review of Systems Review of Systems: Yes all other systems are reviewed and are negative [facility] Medical History Acid reflux COVID-19 vaccine series completed Diverticulitis Hematuria High cholesterol History of COVID-19 Hypertension Incisional hernia Incisional hernia Incisional pain Osteoarthritis of left hip Seasonal allergies Family History Father Cancer Mother Cancer Maternal Grandmother Colon cancer Sister Breast cancer Other Tubular adenoma Surgical History H/O colonoscopy H/O total hysterectomy with bilateral salpingo-oophorectomy (BSO) History of colon resection History of colostomy reversal History of dental surgery History of reversal of ileostomy Hx of bilateral inguinal hernia repair Hx of cystoscopy Status post Alexander procedure Status post total hip replacement, left (~06/07/19) Social History Household Members: Significant Other and Children Housing: House Are you a primary career services assistant to a significant other at home: No Do you presently have visiting nurse or other home services: No Alcohol intake: current Alcohol intake frequency: a few times a week Alcohol type: wine Patient Tobacco Use Status: Never used Tobacco Smoked in Last 30 Days: No Second Hand Smoke Exposure: No Use of substances other than those prescribed or required for medical reasons: No Advance Directives: Yes Advance Directives on File: Yes Advance Directives Date on File: 08/02/21 Patient : No service: No Current occupational status: 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 Meds Allergies Allergy/AdvReac Type Severity Reaction Status Date / Time No Known Allergies Allergy Verified 09/30/22 13:50 [No Known Allergies*] Active Medications: Current Medications Atorvastatin Calcium (Atorvastatin Calcium 20 Mg Tablet) 20 mg PO BEDTIME [facility] Carvedilol (Carvedilol 3.125 Mg Tablet) 6.25 mg PO BID [facility]; Protocol Losartan Potassium (Losartan Potassium 50 Mg Tablet) 50 mg PO DAILY [facility]; Protocol Omeprazole (Omeprazole 20 Mg Capsule.) 20 mg PO BID@0630,1630 [facility] Pharmacy Consult (Consult Rx Etoh Phenob Im/Po) 1 each MISCELLANE ONCE PRN; Protocol PRN Reason: Consult order Pharmacy Consult (Consult Rx Perform Med Rec) 1 each MISCELLANE ONCE PRN PRN Reason: Consult order Phenobarbital (Phenobarbital 15 Mg Tablet) 45 mg PO BID [facility]; Protocol Stop: 10/28/22 09:01 Phenobarbital (Phenobarbital 15 Mg Tablet) 15 mg PO BID [facility]; Protocol Stop: 10/30/22 09:01 Phenobarbital (Phenobarbital 15 Mg Tablet) 15 mg PO DAILY [facility]; Protocol Stop: 11/01/22 09:01 Phenobarbital Sodium (Phenobarbital Sodium 130 Mg/Ml Vial Im Q3hx2) 165.1 mg IM Q3H [facility]; Protocol Stop: 10/26/22 13:31 Home Medications Medication Instructions Recorded Confirmed Last Taken Type omeprazole 20 mg capsule,delayed 20 mg PO BID 06/11/20 10/26/22 04/15/22 History release atorvastatin 20 mg tablet 1 tab PO BEDTIME 02/05/21 10/26/22 02/04/21 History Lactobacillus acidophilus and 1 cap PO DAILY 07/24/21 10/26/22 Unknown History rhamnosus 15 billion cell capsule (Probiotic) losartan 50 mg tablet 1 tab PO DAILY 04/08/22 10/26/22 Unknown History Physical Exam Vital Signs and Narrative: Vital Signs: Last Vital Signs Temp 99.2 F 10/26/22 04:29 Pulse 101 H 10/26/22 04:29 Resp 18 10/26/22 04:29 BP 141/81 H 10/26/22 04:29 Pulse Ox 96 10/26/22 04:29 O2 Del Method Room Air 10/26/22 04:29 BMI result Body Mass Index 28.0 General: Alert oriented to person and place only Resp: CTA bilateral, no accessory muscles used CVS: S1,S2,RRR GI: soft, non tender, non distended Neuro: confused, tremulous Results Labs 10/26/22 04:50 10/26/22 04:50 Labs: Laboratory Results - last 24 hr 10/26/22 10/26/22 10/26/22 04:50 04:50 04:56 MCV 96.2 MCH 33.3 H MCHC 34.6 RDW 13.2 Plt Count 112 L D MPV 8.9 L Immature Gran % (Auto) 1.5 H Neut % (Auto) 68.0 Lymph % (Auto) 17.1 L [place] % (Auto) 11.7 H Eos % (Auto) 1.0 Baso % (Auto) 0.7 Lymph # (Auto) 1.0 L [place] # (Auto) 0.7 Eos # (Auto) 0.1 Baso # (Auto) 0.0 Abs Immat Gran (auto) 0.09 H Absolute Neuts (auto) 4.1 Absolute Nucleated RBC 0.000 Nucleated RBC % (auto) 0.0 Anion Gap 21 H Estim Creat Clear Calc 59.5 Estimated GFR 57 POC Glucose 95 Random Glucose 83 Lactic Acid Calcium 9.4 Total Bilirubin 1.5 H AST 155 H ALT 70 H Alkaline Phosphatase 95 Total Protein 6.5 Albumin 3.9 Ethyl Alcohol 10/26/22 10/26/22 05:37 07:44 MCV MCH MCHC RDW Plt Count MPV Immature Gran % (Auto) Neut % (Auto) Lymph % (Auto) [place] % (Auto) Eos % (Auto) Baso % (Auto) Lymph # (Auto) [place] # (Auto) Eos # (Auto) Baso # (Auto) Abs Immat Gran (auto) Absolute Neuts (auto) Absolute Nucleated RBC Nucleated RBC % (auto) Anion Gap Estim Creat Clear Calc Estimated GFR POC Glucose Random Glucose Lactic Acid 1.9 Calcium Total Bilirubin AST ALT Alkaline Phosphatase Total Protein Albumin Ethyl Alcohol < 10 Imaging Radiologist's Impressions: Impressions Head CT 10/26/22 06:38 IMPRESSION: No acute intracranial pathology. Mild volume loss with small vessel ischemic change. Assessment and Plan (1) Alcohol withdrawal seizure: Status: Acute Plan 62F PMH etoh dependence, htn, hld, diverticulitis presented with seizure etoh dependence with withdrawal complicated by seizure and acute metabolic encephaloapthy pheonobarb ciwa thiamine, folic acid htn coreg, losartan hld statin dvt propphylaxis - lovenox full code patient with etoh withdrawal with seizures, significant ciwa, therefore, expected to require atleast 2 midnights inpatient Time Spent With Patient Time: Total time managing care of this patient today ____ minutes. Quality Stroke Does the patient have a stroke diagnosis?: No VTE Prior VTE?: No VTE Risk Level:: Medical - moderate - high VTE Device Contraindication: Treatment Not Indicated VTE Drug Contraindication: N/A - Med Ordered
[2022-10-26] MEDS: PHENobarbitaL sodium 130 MG/ML IM ONCE 218.4 MG IM (08:32)
[2022-10-26] MEDS: carvediloL 3.125 MG TABLET 6.25 MG PO ×2 (09:52→20:05)
[2022-10-26] MEDS: Thiamine HCL 100 MG TABLET PO (09:52)
[2022-10-26] MEDS: Losartan Potassium 50 MG TABLET PO (09:53)
[2022-10-26] MEDS: Enoxaparin Sodium 40 MG/0.4 ML SYRINGE SUBCUT (09:53)
[2022-10-26] MEDS: Folic Acid 1 MG TABLET PO (09:53)
--- NOTE | 2022-10-26 11:34 | PC.NURSE ---
30 SECOND SEIZURE THIS MORNING MEDICATED WITH ATIVAN PLACED ON ETOH PROTOCOL
[2022-10-26] MEDS: PHENobarbitaL sodium 130 MG/ML VIAL IM Q3Hx2 165.1 MG IM ×2 (11:41→15:09)
[2022-10-26] MEDS: 0.9 % Sodium Chloride Flush 3 ML SYRINGE IVFLUSH ×2 (15:09→20:06)
[2022-10-26] MEDS: Omeprazole 20 MG CAPSULE.DR PO (17:20)
[2022-10-26] MEDS: Acetaminophen 325 MG TABLET 650 MG PO (17:20)
[2022-10-26] MEDS: PHENobarbitaL 15 MG TABLET 45 MG PO (20:05)
[2022-10-26] MEDS: Atorvastatin Calcium 20 MG TABLET PO (20:05)
[2022-10-27 04:00] VITALS: BP 146/87; PULSE 87; RESP 18; TEMP 37.1; O2SAT 99
[2022-10-27] MEDS: Omeprazole 20 MG CAPSULE.DR PO (06:04)
[2022-10-27 07:09] LABS: Hematocrit 30.1 % (37.0-47.0); Hemoglobin 10.2 g/dl (12.0-16.0); Mean Corpuscular HGB Conc 33.9 g/dl (31.0-35.0); Mean Corpuscular Hemoglobin 33.2 pg (27.0-33.0); Mean Platelet Volume 10.3 fL (9.4-12.3); Red Blood Count 3.07 X10*6/uL (4.20-5.50); Red Cell Distribution Width 13.3 % (11.0-16.0); White Blood Count 5.9 X10*3/uL (4.8-10.8)
[2022-10-27 07:15] LABS: Platelet Count 85 X10*3/uL (160-400)
[2022-10-27 07:24] LABS: Anion Gap 16 (12-20); Blood Urea Nitrogen 12 mg/dL (9-16); Calcium 8.3 mg/dL (8.4-10.2); Carbon Dioxide 20 mmol/L (22-29); Chloride 100 mmol/L (96-108); Creatinine Clr Calc Pharmacy 58.4; Estimated Glomerular Filt Rate 57; Glucose Fasting 83 mg/dL (60-99); Potassium 3.5 mmol/L (3.3-5.1); Sodium 132 mmol/L (135-145)
[2022-10-27 07:32] VITALS: BP 152/84; PULSE 95; RESP 16; TEMP 37.3; O2SAT 99
[2022-10-27] MEDS: Losartan Potassium 50 MG TABLET PO (07:36)
[2022-10-27] MEDS: carvediloL 3.125 MG TABLET 6.25 MG PO ×2 (07:37→21:08)
[2022-10-27] MEDS: Thiamine HCL 100 MG TABLET PO (07:37)
[2022-10-27] MEDS: Folic Acid 1 MG TABLET PO (07:37)
[2022-10-27] MEDS: PHENobarbitaL 15 MG TABLET 45 MG PO ×2 (07:37→21:08)
[2022-10-27] MEDS: Enoxaparin Sodium 40 MG/0.4 ML SYRINGE SUBCUT (07:38)
[2022-10-27] MEDS: 0.9 % Sodium Chloride Flush 3 ML SYRINGE IVFLUSH ×3 (07:48→21:08)
--- NOTE | 2022-10-27 08:19 | MHC.CM.PN ---
CM met with Patient at bedside. Patient lives in a house with her Boyfriend and her 27 year old Son and she required no services nor DME POLITICAL CONSULTANT. Home self care vs Recovery Team intervention R/T ETOH Withdrawal, is the tentative plan and CM has initiated and will follow for dc planning. Patient has received Moderna/Covid X 3 and her PCP is Dr. Vaibhav Mccormack. HCP is on file.
--- NOTE | 2022-10-27 08:54 | P.PNIM_ITS ---
Subjective Subjective Date of Service: 10/27/22 Interval History: more alert today, no further seizure Physical Exam Vital Signs: Vital Signs: Last Vital Signs Temp 99.2 F 10/27/22 07:32 Pulse 95 10/27/22 07:32 Resp 16 10/27/22 07:32 BP 152/84 H 10/27/22 07:32 Pulse Ox 99 10/27/22 07:32 O2 Del Method Room Air 10/27/22 07:32 BMI result Body Mass Index 27.4 General: AO X 3, no acute distress Resp: CTA bilateral, no accessory muscles used CVS: S1,S2,RRR GI: soft, non tender, non distended Neuro: motor grossly intact, alert Psych: appropriate affect, appropriate insight Objective Data Active Medications Acetaminophen (Acetaminophen 325 Mg Tablet) 650 mg PO Q6H PRN PRN Reason: headahce Last Admin: 10/26/22 17:20 Dose: 650 mg Documented By: PAULETTE Atorvastatin Calcium (Atorvastatin Calcium 20 Mg Tablet) 20 mg PO BEDTIME [facility] Last Admin: 10/26/22 20:05 Dose: 20 mg Documented By: NGOC Carvedilol (Carvedilol 3.125 Mg Tablet) 6.25 mg PO BID [facility]; Protocol Last Admin: 10/27/22 07:37 Dose: 6.25 mg Documented By: NICK Enoxaparin Sodium (Enoxaparin Sodium 40 Mg/0.4 Ml Syringe) 40 mg SUBCUT Q24H [facility] Last Admin: 10/27/22 07:38 Dose: 40 mg Documented By: NICK Folic Acid (Folic Acid 1 Mg Tablet) 1 mg PO DAILY [facility] Last Admin: 10/27/22 07:37 Dose: 1 mg Documented By: NICK Losartan Potassium (Losartan Potassium 50 Mg Tablet) 50 mg PO DAILY [facility]; Protocol Last Admin: 10/27/22 07:36 Dose: 50 mg Documented By: NICK Omeprazole (Omeprazole 20 Mg Capsule.) 20 mg PO BID@0630,1630 [facility] Last Admin: 10/27/22 06:04 Dose: 20 mg Documented By: NGOC Pharmacy Consult (Consult Rx Etoh Phenob Im/Po) 1 each MISCELLANE ONCE PRN; Protocol PRN Reason: Consult order Pharmacy Consult (Consult Rx Perform Med Rec) 1 each MISCELLANE ONCE PRN PRN Reason: Consult order Phenobarbital (Phenobarbital 15 Mg Tablet) 45 mg PO BID [facility]; Protocol Stop: 10/28/22 09:01 Last Admin: 10/27/22 07:37 Dose: 45 mg Documented By: NICK Phenobarbital (Phenobarbital 15 Mg Tablet) 15 mg PO BID [facility]; Protocol Stop: 10/30/22 09:01 Phenobarbital (Phenobarbital 15 Mg Tablet) 15 mg PO DAILY [facility]; Protocol Stop: 11/01/22 09:01 Sodium Chloride (0.9 % Sodium Chloride Flush 3 Ml Syringe) 3 ml IVFLUSH QSHIFT [facility] Last Admin: 10/27/22 07:48 Dose: 3 ml Documented By: NICK Thiamine HCl (Thiamine Hcl 100 Mg Tablet) 100 mg PO DAILY [facility] Last Admin: 10/27/22 07:37 Dose: 100 mg Documented By: NICK Labs 10/27/22 06:09 10/27/22 06:09 Labs: Laboratory Results - last 24 hr 10/27/22 10/27/22 06:09 06:09 MCV 98.0 MCH 33.2 H MCHC 33.9 RDW 13.3 Plt Count 85 L MPV 10.3 Absolute Nucleated RBC 0.000 Nucleated RBC % (auto) 0.0 Anion Gap 16 Estim Creat Clear Calc 58.4 Estimated GFR 57 Fasting Glucose 83 Calcium 8.3 L D Assessment and Plan (1) Alcohol abuse: Status: Acute Plan 62F PMH etoh dependence, htn, hld, diverticulitis presented with seizure etoh dependence with withdrawal complicated by seizure and acute metabolic encephaloapthy continue pheonobarb ciwa monitoring thiamine, folic acid thrombocytopenia ?due to etoh, monitor htn coreg, losartan hld statin dvt propphylaxis - lovenox full code reason for continued hospitalization: phenobarb for elevated ciwa Time Spent With Patient Time: Total time managing care of this patient today ____ minutes. Quality Stroke Does the patient have a stroke diagnosis?: No VTE Prior VTE?: No VTE Risk Level:: Medical - moderate - high VTE Device Contraindication: Treatment Not Indicated VTE Drug Contraindication: N/A - Med Ordered
[2022-10-27 11:43] VITALS: BP 140/70; PULSE 82; RESP 16; TEMP 36.2; O2SAT 100
--- NOTE | 2022-10-27 13:57 | MHC.CM.PN ---
[facility] [facility] [place], who requests to be notified at time of dc @ [phone], Ext. [phone]. CM will follow.
[2022-10-27 15:18] VITALS: BP 145/76; PULSE 79; RESP 20; TEMP 36; O2SAT 98
[2022-10-27 19:43] VITALS: BP 149/70; PULSE 94; RESP 20; TEMP 36.4; O2SAT 96
[2022-10-27] MEDS: Atorvastatin Calcium 20 MG TABLET PO (21:08)
[2022-10-27 23:20] VITALS: BP 145/77; PULSE 76; RESP 18; TEMP 36.7; O2SAT 99
[2022-10-28 03:30] VITALS: BP 145/84; PULSE 80; RESP 18; TEMP 36.4; O2SAT 98
[2022-10-28 06:12] LABS: Hemoglobin 10.3 g/dl (12.0-16.0); Mean Corpuscular HGB Conc 34.3 g/dl (31.0-35.0); Mean Corpuscular Hemoglobin 34.1 pg (27.0-33.0); Mean Corpuscular Volume 99.3 fL (80.0-98.0); Mean Platelet Volume 10.2 fL (9.4-12.3); Red Blood Count 3.02 X10*6/uL (4.20-5.50); Red Cell Distribution Width 13.1 % (11.0-16.0); White Blood Count 5.6 X10*3/uL (4.8-10.8)
[2022-10-28 06:17] LABS: INTERNATIONAL NORM RATIO 0.9 (0.9-1.1); Prothrombin Time 10.3 SEC (10.0-13.1)
[2022-10-28] MEDS: Omeprazole 20 MG CAPSULE.DR PO (06:17)
[2022-10-28 06:27] LABS: Platelet Count 84 X10*3/uL (160-400)
[2022-10-28 06:49] LABS: Alanine Aminotransferase 38 U/L (0-31); Albumin Level 2.9 g/dL (3.5-5.0); Alkaline Phosphatase 69 U/L (39-117); Anion Gap 13 (12-20); Aspartate Amino Transferase 63 U/L (5-31); Bilirubin Direct 0.4 mg/dL (0.0-0.5); Blood Urea Nitrogen 14 mg/dL (9-16); Calcium 8.2 mg/dL (8.4-10.2); Carbon Dioxide 21 mmol/L (22-29); Chloride 101 mmol/L (96-108); Creatinine Clr Calc Pharmacy 38.7; Estimated Glomerular Filt Rate 35; Glucose Fasting 94 mg/dL (60-99); Magnesium 1.6 mg/dL (1.6-2.6); Potassium 3.4 mmol/L (3.3-5.1); Sodium 132 mmol/L (135-145)
[2022-10-28 07:12] VITALS: BP 153/77; PULSE 82; RESP 20; O2SAT 100
--- NOTE | 2022-10-28 09:27 | P.DS_ITS ---
DS: Providers Provider Date of Service: 10/28/22 Date of admission: 10/26/22 08:23 Primary care physician: Vaibhav Mccormack MD DS: Diagnosis Discharge Diagnosis (1) Alcohol abuse: Status: Acute DS: Summary Hospital Course Hospital Course: from initial hpi: Chief Complaint: seizure 62F PMH etoh dependence, HTN, diverticulitis, hld, presented with seizure. patient's partner reports patient was feeling a bit unwell on day ptp, went to a libertarian but drank less than usual. at about 4am on day of presentation started to have tonic clonic convulsions. patient has no history seizures. in ED patient had another seizure. she is unable to provide history, is oriented to person and place only. cth negative hospital course: patient was admitted for alcohol dependence with steatohepatitis and withdrawal complicated by seizure and acute metabolic encephalopathy. patient was treated with phenobarbital, thiamine, folic acid. had no further seizures, withdrawal symptoms resolved, mental status returned to baseline. noted to have thromboctyopenia, likely due to etoh. also with mild JEREMIAS, creatniine about 1.4, losartan held, bmp should be repeated as outpatient. for htn was continued on coreg, for hld continued on statin. patient feeling better and will be discharged home. Time Spent with Patient Time attestation: Total time managing care of this patient today ____ minutes. Discharge coordination time: Greater than 30 minutes Quality: Safe Use of Opioids Does Pt have an Active Cancer Diagnosis on the Problem List?: No Quality: Stroke Does the patient have a stroke diagnosis?: No Physical Exam Vital Signs: Vital Signs: Last Vital Signs Temp 97.5 F 10/28/22 03:30 Pulse 82 10/28/22 07:12 Resp 20 10/28/22 07:12 BP 153/77 H 10/28/22 07:12 Pulse Ox 100 10/28/22 07:12 O2 Del Method Room Air 10/28/22 07:12 BMI result Body Mass Index 27.4 General: AO X 3, no acute distress Resp: CTA bilateral, no accessory muscles used CVS: S1,S2,RRR GI: soft, non tender, non distended Neuro: motor grossly intact, alert Psych: appropriate affect, appropriate insight DS: Data Data Completed and Pending Completed studies during hospitalization [Text1]: Procedures Bypass Ileum to Cutaneous, Open Approach (08/02/21) Bypass Sigmoid Colon to Cutaneous with Autologous Tissue Substitute, Open Approach (02/05/21) Drainage of Ileum, Open Approach (02/05/21) Drainage of Sigmoid Colon, Open Approach (02/05/21) Excision of Sigmoid Colon, Open Approach (02/05/21) Release Peritoneum, Open Approach (08/02/21) Reposition Ileum, Percutaneous Endoscopic Approach (12/06/21) Reposition Sigmoid Colon, Open Approach (08/02/21) Labs on day of discharge: Laboratory Results - last 24 hr 10/28/22 10/28/22 10/28/22 05:23 05:23 05:23 WBC 5.6 RBC 3.02 L Hgb 10.3 L Hct 30.0 L MCV 99.3 H MCH 34.1 H MCHC 34.3 RDW 13.1 Plt Count 84 L MPV 10.2 Absolute Nucleated RBC 0.000 Nucleated RBC % (auto) 0.0 PT 10.3 INR 0.9 Sodium 132 L Potassium 3.4 Chloride 101 Carbon Dioxide 21 L Anion Gap 13 BUN 14 Creatinine 1.51 H Estim Creat Clear Calc 38.7 Estimated GFR 35 Fasting Glucose 94 Calcium 8.2 L Magnesium 1.6 Total Bilirubin 1.0 Direct Bilirubin 0.4 AST 63 H ALT 38 H Alkaline Phosphatase 69 Total Protein 5.0 L Albumin 2.9 L Discharge Plan Discharge Anticipated Discharge Date/Time: 10/28/22 09:21 Patient Disposition: Home, Self-Care Discharge Diagnosis: etoh withdrawal seizure Referrals: Vaibhav Mccormack MD [Primary Care Provider] - 1 Week Discharge Medications: Continued atorvastatin 20 mg tablet 1 tab PO BEDTIME Probiotic 15 billion cell Capsule 1 cap PO DAILY ibuprofen 600 mg tablet 600 mg PO Q6H PRN (Reason: pain) Qty: 30 0RF carvedilol 3.125 mg Tablet 6.25 mg PO BID Qty: 60 0RF Protocol: Hold for SBP/HR < HOLD for SBP < : 90 HOLD for HR < : 60 omeprazole 20 mg capsule,delayed release(DR/EC) 20 mg PO BID Held losartan 50 mg tablet 1 tab PO DAILY Hold Instructions: Resume on 11/03/22. Discharge Orders: Discharge Order (Routine); Ordered 10/28/22 Ordered By: Imer Cintron Diet: Advance to usual diet Activity on Discharge: As tolerated Stand Alone Forms: Patient Portal Discharge page Other Ambulatory Orders: Basic Metabolic Panel (Routine) Timeframe: 2 Days Facility: [facility] - Location: Laboratory Ordered By: Imer Cintron Care Plan Goals: recovery Health Concerns: etoh, jeremias Plan of Treatment: avoid etoh, follow up bmp in a couple days, follow up with pcp, hold losartan until repeat bmp Assessment: see above
--- NOTE | 2022-10-28 09:39 | MHC.CM.PN ---
Patient has been medically cleared for dc to home today, self care.,
[2022-10-28] MEDS: carvediloL 3.125 MG TABLET 6.25 MG PO (10:54)
[2022-10-28] MEDS: Folic Acid 1 MG TABLET PO (10:54)
[2022-10-28] MEDS: PHENobarbitaL 15 MG TABLET 45 MG PO (10:54)
[2022-10-28] MEDS: Thiamine HCL 100 MG TABLET PO (10:55)
[2022-10-28] MEDS: 0.9 % Sodium Chloride Flush 3 ML SYRINGE IVFLUSH (10:55)
[2022-10-28] MEDS: Enoxaparin Sodium 40 MG/0.4 ML SYRINGE SUBCUT (10:55)
== END 2022-10-28 11:45 | disposition home or self-care (01) | DRG 469 ==
LOC: HO.ED 07:30 → HO.EDOVER 08:31 → HO.IMC 09:42
PROVIDERS: Physician Assistant Medical; Admitting Provider Internal Medicine; Emergency Provider Emergency Medicine; PCP Internal Medicine; Visit Provider Internal Medicine
DX: N17.9 Acute kidney failure, unspecified (principal); D69.59 Other secondary thrombocytopenia; K76.0 Fatty (change of) liver, not elsewhere classified; F10.239 Alcohol dependence with withdrawal, unspecified; R56.9 Unspecified convulsions; K21.9 Gastro-esophageal reflux disease without esophagitis; I10 Essential (primary) hypertension; E78.5 Hyperlipidemia, unspecified; Z79.899 Other long term (current) drug therapy
CPT/HCPCS: 36415; 70450; 80048; 80053; 80076; 82077; 82947; 83605; 83735; 85025; 85027; 85610; 93005; 99285; J1650; J2060; J2405; J2560

== ENCOUNTER 2022-11-10 09:21 | Outpatient (REF) | payer BC, SELFPAY ==
[2022-11-10 10:02] LABS: MANUAL DIFF FLAG NO
[2022-11-10 10:16] LABS: Basophils Absolute Auto 0.1 X10*3/uL (0.0-0.2); Basophils Percent Auto 1.5 % (0-2); Eosinophils Absolute Auto 0.2 X10*3/uL (0.0-0.4); Eosinophils Percent Auto 2.1 % (0-4); Hematocrit 35.5 % (37.0-47.0); Hemoglobin 11.7 g/dl (12.0-16.0); Imm Gran Abs Auto 0.06 X10*3/uL (0.00-0.03); Imm Gran Pct Auto 0.7 % (0.0-0.4); Lymphocytes Absolute Auto 1.1 X10*3/uL (1.2-4.9); Lymphocytes Percent Auto 12.4 % (20-40); Monocytes Absolute Auto 0.9 X10*3/uL (0.1-1.2); Monocytes Percent Auto 10.2 % (2-11); Neutrophils Absolute Auto 6.3 x10*3/uL (2.0-8.3); Neutrophils Percent Auto 73.1 % (45-73); Platelet Count 385 X10*3/uL (160-400); Red Blood Count 3.55 X10*6/uL (4.20-5.50); Red Cell Distribution Width 13.2 % (11.0-16.0); White Blood Count 8.6 X10*3/uL (4.8-10.8)
[2022-11-10 10:49] LABS: Alanine Aminotransferase 27 U/L (0-31); Albumin Level 3.5 g/dL (3.5-5.0); Alkaline Phosphatase 112 U/L (39-117); Anion Gap 16 (12-20); Aspartate Amino Transferase 38 U/L (5-31); Bilirubin Total 0.6 mg/dL (0.0-1.0); Blood Urea Nitrogen 7 mg/dL (9-16); Calcium 9.4 mg/dL (8.4-10.2); Carbon Dioxide 24 mmol/L (22-29); Chloride 99 mmol/L (96-108); Estimated Glomerular Filt Rate > 60; Glucose Random 116 mg/dL (60-115); Potassium 4.6 mmol/L (3.3-5.1); Sodium 134 mmol/L (135-145)
== END 2022-11-10 09:22 | disposition home or self-care (01) ==
LOC: HO.LAB 09:21
PROVIDERS: Absent Provider Internal Medicine; PCP Internal Medicine; Visit Provider Surgery
DX: R79.89 Other specified abnormal findings of blood chemistry (principal); D64.9 Anemia, unspecified; Z79.899 Other long term (current) drug therapy; Z71.2 Person consulting for explanation of examination or test findings; Z80.3 Family history of malignant neoplasm of breast
CPT/HCPCS: 36415; 80053; 85025

== ENCOUNTER 2023-01-12 10:43 | Outpatient (REF) | payer BC, SELFPAY ==
[2023-01-12 10:56] LABS: MANUAL DIFF FLAG NO
[2023-01-12 11:28] LABS: Basophils Percent Auto 0.4 % (0-2); Eosinophils Percent Auto 0.5 % (0-4); Hematocrit 34.8 % (37.0-47.0); Imm Gran Abs Auto 0.08 X10*3/uL (0.00-0.03); Lymphocytes Absolute Auto 1.1 X10*3/uL (1.2-4.9); Lymphocytes Percent Auto 13.2 % (20-40); Mean Corpuscular HGB Conc 34.5 g/dl (31.0-35.0); Mean Corpuscular Hemoglobin 34.6 pg (27.0-33.0); Mean Corpuscular Volume 100.3 fL (80.0-98.0); Mean Platelet Volume 9.1 fL (9.4-12.3); Monocytes Absolute Auto 0.8 X10*3/uL (0.1-1.2); Monocytes Percent Auto 10.3 % (2-11); Neutrophils Percent Auto 74.6 % (45-73); Platelet Count 228 X10*3/uL (160-400); Red Blood Count 3.47 X10*6/uL (4.20-5.50); Red Cell Distribution Width 14.3 % (11.0-16.0)
[2023-01-12 12:40] LABS: Alanine Aminotransferase 76 U/L (0-31); Albumin Level 3.9 g/dL (3.5-5.0); Alkaline Phosphatase 109 U/L (39-117); Anion Gap 15 (12-20); Aspartate Amino Transferase 158 U/L (5-31); Blood Urea Nitrogen 6 mg/dL (9-16); Calcium 9.4 mg/dL (8.4-10.2); Carbon Dioxide 22 mmol/L (22-29); Chloride 99 mmol/L (96-108); Estimated Glomerular Filt Rate > 60; Glucose Random 106 mg/dL (60-115); Sodium 131 mmol/L (135-145); Total Protein 6.8 g/dL (6.5-8.0)
== END 2023-01-12 10:44 | disposition home or self-care (01) ==
LOC: HO.LAB 10:43
PROVIDERS: PCP Internal Medicine; Visit Provider Internal Medicine
DX: I10 Essential (primary) hypertension (principal); K21.9 Gastro-esophageal reflux disease without esophagitis; E78.00 Pure hypercholesterolemia, unspecified
CPT/HCPCS: 36415; 80053; 85025

== ENCOUNTER 2023-01-27 09:32 | Outpatient (REF) | payer BC, SELFPAY ==
--- NOTE | ~2023-01-27 | MR_ITS ---
EXAMINATION: MR BREAST WITHOUT AND WITH CONTRAST, BILATERAL CLINICAL INFORMATION: Elevated lifetime risk, 80 MG lesion, dense breast tissue. COMPARISON: Mammography most recent 02/26/2022. TECHNIQUE: Utilizing a high-field scanner and dedicated breast coil, multiplanar, multi sequential MRI of both breasts was performed. CAD postprocessing with 3-D reconstructions, maximum intensity projections and kinetic analysis was performed by the interpreting radiologist at an independent workstation and reviewed as a portion of this exam. CONTRAST DOSE: The patient received 7.5 mL of Gadavist intravenously without incident. FINDINGS: The breasts are heterogeneously dense and undergoes minimal background parenchymal enhancement. No dominant enhancing mass or distortion is evident in either breast. The skin, nipple and pectoral muscles are unremarkable. No axillary or internal mammary adenopathy is detected. Limited images of the chest wall, bony structures and upper abdomen are also unremarkable. MR/MR breast BI wo/w con IMPRESSION: 1. No MR evidence of left or right breast carcinoma. 2. The patient is due for bilateral mammography in January,. Given genetic mutation, annual high risk screening with bilateral breast MRI, at alternating 6 month intervals with mammography, should be considered. BI-RADS 1: Negative.
== END 2023-01-27 09:33 | disposition home or self-care (01) ==
LOC: HO.MRI 09:32
PROVIDERS: PCP Internal Medicine; Visit Provider Internal Medicine
DX: Z12.39 Encounter for other screening for malignant neoplasm of breast (principal); Z15.01 Genetic susceptibility to malignant neoplasm of breast; Z80.3 Family history of malignant neoplasm of breast
CPT/HCPCS: 77049; A9585

== ENCOUNTER 2023-03-04 07:59 | Outpatient (REF) | payer BC, SELFPAY | END 2023-03-04 08:00 | disposition home or self-care (01) | LOC: HO.MAMMO 07:59 | PROVIDERS: PCP Internal Medicine; Visit Provider Internal Medicine | DX: Z12.31 Encounter for screening mammogram for malignant neoplasm of breast (principal) | CPT/HCPCS: 77063; 77067 ==

== ENCOUNTER → 2023-03-04 08:15 | Outpatient (BNV) | payer BC, SELFPAY | PROVIDERS: PCP Internal Medicine; Visit Provider Radiology Diagnostic Radiology | DX: Z12.31 Encounter for screening mammogram for malignant neoplasm of breast (principal) | CPT/HCPCS: 77063; 77067 ==

== ENCOUNTER 2023-04-14 09:35 | Outpatient (REF) | payer BC, SELFPAY ==
[2023-04-14 09:58] LABS: MANUAL DIFF FLAG NO
[2023-04-14 10:12] LABS: Basophils Percent Auto 0.6 % (0-2); Eosinophils Absolute Auto 0.1 X10*3/uL (0.0-0.4); Hematocrit 33.1 % (37.0-47.0); Hemoglobin 12.3 g/dl (12.0-16.0); Imm Gran Abs Auto 0.06 X10*3/uL (0.00-0.03); Imm Gran Pct Auto 0.8 % (0.0-0.4); Lymphocytes Absolute Auto 0.9 X10*3/uL (1.2-4.9); Mean Corpuscular HGB Conc 37.2 g/dl (31.0-35.0); Mean Corpuscular Hemoglobin 36.2 pg (27.0-33.0); Mean Corpuscular Volume 97.4 fL (80.0-98.0); Mean Platelet Volume 8.8 fL (9.4-12.3); Monocytes Absolute Auto 0.9 X10*3/uL (0.1-1.2); Monocytes Percent Auto 12.3 % (2-11); Neutrophils Absolute Auto 5.3 x10*3/uL (2.0-8.3); Neutrophils Percent Auto 73.3 % (45-73); Platelet Count 182 X10*3/uL (160-400); Red Cell Distribution Width 12.8 % (11.0-16.0); White Blood Count 7.2 X10*3/uL (4.8-10.8)
[2023-04-14 10:45] LABS: Alanine Aminotransferase 31 U/L (0-31); Albumin Level 3.8 g/dL (3.5-5.0); Alkaline Phosphatase 83 U/L (39-117); Aspartate Amino Transferase 58 U/L (5-31); Bilirubin Direct 0.3 mg/dL (0.0-0.5); Bilirubin Total 0.7 mg/dL (0.0-1.0); Total Protein 6.7 g/dL (6.5-8.0)
== END 2023-04-14 09:36 | disposition home or self-care (01) ==
LOC: HO.LAB 09:35
PROVIDERS: PCP Internal Medicine; Visit Provider Internal Medicine
DX: R79.89 Other specified abnormal findings of blood chemistry (principal)
CPT/HCPCS: 36415; 80076; 85025

== ENCOUNTER 2023-05-13 09:48 | Outpatient (AMB) | payer BC, SELFPAY ==
[2023-05-13 09:56] VITALS: BP 139/82; PULSE 84; O2SAT 100; BMI 26.4
--- NOTE | 2023-05-13 09:56 | A.OFFVIS_ITS ---
Intake Vital Signs 05/13/23 09:56 Height 5 ft 5 in Weight 158 lb 11.725 oz BMI 26.4 BP 139/82 Blood Pressure Location Rt brachial Position Sitting Pulse 84 Pulse Source Pulse Oximeter Pulse Oximetry (%) 100 Oxygen Delivery Method Room Air Intake Visit Reasons: Breast exam, 6 month follow up Allergies No Known Allergies [No Known Allergies*] Allergy (Verified 05/13/23 09:58) Medication List - Last Reconciled 05/13/23 by Vaibhav Velasquez MD atorvastatin 1 tab PO BEDTIME carvedilol 6.25 mg See Protocol PO BID ibuprofen 600 mg PO Q6H PRN L. acidophilus-L. rhamnosus 15 billion cell (Probiotic) 1 cap PO DAILY losartan 1 tab PO DAILY omeprazole 20 mg PO BID HPI Breast exam, 6 month follow up HPI Details She is here for 6-month follow-up breast exam. She had a strong family history of breast cancer as well as pancreatic cancer. She had genetic testing showing a mutation in the JOSH gene. She denies any new complaints. She feels well overall. She denies any palpable breast masses, or nipple or skin changes. [facility] Medical History (Updated 05/13/23 @ 10:17 by Vaibhav Velasquez MD) Monoallelic mutation of JOSH gene Family history of pancreatic cancer Family history of breast cancer Incisional pain Incisional hernia Incisional hernia Seasonal allergies History of COVID-19 COVID-19 vaccine series completed Diverticulitis High cholesterol Osteoarthritis of left hip Hypertension Hematuria Acid reflux Surgical History History of reversal of ileostomy History of colostomy reversal Hx of bilateral inguinal hernia repair History of colon resection Hx of cystoscopy H/O colonoscopy Status post Alexander procedure History of dental surgery H/O total hysterectomy with bilateral salpingo-oophorectomy (BSO) Status post total hip replacement, left (~06/07/19) Family History Father Cancer Mother Cancer Maternal Grandmother Colon cancer Sister Breast cancer Other Tubular adenoma Social History Household Members: Spouse and Children Housing: House Are you a primary progressive care unit registered nurse to a significant other at home: No Do you presently have visiting nurse or other home services: No Alcohol intake: current Alcohol intake frequency: a few times a week Alcohol type: wine Patient Tobacco Use Status: Never used Tobacco Second Hand Smoke Exposure: No Advance Directives Date on File: 08/02/21 service: No Current occupational status: 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 Review of Systems Const Denies chills and Denies fever(s) Card Denies chest pain, Denies dyspnea and Denies dyspnea on exertion Resp Denies cough, Denies dyspnea and Denies dyspnea on exertion GI Denies hematochezia and Denies change in bowel habits Denies hematuria Musc Denies back pain and Denies limited range of motion Neuro Denies focal weakness and Denies convulsions Psych Denies depression and Denies mood swings Physical Exam Vital Signs: Last Vital Signs Pulse 84 05/13/23 09:56 BP 139/82 05/13/23 09:56 Pulse Ox 100 05/13/23 09:56 Oxygen Delivery Method Room Air 05/13/23 09:56 BMI result Body Mass Index 26.4 Const General: comfortable and no acute distress Orientation/consciousness: patient oriented x3 Neck Neck: Yes no lymphadenopathy Chest Other: No palpable breast masses, no nipple or skin changes, no axillary lymphadenopathy Resp Auscultation: clear to auscultation bilaterally Cardio Rhythm: regular rhythm GI Palpation (GI): Soft to palpation, nontender and no guarding Neuro General: patient oriented x3 Assessment & Plan Assessment & Plan (1) Family history of pancreatic cancer: Code(s): Z80.0 - Family history of malignant neoplasm of digestive organs Plan: She also had genetic mutation the JOSH gene. I will schedule her for an MRCP as well as part of the screening. (2) Family history of breast cancer: Code(s): Z80.3 - Family history of malignant neoplasm of breast Plan: Her mammogram last February was unremarkable and a yearly mammogram had been recommended. I recommended for her to undergo an MRI of the breast in between her yearly screening mammograms. She therefore should probably have this done in about 6 months . I will see her in the office in about 6 months. Current exam does not reveal any breast masses. I had recommended for her to do self examination as well every month. (3) Monoallelic mutation of JOSH gene: Code(s): Z15.89 - Genetic susceptibility to other disease; Z15.01 - Genetic s usceptibility to malignant neoplasm of breast; Z15.09 - Genetic susceptibility to other malignant neoplasm Orders: Orders MR MRCP Today Z80.0 - Family history of malignant neoplasm of digestive organs Coding Level of Care Code Est Pt Level 3 (27044) Diagnoses Family history of pancreatic cancer Z80.0 Family history of breast cancer Z80.3 Monoallelic mutation of JOSH gene Z15.89; Z15.01; Z15.09
== END 2023-05-13 10:22 | disposition home or self-care (01) ==
PROVIDERS: Visit Provider Surgery
DX: Z80.0 Family history of malignant neoplasm of digestive organs (principal); Z80.3 Family history of malignant neoplasm of breast; Z15.89 Genetic susceptibility to other disease; Z15.01 Genetic susceptibility to malignant neoplasm of breast; Z15.09 Genetic susceptibility to other malignant neoplasm
CPT/HCPCS: 99213

== ENCOUNTER → 2023-05-13 09:48 | Outpatient (BNVA) | payer BC, SELFPAY | PROVIDERS: Visit Provider Surgery ==

== ENCOUNTER 2023-07-09 09:47 | Outpatient (REF) | payer BC, SELFPAY ==
--- NOTE | ~2023-07-09 | MR_ITS ---
EXAMINATION: MR ABDOMEN WITHOUT CONTRAST CLINICAL INFORMATION: Family history of malignant neoplasm of digestive organs. COMPARISON: CT abdomen/pelvis 06/17/2021 TECHNIQUE: MR abdomen is performed without gadolinium contrast. FINDINGS: LUNG BASES: No pleural effusion. LIVER, GALLBLADDER, AND BILIARY TREE: Loss of signal on opposed phase imaging compatible with hepatic steatosis. No biliary ductal dilatation is present. The common duct measures 4 mm at the samantha hepatis. No intraductal filling defects. The gallbladder is unremarkable with no evidence of gallbladder wall thickening, or obvious pericholecystic inflammatory changes. PANCREAS: Normal contour. Homogeneous signal. No ductal dilatation. No peripancreatic stranding. SPLEEN: Not enlarged. ADRENAL GLANDS: No adrenal mass. KIDNEYS AND URETERS: The kidneys are symmetric in size. No hydronephrosis. No perinephric stranding. GASTROINTESTINAL TRACT: No bowel obstruction. No ascites or fluid collection. ABDOMINAL WALL: No significant hernia is appreciated. LYMPH NODES: No bulky abdominal lymphadenopathy. VASCULAR: Normal caliber abdominal aorta. MR/MR MRCP IMPRESSION: Hepatic steatosis.
== END 2023-07-09 09:48 | disposition home or self-care (01) ==
LOC: HO.MRI 09:47
PROVIDERS: PCP Internal Medicine; Visit Provider Surgery
DX: K76.0 Fatty (change of) liver, not elsewhere classified (principal); Z80.0 Family history of malignant neoplasm of digestive organs
CPT/HCPCS: 74181

== ENCOUNTER 2023-07-16 10:12 | Outpatient (REF) | payer BC, SELFPAY ==
[2023-07-16 10:30] LABS: MANUAL DIFF FLAG NO
[2023-07-16 11:03] LABS: Basophils Absolute Auto 0.1 X10*3/uL (0.0-0.2); Basophils Percent Auto 0.6 % (0-2); Eosinophils Absolute Auto 0.1 X10*3/uL (0.0-0.4); Eosinophils Percent Auto 1.4 % (0-4); Hematocrit 37.4 % (37.0-47.0); Hemoglobin 12.8 g/dl (12.0-16.0); Imm Gran Abs Auto 0.07 X10*3/uL (0.00-0.03); Imm Gran Pct Auto 0.8 % (0.0-0.4); Lymphocytes Absolute Auto 0.9 X10*3/uL (1.2-4.9); Lymphocytes Percent Auto 10.3 % (20-40); Mean Corpuscular HGB Conc 34.2 g/dl (31.0-35.0); Mean Corpuscular Hemoglobin 33.8 pg (27.0-33.0); Mean Corpuscular Volume 98.7 fL (80.0-98.0); Mean Platelet Volume 9.1 fL (9.4-12.3); Monocytes Absolute Auto 0.8 X10*3/uL (0.1-1.2); Monocytes Percent Auto 9.5 % (2-11); Neutrophils Absolute Auto 6.4 x10*3/uL (2.0-8.3); Neutrophils Percent Auto 77.4 % (45-73); Platelet Count 235 X10*3/uL (160-400); Red Blood Count 3.79 X10*6/uL (4.20-5.50); Red Cell Distribution Width 13.7 % (11.0-16.0); White Blood Count 8.3 X10*3/uL (4.8-10.8)
[2023-07-16 11:35] LABS: Alanine Aminotransferase 55 U/L (0-31); Albumin Level 4.1 g/dL (3.5-5.0); Alkaline Phosphatase 93 U/L (39-117); Anion Gap 17 (12-20); Aspartate Amino Transferase 123 U/L (5-31); Bilirubin Total 0.7 mg/dL (0.0-1.0); Blood Urea Nitrogen 9 mg/dL (9-16); Calcium 9.7 mg/dL (8.4-10.2); Carbon Dioxide 23 mmol/L (22-29); Chloride 101 mmol/L (96-108); Estimated Glomerular Filt Rate > 60; Glucose Random 105 mg/dL (60-115); Potassium 4.9 mmol/L (3.3-5.1); Sodium 136 mmol/L (135-145); Total Protein 7.3 g/dL (6.5-8.0)
== END 2023-07-16 10:13 | disposition home or self-care (01) ==
LOC: HO.LAB 10:12
PROVIDERS: PCP Internal Medicine; Visit Provider Internal Medicine
DX: I10 Essential (primary) hypertension (principal); E78.00 Pure hypercholesterolemia, unspecified; R79.89 Other specified abnormal findings of blood chemistry
CPT/HCPCS: 36415; 80053; 85025

== ENCOUNTER 2023-10-02 08:37 | Outpatient (REF) | payer BC, SELFPAY ==
[2023-10-02 08:56] LABS: MANUAL DIFF FLAG NO
[2023-10-02 09:27] LABS: Basophils Percent Auto 0.6 % (0-2); Eosinophils Absolute Auto 0.1 X10*3/uL (0.0-0.4); Eosinophils Percent Auto 2.3 % (0-4); Hematocrit 34.8 % (37.0-47.0); Hemoglobin 11.8 g/dl (12.0-16.0); Imm Gran Abs Auto 0.06 X10*3/uL (0.00-0.03); Imm Gran Pct Auto 1.3 % (0.0-0.4); Lymphocytes Absolute Auto 0.9 X10*3/uL (1.2-4.9); Lymphocytes Percent Auto 18.7 % (20-40); Mean Corpuscular HGB Conc 33.9 g/dl (31.0-35.0); Mean Corpuscular Hemoglobin 33.7 pg (27.0-33.0); Mean Corpuscular Volume 99.4 fL (80.0-98.0); Mean Platelet Volume 8.8 fL (9.4-12.3); Monocytes Absolute Auto 0.7 X10*3/uL (0.1-1.2); Monocytes Percent Auto 14.7 % (2-11); Neutrophils Percent Auto 62.4 % (45-73); Platelet Count 159 X10*3/uL (160-400); Red Cell Distribution Width 12.9 % (11.0-16.0); White Blood Count 4.8 X10*3/uL (4.8-10.8)
[2023-10-02 09:50] LABS: Alanine Aminotransferase 41 U/L (0-31); Albumin Level 3.6 g/dL (3.5-5.0); Alkaline Phosphatase 83 U/L (39-117); Anion Gap 16 (12-20); Aspartate Amino Transferase 64 U/L (5-31); Bilirubin Total 0.4 mg/dL (0.0-1.0); Blood Urea Nitrogen 7 mg/dL (9-16); Calcium 8.8 mg/dL (8.4-10.2); Carbon Dioxide 21 mmol/L (22-29); Chloride 102 mmol/L (96-108); Cholesterol 207 mg/dL (<200); Estimated Glomerular Filt Rate > 60; Glucose Fasting 82 mg/dL (60-99); HDL Cholesterol 78 mg/dL (>40); LDL Cholesterol Calculated 105 mg/dL (<100); Potassium 4.2 mmol/L (3.3-5.1); Sodium 135 mmol/L (135-145); Total Protein 6.5 g/dL (6.5-8.0); Triglycerides 122 mg/dL (<150)
== END 2023-10-02 08:38 | disposition home or self-care (01) ==
LOC: HO.LAB 08:37
PROVIDERS: PCP Internal Medicine; Visit Provider Internal Medicine
DX: I10 Essential (primary) hypertension (principal); E78.00 Pure hypercholesterolemia, unspecified; K21.9 Gastro-esophageal reflux disease without esophagitis
CPT/HCPCS: 36415; 80053; 80061; 85025

== ENCOUNTER 2024-03-04 08:16 | Outpatient (REF) | payer BC, SELFPAY | END 2024-03-04 08:17 | disposition home or self-care (01) | LOC: HO.MAMMO 08:16 | PROVIDERS: PCP Internal Medicine; Visit Provider Internal Medicine | DX: Z13.89 Encounter for screening for other disorder (principal) ==

== ENCOUNTER 2024-03-09 09:16 | Outpatient (REF) | payer BC, SELFPAY ==
--- NOTE | ~2024-03-09 | MM_ITS ---
EXAMINATION: MM SCREENING DIGITAL BREAST TOMOSYNTHESIS, BILATERAL CLINICAL INFORMATION: Screening. Asymptomatic. Patient has increased risk. Sister diagnosed with breast CA age 71. JOSH gene mutation in patient (resulting in a estimated 20-60% increased risk for breast cancer) COMPARISON: Mammography: This study is compared with prior exams dating back to TECHNIQUE: Digital breast tomosynthesis is performed in both the craniocaudal and mediolateral oblique views along with computer-aided detection (CAD). Synthesized 2D images are generated from the tomosynthesis. FINDINGS: The breasts are heterogeneously dense, which may obscure small masses (ACR BI-RADS breast composition Category c). There are increasing grouped calcifications in the anterior upper outer left breast, for which diagnostic magnification views are recommended. There are vascular calcifications in the retroareolar right breast. Otherwise, there are no suspicious masses or areas of architectural distortion in either breast. No suspicious right breast calcifications. The heterogeneously dense parenchymal pattern is stable from prior exams. There is no skin or axillary abnormality. MM/MM tomosynthesis screening BI IMPRESSION: Increasing grouped calcifications left breast upper outer quadrant anterior one third. Diagnostic magnification views recommended. No suspicious findings right breast. ASSESSMENT: BI-RADS BI-RADS 0 - Incomplete: Needs additional Imaging. RECOMMENDATION: 1. Additional magnification views of the left breast. 2. Radiology department staff will contact the patient for additional imaging. Additional Imaging required This examination should not preclude the clinical evaluation of a suspicious palpable abnormality. Electronically signed by: Yrn Licea MD 03/10/2024 06:15 PM EDT
== END 2024-03-09 09:17 | disposition home or self-care (01) ==
LOC: HO.MAMMO 09:16
PROVIDERS: PCP Internal Medicine; Visit Provider Internal Medicine
DX: Z12.31 Encounter for screening mammogram for malignant neoplasm of breast (principal)
CPT/HCPCS: 77063; 77067

== ENCOUNTER → 2024-03-09 09:30 | Outpatient (BNV) | payer BC, SELFPAY | PROVIDERS: PCP Internal Medicine; Visit Provider Radiology Diagnostic Radiology | DX: Z12.31 Encounter for screening mammogram for malignant neoplasm of breast (principal) | CPT/HCPCS: 77063; 77067 ==

== ENCOUNTER 2024-04-14 12:37 | Outpatient (REF) | payer BC, SELFPAY ==
--- NOTE | ~2024-04-14 | MM_ITS ---
EXAMINATION: MM DIAGNOSTIC DIGITAL BREAST TOMOSYNTHESIS, LEFT CLINICAL INFORMATION: -Evaluate increasing grouped calcifications left breast approximate 2:00 axis anterior one third. -Patient has increased risk. Sister diagnosed with breast CA age 71. JOSH gene mutation in patient (resulting in a estimated 20-60% increased risk for breast cancer). COMPARISON: Mammography: Screening mammography 03/09/2024, and exams dating back to 2017. TECHNIQUE: Digital breast tomosynthesis is performed in the following views: 2-D spot magnification left CC and ML views obtained. Computer-aided diagnosis was used for this study. FINDINGS: The breasts are heterogeneously dense, which may obscure small masses (ACR BI-RADS breast composition Category c). Diagnostic magnification views left breast 2:00 axis, anterior one third, demonstrates somewhat coarse but very pleomorphic appearing calcifications, with some branching and possible casting forms. Patient reports no history of injuries to the breasts. No associated underlying mass is noted. These findings are indeterminant and given patient's risk factors and increased risk, stereotactic biopsy recommended. There is prominent duct ectasia in the retroareolar region of the left breast. MM/MM added views LT IMPRESSION: -Increasing indeterminate calcifications left breast 2:00 axis anterior one third as detailed. Stereotactic guided biopsy recommended. -Findings and recommendations were discussed with the patient in detail, who appears in understanding. ASSESSMENT: BI-RADS BI-RADS 4 - Suspicious finding RECOMMENDATION: Biopsy recommended Electronically signed by: Yrn Licea MD 04/14/2024 01:32 PM EDT Workstation: [id number]
== END 2024-04-14 12:38 | disposition home or self-care (01) ==
LOC: HO.MAMMO 12:37
PROVIDERS: PCP Internal Medicine; Visit Provider Internal Medicine
DX: R92.1 Mammographic calcification found on diagnostic imaging of breast (principal)
CPT/HCPCS: 77065

== ENCOUNTER → 2024-04-14 13:00 | Outpatient (BNV) | payer BC, SELFPAY | PROVIDERS: PCP Internal Medicine; Visit Provider Radiology Diagnostic Radiology | DX: R92.1 Mammographic calcification found on diagnostic imaging of breast (principal) | CPT/HCPCS: 77061; 77065 ==

== ENCOUNTER 2024-04-18 10:03 | Outpatient (AMB) | payer BC, SELFPAY ==
--- NOTE | 2024-04-18 10:08 | A.OFFVIS_ITS ---
Vital Signs 04/18/24 10:16 Height 5 ft 5 in Weight 165 lb BMI 27.5 BP 175/78 H Blood Pressure Location Lt brachial Position Sitting Pulse 91 Intake Visit Reasons: Consult/stero biopsy left breast Intake Note: Patient is seen in office for stereo biopsy consult of the left breast, calcification upper outer quadrant. Pt c/o: denies any concerns regarding the breast, does not feel any lump, no prior breast surgeries Orthopedic Physical Therapist Required: No Accompanied by: se Allergies No Known Allergies [No Known Allergies*] Allergy (Verified 04/18/24 10:14) HPI HPI Consult/stero biopsy left breast: Details: 63-year-old female referred for left breast calcifications. She had undergone screening mammogram last month showing this group of pleomorphic calcifications in the left breast. She was brought in for additional views. There was note of indeterminate calcifications on the left breast at the 2 o'clock position. This seemed to be increasing compared to previous mammograms. and she was recommended to undergo stereotactic biopsy. She denies any palpable breast mass. She never had menstrual periods and she was diagnosed to have androgen insensitivity. She was therefore never . Her sister was diagnosed to have breast cancer at age of 72. They both have the JOSH mutation on genetic testing. [facility] Medical History (Updated 04/18/24 @ 09:59 by Vaibhav Velasquez MD) Breast calcification, left Monoallelic mutation of JOSH gene Family history of pancreatic cancer Family history of breast cancer Incisional pain Incisional hernia Incisional hernia Seasonal allergies History of COVID-19 COVID-19 vaccine series completed Diverticulitis High cholesterol Osteoarthritis of left hip Hypertension Hematuria Acid reflux Surgical History History of reversal of ileostomy History of colostomy reversal Hx of bilateral inguinal hernia repair History of colon resection Hx of cystoscopy H/O colonoscopy Status post Alexander procedure History of dental surgery H/O total hysterectomy with bilateral salpingo-oophorectomy (BSO) Status post total hip replacement, left (~06/07/19) Family History Father Cancer Mother Cancer Maternal Grandmother Colon cancer Sister Breast cancer Other Tubular adenoma Social History Household Members: Spouse and Children Housing: House Are you a primary veterinarian laboratory animal care to a significant other at home: No Do you presently have visiting nurse or other home services: No Alcohol intake: current Alcohol intake frequency: a few times a week Alcohol type: wine Comment: pt has [employer] Patient Tobacco Use Status: Never used Tobacco Second Hand Smoke Exposure: No Advance Directives Date on File: 08/02/21 service: No 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 occupational 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 Review of Systems Const Denies chills and Denies fever(s) Card Denies chest pain, Denies dyspnea and Denies dyspnea on exertion Resp Denies cough, Denies dyspnea and Denies dyspnea on exertion GI Denies hematochezia and Denies change in bowel habits Denies hematuria Musc Denies back pain and Denies limited range of motion Neuro Denies focal weakness and Denies convulsions Psych Denies depression and Denies mood swings Physical Exam Const General: comfortable and no acute distress Orientation/consciousness: patient oriented x3 Neck Neck: Yes no lymphadenopathy Chest Other: No palpable breast masses, no axillary lymphadenopathy Resp Auscultation: clear to auscultation bilaterally Cardio Rhythm: regular rhythm GI Palpation (GI): Soft to palpation, nontender and no guarding Neuro General: patient oriented x3 Assessment & Plan Assessment & Plan (1) Breast calcification, left: Code(s): R92.1 - Mammographic calcification found on diagnostic imaging of breast Category: Medical Plan: She has increasing, indeterminate calcifications on the left breast at the 2 o'clock position seen on mammogram. She was recommended to undergo stereotactic biopsy. I explained to her the technique of this procedure. I will see her again in the office next week to discuss the biopsy results. Orders: Orders MM stereotactic biopsy LT Today R92.1 - Mammographic calcification found on diagnostic imaging of breast Coding Level of Care Code Est Pt Level 3 (64322) Diagnoses Breast calcification, left R92.1
[2024-04-18 10:16] VITALS: BP 175/78; PULSE 91; BMI 27.5
== END 2024-04-18 10:26 | disposition home or self-care (01) ==
PROVIDERS: PCP Internal Medicine; Visit Provider Surgery
DX: R92.1 Mammographic calcification found on diagnostic imaging of breast (principal)
CPT/HCPCS: 99213

== ENCOUNTER → 2024-04-18 10:03 | Outpatient (BNVA) | payer BC, SELFPAY | PROVIDERS: PCP Internal Medicine; Visit Provider Surgery | DX: R92.1 Mammographic calcification found on diagnostic imaging of breast (principal) ==

== ENCOUNTER 2024-04-21 09:42 | Outpatient (REF) | payer BC, SELFPAY ==
--- NOTE | ~2024-04-21 | MM_ITS ---
EXAMINATION: STEREOTACTIC TOMOSYNTHESIS-GUIDED VACUUM-ASSISTED BREAST BIOPSY, LEFT SPECIMEN RADIOGRAPH, LEFT POST PROCEDURE DIGITAL MAMMOGRAM, LEFT CLINICAL INFORMATION: Suspicious calcifications upper outer left breast anterior one third. COMPARISON: Mammography 04/14/2024, 03/09/2024, and exams dating back to 2017. TECHNIQUE/PROCEDURE: Informed consent was obtained from the patient after discussion of the benefits, risks, and alternatives to biopsy today. Patient appeared to understand. Gave opportunity for questions. Patient signed consent form. BIOPSY TABLE: Profex Affirm Prone Biopsy System. LESION: Grouped calcifications upper outer quadrant left breast. LOCAL ANESTHESIA: 4 mL 1% lidocaine; 10 mL 1% lidocaine with epinephrine. DERMATOTOMY: Single 2 mm skin fito dermatotomy performed. NEEDLE: Wow! Stuff Eviva 9-gauge vacuum assisted core biopsy device. APPROACH: craniocaudal. TARGETING: Digital breast tomosynthesis used for targeting. CORES: 11. CLIP: Top hat shaped. SPECIMEN RADIOGRAPH: Specimen radiograph is taken in separate room using digital mammography. The index calcifications are in the excised cores. POST PROCEDURE UNILATERAL DIGITAL MAMMOGRAM: The post biopsy mammogram is performed in separate room using separate digital mammography equipment from the biopsy procedure. CC and ML views are obtained. The breasts are heterogeneously dense, which may obscure small masses (breast composition category: c). The clip marker is in position. The calcifications are markedly decreased at the biopsy site. No gross hematoma. The patient tolerated the procedure well. No immediate complications. Home instructions reviewed with the patient. Final pathology results are pending. MM/MM stereotactic biopsy LT IMPRESSION: 1. Digital tomosynthesis-guided core biopsy left breast with clip placement. 2. Specimen radiograph taken and post procedure mammogram. There is satisfactory and accurate positioning of the biopsy clip. 3. Final pathology results pending. An addendum report will be issued. Electronically signed by: Yrn Licea MD 04/21/2024 12:19 PM EDT
[2024-04-21] MEDS: Lidocaine HCl 1 % 20 ML VIAL 4 ML SUBCUT (11:18)
[2024-04-21] MEDS: Lidocaine HCl 1%/Epi 1:100,000 10 ML VIAL 20 ML SUBCUT (11:20)
[2024-04-21] MEDS: Sodium Bicarbonate 8.4% 50 MEQ/50 ML VIAL SUBCUT (11:21)
== END 2024-04-21 09:43 | disposition home or self-care (01) ==
LOC: HO.MAMMO 09:42
PROVIDERS: PCP Internal Medicine; Visit Provider Surgery
DX: R92.1 Mammographic calcification found on diagnostic imaging of breast (principal); N60.32 Fibrosclerosis of left breast
CPT/HCPCS: 19081; 88305; A4648; J2003; J2004

== ENCOUNTER → 2024-04-21 10:00 | Outpatient (BNV) | payer BC, SELFPAY | PROVIDERS: PCP Internal Medicine; Visit Provider Radiology Diagnostic Radiology | DX: R92.1 Mammographic calcification found on diagnostic imaging of breast (principal) | CPT/HCPCS: 19081 ==

== ENCOUNTER 2024-04-28 09:21 | Outpatient (AMB) | payer BC, SELFPAY ==
--- NOTE | 2024-04-28 09:22 | MHC.OFFVIS ---
Vital Signs 04/28/24 09:23 Height 5 ft 5 in Weight 165 lb 0.009 oz BMI 27.5 Intake Visit Reasons: s/p Consult/stero biopsy left breast Intake Note: This patient presents for breast biopsy results. Pt c/o; reports no complaints at this time. 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 acidophilus-L. rhamnosus 15 billion cell (Probiotic) 1 cap PO DAILY losartan 1 tab PO DAILY omeprazole 20 mg PO BID HPI HPI s/p Consult/stero biopsy left breast: Details: She had undergone stereotactic biopsy of the left breast last April 21, 2024 because of calcifications. She tolerated procedure well and currently denies significant complaints. She denies any hematoma on the biopsy site. [facility] Medical History Breast calcification, left Monoallelic mutation of JOSH gene Family history of pancreatic cancer Family history of breast cancer Incisional pain Incisional hernia Incisional hernia Seasonal allergies History of COVID-19 COVID-19 vaccine series completed Diverticulitis High cholesterol Osteoarthritis of left hip Hypertension Hematuria Acid reflux Surgical History History of reversal of ileostomy History of colostomy reversal Hx of bilateral inguinal hernia repair History of colon resection Hx of cystoscopy H/O colonoscopy Status post Alexander procedure History of dental surgery H/O total hysterectomy with bilateral salpingo-oophorectomy (BSO) Status post total hip replacement, left (~06/07/19) Family History Father Cancer Mother Cancer Maternal Grandmother Colon cancer Sister Breast cancer Other Tubular adenoma Social History Household Members: Spouse and Children Housing: House Are you a primary director day care center to a significant other at home: No Do you presently have visiting nurse or other home services: No Alcohol intake: current Alcohol intake frequency: a few times a week Alcohol type: wine Comment: pt has [employer] Patient Tobacco Use Status: Never used Tobacco Second Hand Smoke Exposure: No Advance Directives Date on File: 08/02/21 service: No Current occupational status: retired 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 Review of Systems Const Denies chills and Denies fever(s) Card Denies chest pain, Denies dyspnea and Denies dyspnea on exertion Resp Denies cough, Denies dyspnea and Denies dyspnea on exertion GI Denies hematochezia and Denies change in bowel habits Denies hematuria Musc Denies back pain and Denies limited range of motion Neuro Denies focal weakness and Denies convulsions Psych Denies depression and Denies mood swings Physical Exam Vital Signs: BMI result Body Mass Index 27.5 Const General: comfortable and no acute distress Chest Other: No hematoma on the biopsy site on the left breast Resp Effort & Inspection: normal respiratory effort Assessment & Plan Assessment & Plan (1) Breast calcification, left: Code(s): R92.1 - Mammographic calcification found on diagnostic imaging of breast Category: Medical Plan: Status post stereotactic biopsy of microcalcifications. She is doing very well. She denies any hematoma Her path report shows benign breast tissue with stromal fibrosis, osseous metaplasia and indications with no atypia or malignancy. I explained to her the benign nature of this pathology She is to continue with regular screening mammograms and she is scheduled for her next 1 in February,. She does have the JOSH gene mutation and I have recommended doing an MRI in between her mammograms. I will therefore schedule this for her as well. Coding Level of Care Code Est Pt Level 3 (38123) Diagnoses Breast calcification, left R92.1
[2024-04-28 09:23] VITALS: BMI 27.5
== END 2024-04-28 09:37 | disposition home or self-care (01) ==
PROVIDERS: PCP Internal Medicine; Visit Provider Surgery
DX: R92.1 Mammographic calcification found on diagnostic imaging of breast (principal)
CPT/HCPCS: 99213

== ENCOUNTER → 2024-04-28 09:21 | Outpatient (BNVA) | payer BC, SELFPAY | PROVIDERS: PCP Internal Medicine; Visit Provider Surgery | DX: R92.1 Mammographic calcification found on diagnostic imaging of breast (principal) ==

== ENCOUNTER 2024-05-25 09:19 | Outpatient (REF) | payer BC, SELFPAY ==
[2024-05-25 09:56] LABS: MANUAL DIFF FLAG NO
[2024-05-25 10:58] LABS: Basophils Absolute Auto 0.1 X10*3/uL (0.0-0.2); Basophils Percent Auto 0.9 % (0-2); Eosinophils Absolute Auto 0.1 X10*3/uL (0.0-0.4); Eosinophils Percent Auto 1.1 % (0-4); Hematocrit 34.1 % (37.0-47.0); Hemoglobin 11.8 g/dl (12.0-16.0); Imm Gran Abs Auto 0.06 X10*3/uL (0.00-0.03); Imm Gran Pct Auto 0.9 % (0.0-0.4); Lymphocytes Absolute Auto 0.7 X10*3/uL (1.2-4.9); Lymphocytes Percent Auto 9.3 % (20-40); Mean Corpuscular HGB Conc 34.6 g/dl (31.0-35.0); Mean Corpuscular Hemoglobin 33.4 pg (27.0-33.0); Mean Corpuscular Volume 96.6 fL (80.0-98.0); Mean Platelet Volume 9.1 fL (9.4-12.3); Monocytes Percent Auto 14.1 % (2-11); Neutrophils Absolute Auto 5.2 x10*3/uL (2.0-8.3); Neutrophils Percent Auto 73.7 % (45-73); Platelet Count 188 X10*3/uL (160-400); Red Blood Count 3.53 X10*6/uL (4.20-5.50); Red Cell Distribution Width 13.8 % (11.0-16.0)
[2024-05-25 11:27] LABS: Alanine Aminotransferase 74 U/L (0-31); Albumin Level 3.7 g/dL (3.5-5.0); Alkaline Phosphatase 143 U/L (39-117); Anion Gap 18 (12-20); Aspartate Amino Transferase 208 U/L (5-31); Blood Urea Nitrogen 7 mg/dL (9-16); Calcium 9.1 mg/dL (8.4-10.2); Carbon Dioxide 22 mmol/L (22-29); Chloride 97 mmol/L (96-108); Estimated Glomerular Filt Rate > 60; Glucose Random 115 mg/dL (60-115); Potassium 5.2 mmol/L (3.3-5.1); Sodium 132 mmol/L (135-145); Total Protein 6.6 g/dL (6.5-8.0)
== END 2024-05-25 09:20 | disposition home or self-care (01) ==
LOC: HO.LAB 09:19
PROVIDERS: PCP Internal Medicine; Visit Provider Internal Medicine
DX: I10 Essential (primary) hypertension (principal); E78.00 Pure hypercholesterolemia, unspecified; K21.9 Gastro-esophageal reflux disease without esophagitis
CPT/HCPCS: 36415; 80053; 85025

== ENCOUNTER 2024-06-28 07:46 | Outpatient (REF) | payer BC, SELFPAY ==
--- NOTE | ~2024-06-28 | US_ITS ---
CLINICAL HISTORY: ELEVATED LIVER ENZYMES US abdomen complete with color Doppler Comparison: CT/REG/VA - CT ABDOMEN PELVIS W CON - 02/05/21 19:[address] - CT ABDOMEN PELVIS W CON - 02/05/21 19:20 EDT CR/VA - XR ABDOMEN MIN 2V - 02/05/21 12:24 EDT US - US ABDOMEN COMPLETE - 11/21/20 07:59 EDT Findings: The visualized pancreas, aorta, and inferior vena cava are unremarkable. Liver normal size and is diffusely echogenic. Right lobe 18.0 cm length. No focal hepatic masses. Common duct 4.2 mm diameter. Physiologic distention of the gallbladder. No gallstones or sludge. No gallbladder wall thickening. No pericholecystic fluid. No sonographic Morejon sign. Main portal vein antegrade. Right kidney normal size, 11.7 cm in length. Normal cortical width and echotexture. No solid or cystic renal masses. No nephrolithiasis or hydronephrosis. Left kidney normal, 10.7 cm in length. Normal cortical width and echotexture. New hypoechoic lesion upper pole measuring 1.6 x 1.6 x 2.1 cm. This may represent a renal cortical cysts but was not demonstrated on previous studies.No nephrolithiasis or hydronephrosis. Spleen measures 9.4 cm. No splenic masses. No ascites. No lymphadenopathy. Impression: 1. Hepatic steatosis. 2. New hypoechoic lesion upper pole left kidney was not demonstrated on previous imaging contrast-enhanced CT or MRI of the abdomen renal protocol is recommended. This document has been electronically signed by: Trey Cruz MD on 06/29/2024 13:54:16
== END 2024-06-28 07:47 | disposition home or self-care (01) ==
LOC: HO.US 07:46
PROVIDERS: PCP Internal Medicine; Visit Provider Internal Medicine
DX: R74.01 Elevation of levels of liver transaminase levels (principal)
CPT/HCPCS: 76700

== ENCOUNTER → 2024-06-28 07:48 | Outpatient (BNV) | payer BC, SELFPAY | PROVIDERS: PCP Internal Medicine; Visit Provider Radiology Diagnostic Radiology | DX: R93.422 Abnormal radiologic findings on diagnostic imaging of left kidney (principal); K76.0 Fatty (change of) liver, not elsewhere classified | CPT/HCPCS: 76700 ==

== ENCOUNTER 2024-07-08 11:22 | Outpatient (REF) | payer BC, SELFPAY ==
--- NOTE | ~2024-07-08 | CT_ITS ---
CLINICAL HISTORY: LEFT KIDNEY LESION SEEN ON ULTRASOUND CT abdomen and pelvis without contrast Comparison: 02/05/2021 Findings: Lung bases are clear. No acute bony abnormalities. Left hip prosthesis noted. Small left midabdomen wall ventral hernia contains fat. No associated acute finding noted. Hepatomegaly with fatty infiltration of the liver. No focal abnormalities in liver or spleen. Pancreas and adrenal glands unremarkable. Gallbladder within normal limits. Renal assessment is limited on this noncontrasted study. No focal renal abnormality identified. Contrast-enhanced would be needed to rule out mass. No bilateral renal stone or hydronephrosis. No evidence for aortic aneurysm. No free fluid or adenopathy is noted in the pelvis. No evidence for diverticulitis. Appendix not identified. Hysterectomy. No adnexal abnormalities. Impression: No acute processes This document has been electronically signed by: Akira Liao MD on 07/08/2024 20:07:25
== END 2024-07-08 11:23 | disposition home or self-care (01) ==
LOC: HO.CT 11:22
PROVIDERS: PCP Internal Medicine; Visit Provider Internal Medicine
DX: N28.89 Other specified disorders of kidney and ureter (principal)
CPT/HCPCS: 74176

== ENCOUNTER → 2024-07-08 11:24 | Outpatient (BNV) | payer BC, SELFPAY | PROVIDERS: PCP Internal Medicine; Visit Provider Radiology Diagnostic Radiology | DX: R16.0 Hepatomegaly, not elsewhere classified (principal) | CPT/HCPCS: 74176 ==

== ENCOUNTER 2024-09-22 10:47 | Outpatient (REF) | payer BC, SELFPAY ==
[2024-09-22 13:12] LABS: MANUAL DIFF FLAG NO
[2024-09-22 13:20] LABS: Basophils Absolute Auto 0.1 X10*3/uL (0.0-0.2); Basophils Percent Auto 0.8 % (0-2); Eosinophils Absolute Auto 0.1 X10*3/uL (0.0-0.4); Eosinophils Percent Auto 1.3 % (0-4); Hematocrit 34.6 % (37.0-47.0); Hemoglobin 11.7 g/dl (12.0-16.0); Imm Gran Abs Auto 0.04 X10*3/uL (0.00-0.03); Imm Gran Pct Auto 0.5 % (0.0-0.4); Mean Corpuscular HGB Conc 33.8 g/dl (31.0-35.0); Mean Corpuscular Hemoglobin 34.1 pg (27.0-33.0); Mean Corpuscular Volume 100.9 fL (80.0-98.0); Mean Platelet Volume 9.1 fL (9.4-12.3); Monocytes Absolute Auto 0.9 X10*3/uL (0.1-1.2); Monocytes Percent Auto 12.3 % (2-11); Neutrophils Absolute Auto 5.5 x10*3/uL (2.0-8.3); Neutrophils Percent Auto 72.1 % (45-73); Platelet Count 193 X10*3/uL (160-400); Red Blood Count 3.43 X10*6/uL (4.20-5.50); White Blood Count 7.6 X10*3/uL (4.8-10.8)
[2024-09-22 14:21] LABS: Alanine Aminotransferase 36 U/L (0-31); Albumin Level 3.8 g/dL (3.5-5.0); Alkaline Phosphatase 88 U/L (39-117); Aspartate Amino Transferase 69 U/L (5-31); Bilirubin Direct 0.4 mg/dL (0.0-0.5); Iron 66 mcg/dL (30-160); Percent Iron Saturation 26 % (15-50); Total Iron Binding Capacity 256 mcg/dL (228-428); Total Protein 6.7 g/dL (6.5-8.0); Unsaturated Iron Binding 190 ug/dL
[2024-09-22 14:40] LABS: Ferritin 423 ng/mL (10-250)
[2024-09-23 08:29] LABS: Hepatitis A Antibody IgM 0.16 Index (0-0.79); Hepatitis B Core Antibody Nonreactive (Nonreactive); Hepatitis B Surface Antigen Negative (Negative); ~HepC Num1 0.23 S/CO (0.00-0.79); ~Hepatitis A Antibody IgM Nonreactive (Nonreactive); ~Hepatitis B Surface Antibody REACTIVE (Nonreactive); ~Hepatitis C Antibody Nonreactive (Nonreactive)
[2024-09-27 09:28] LABS: Smooth Muscle Antibody 27 U (<20)
[2024-09-28 18:59] LABS: FIB-ALT 27 U/L (6-29); FIB-Alpha-2-Macroglobulin 220 mg/dL (106-279); FIB-Apolipoprotein A1 222 mg/dL (101-198); FIB-GGT 268 U/L (3-65); FIB-Haptoglobin 245 mg/dL (43-212); FIB-Total Bilirubin 0.8 mg/dL (0.2-1.2); Liver Fibrosis Score 0.27; Liver Fibrosis Stage F1; Nec Inflam Act Grade A0; Nec Inflam Act Score 0.12
[2024-09-29 07:13] LABS: Anti Nuclear Antibody Pattern Nuclear, Speckled; Anti Nuclear Antibody Screen POSITIVE (NEGATIVE)
== END 2024-09-22 10:48 | disposition home or self-care (01) ==
LOC: HO.10HDL 10:47
PROVIDERS: Visit Provider Internal Medicine Gastroenterology
DX: R79.89 Other specified abnormal findings of blood chemistry (principal)
CPT/HCPCS: 36415; 80076; 81596; 82728; 83540; 85025; 86015; 86038; 86039; 86381; 86704; 86706; 86709; 86803; 87340

== ENCOUNTER → 2024-10-05 08:53 | Outpatient (BNV) | payer BC, SELFPAY | PROVIDERS: Visit Provider Internal Medicine | DX: Z80.3 Family history of malignant neoplasm of breast (principal) | CPT/HCPCS: 77049 ==

== ENCOUNTER 2024-10-05 09:01 | Outpatient (REF) | payer BC, SELFPAY ==
--- OUTSIDE RECORDS SUMMARY | 2024-10-05 09:32 | XMS_ITS ---
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 Name Role Phone Vaibhav Mccormack MD Primary Care Provider Camden Perry Jr REASON FOR VISIT requesting bloodwork results Encounters Encounter Location Date Provider Diagnosis [facility] [address] [facility] [address] [place] [phone] 10/04/2024 Camden Dennis Jr Abnormal LFTs R79.89 Assessments Encounter Date Diagnosis (ICD Code) Assessment Notes Treatment Notes Treatment Clinical Notes Section Notes 10/04/2024 Abnormal LFTs (ICD-10 - R79.89) Plan Of Treatment Pending Test Test Name Order Date LIVER PROFILE 10/04/2024 Next Appt Details Provider Name:Camden acosta Jr, 12/12/2024 10:40:00 AM, [address] [facility], [address] [facility], [place], [address], Progress Notes * BRIDGET RODRIGUEZ EDOB:1960 (64 yo F)Acc No.[id number]:10/04/2024 Patient:?BRIDGET RODRIGUEZ :1960???Age:64 Y???Sex:Female Address:[address] [place] [address], [address] Subjective: * Chief Complaints: * ???Requesting bloodwork resu lts * Medical History:? * Surgical History:? * Hospitalization/Major Diagno stic Procedure:? * Medications:? Objective: * Vitals:? * Physical Examination:? Assessment: * Assessment: 1.?Abnormal LFTs - R79.89 (P rimary)??? Plan: * Treatment: * Procedure Codes:? * * Date:?
--- OUTSIDE RECORDS SUMMARY | 2024-10-05 09:32 | XMS_ITS | Patient Health Record ---
Author Organization [facility] Address [address] [place] [address] Care Team Providers Care Quality Improvement Manager Name Role Phone Easton MARION, Vaibhav Primary Care Provider Camden Perry Jr Unavailable [phone] Allergies No Known Allergies Results Component Value Reference Range Notes Complete Blood Count Auto Di ff Reviewed date:09/26/2024 08:04:46 AM Interpretation: Performing Lab:[facility], [address] [place] [phone] Notes/Report: White Blood Count 7.6 4.8-10.8 X10*3/uL Red Blood Count 3.43 4.20-5.50 X10*6/uL Hemoglobin 11.7 12.0-16.0 g/dl Hematocrit 34.6 37.0-47.0 % Mean Corpuscular Volume 100.9 80.0-98.0 fL Mean Corpuscular Hemoglobin 34.1 27.0-33.0 pg Mean Corpuscular HGB Conc 33.8 31.0-35.0 g/dl Red Cell Distribution Width 13.0 11.0-16.0 % Platelet Count 193 160-400 X10*3/uL Mean Platelet Volume 9.1 9.4-12.3 fL Neutrophils Percent Auto 72.1 45-73 % Imm Gran Pct Auto 0.5 0.0-0.4 % Lymphocytes Percent Auto 13.0 20-40 % Monocytes Percent Auto 12.3 2-11 % Eosinophils Percent Auto 1.3 0-4 % Basophils Percent Auto 0.8 0-2 % NRBC Pct Auto 0.0 0.0-0.2 /100WBC Neutrophils Absolute Auto 5.5 2.0-8.3 x10*3/u L Imm Gran Abs Auto 0.04 0.00-0.03 X10*3/uL Lymphocytes Absolute Auto 1.0 1.2-4.9 X10*3/u L Monocytes Absolute Auto 0.9 0.1-1.2 X10*3/uL Eosinophils Absolute Auto 0.1 0.0-0.4 X10*3/u L Basophils Absolute Auto 0.1 0.0-0.2 X10*3/uL NRBC Abs Auto 0.000 0.0-0.012 X10*3/uL Liver Panel Reviewed date:09/26/2024 08:05:10 AM Interpretation: Performing Lab:[address] [phone] Notes/Report: Bilirubin Total 1.0 0.0-1.0 mg/dL Bilirubin Direct 0.4 0.0-0.5 mg/dL Aspartate Amino Transferase 69 5-31 U/L Alanine Aminotransferase 36 0-31 U/L Total Protein 6.7 6.5-8.0 g/dL Albumin Level 3.8 3.5-5.0 g/dL Alkaline Phosphatase 88 39-117 U/L IRON PROFILE Reviewed date:09/26/2024 08:04:57 AM Interpretation: Performing Lab:[address] [phone] Notes/Report: Iron 66 30-160 mcg/dL Total Iron Binding Capacity 256 228-428 mcg/dL Percent Iron Saturation 26 15-50 % Unsaturated Iron Binding 190 Ferritin Reviewed date:09/26/2024 08:04:55 AM Interpretation: Performing Lab:[address] [phone] Notes/Report: Ferritin 423 10-250 ng/mL Liver Fibrosis Pnl Reviewed date:10/01/2024 03:14:47 PM Interpretation: Performing Lab:[address] [phone] Notes/Report: Liver Fibrosis Score 0.27 Liver Fibrosis Stage F1 Liver Fibrosis Interpretation SEE NOTE minimal fibrosis Fibro Test Score (f) Metavir Score f>=0 and f<=0.21 : F0 (no fibrosis) f>0.21 and f<=0.27 : F0-F1 (no fibrosis) f>0.27 and f<=0.31 : F1 (minimal fibrosis) f>0.31 and f<=0.48 : F1-F2 (minimal fibrosis) f>0.48 and f<=0.58 : F2 (moderate fibrosis) f>0.58 and f<=0.72 : F3 (advanced fibrosis) f>0.72 and f<=0.74 : F3-F4 (advanced fibrosis) f>0.74 and f<=1.00 : F4 (severe fibrosis) Nec Inflam Act Score 0.12 Nec Inflam Act Grade A0 Nec Inflam Act Interpretation SEE NOTE no activity ActiTest Score (a) Metavir Score a>=0 and a<=0.17 : A0 (no activity) a>0.17 and a<=0.29 : A0-A1 (no activity) a>0.29 and a<=0.36 : A1 (minimal activity) a>0.36 and a<=0.52 : A1-A2 (minimal activity) a>0.52 and a<=0.60 : A2 (significant activity) a>0.60 and a<=0.62 : A2-A3 (significant activity) a>0.62 and a<=1.00 : A3 (severe activity) ABU-Zycag-2-Macroglobulin 220 106-279 mg/dL FIB-Haptoglobin 245 43-212 mg/dL FIB-Apolipoprotein A1 222 101-198 mg/dL FIB-Total Bilirubin 0.8 0.2-1.2 mg/dL FIB-GGT 268 3-65 U/L FIB-ALT 27 6-29 U/L Reference ID [id number] Footnote SEE NOTE The reliability of results is dependent on compliance with the preanalytical and analytical conditions recommended by [employer]. The tests have to be deferred for: acute hemolysis, acute hepatitis, acute inflammation, extra hepatic cholestasis. The advice of a specialist should be sought for interpretation in chronic hemolysis and Gilbert's syndrome. The test interpretation is not validated in liver transplant patients. Isolated extreme values of one of the components should lead to caution in interpreting the results. In case of discordance between a biopsy result and a test, it is recommended to seek the advice of a specialist. The causes of these discordances could be due to a flaw of the test or to a flaw in the biopsy: i.e. a liver biopsy has a 33% variability rate for one fibrosis stage. FibroTest is interpretable for chronic hepatitis B and C, alcoholic and non alcoholic steatosis. ActiTest is interpretable for chronic hepatitis B and C. The performance characteristics have been determined by [employer] [facility]. It has not been cleared or approved by the U.S. Food and Drug Administration. Performance characteristics refer to the analytical performance of the test. [employer], the associated logo, [facility] and all associated [employer] parks are the registered trademarks of [employer]. All third constitution party parks - (R) and (TM) - are the property of their respective owners. (C) 2728-4385 [employer]. All rights reserved. THIS TEST WAS PERFORMED AT: [facility] [facility] [address] [place] [address] DANY COTTON MD,PHD,LATHA SONIA Reflex Titer and Pattern Reviewed date:10/01/2024 03:14:36 PM Interpretation: Performing Lab:[facility], [address] [place] [phone] Notes/Report: Anti Nuclear Antibody Screen POSITIVE NEGATIVE SONIA IFA is a first line screen for detecting the presence of up to approximately 150 autoantibodies in various autoimmune diseases. A positive SONIA IFA result is suggestive of autoimmune disease and reflexes to titer and pattern. Further laboratory testing may be considered if clinically indicated. For additional information, please refer to http://education.I Had Cancer/faq/FAQ1 77 (This link is being provided for informational/ educational purposes only.) Anti Nuclear Antibody Titer 1:1280 Reference Range <1:40 Negative 1:40-1:80 Low Antibody Level >1:80 Elevated Antibody Level Anti Nuclear Antibody Pattern Nuclear, Speckled Speckled pattern is associated with mixed connective tissue disease (MCTD), systemic lupus erythematosus (SLE), Sjogren's syndrome, dermatomyositis, and systemic sclerosis/polymyositis overlap. AC-2,4,5,29: Speckled International Consensus on SONIA Patterns (https://doi.org/10.151 5/tsuu-5842-0965) THIS TEST WAS PERFORMED AT: [employer] [address] [place] [phone] BRYAN HENDRICKS MD SONIA Titer 2 TNP SONIA Pattern 2 TNP SONIA Titer 3 TNP SONIA Pattern 3 TNP Mitochondrial Antibody Reviewed date:10/04/2024 03:48:15 PM Interpretation: Performing Lab:[facility], [address] [place] [phone] Notes/Report: Mitochondrial Antibodies SEE NOTE NEGATIVE The AMA pattern is atypical. Faint cytoplasmic staining is observed in the kidney cells only. Consider requesting order code [id number], Mitochondria M2 Antibody (IgG), EIA, if clinically indicated. THIS TEST WAS PERFORMED AT: [employer] [address] [place] [phone] BRYAN HENDRICKS MD Mitochondrial Ab Titer TNP Smooth Muscle Antibody Reviewed date:10/04/2024 03:40:59 PM Interpretation: Performing Lab:[facility], [address] [place] [phone] Notes/Report: Smooth Muscle Antibody 27 <20 U Reference Range: <20 U: Negative >or=20 U: Positive Antibodies recognizing actin are the main component of smooth muscle antibodies associated with auto- immune liver disease. Actin antibodies are found in approximately 75% of patients with autoimmune hepatitis (AIH) type 1, approximately 65% of patients with autoimmune cholangitis, approximately 30% of patients with primary biliary cirrhosis and approximately 2% of healthy controls. High values are closely correlated with AIH type 1. THIS TEST WAS PERFORMED AT: [facility] [phone] JIMENEZ TIDWELL MD,PHD Hepatitis A,B,C Profile Reviewed date:09/26/2024 08:03:54 AM Interpretation: Performing Lab:[facility], [address] [place] [phone] Notes/Report: Hepatitis A Antibody IgM Nonreactive Nonreactive IgM antibodies to HAV not detected; does not exclude early acute or recovered HAV infection. Hepatitis B Surface Antibody REACTIVE Nonreactive REACTIVE: > 11.99 mIU/mL Hepatitis B Core Antibody Nonreactive Nonreactive Hepatitis C Antibody Nonreactive Nonreactive Antibodies to HCV not detected; does not exclude early acute HCV infection. Hepatitis B Surface Antigen Negative Negative Reason For Referral No Information Medications Medication SIG (Take, Route, Frequency, Duration) Notes Start Date End Date Status Carvedilol 6.25 MG TAKE 1 TABLET BY TH TWICE A DAY Oral for 90 Active Losartan Potassium 50 MG TAKE 1 TABLET B Y MOUTH EVERY DAY Oral for 90 Active Omeprazole 20 MG Oral for 90 A ctive Atorvastatin Calcium 20 MG Oral for 90 Active Beano Active Immunizations Vaccine Route Administration Date Status Comme nts Influenza Unknown 04/19/2024 Administered Social History Tobacco Use: Social History Observation Description Date Details (start date - stop date) Never Smoker NA - NA Tobacco Use/Smoking Question Answer Notes Patient is a nonsmoker Alcohol Screen Question Answer Notes Did you have a drink contain ing alcohol in the past year? Yes How often did you have a dri nk containing alcohol in the past year? 2 to 3 times a week (3 points) How many drinks did you have on a typical day when you were drinking in the past year? 1 or 2 drinks (0 point) How often did you have 6 or more drinks on one occasion in the past year? Never (0 point) Points 3 Interpretation Positive Problems Problem Type SNOMED Code ICD Code Onset Dates Problem Status W/U Status Risk Notes Problem [id number] Elevated LFTs (R79.89) Active confirmed Vital Signs Temperature 97.1 degrees Fahrenheit 08/08/2024 Blood pressure diastolic 00 mm Hg 08/08/2024 Height 5 ft 4 in in 08/08/2024 Blood pressure systolic 000 mm Hg 08/08/2024 Weight 160 lbs 08/08/2024 BMI 27.46 kg/m2 08/08/2024 Encounters Encounter Location Date Provider Diagnosis [facility] [address] [place] [phone] 08/08/2024 Camden Dennis Jr Elevated LFTs R79.89 [facility] [address] [place] [phone] 10/04/2024 Camden Dennis Jr Abnormal LFTs R79.89 Assessments Encounter Date Diagnosis (ICD Code) Assessment Notes Treatment Notes Treatment Clinical Notes Section Notes 08/08/2024 Elevated LFTs (ICD-10 - R79.89) We discussed the causes of elevated liver function tests today. We discussed fatty liver. We discussed limiting or discontinuing alcohol use. She will have further evaluation with metabolic, viral, and autoimmune markers. Liver fibrosis testing will also be obtained. Followup will be in 3-6 months. 10/04/2024 Abnormal LFTs (ICD-10 - R79.89) Plan Of Treatment Pending Test Test Name Order Date LIVER PROFILE 10/04/2024 LIVER PROFILE 08/08/2024 IRON + IBC (FE) 08/08/2024 FERRITIN 08/08/2024 CBC w/o DIFF 08/08/2024 HEPATITIS A,B,C PROFILE 08/08/2024 MITOCHONDRIAL AB 08/08/2024 SMOOTH MUSCLE ANTIBODIES 08/08/2024 Liver Fibrosis Pnl 08/08/2024 SONIA Reflex Titer and Pattern 08/08/2024 Next Appt Details Provider Name:Camden acosta Jr, 12/12/2024 10:40:00 AM, [address] [place] [address], [address], [place], [address], Insurance Providers Payer Name Payer Address Payer Phone Subscriber Number Group Number Insured Name Patient Relationship to Insured Coverage Start Date Coverage End Date [facility] [address] [place] [address] [id number] BRIDGET RODRIGUEZ Self - patient is the insured Medical (General) History Medical History History ICD Code Gastroesophageal reflux disease Perforated diverticulitis Hyperlipidemia Hypertension Surgical History Surgery Date(Month/Year) Perforated diverticulitis with Alexander procedure and reversal 2019 Repair of large incisional hernia 04/19
--- OUTSIDE RECORDS SUMMARY | 2024-10-05 09:32 | XMS_ITS ---
Author Organization [facility] Address [address] [place] [address] Care Team Providers Care Marker Shipments Name Role Phone Vaibhav Mccormack MD Primary Care Provider Camden Perry Jr Unavailable Allergies No Known Allergies REASON FOR VISIT Patient presents today for elevated liver function tests Medications Medication SIG (Take, Route, Frequency, Duration) Notes Start Date End Date Status Carvedilol 6.25 MG TAKE 1 TABLET BY PANDA TWICE A DAY Oral for 90 Active Losartan Potassium 50 MG TAKE 1 TABLET B Y MOUTH EVERY DAY Oral for 90 Active Omeprazole 20 MG Oral for 90 A ctive Atorvastatin Calcium 20 MG Oral for 90 Active Beano Active Social History Tobacco Use: Social History Observation [...] Problem Status W/U Status Risk Notes Problem [id number] Elevated LFTs (R79.89) Active confirmed Vital Signs Temperature 97.1 degrees Fahrenheit 08/08/19 25 Blood pressure systolic 000 mm Hg 08/08/19 25 Blood pressure diastolic 00 mm Hg 025 Height 5 ft 4 in in 08/08/2024 Weight 160 lbs 08/08/2024 BMI 27.46 kg/m2 08/08/2024 Encounters Encounter Location Date Provider Diagnosis [facility] [address] [place] [address] 08/08/2024 Camden Dennis Jr Elevated LFTs R79.89 Assessments Encounter Date Diagnosis (ICD [...] obtained. Followup will be in 3-6 months. Plan Of Treatment Pending Test Test Name Order Date LIVER PROFILE 08/08/2024 IRON + IBC (FE) 08/08/2024 FERRITIN 08/08/2024 CBC w/o DIFF 08/08/2024 HEPATITIS A,B,C PROFILE 08/08/2024 MITOCHONDRIAL AB 08/08/2024 SMOOTH MUSCLE ANTIBODIES 08/08/2024 Liver Fibrosis Pnl 08/08/2024 SONIA Reflex Titer and Pattern 08/08/2024 Next Appt Details Follow Up: 3 Months, 6 Month s, Reason: Provider Name:Camden acosta Jr, 12/12/2024 10:40:00 AM, [address] [facility] [address] [facility], [address], [place], [address], Progress Notes * BRIDGET RODRIGUEZ EDOB:1960 (64 yo F)Acc No.[id number]:08/08/2024 Progress Notes Patient:?BRIDGET RODRIGUEZ Provider:?Camden Dennis MD :1960???Age:64 Y???Sex:Female D ate:08/08/2024 Address:[address] [place], [place] [id number] Pcp:Vaibhav Mccormack MD Subjective: * Chief Complaints: * ???1. Patient presents today for elevated liver function tests. * HPI: ???New symptom(s):? The patient is a pleasant 64-year-old woman seen today in consultation. She has a history of diverticulitis with stricturing and underwent surgery in January of 2021 with sigmoid resection and colostomy at the time of surgery she had drainage of a diverticular abscess. She subsequently underwent reversal with an ileostomy and then reversal of ileostomy. She does have a previous history of tubular adenomas in previous colonoscopy in August of 2020 showed a cecal tubular adenoma. We reviewed this today. She has complaints of liquid bowel movements occurring 2-3 times every couple of days. She takes Beano for this which does not seem to help. ?She had blood work through her primary care providers office in April showing elevation of her liver function tests with AST of 208, ALT 74, alkaline phosphatase 143. Subsequent imaging was done including ultrasound which showed diffusely echogenic liver consistent with hepatic steatosis. She had a followup CT scan because of a kidney lesion in her liver on the CT scan showed hepatomegaly with fatty infiltration. We reviewed this today. ?She has no history of liver disease. She denies significant alcohol intake. There is no family history of liver disease. She has no risk factors for hepatitis. * ROS:?General/Constitutional:?Change in appetite?denies.?Fatigue?denies.?ENT:?Patient denies?difficulty swallowing.?Respiratory:?Patient denies?shortness of breath.?Cardiovascular:?Patient denies?chest pain.?Gastrointestinal:?Comments?See HPI for details.?Genitourinary:?Difficulty urinating?denies.?Incontinence?denies.?Musculoskeletal:?Patient denies?muscle aches.?Skin:?Patient denies?pruritis.?Neurologic:?Patient denies?low back pain.?Psychiatric:?Patient denies?mental or physical abuse.? * Medical History:?Gastroesoph ageal reflux disease, Perforated diverticulitis, Hyperlipidemia, Hypertension. * Surgical History:?Perforated diverticulitis with Alexander procedure and reversal 2020, Repair of large incisional hernia 04/19. * Family History:?Father: dece ased.?Mother: .? No family history of liver cancer. Father's mother had colon cancer. * Social History:?Tobacco Use:?Tobacco Use/Smoking?Patient is a?nonsmoker.?Drugs/Alcohol:?Alcohol Screen?Did you have a drink containing alcohol in the past year??Yes,?How often did you have a drink containing alcohol in the past year??2 to 3 times a week (3 points),?How many drinks did you have on a typical day when you were drinking in the past year??1 or 2 drinks (0 point),?How often did you have 6 or more drinks on one occasion in the past year??Never (0 point),?Points?3,?Interpretation?Positive.?Miscellaneous:?Marital status: . Occupation: retired. * Medications:?Taking Beano , Taking Atorvastatin Calcium 20 MG Tablet Oral , Taking Losartan Potassium 50 MG Tablet TAKE 1 TABLET BY MOUTH EVERY DAY Oral , Taking Carvedilol 6.25 MG Tablet TAKE 1 TABLET BY MOUTH TWICE A DAY Oral , Taking Omeprazole 20 MG Capsule Delayed Release Oral , Medication List reviewed and reconciled with the patient * Allergies:?N.K.D.A. Objective: * Vitals:?Wt: 160 lbs, Ht: 5 f t 4 in, BMI:27.46 Index, BP: 000/00 mm Hg, Temp: 97.1. * Examination: ???General Examination: ?GENERAL APPEARANCE:?in no acute distress.?HEAD:?normocephalic.?EYES:?sclera non-icteric.?ORAL CAVITY:?mucosa moist.?NECK/THYROID:?no lymphadenopathy.?SKIN:?anicteric.?HEART:?S1, S2 normal, no murmurs.?LUNGS:?clear to auscultation bilaterally.?CHEST:?normal shape and expansion.?ABDOMEN:?soft, nontender, nondistended, bowel sounds present, no organomegaly .?EXTREMITIES:?no clubbing, cyanosis, or edema.?PSYCH:?cognitive function intact.? Assessment: * Assessment: 1.?Elevated LFTs - R79.89 (P rimary)? We discussed the causes of e levated liver function tests today. We discussed fatty liver. We discussed limiting or discontinuing alcohol use. She will have further evaluation with metabolic, viral, and autoimmune markers. Liver fibrosis testing will also be obtained. Followup will be in 3-6 months. Plan: * Treatment: * Procedure Codes:?3017F COLOR ECTAL CA SCREEN DOC REV, G9903 Pt scrn tbco id as non user, G9744 PATIENT NOT ELIG D/T ACTIVE DX HTN * Preventive Medicine:? ??Counseling:?Care goal follow-up plan:?Above Normal BMI Follow-up?Giving encouragement to exercise,?BMI management provided?Yes.? * Follow Up:?3 Months, 6 Month s * * Sign off status: Completed true * Provider:?Camden Dennis MD Date:?0 08/08/2024 Generated for Juice landry/Will/eTransmitting on:?10/05/2024 09:31 AM EDT History and Physical Notes * HPI (History of Present Illness) Category Sub-Category Detail Notes Category Not es New symptom(s) The patient is a pleasant 64-year-old woman seen today in consultation. She has a history of diverticulitis with stricturing and underwent surgery in January of 2021 with sigmoid resection and colostomy at the time of surgery she had drainage of a diverticular abscess. She subsequently underwent reversal with an ileostomy and then reversal of ileostomy. She does have a previous history of tubular adenomas in previous colonoscopy in August of 2020 showed a cecal tubular adenoma. We reviewed this today. She has complaints of liquid bowel movements occurring 2-3 times every couple of days. She takes Beano for this which does not seem to help. She had blood work through her primary care providers office in April showing elevation of her liver function tests with AST of 208, ALT 74, alkaline phosphatase 143. Subsequent imaging was done including ultrasound which showed diffusely echogenic liver consistent with hepatic steatosis. She had a followup CT scan because of a kidney lesion in her liver on the CT scan showed hepatomegaly with fatty infiltration. We reviewed this today. She has no history of liver disease. She denies significant alcohol intake. There is no family history of liver disease. She has no risk factors for hepatitis. Examination Category Sub-Category Detail Notes Category Not es General Examination GENERAL APPEARANCE: in no acute di stress HEAD: normocephalic EYES: sclera non-icteric NECK/THYROID: no lymphadenopathy HEART: S1, S2 normal, no mu rmurs CHEST: normal shape and exp ansion LUNGS: clear to auscultatio n bilaterally ABDOMEN: soft, nontender, non distended, bowel sounds present, no organomegaly SKIN: anicteric EXTREMITIES: no clubbing, cyanosi s, or edema PSYCH: cognitive function i ntact ORAL CAVITY: mucosa moist
[2024-10-05] MEDS: gadobutroL 7.5 ML VIAL IVPUSH (09:54)
== END 2024-10-05 09:02 | disposition home or self-care (01) ==
LOC: HO.MRI 09:01
PROVIDERS: Visit Provider Surgery
DX: Z15.89 Genetic susceptibility to other disease (principal); Z15.01 Genetic susceptibility to malignant neoplasm of breast; Z15.09 Genetic susceptibility to other malignant neoplasm
CPT/HCPCS: 77049; A9585

== ENCOUNTER 2024-11-25 09:53 | Outpatient (AMB) | payer BC, SELFPAY ==
--- NOTE | 2024-11-25 10:00 | A.OFFPC_ITS ---
Vital Signs 11/25/24 10:03 Height 5 ft 5 in Weight 74.843 kg BMI 27.5 BP 112/68 Respiration 16 Pulse 77 Pulse Source Pulse Oximeter Temp 97.0 F Temp Source Temporal Artery Scan Pulse Oximetry (%) 98 Oxygen Delivery Method Room Air Intake Visit Reasons: Routine Research Associate Quality Control Qc Required: No Accompanied by: Self / Same As Patient Allergies No Known Allergies [No Known Allergies*] Allergy (Verified 11/25/24 10:02) Medication List - Last Reconciled 11/25/24 by TYESHA Akers atorvastatin 1 tab PO BEDTIME carvedilol 6.25 mg See Protocol PO BID folic acid 1 mg PO DAILY L. acidophilus-L. rhamnosus 15 billion cell (Probiotic) 1 cap PO DAILY losartan 1 tab PO DAILY omeprazole 20 mg PO BID thiamine HCl (vitamin B1) 100 mg PO DAILY HPI HPI Comments History of Present Illness Details 64-year-old female with history of hyper tension, hyperlipidemia, GERD, hepatic steatosis, and alcohol use disorder presents to the office today for management of chronic conditions and to establish care. She has no concerns at today's visit. IBS-C, has increased fiber intake with some improvement in symptoms. Sonny following Hepatic steatosis- Following with Dr. Dennis monitoring LFTs with steady improved thoguh AST/BLANCA elevated, bili wnl. Has been cutting back on alcohol HTN- BP 112/68. Compliant with coreg 6.125mg bid and losartan 50mg daily. GERD- controlled on omeprazole 20mg BID and avoidance of triggers. AUD- hx hospitalization 2022 d/t alcohol withdrawal with seizures and metabolic encephalopathy, has since cut back but still drinking 2-3 glasses wine several days per week Has been referred to rheum given SONIA titer 1:1280 with speckled appearance. Endoses polyarthraralgia, awaiting appt jan at [facility] Health Maintenance: Last mammo abn L breast ref for MRI- Breast MRI 10/05/24- negative for malignancy. Following with Dr. Velasquez. breast cancer sister age 71 Last colonoscopy 08/2020 with tubular adenoma, duet 08/2025 ROS: General: No fevers, malaise, unintentional weight loss HEENT: No blurred vision, diplopia. No sore throat, nasal congestion, rhinorrhea, sinus pain, ear pain Cardiovascular: No chest pain, palpitations, or leg edema Respiratory: No shortness of breath, wheezing, cough GI: No abdominal pain, nausea, vomiting, diarrhea, constipation, melena, hematochezia : No dysuria, hematuria, increased urinary frequency, decreased urinary output MSK: No myalgia, back pain Neuro: No headaches, weakness, paresthesias Skin: No rashes or lesions EXAM: Constitutional - Awake and Alert, No apparent distress Eyes - PERRL Cardiovascular - S1S2, RRR, No edema Respiratory - Normal lung expansion, Normal respiratory effort, No respiratory distress, CTA bilaterally Extremities - no calf tenderness bilaterally, no swelling Skin - Warm/Dry Neurological - Alert & oriented x3, Psychological - Appropriate affect COUNT INCLUDES THE [facility] Medical History (Updated 11/25/24 @ 10:33 by TYESHA Akers) Macrocytic anemia Hepatic steatosis Breast calcification, left Monoallelic mutation of JOSH gene Family history of pancreatic cancer Family history of breast cancer Incisional pain Incisional hernia Incisional hernia Seasonal allergies History of COVID-19 COVID-19 vaccine series completed Diverticulitis High cholesterol Osteoarthritis of left hip Hypertension Hematuria Acid reflux Surgical History History of reversal of ileostomy History of colostomy reversal Hx of bilateral inguinal hernia repair History of colon resection Hx of cystoscopy H/O colonoscopy Status post Alexander procedure History of dental surgery H/O total hysterectomy with bilateral salpingo-oophorectomy (BSO) Status post total hip replacement, left (~06/07/19) Family History Father Cancer Mother Cancer Maternal Grandmother Colon cancer Sister Breast cancer Other Tubular adenoma Social History Household Members: Spouse and Children Housing: House Are you a primary caretaker resort to a significant other at home: No Do you presently have visiting nurse or other home services: No Alcohol intake: current Alcohol intake frequency: a few times a week Alcohol type: wine Comment: pt has [employer] Patient Tobacco Use Status: Never used Tobacco Second Hand Smoke Exposure: No Advance Directives Date on File: 08/02/21 service: No Current occupational status: retired Current occupation: [employer]- right handed Questionnaire PHQ-9 Over the last 2 weeks, how often have you been bothered by any of the following problems? 1. Little interest or pleasure in doing things: not at all 2. Feeling down, depressed, or hopeless: not at all 3. Trouble falling or staying asleep, or sleeping too much: not at all 4. Feeling tired or having little energy: not at all 5. Poor appetite or overeating: several days 6. Feeling bad about yourself - or that you are a failure or have let yourself or your family down: not at all 7. Trouble concentrating on things, such as reading the newspaper or watching television: not at all 8. Moving or speaking so slowly that other people could have noticed. Or the opposite - being so fidgety or restless that you have been moving around a lot more than usual: not at all 9. Thoughts that you would be better off or of hurting yourself in some way: not at all Total score: 1 Source: Developed by Drs. Hayden Das, Angely Nickerson, Carson Amor and colleagues, with an educational malu from [employer]. Thrive Questionnaire I am a: Patient What is your living situation today?: I have a steady place to live Within the past 12 months, did the food you bought not last and you didn't have the money to get more?: Never true Within the past 12 months, did you worry whether your food would run out before you got money to buy more?: Never true Do you have trouble paying for medicines?: No Do you have trouble getting transportation to medical appointments?: No Do you have trouble paying your heating and electricity bill?: No Do you have trouble taking care of your child, family member or friend?: No Do you have trouble with day-to-day activities such as bathing, preparing meals, shopping, managing finances, etc.?: No Are you currently unemployed and looking for a job?: No Are you interested in more education?: No Please select the resources that you would like help with: None THRIVE Score: 0 PETE-7 AMB Questionnaire PETE-7 Date PETE - 7 assessed: 11/25/24 Feeling nervous, anxious, or on edge: 0 = Not at all Not being able to stop or control worryin = Not at all Worrying too much about different things: 0 = Not at all Trouble relaxin = Not at all Being so restless that it is hard to sit still: 0 = Not at all Becoming easily annoyed or irritable: 0 = Not at all Feeling afraid as if something awful might happen: 0 = Not at all Total PETE-7 score (0-4 normal; 5-9 mild; 10-14 moderate; 15-21 severe): 0 Source: Developed by Drs. Hayden Das, Angely Nickerson, Carson Amor and colleagues, with an educational malu from [employer]. Physical exam (Primary Care) Vital Signs: Last Vital Signs Temp 97.0 F 11/25/24 10:03 Pulse 77 11/25/24 10:03 Resp 16 11/25/24 10:03 BP 112/68 11/25/24 10:03 Pulse Ox 98 11/25/24 10:03 Oxygen Delivery Method Room Air 11/25/24 10:03 BMI result Body Mass Index 27.5 Tobacco/Smoking Status: Tobacco use Status Patient Tobacco Use Status Never used Tobacco 11/25/24 10:02 Coding Level of Care Code New Pt Level 4 (98537) Complex EM visit Add On G2211 Diagnoses HTN (hypertension) I10 Hyperlipidemia E78.5 Alcohol abuse F10.10 Hepatic steatosis K76.0 Assessment & Plan Assessment & Plan (1) HTN (hypertension): Code(s): I10 - Essential (primary) hypertension Category: Medical Plan: Controlled with BP 112/60. Continue carvedilol 6.125 mg twice daily and losartan 50 mg daily. BMP ordered to evaluate renal function and electrolyte levels. Low sodium diet (2) Hyperlipidemia: Code(s): E78.5 - Hyperlipidemia, unspecified Category: Medical Plan: Lipid panel orderd. Continue lipitor. Diet low in saturated fats and higihly processed foods. (3) Alcohol abuse: Code(s): F10.10 - Alcohol abuse, uncomplicated Category: Social Hx Plan: Ongoing but has cut back on consumption. Reports 2-3 glasses of wine several times weekly, not daily. Still exceeding recommended intake of less than 7 drinks per week in female patient. Liver enzymes however are trending down. Continue with cessation efforts. Add thiamine and folic acid. (4) Hepatic steatosis: Code(s): K76.0 - Fatty (change of) liver, not elsewhere classified Category: Medical Plan: LFTs improving. Most recent liver imaging reviewed. Continue following with GI. Avoid hepatotoxins. Liver panel ordered Plan Follow up in 6 months. Labs to be completed following visit and prior to next visit. Continue following with GI. Meds as ordered Orders: Orders Lipid Panel Today D53.9 - Nutritional anemia, unspecified, F10.10 - Alcohol abuse, uncomplicated, I10 - Essential (primary) hypertension, K76.0 - Fatty (change of) liver, not elsewhere classified, Z13.1 - Encounter for screening for diabetes mellitus Vitamin B12 Today D53.9 - Nutritional anemia, unspecified, F10.10 - Alcohol abuse, uncomplicated, I10 - Essential (primary) hypertension, K76.0 - Fatty (change of) liver, not elsewhere classified, Z13.1 - Encounter for screening for diabetes mellitus Complete Blood Count Auto Diff 6 Months D53.9 - Nutritional anemia, unspecified Basic Metabolic Panel Today D53.9 - Nutritional anemia, unspecified, F10.10 - Alcohol abuse, uncomplicated, I10 - Essential (primary) hypertension, K76.0 - Fatty (change of) liver, not elsewhere classified, Z13.1 - Encounter for screening for diabetes mellitus Complete Blood Count Auto Diff Today D53.9 - Nutritional anemia, unspecified, F10.10 - Alcohol abuse, uncomplicated, I10 - Essential (primary) hypertension, K76.0 - Fatty (change of) liver, not elsewhere classified, Z13.1 - Encounter for screening for diabetes mellitus Hemoglobin A1c Today D53.9 - Nutritional anemia, unspecified, F10.10 - Alcohol abuse, uncomplicated, I10 - Essential (primary) hypertension, K76.0 - Fatty (change of) liver, not elsewhere classified, Z13.1 - Encounter for screening for diabetes mellitus Liver Panel Today D53.9 - Nutritional anemia, unspecified, F10.10 - Alcohol abuse, uncomplicated, I10 - Essential (primary) hypertension, K76.0 - Fatty (change of) liver, not elsewhere classified, Z13.1 - Encounter for screening for diabetes mellitus Vitamin B6 Today D53.9 - Nutritional anemia, unspecified, F10.10 - Alcohol abuse, uncomplicated, I10 - Essential (primary) hypertension, K76.0 - Fatty (change of) liver, not elsewhere classified, Z13.1 - Encounter for screening for diabetes mellitus Vitamin D 25-OH Total Today D53.9 - Nutritional anemia, unspecified, F10.10 - Alcohol abuse, uncomplicated, I10 - Essential (primary) hypertension, K76.0 - Fatty (change of) liver, not elsewhere classified, Z13.1 - Encounter for screening for diabetes mellitus Basic Metabolic Panel 6 Months E78.5 - Hyperlipidemia, unspecified, F10.10 - Alcohol abuse, uncomplicated, I10 - Essential (primary) hypertension, K76.0 - Fatty (change of) liver, not elsewhere classified Lipid Panel 6 Months E78.5 - Hyperlipidemia, unspecified, F10.10 - Alcohol abuse, uncomplicated, I10 - Essential (primary) hypertension, K76.0 - Fatty (change of) liver, not elsewhere classified Liver Panel 6 Months E78.5 - Hyperlipidemia, unspecified, F10.10 - Alcohol abuse, uncomplicated, I10 - Essential (primary) hypertension, K76.0 - Fatty (change of) liver, not elsewhere classified Medications: New thiamine HCl (vitamin B1) 100 mg PO DAILY 90 caps 1RF losartan 50 mg PO DAILY 90 tabs 1RF folic acid 1 mg PO DAILY 90 tabs 1RF
[2024-11-25 10:03] VITALS: BP 112/68; PULSE 77; RESP 16; TEMP 36.1; O2SAT 98; BMI 27.5
--- OUTSIDE RECORDS SUMMARY | 2024-11-25 10:22 | XMS_ITS ---
Author Organization [facility] Address [address] [place] [address] Care Team Providers Care Pan Shover Name Role Phone Vaibhav Mccormack MD Primary Care Provider Camden Perry Jr Unavailable [phone] Allergies No Known Allergies REASON FOR VISIT [...] Problem Status W/U Status Risk Notes Problem [id number] Elevated LFTs (R79.89) Active confirmed Vital Signs Temperature 97.1 degrees Fahrenheit 08/08/19 25 Blood pressure systolic 000 mm Hg 08/08/19 25 Blood pressure diastolic 00 mm Hg 025 Height 5 ft 4 in in 08/08/2024 Weight 160 lbs 08/08/2024 BMI 27.46 kg/m2 08/08/2024 Encounters Encounter Location Date Provider Diagnosis [facility] [address] [place] [address] 08/08/2024 Camden Dennis Jr Elevated LFTs R79.89 [...] Name:Camden acosta Jr, 12/12/2024 10:40:00 AM, [address] [facility] [facility], [address], [place], [address], Progress Notes * BRIDGET RODRIGUEZ EDOB:1960 (64 yo F)Acc No.[id number]:08/08/2024 Progress Notes Patient:?BRIDGET RODRIGUEZ Provider:?Camden Dennis MD :1960???Age:64 Y???Sex:Female D ate:08/08/2024 Address:[address] [place], [place] [id number] Pcp:Vaibhav Mccormack MD Subjective: * Chief Complaints: [...] MD Date:?0 08/08/2024 Generated for Juice landry/Will/eTransmitting on:?11/25/2024 10:21 AM EDT History and Physical Notes * [...]
== END 2024-11-25 10:26 | disposition home or self-care (01) ==
LOC: HO.HMCHD 09:54
PROVIDERS: PCP Internal Medicine; Visit Provider Physician Assistant
DX: I10 Essential (primary) hypertension (principal); E78.5 Hyperlipidemia, unspecified; F10.10 Alcohol abuse, uncomplicated; K76.0 Fatty (change of) liver, not elsewhere classified

== ENCOUNTER → 2024-11-25 09:53 | Outpatient (BNVA) | payer BC, SELFPAY | PROVIDERS: PCP Internal Medicine; Visit Provider Physician Assistant ==

== ENCOUNTER 2024-11-25 10:35 | Outpatient (REF) | payer BC, SELFPAY ==
[2024-11-25 13:17] LABS: MANUAL DIFF FLAG NO
[2024-11-25 13:25] LABS: Basophils Absolute Auto 0.1 X10*3/uL (0.0-0.2); Basophils Percent Auto 0.6 % (0-2); Eosinophils Absolute Auto 0.1 X10*3/uL (0.0-0.4); Eosinophils Percent Auto 0.7 % (0-4); Hematocrit 33.7 % (37.0-47.0); Hemoglobin 11.6 g/dl (12.0-16.0); Imm Gran Abs Auto 0.06 X10*3/uL (0.00-0.03); Imm Gran Pct Auto 0.7 % (0.0-0.4); Lymphocytes Absolute Auto 0.9 X10*3/uL (1.2-4.9); Lymphocytes Percent Auto 10.4 % (20-40); Mean Corpuscular HGB Conc 34.4 g/dl (31.0-35.0); Mean Corpuscular Hemoglobin 34.1 pg (27.0-33.0); Mean Corpuscular Volume 99.1 fL (80.0-98.0); Mean Platelet Volume 9.2 fL (9.4-12.3); Monocytes Percent Auto 11.9 % (2-11); Neutrophils Absolute Auto 6.4 x10*3/uL (2.0-8.3); Neutrophils Percent Auto 75.7 % (45-73); Platelet Count 200 X10*3/uL (160-400); Red Cell Distribution Width 13.3 % (11.0-16.0); White Blood Count 8.4 X10*3/uL (4.8-10.8)
[2024-11-25 13:46] LABS: Estimated Average Glucose 103 mg/dL; Hemoglobin A1c % 5.2 % (<6.0)
[2024-11-25 14:07] LABS: Alanine Aminotransferase 47 U/L (0-31); Albumin Level 3.9 g/dL (3.5-5.0); Alkaline Phosphatase 107 U/L (39-117); Anion Gap 14 (12-20); Aspartate Amino Transferase 74 U/L (5-31); Bilirubin Direct 0.5 mg/dL (0.0-0.5); Bilirubin Total 1.2 mg/dL (0.0-1.0); Blood Urea Nitrogen 8 mg/dL (9-16); Calcium 9.3 mg/dL (8.4-10.2); Carbon Dioxide 22 mmol/L (22-29); Chloride 99 mmol/L (96-108); Cholesterol 190 mg/dL (<200); Estimated Glomerular Filt Rate > 60; Glucose Random 112 mg/dL (60-115); HDL Cholesterol 70 mg/dL (>40); LDL Cholesterol Calculated 102 mg/dL (<100); Potassium 4.1 mmol/L (3.3-5.1); Sodium 131 mmol/L (135-145); Total Protein 6.8 g/dL (6.5-8.0); Triglycerides 94 mg/dL (<150)
[2024-11-25 14:13] LABS: Vitamin D 25-OH Total 17.7 ng/mL (>30)
[2024-11-25 14:15] LABS: Vitamin B12 262 pg/mL (200-900)
[2024-11-30 11:48] LABS: Vitamin B6 10.7 ng/mL (2.1-21.7)
== END 2024-11-25 10:36 | disposition home or self-care (01) ==
LOC: HO.10HDL 10:35
PROVIDERS: Visit Provider Physician Assistant
DX: D53.9 Nutritional anemia, unspecified (principal); K76.0 Fatty (change of) liver, not elsewhere classified; I10 Essential (primary) hypertension; F10.10 Alcohol abuse, uncomplicated; Z13.1 Encounter for screening for diabetes mellitus
CPT/HCPCS: 36415; 80048; 80061; 80076; 82306; 82607; 83036; 84207; 85025

== ENCOUNTER 2024-12-07 11:00 | Outpatient (REF) | payer BC, SELFPAY ==
--- OUTSIDE RECORDS SUMMARY | 2024-12-07 12:35 | XMS_ITS ---
Author Organization [facility] Address [address] [place] [address] Care Team Providers Care Medicaid Billing Clerk Name Role Phone Vaibhav Mccormack MD Primary [...] Problem Status W/U Status Risk Notes Problem [id number] Elevated LFTs (R79.89) Active confirmed Vital Signs Temperature 97.1 degrees Fahrenheit 08/08/19 25 Blood pressure systolic 000 mm Hg 08/08/19 25 Blood pressure diastolic 00 mm Hg 025 Height 5 ft 4 in in 08/08/2024 Weight 160 lbs 08/08/2024 BMI 27.46 kg/m2 08/08/2024 Encounters Encounter Location Date Provider Diagnosis [facility] [address] [place] [address] 08/08/2024 Camden Dennis Jr Elevated LFTs R79.89 [...] Name:Camden acosta Jr, 12/12/2024 10:40:00 AM, [address] [facility], [address], [place], [address], Progress Notes * BRIDGET RODRIGUEZ EDOB:1960 (64 yo F)Acc No.[id number]:08/08/2024 Progress Notes Patient:?BRIDGET RODRIGUEZ Provider:?Camden Dennis MD :1960???Age:64 Y???Sex:Female D ate:08/08/2024 Address:[address] [place], [place] [id number] Pcp:Vaibhav Mccormack MD Subjective: * Chief Complaints: [...] MD Date:?0 08/08/2024 Generated for Juice landry/Will/eTransmitting on:?12/07/2024 12:35 PM EDT History and Physical Notes * HPI [...]
[2024-12-07 14:09] LABS: Alanine Aminotransferase 38 U/L (0-31); Albumin Level 3.9 g/dL (3.5-5.0); Alkaline Phosphatase 98 U/L (39-117); Aspartate Amino Transferase 66 U/L (5-31); Bilirubin Direct 0.4 mg/dL (0.0-0.5); Bilirubin Total 0.9 mg/dL (0.0-1.0); Total Protein 6.7 g/dL (6.5-8.0)
== END 2024-12-07 11:01 | disposition home or self-care (01) ==
LOC: HO.10HDL 11:00
PROVIDERS: Visit Provider Internal Medicine Gastroenterology
DX: R79.89 Other specified abnormal findings of blood chemistry (principal)
CPT/HCPCS: 36415; 80076

== ENCOUNTER 2025-03-15 09:10 | Outpatient (REF) | payer BC, SELFPAY ==
--- NOTE | ~2025-03-15 | MM_ITS ---
EXAMINATION: MM SCREENING DIGITAL BREAST TOMOSYNTHESIS, BILATERAL CLINICAL INFORMATION: Screening. Asymptomatic. COMPARISON: Mammography: Comparison is made with available priors TECHNIQUE: Digital breast mammography with tomosynthesis is performed in both the craniocaudal and mediolateral oblique views along with computer-aided detection (CAD). FINDINGS: The breasts are extremely dense, which lowers the sensitivity of mammography (ACR BI-RADS breast composition Category d). Bilateral benign-appearing calcifications are stable. There are no significant masses, abnormal calcifications, or other abnormalities. MM/MM tomosynthesis screening BI IMPRESSION: No mammographic evidence of malignancy. ASSESSMENT: BI-RADS BI-RADS 2 - Benign Findings RECOMMENDATION: Routine annual mammography screening. 1 year F/U This examination should not preclude the clinical evaluation of a suspicious palpable abnormality. This patient's information was entered into a reminder system with a target due date for their next mammogram. Electronically signed by: Merced Menchaca DO 03/15/2025 02:53 PM EDT
--- OUTSIDE RECORDS SUMMARY | 2025-03-15 10:46 | XMS_ITS | Patient Health Record ---
Author Organization [facility] Address [address] [place] [address] Care Team Providers Care Rn Delivery Name Role Phone PETER CLAY Primary Care Provider Camden Cooper Jr Unavailable Allergies No Known Allergies Results Component Value Reference Range Notes Complete Blood Count Auto Di ff Reviewed date:09/26/2024 08:04:46 AM Interpretation: Performing Lab:[facility], [address] [place] [phone] Notes/Report: White Blood Count 7.6 4.8-10.8 X10*3/uL [...] Panel Reviewed date:09/26/2024 08:05:10 AM Interpretation: Performing Lab:[address] [phone] Notes/Report: Bilirubin Total 1.0 0.0-1.0 mg/dL Bilirubin Direct 0.4 0.0-0.5 mg/dL Aspartate Amino Transferase 69 5-31 U/L Alanine Aminotransferase 36 0-31 U/L Total Protein 6.7 6.5-8.0 g/dL Albumin Level 3.8 3.5-5.0 g/dL Alkaline Phosphatase 88 39-117 U/L IRON PROFILE Reviewed date:09/26/2024 08:04:57 AM Interpretation: Performing Lab:[address] [address] Notes/Report: Iron 66 30-160 mcg/dL Total Iron Binding Capacity 256 228-428 mcg/dL Percent Iron Saturation 26 15-50 % Unsaturated Iron Binding 190 Ferritin Reviewed date:09/26/2024 08:04:55 AM Interpretation: Performing Lab:[address] [address] Notes/Report: Ferritin 423 10-250 ng/mL Liver Fibrosis Pnl Reviewed date:10/01/2024 03:14:47 PM Interpretation: Performing Lab:[address] [address] Notes/Report: Liver Fibrosis Score 0.27 Liver Fibrosis [...] a>0.62 and a<=1.00 : A3 (severe activity) KFT-Ozmmj-7-Macroglobulin 220 106-279 mg/dL FIB-Haptoglobin 245 43-212 mg/dL FIB-Apolipoprotein A1 222 101-198 mg/dL FIB-Total Bilirubin 0.8 0.2-1.2 mg/dL FIB-GGT 268 3-65 U/L FIB-ALT 27 6-29 U/L Reference ID [id number] Footnote SEE NOTE The reliability of results is dependent on compliance with the preanalytical and analytical conditions recommended by [employer]. The tests have to be deferred for: [...] The performance characteristics have been determined by [facility]. It has not been cleared or approved by the U.S. Food and Drug Administration. Performance characteristics refer to the analytical performance of the test. [employer], the associated logo, [employer] and all associated [employer] parks are the registered trademarks of [employer]. All third republican parks - (R) and (TM) - are the property of their respective owners. (C) [id number] [employer] MD. All rights reserved. THIS TEST WAS PERFORMED AT: [facility] [place] [address] [place] [address] DNAY COTTON MD,PHD,LATHA SONIA Reflex Titer and Pattern Reviewed date:10/01/2024 03:14:36 PM Interpretation: Performing Lab:[facility], [address] [place] [phone] Notes/Report: Anti Nuclear Antibody Screen POSITIVE NEGATIVE SONIA IFA is a first line screen for detecting the presence of up to approximately 150 autoantibodies in various autoimmune diseases. A positive SONIA IFA result is suggestive of autoimmune disease and reflexes to titer and pattern. Further laboratory testing may be considered if clinically indicated. For additional information, please refer to http://education.Corvil/faq/FAQ1 77 (This link is being provided for informational/ educational purposes only.) Anti Nuclear Antibody Titer 1:1280 Reference Range <1:40 Negative 1:40-1:80 Low Antibody Level >1:80 Elevated Antibody Level Anti Nuclear Antibody Pattern Nuclear, Speckled Speckled pattern is associated with mixed connective tissue disease (MCTD), systemic lupus erythematosus (SLE), Sjogren's syndrome, dermatomyositis, and systemic sclerosis/polymyositis overlap. AC-2,4,5,29: Speckled International Consensus on SONIA Patterns (https://doi.org/10.151 5/vkkm-9220-7179) THIS TEST WAS PERFORMED AT: [facility] [address] [place] [phone] BRYAN HENDRICKS MD SONIA Titer 2 TNP SONIA Pattern 2 TNP SONIA Titer 3 TNP SONIA Pattern 3 TNP Mitochondrial Antibody Reviewed date:10/04/2024 03:48:15 PM Interpretation: Performing Lab:[facility], [address] [place] [phone] Notes/Report: Mitochondrial Antibodies SEE NOTE NEGATIVE The AMA pattern is atypical. Faint cytoplasmic staining is observed in the kidney cells only. Consider requesting order code [id number], Mitochondria M2 Antibody (IgG), EIA, if clinically indicated. THIS TEST WAS PERFORMED AT: [facility] [address] [place] [address] BRYAN HENDRICKS MD Mitochondrial Ab Titer TNP Smooth Muscle Antibody Reviewed date:10/04/2024 03:40:59 PM Interpretation: Performing Lab:[facility], [address] [place] [phone] Notes/Report: Smooth Muscle Antibody 27 <20 U [...] type 1. THIS TEST WAS PERFORMED AT: [facility]/[address] [address] JIMENEZ TIDWELL MD,PHD Hepatitis A,B,C Profile Reviewed date:09/26/2024 08:03:54 AM Interpretation: Performing Lab:[facility], [address] [place] [phone] Notes/Report: Hepatitis A Antibody IgM Nonreactive Nonreactive IgM antibodies to HAV not detected; does not exclude early acute or recovered HAV infection. Hepatitis B Surface Antibody REACTIVE Nonreactive REACTIVE: > 11.99 mIU/mL Hepatitis B Core Antibody Nonreactive Nonreactive Hepatitis C Antibody Nonreactive Nonreactive Antibodies to HCV not detected; does not exclude early acute HCV infection. Hepatitis B Surface Antigen Negative Negative Liver Panel Reviewed date:12/08/2024 11:03:54 AM Interpretation: Performing Lab:[facility], [address] [place] [address] Notes/Report: Bilirubin Total 0.9 0.0-1.0 mg/dL Bilirubin Direct 0.4 0.0-0.5 mg/dL Aspartate Amino Transferase 66 5-31 U/L Alanine Aminotransferase 38 0-31 U/L Total Protein 6.7 6.5-8.0 g/dL Albumin Level 3.9 3.5-5.0 g/dL Alkaline Phosphatase 98 39-117 U/L Reason For Referral No Information Medications Medication SIG (Take, Route, Frequency, Duration) Notes Start Date End Date Status Folic Acid 400 MCG 1 tablet Orally Once a day Active Beano Active Omeprazole 20 MG Oral for 90 A ctive Carvedilol 6.25 MG TAKE 1 TABLET BY PANDA TH TWICE A DAY Oral for 90 Active Losartan Potassium 50 MG TAKE 1 TABLET B Y MOUTH EVERY DAY Oral for 90 Active Atorvastatin Calcium 20 MG Oral for 90 Active Immunizations Vaccine Route Administration Date Status Comme nts Influenza Unknown 04/19/2024 Administered Influenza Unknown 03/16/2024 Administered Social History Tobacco Use: Social History [...] Problem Status W/U Status Risk Notes Problem Colon cancer screening (487887658) Colon cancer screening (Z12.11) Active confirmed Problem Abdominal bloating (699130505) Abdominal bloating (R14.0) Active confirmed Problem [id number] Elevated LFTs (R79.89) Active confirmed Vital Signs Temperature 97.7 degrees Fahrenheit 12/12/2024 Blood pressure diastolic 01 mm Hg 12/12/2024 Height 5 ft 4 in in 12/12/2024 Blood pressure systolic 001 mm Hg 12/12/2024 Weight 166.2 lbs 12/12/2024 BMI 28.53 kg/m2 12/12/2024 Encounters Encounter Location Date Provider Diagnosis [facility] [address] [place] [address] 12/12/2024 Camden Dennis Jr Elevated LFTs R79.89 ; Colon cancer screening Z12.11 and Abdominal bloating R14.0 [facility] [address] [place] [address] 08/08/2024 Camden Dennis Jr Elevated LFTs R79.89 [facility] [address] [place] [address] 10/04/2024 Camden Dennis Jr Abnormal LFTs R79.89 Assessments Encounter Date Diagnosis (ICD Code) Assessment Notes Treatment Notes Treatment Clinical Notes Section Notes 12/12/2024 Colon cancer screening (ICD-10 - Z12.11) We discussed her symptoms today. We discussed a high-fiber diet, for regulating her bowels. We discussed avoidance of alcohol. We recommended repeat liver function testing annually. Her fibrosis score is reassuring. Follow-up will be in 1 year. She will be due for colonoscopy at that time. We discussed this today. 12/12/2024 Elevated LFTs (ICD-10 - R79.89) We discussed her symptoms today. We discussed a high-fiber diet, for regulating her bowels. We discussed avoidance of alcohol. We recommended repeat liver function testing annually. Her fibrosis score is reassuring. Follow-up will be in 1 year. She will be due for colonoscopy at that time. We discussed this today. 08/08/2024 Elevated LFTs (ICD-10 - R79.89) We discussed the causes of elevated liver function tests today. We discussed fatty liver. We discussed limiting or discontinuing alcohol use. She will have further evaluation with metabolic, viral, and autoimmune markers. Liver fibrosis testing will also be obtained. Followup will be in 3-6 months. 10/04/2024 Abnormal LFTs (ICD-10 - R79.89) 12/12/2024 Abdominal bloating (ICD-10 - R14.0) We discussed her symptoms today. We discussed a high-fiber diet, for regulating her bowels. We discussed avoidance of alcohol. We recommended repeat liver function testing annually. Her fibrosis score is reassuring. Follow-up will be in 1 year. She will be due for colonoscopy at that time. We discussed this today. Plan Of Treatment Pending Test Test Name Order Date LIVER PROFILE 10/04/2024 LIVER PROFILE 08/08/2024 IRON + IBC (FE) 08/08/2024 FERRITIN 08/08/2024 CBC w/o DIFF 08/08/2024 HEPATITIS A,B,C PROFILE 08/08/2024 MITOCHONDRIAL AB 08/08/2024 SMOOTH MUSCLE ANTIBODIES 08/08/2024 Liver Fibrosis Pnl 08/08/2024 SONIA Reflex Titer and Pattern 08/08/2024 Next Appt Details Provider Name:Camden acosta Jr, 12/13/2025 10:00:00 AM, [address] [place] [address], [address], [place], [address], Insurance Providers Payer Name Payer Address Payer Phone Subscriber Number Group Number Insured Name Patient Relationship to Insured Coverage Start Date Coverage End Date [facility] [address] [place] [address] [id number] BRIDGET RODRIGUEZ Self - patient is the insured Medical (General) History Medical History History ICD Code Gastroesophageal reflux disease Perforated diverticulitis Hyperlipidemia Hypertension Colonoscopy 09/16, tubular adenoma, 5-yea r follow-up Surgical History Surgery Date(Month/Year) Repair of large incisional hernia 04/19 Perforated diverticulitis with Alexander procedure and reversal 2019
--- OUTSIDE RECORDS SUMMARY | 2025-03-15 10:46 | XMS_ITS | Clinical Summary ---
Author Organization [facility] Address [address] [place] [address] Phone Care Team Providers Care Longwall Foreman Name Role Phone Vaibhav Mccormack MD Primary Care Provider Allergies Active Allergy Reactions Criticality Noted Date Comments Lisinopril Cough 05/15/2017 Medications cholecalciferol (VITAMIN D3) 2,000 unit capsule Take by mouth daily. Active calcium citrate-vitamin D3 315-250 mg-unit per tablet Take 1 tablet by mouth daily. Active amLODIPine (NORVASC) 5 MG tablet Take 5 mg by mouth daily. Active FLUoxetine (PROZAC) 10 MG capsule Take 10 mg by mouth daily. Active omeprazole (PRILOSEC) 20 MG tablet Take 20 mg by mouth daily. Active Active Problems Problem Noted Date Diagnosed Date Hypertension 12/14/2015 Overview (05/15/2017): Dx with high blood pressure in 2015. Treated initially with lisinopril which was d/c due to cough and she was switched to amlodipine in mid 2016. Assessment & Plan (05/15/2017 1:37 PM EST): BP today elevated at 150/8.. She will check it at home and if it remains elevated she will schedule f/u with Dr. Mccormack. Assessment & Plan (12/14/2015 11:37 AM EDT): Well controlled on lisinopril 5 mg. 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 Had bilateral gonadectomy at age 19. 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 She was maintained on Estrace 2 mg for many years and then estrogen patch with Provera 5 mg for two weeks of every month from 8251-6701. Estrogen was discontinued in 2013 at age 53. Assessment & Plan (05/15/2017 1:32 PM EST): Has mild night sweats which are not interfering with QOL and no other vasomotor symptoms. Can remain off estrogen. Assessment & Plan (12/14/2015 11:37 AM EDT): Currently has no vasomotor symptoms. Osteopenia 12/14/2015 Overview (05/15/2017): Bone density was normal in 1998 and remained stable for several years. Estrogen replacement was decreased from 2 to 1 mg in 2002. BMD in 2006 showed an 8% decrease in the femoral neck to a T score of -1.4 and her estrogen dose was increased again to 2 mg. DXA scan in May 2013 was normal (AP Spine 0.2, fem neck -1.1, total hip - 0.7). Follow up DXA in Mar 2015 (first one since estrogen was d/c) showed T score of - 0.2 at spine and -1.4 at femoral neck. Assessment & Plan (05/15/2017 1:38 PM EST): Continue calcium, vitamin D and regular weight-bearing exercise. [facility] and the result faxed to me. If there has been no significant decrease in bone density, she does not need to see me again and can f/u with Dr. Mccormack. Assessment & Plan (12/14/2015 11:44 AM EDT): Minimal decrease in bone density since estrogen was d/c in May 2014. Check calcium, vitamin D and PTH levels today-continue calcium and vitamin D at present levels pending results. Continue weight-bearing exercise. Have another DXA scan done in [place] in Mar 2017 and see me after that. Social History Tobacco Use Types Packs/Day Years Used Date Smoking Tobacco: Never Smokeless Tobacco: Never Alcohol Use Standard Drinks/Week Comments Yes 8 (1 standard drink = 0.6 oz pur e alcohol) Education Answer Date Recorded Are you interested in more education? Not on annette e 11/01/2022 Are you concerned about learning? Not on file 11/01/2022 No 11/01/2022 No 11/01/2022 Digital Access Answer Date Recorded No 11/22/2022 No 11/22/2022 No 11/22/2022 Reliable internet access at home? Not on file 11/22/2022 Device with a working camera? Not on file Comments Unknown Sex and Gender Information Value Date Recorded Sex Assigned at Not on file Legal Sex Female 6:00 PM EST Gender Identity Not on file Sexual Orientation Not on file Last Filed Vital Signs Vital Sign Reading Time Taken Comments Blood Pressure 150/85 05/15/2017 11:35 AM EST Pulse 72 12/14/2015 11:26 AM EDT Temperature - - Respiratory Rate - - Oxygen Saturation - - Inhaled Oxygen Concentration - - Weight 66 kg (145 lb 8 oz) 12/14/2015 11:20 AM E DT Height 165.1 cm (5' 5 ) 12/14/2015 11:20 AM EDT Body Mass Index 24.21 12/14/2015 11:20 AM EDT Plan of Treatment Health Maintenance Due Date Last Done Comments Adult Td,Tdap Booster 1962 BLOOD PRESSURE 1962 DEPRESSION SCREENING 1974 HEPATITIS C SCREENING 1980 HIV ONE-TIME SCREENING (18-65 YEARS) 1980 MAMMOGRAM 2002 COLOGUARD 2007 COLONOSCOPY 2007 COLORECTAL CANCER SCREENING 2007 FIT TEST 2007 FOBT 2007 SIGMOIDOSCOPY 2007 VIRTUAL COLONOSCOPY 2007 PAP SMEAR 03/16/2012 03/16/2009, 11/27, 10/22/2004, Additional history exists PNEUMOCOCCAL VACCINES (50+ years) (1 of 1 - PCV) 2012 ZOSTER VACCINES (1 of 2) 2012 LIPID PANEL 06/17/2018 06/17/2013, 03/19/2012 INFLUENZA VACCINE (#1) 2025 02/22/2017 COVID-19 VACCINE (2 - 2024- season) 2025 06/07/2021 RSV VACCINE (1 - 1-dose 75+ series) 2037 SMOKING STATUS SCREENING (Once After 26 Yrs) Completed 05/15/2017 HEPATITIS A VACCINES Aged Out No long er eligible based on patient's age to complete this topic HIB VACCINES Aged Out No longer eligi ble based on patient's age to complete this topic MENINGOCOCCAL VACCINES (ACWY) Aged Out No longer eligible based on patient's age to complete this topic MENINGOCOCCAL VACCINES (B) Aged Out N o longer eligible based on patient's age to complete this topic Medical Devices Not on file Procedures Procedure Name Priority Date/Time Associated Diagnosis Comments HISTORICAL LAB Routine 06/17/2013 10:32 AM EST PAP TEST Routine 03/16/2009 12:00 AM EDT from Last 3 Months or Most Recently Relevant to Health Maintenance Results * (ABNORMAL) Historical Lab (06/17/2013 10:32 AM EST) Plasma Sodium 137 135 - 145 mmol/L [facility] Plasma Potassium 4.2 3.4 - 4.8 mmol/L [facility] Plasma Chloride 98(Abnorm ally L) 100 - 108 mmol/L [facility] Plasma Carbon Dioxide 25.3 23.0 - 31.9 mmol/L [facility] Plasma Urea Nitrogen 10 8 - 25 mg/dl [facility] Plasma Creatinine 0.58(Abno rmally L) 0.60 - 1.50 mg/dl [facility] Plasma Glucose 84 70 - 110 mg/dl [facility] Calcium 9.3 8.5 - 10.5 mg/dl [facility] eGFR >60 mL/min/1. 73m2 [facility] Comment: Abnormal if <60 mL/min/1.73m2. If patient is -[place], multiply the result by 1.21. Plasma Anion GAP 14 3 - 15 mmol/L [facility] High Density Lipoprotein 80 35 - 100 mg/dl [facility] Cholesterol 226 mg/dl [facility] Comment:DESIRABLE: <200 Triglycerides 52 40 - 150 mg/dl [facility] Low Density Lipoprotein 136 mg/dl [facility] Comment:DESIRABLE: <130 Cardiac Risk Ratio 2.8 [facility] Comment:NORMAL RISK RATIO: 5 .0 OR LESS T1-TSH 0.68 0.40 - 5.00 uU/ml [facility] 25(OH) Vitamin D Total 35 33 - 100 ng/mL [facility] Comment: Desired: > 32 ng/ml . 06/17/2013 10:3 2 AM EST 06/17/2013 12:17 PM EST Comment:BLD UR us Angely Fagn MD LAB BLOOD ORDERABLES Final Resul t Performing Organization Address [facility] [place] [address] * Pap Smear (03/16/2009 12:00 AM EDT) 03/16/2009 Narrative [facility] - 04/03/2009 6:11 PM EDT Accession Number: [id number] Report Status: Final Type: Cytology Cytology Report: [id number] CASE: [id number] PATIENT: SWATI MACKEY Date Taken: 03/16/2009 Source Care Unit: [facility], [facility] 511 Specimen Site: Vaginal vault Clinical Data: If ASCUS perform high risk HPV typing Androgen insensitivity syndrome Reports To: ANGELY FANG M.D. CYTOPATHOLOGY REPORT FINAL REPORT SPECIMEN ADEQUACY: Satisfactory for evaluation. INTERPRETATION: NEGATIVE FOR INTRAEPITHELIAL LESION OR MALIGNANCY. AUTOMATED REVIEW: This specimen was prescreened using the [employer] System. Final Diagnosis by Earl TANG(ASCP), Electronically signed on Friday April 03, 2009 at 06:08:05PM By his/her signature above, the pathologist listed as making the Final Diagnosis certifies that he/she has personally reviewed this case and confirmed or corrected the diagnoses. Specimen: Liquid-based Agile Qa Tester Pap Test (SurePath) us Angely Fang MD CYTOLOGY ORDERABLES Final Result Performing Organization Address [facility] [place] [address], [facility] from Last 3 Months or Most Recently Relevant to Health Maintenance Insurance [facility] Care Teams Longwall Foreman Relationship Specialty Start Date End Date Vaibhav Mccormack MD [address] [place] [address] [place] [address] PCP - General 12/27/13 Additional Source Comments The information contained in this document represents components of the legal health record. It is not the complete legal health record.[facility]
== END 2025-03-15 09:11 | disposition home or self-care (01) ==
LOC: HO.MAMMO 09:10
PROVIDERS: PCP Physician Assistant; Visit Provider Physician Assistant
DX: Z12.31 Encounter for screening mammogram for malignant neoplasm of breast (principal)
CPT/HCPCS: 77063; 77067

== ENCOUNTER → 2025-03-15 09:30 | Outpatient (BNV) | payer BC, SELFPAY | PROVIDERS: PCP Physician Assistant; Visit Provider Internal Medicine | DX: Z12.31 Encounter for screening mammogram for malignant neoplasm of breast (principal) | CPT/HCPCS: 77063; 77067 ==

== ENCOUNTER 2025-05-22 08:53 | Outpatient (AMB) | payer BC, SELFPAY ==
--- NOTE | 2025-05-22 08:57 | MHC.PC.OV ---
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 acidophilus-L. rhamnosus 15 billion cell (Probiotic) 1 cap PO DAILY losartan 50 mg PO DAILY omeprazole 20 mg PO BID thiamine HCl (vitamin B1) 100 mg PO DAILY Tobacco use date assessed: 05/22/25 Dental Screening Dental Screen Date: 05/22/25 Did you have a dental visit in the last 12 months?: Yes Did you have a dental problem in the last 6 months where you did not have access to dental care?: No Was dental information given to patient?: Patient has dentist HPI HPI Comments History of Present Illness Details 64-year-old female with history of hypertension, hyperlipidemia, GERD, hepatic steatosis, and alcohol use disorder presents to the office today for management of chronic conditions. She has no concerns at today's visit. IBS-C, has increased fiber intake with some improvement in symptoms. Sonny following Hepatic steatosis- Following with Dr. Dennis monitoring LFTs with steady improved thoguh AST/BLANCA elevated, bili wnl. Has been cutting back on alcohol HTN- BP 112/68. Compliant with coreg 6.125mg bid and losartan 50mg daily. GERD- controlled on omeprazole 20mg BID and avoidance of triggers. AUD- hx hospitalization 2022 d/t alcohol withdrawal with seizures and metabolic encephalopathy, has since cut back but still drinking 2-3 glasses wine several days per week. Reports she had been using this as a coping mechanism OA- has been referred to rheumatology given positive SONIA titer. However further lab testing was reassuring without any autoimmune conditions suspected. She was advised to take ibuprofen as needed. Reports most days her symptoms are controlled. Concerns: L cataract- 06/08 [facility] eval[facility]. Blurred vision Health Maintenance: Last mammo abn L breast ref for MRI- Breast MRI 10/05/24- negative for malignancy. Following with Dr. Velasquez. FH breast cancer sister age 71 Last colonoscopy 08/2020 with tubular adenoma, duet 08/2025 ROS: General: No fevers, malaise, unintentional weight loss HEENT: No blurred vision, diplopia. No sore throat, nasal congestion, rhinorrhea, sinus pain, ear pain Cardiovascular: No chest pain, palpitations, or leg edema Respiratory: No shortness of breath, wheezing, cough GI: No abdominal pain, nausea, vomiting, diarrhea, constipation, melena, hematochezia : No dysuria, hematuria, increased urinary frequency, decreased urinary output MSK: No myalgia, back pain Neuro: No headaches, weakness, paresthesias Skin: No rashes or lesions EXAM: Constitutional - Awake and Alert, No apparent distress Eyes - PERRL Cardiovascular - S1S2, RRR, No edema Respiratory - Normal lung expansion, Normal respiratory effort, No respiratory distress, CTA bilaterally Extremities - no calf tenderness bilaterally, no swelling Skin - Warm/Dry Neurological - Alert & oriented x3, Psychological - Appropriate affect [facility] Medical History (Updated 05/22/25 @ 09:15 by TYESHA Akers) Vitamin D deficiency Macrocytic anemia Hepatic steatosis Breast calcification, left Monoallelic mutation of JOSH gene Family history of pancreatic cancer Family history of breast cancer Incisional pain Incisional hernia Incisional hernia Seasonal allergies History of COVID-19 COVID-19 vaccine series completed Diverticulitis High cholesterol Osteoarthritis of left hip Hypertension Hematuria Acid reflux Surgical History History of reversal of ileostomy History of colostomy reversal Hx of bilateral inguinal hernia repair History of colon resection Hx of cystoscopy H/O colonoscopy Status post Alexander procedure History of dental surgery H/O total hysterectomy with bilateral salpingo-oophorectomy (BSO) Status post total hip replacement, left (~06/07/19) Family History Father Cancer Mother Cancer Maternal Grandmother Colon cancer Sister Breast cancer Other Tubular adenoma Social History Household Members: Spouse and Children Housing: House Are you a primary direct care provider to a significant other at home: No Do you presently have visiting nurse or other home services: No Alcohol intake: current Alcohol intake frequency: a few times a week Alcohol type: wine Comment: pt has [employer] Patient Tobacco Use Status: Never used Tobacco e-Cigarette/Vaping Use: Never Used Second Hand Smoke Exposure: No Advance Directives Date on File: 08/02/21 service: No Current occupational status: retired 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 How often do you have a drink containing alcohol?: Monthly or less 2. How many drinks containing alcohol do you have on a typical day when you are drinking?: 1 or 2 3. How often do you have six or more drinks on one occasion?: Never Total Score: 1 PETE-7 AMB Questionnaire PETE-7 Date PETE - 7 assessed: 11/25/24 Source: Developed by Drs. Hayden Das, Angely Nickerson, Carson Amor and colleagues, with an educational malu from [employer]. Physical exam (Primary Care) Vital Signs: Last Vital Signs Temp 97.9 F 05/22/25 09:01 Pulse 75 05/22/25 09:01 Resp 20 05/22/25 09:01 BP 130/78 05/22/25 09:01 Pulse Ox 99 05/22/25 09:01 Oxygen Delivery Method Room Air 05/22/25 09:01 BMI result Body Mass Index 26.6 Tobacco/Smoking Status: Tobacco use Status Tobacco use date assessed 05/22/25 05/22/25 09:03 Patient Tobacco Use Status Never used Tobacco 05/22/25 08:59 e-Cigarette/Vaping Use Never Used 05/22/25 09:03 Coding Level of Care Code Est Pt Level 4 (89404) Complex visit Add On G2211 Diagnoses HTN (hypertension) I10 Hyperlipidemia E78.5 Alcohol abuse F10.10 Hepatic steatosis K76.0 Assessment & Plan Assessment & Plan (1) HTN (hypertension): Code(s): I10 - Essential (primary) hypertension Category: Medical Plan: Controlled with BP 130/78. Continue carvedilol 6.125 mg twice daily and losartan 50 mg daily. BMP ordered to evaluate renal function and electrolyte levels. Low sodium diet (2) Hyperlipidemia: Code(s): E78.5 - Hyperlipidemia, unspecified Category: Medical Plan: Lipid panel orderd. Continue lipitor. Diet low in saturated fats and higihly processed foods. (3) Alcohol abuse: Code(s): F10.10 - Alcohol abuse, uncomplicated Category: Social Hx Plan: Counseled on healthy alcohol consumption in female. Advised to cut back to 1, no more than 2 alcoholic beverages in a sitting, can continue this several days per week. Continue thiamine folic acid. Check for any anemia/macrocytosis and liver enzymes. (4) Hepatic steatosis: Code(s): K76.0 - Fatty (change of) liver, not elsewhere classified Category: Medical Plan: Recheck LFTs. Most recent liver imaging reviewed. Continue following with GI. Avoid hepatotoxins. Liver panel ordered Plan Follow up in 6 months. Labs to be completed following visit and prior to next visit. Continue following with GI. Meds as ordered Orders: Orders Vitamin D 25-OH Total Today E55.9 - Vitamin D deficiency, unspecified Medications: Changed From carvedilol 6.25 mg PO ONCE To carvedilol 6.25 mg (2 x 3.125 mg) PO BID 180 tabs 1RF Discontinued cholecalciferol (vitamin D3) Discontinued Reason: Doctor's Order 1,250 mcg PO QWEEK 12 caps 1RF
[2025-05-22 09:01] VITALS: BP 130/78; PULSE 75; RESP 20; TEMP 36.6; O2SAT 99; BMI 26.6
--- OUTSIDE RECORDS SUMMARY | 2025-05-22 09:28 | XMS_ITS | Clinical Summary ---
Author Organization [facility] Address [address] [place] [address] Phone Care Team Providers Care Ethnographer Name Role Phone Vaibhav Mccormack MD Primary [...] for two weeks of every month from [phone]. Estrogen was discontinued in 2013 at age [...] regular weight-bearing exercise. Recommend that she have [facility] DXA scan done locally and the result [...] exercise. Have another DXA scan done in [place] in Mar 2017 and see me after [...] on patient's age to complete this topic IPV VACCINES Aged Out No longer eligi ble [...] Plasma Sodium 137 135 - 145 mmol/L [facility] Plasma Potassium 4.2 3.4 - 4.8 mmol/L [facility] Plasma Chloride 98(Abnorm ally L) 100 - 108 mmol/L [facility] Plasma Carbon Dioxide 25.3 23.0 - 31.9 mmol/L [facility] Plasma Urea Nitrogen 10 8 - 25 mg/dl [facility] Plasma Creatinine 0.58(Abno rmally L) 0.60 - 1.50 mg/dl [facility] Plasma Glucose 84 70 - 110 mg/dl [facility] Calcium 9.3 8.5 - 10.5 mg/dl [facility] eGFR >60 mL/min/1. 73m2 [facility] Comment: Abnormal if <60 mL/min/1.73m2. If patient is -Qatari, multiply the result by 1.21. Plasma Anion GAP 14 3 - 15 mmol/L [facility] High Density Lipoprotein 80 35 - 100 mg/dl [facility] Cholesterol 226 mg/dl [facility] Comment:DESIRABLE: <200 Triglycerides 52 40 - 150 mg/dl [facility] Low Density Lipoprotein 136 mg/dl [facility] Comment:DESIRABLE: <130 Cardiac Risk Ratio 2.8 [facility] Comment:NORMAL RISK RATIO: 5 .0 OR LESS T1-TSH 0.68 0.40 - 5.00 uU/ml [facility] 25(OH) Vitamin D Total 35 33 - 100 ng/mL [facility] Comment: Desired: > 32 ng/ml . 06/17/2013 10:3 2 AM EST 06/17/2013 12:17 PM EST Comment:BLD UR Angely Fang MD LAB BLOOD ORDERABLES Final Resul t Performing Organization Address [facility] Co de Phone Number [address] [address] * Pap Smear (03/16/2009 12:00 AM EDT) 03/16/2009 Narrative [facility] - 04/03/2009 6:11 PM EDT Accession Number: [id number] Report Status: Final Type: Cytology Cytology Report: [id number] CASE: [id number] PATIENT: SWATI MACKEY Date Taken: 03/16/2009 Source Care Unit: [facility], [facility] 511 Specimen Site: Vaginal vault Clinical Data: If ASCUS perform high risk HPV typing Androgen insensitivity syndrome Reports To: ANGELY FANG M.D. CYTOPATHOLOGY REPORT FINAL REPORT SPECIMEN ADEQUACY: Satisfactory for evaluation. INTERPRETATION: NEGATIVE FOR INTRAEPITHELIAL LESION OR MALIGNANCY. AUTOMATED REVIEW: This specimen was prescreened using the [employer] Imaging System. Final Diagnosis by Earl TANG(ASCP), Electronically signed on Friday April 03, 2009 at 06:08:05PM By his/her signature above, the pathologist listed as making the Final Diagnosis certifies that he/she has personally reviewed this case and confirmed or corrected the diagnoses. Specimen: Liquid-based [employer] Pap Test (SurePath) us Angely Fang MD CYTOLOGY ORDERABLES Final Result Performing Organization Address [facility] Co de Phone Number [address] [address], [place] from Last 3 Months or Most Recently Relevant to Health Maintenance Insurance [facility] [facility] [employer] [facility] Care Teams Ethnographer Relationship Specialty Start Date End Date Vaibhav Mccormack MD [address] [place] [address] [place] [address] PCP - General 12/27/13 Additional Source Comments The information contained in this document represents components of the legal health record. It is not the complete legal health record.[facility]
--- OUTSIDE RECORDS SUMMARY | 2025-05-22 09:29 | XMS_ITS | Patient Health Record ---
Author Organization [facility] Address [address] [place] [address] Care Team Providers Care Tipple Tender Name Role Phone PETER CLAY Primary Care Provider Camden Cooper Jr Unavailable [phone] Allergies No Known Allergies Results Component Value Reference Range Flag Notes Complete Blood Count Auto Di ff Reviewed date:09/26/2024 08:04:46 AM Interpretation: Performing Lab:[facility], [address] [place] [phone] Notes/Report: White Blood Count 7.6 4.8-10.8 X10*3/uL N Red Blood Count 3.43 4.20-5.50 X10*6/uL L Hemoglobin 11.7 12.0-16.0 g/dl L Hematocrit 34.6 37.0-47.0 % L Mean Corpuscular Volume 100.9 80.0-98.0 fL H Mean Corpuscular Hemoglobin 34.1 27.0-33.0 pg H Mean Corpuscular HGB Conc 33.8 31.0-35.0 g/dl N Red Cell Distribution Width 13.0 11.0-16.0 % N Platelet Count 193 160-400 X10*3/uL N Mean Platelet Volume 9.1 9.4-12.3 fL L Neutrophils Percent Auto 72.1 45-73 % N Imm Gran Pct Auto 0.5 0.0-0.4 % H Lymphocytes Percent Auto 13.0 20-40 % L Monocytes Percent Auto 12.3 2-11 % H Eosinophils Percent Auto 1.3 0-4 % N Basophils Percent Auto 0.8 0-2 % N NRBC Pct Auto 0.0 0.0-0.2 /100WBC N Neutrophils Absolute Auto 5.5 2.0-8.3 x10*3/uL N Imm Gran Abs Auto 0.04 0.00-0.03 X10*3/uL H Lymphocytes Absolute Auto 1.0 1.2-4.9 X10*3/uL L Monocytes Absolute Auto 0.9 0.1-1.2 X10*3/uL N Eosinophils Absolute Auto 0.1 0.0-0.4 X10*3/uL N Basophils Absolute Auto 0.1 0.0-0.2 X10*3/uL N NRBC Abs Auto 0.000 0.0-0.012 X10*3/uL N Liver Panel Reviewed date:09/26/2024 08:05:10 AM Interpretation: Performing Lab:[facility], [address] [place] [phone] Notes/Report: Bilirubin Total 1.0 0.0-1.0 mg/dL N Bilirubin Direct 0.4 0.0-0.5 mg/dL N Aspartate Amino Transferase 69 5-31 U/L H Alanine Aminotransferase 36 0-31 U/L H Total Protein 6.7 6.5-8.0 g/dL N Albumin Level 3.8 3.5-5.0 g/dL N Alkaline Phosphatase 88 39-117 U/L N IRON PROFILE Reviewed date:09/26/2024 08:04:57 AM Interpretation: Performing Lab:[facility], [address] [place] [phone] Notes/Report: Iron 66 30-160 mcg/dL N Total Iron Binding Capacity 256 228-428 mcg/dL N Percent Iron Saturation 26 15-50 % N Unsaturated Iron Binding 190 Ferritin Reviewed date:09/26/2024 08:04:55 AM Interpretation: Performing Lab:[facility], [address] [place] [phone] Notes/Report: Ferritin 423 10-250 ng/mL H Liver Fibrosis Pnl Reviewed date:10/01/2024 03:14:47 PM Interpretation: Performing Lab:[facility], [address] [place] [phone] Notes/Report: Liver Fibrosis Score 0.27 Liver Fibrosis [...] a>0.62 and a<=1.00 : A3 (severe activity) PXH-Rrztt-0-Macroglobul in 220 106-279 mg/dL FIB-Haptoglobin 245 43-212 mg/dL A FIB-Apolipoprotein A1 222 101-198 mg/dL A FIB-Total Bilirubin 0.8 0.2-1.2 mg/dL FIB-GGT 268 3-65 U/L A FIB-ALT 27 6-29 U/L Reference ID [id number] Footnote SEE NOTE The reliability of results is dependent on compliance with the preanalytical and analytical conditions recommended by [employer]. The tests have to be deferred for: [...] The performance characteristics have been determined by [facility]. It has not been cleared or approved by the U.S. Food and Drug Administration. Performance characteristics refer to the analytical performance of the test. [employer], the associated logo, [employer] and all associated [employer] parks are the registered trademarks of [employer]. All third alliance party parks - (R) and (TM) - are the property of their respective owners. (C) 1896-5346 [employer]. All rights reserved. THIS TEST WAS PERFORMED AT: [facility] [address] [place] [address] DANY COTTON MD,PHD,LATHA SONIA Reflex Titer and Pattern Reviewed date:10/01/2024 03:14:36 PM Interpretation: Performing Lab:[facility], [address] [place] [phone] Notes/Report: Anti Nuclear Antibody Screen POSITIVE NEGATIVE A SONIA IFA is a first line screen for detecting the presence of up to approximately 150 autoantibodies in various autoimmune diseases. A positive SONIA IFA result is suggestive of autoimmune disease and reflexes to titer and pattern. Further laboratory testing may be considered if clinically indicated. For additional information, please refer to http://education.[employer]/faq/ SAD617 (This link is being provided for informational/ educational purposes only.) Anti Nuclear Antibody Titer 1:1280 A Reference Range <1:40 Negative 1:40-1:80 Low Antibody Level >1:80 Elevated Antibody Level Anti Nuclear Antibody Pattern Nuclear, Speckled A Speckled pattern is associated with mixed connective tissue disease (MCTD), systemic lupus erythematosus (SLE), Sjogren's syndrome, dermatomyositis, and systemic sclerosis/polymyositi s overlap. AC-2,4,5,29: Speckled International Consensus on SONIA Patterns (https://doi.org/10.1 515/fffh-4175-4423) THIS TEST WAS PERFORMED AT: [facility] [address] [place] [phone] BRYAN HENDRICKS MD SONIA Titer 2 TNP SONIA Pattern 2 TNP SONIA Titer 3 TNP SONIA Pattern 3 TNP Liver Panel Reviewed date:12/08/2024 11:03:54 AM Interpretation: Performing Lab:[facility], [address] [place] [phone] Notes/Report: Bilirubin Total 0.9 0.0-1.0 mg/dL N Bilirubin Direct 0.4 0.0-0.5 mg/dL N Aspartate Amino Transferase 66 5-31 U/L H Alanine Aminotransferase 38 0-31 U/L H Total Protein 6.7 6.5-8.0 g/dL N Albumin Level 3.9 3.5-5.0 g/dL N Alkaline Phosphatase 98 39-117 U/L N Hepatitis A,B,C Profile Reviewed date:09/26/2024 08:03:54 AM Interpretation: Performing Lab:[facility], [address] [place] [phone] Notes/Report: Hepatitis A Antibody IgM Nonreactive Nonreactive IgM antibodies to HAV not detected; does not exclude early acute or recovered HAV infection. Hepatitis B Surface Antibody REACTIVE Nonreactive REACTIVE: > 11.9 9 mIU/mL Hepatitis B Core Antibody Nonreactive Nonreactive Hepatitis C Antibody Nonreactive Nonreactive Antibodies to HCV not detected; does not exclude early acute HCV infection. Hepatitis B Surface Antigen Negative Negative Smooth Muscle Antibody Reviewed date:10/04/2024 03:40:59 PM Interpretation: Performing Lab:[facility], [address] [place] [phone] Notes/Report: Smooth Muscle Antibody 27 <20 U A Reference Range: <20 U: Negative >or=20 U: [...] type 1. THIS TEST WAS PERFORMED AT: [facility] [employer]/[facility] [address] [place] [address] JIMENEZ TIDWELL MD,PHD Mitochondrial Antibody Reviewed date:10/04/2024 03:48:15 PM Interpretation: Performing Lab:[facility], [address] [place] [phone] Notes/Report: Mitochondrial Antibodies SEE NOTE NEGATIVE N The AMA pattern is atypical. Faint cytoplasmic staining is observed in the kidney cells only. Consider requesting order code [id number], Mitochondria M2 Antibody (IgG), EIA, if clinically indicated. THIS TEST WAS PERFORMED AT: [facility] [address] [place] [phone] BRYAN HENDRICKS MD Mitochondrial Ab Titer TNP Reason For Referral No Information Medications Medication SIG (Take, Route, Frequency, Duration) Notes Start Date End Date Status Folic Acid 400 MCG Tablet 1 tablet Orall y Once a day Active Beano Active Omeprazole 20 MG Capsule Delayed Release Oral; Duration: 90 Active Carvedilol 6.25 MG Tablet TAKE 1 TABLET BY MOUTH TWICE A DAY Oral; Duration: 90 Active Losartan Potassium 50 MG Tablet TAKE 1 TABLET BY MOUTH EVERY DAY Oral; Duration: 90 Active Atorvastatin Calcium 20 MG Tablet Oral; Duration: 90 Active Immunizations Vaccine Route Administration Date Status Comme nts Influenza Unknown 03/16/2024 Administered Influenza Unknown 04/19/2024 Administered Social History Tobacco Use: Social History Observation Description Date Details (start date - stop date) Never Smoker NA - NA Social History Drugs/Alcohol: Social Info Question Answer Notes Alcohol Screen Did you have a drink containing alcohol in the past year? Yes How often did you have a drink containing alcohol in the past year? 2 to 3 times a week (3 points) How many drinks did you have on a typical day when you were drinking in the past year? 1 or 2 drinks (0 point) How often did you have 6 or more drinks on one occasion in the past year? Never (0 point) Points 3 Interpretation Positive Tobacco Use: Social Info Question Answer Notes Tobacco Use/Smoking Patient is a nonsmoker Additional Details Category Social Info Options Details Miscellaneous: Marital status: Occupation: retired Problems Problem Type SNOMED Code ICD Code Onset Dates Problem Status W/U Status Risk Notes Problem Colon cancer screening (574196192) Colon cancer screening (Z12.11) Active confirmed Problem Abdominal bloating (721973501) Abdominal bloating (R14.0) Active confirmed Problem Elevated liver enzymes level (339998032) Elevated LFTs (R79.89) Active confirmed Vital Signs Temperature 97.7 degrees Fahrenheit 12/12/2024 Blood pressure diastolic 01 mm Hg 12/12/2024 Height 5 ft 4 in in 12/12/2024 Blood pressure systolic 001 mm Hg 12/12/2024 Weight 166.2 lbs 12/12/2024 BMI 28.53 kg/m2 12/12/2024 Encounters Encounter Location Date Provider Diagnosis [facility] [address] [place] [phone] 08/08/2024 Camden Dennis Jr Elevated LFTs R79.89 [facility] [address] [place] [phone] 12/12/2024 Camden Dennis Jr Elevated LFTs R79.89 ; Colon cancer screening Z12.11 and Abdominal bloating R14.0 [facility] [address] [place] [phone] 10/04/2024 Camden Dennis Jr Abnormal LFTs R79.89 [...] obtained. Followup will be in 3-6 months. 12/12/2024 Colon cancer screening (ICD-10 - Z12.11) [...] at that time. We discussed this today. 10/04/2024 Abnormal LFTs (ICD-10 - R79.89) 12/12/2024 [...] Test Name Order Date LIVER PROFILE 08/08/2024 LIVER PROFILE 10/04/2024 IRON + IBC (FE) 08/08/2024 FERRITIN 08/08/2024 CBC w/o DIFF 08/08/2024 HEPATITIS A,B,C PROFILE 08/08/2024 MITOCHONDRIAL AB 08/08/2024 SMOOTH MUSCLE ANTIBODIES 08/08/2024 Liver Fibrosis Pnl 08/08/2024 SONIA Reflex Titer and Pattern 08/08/2024 Next Appt Details Provider Name:Camden acosta , 12/13/2025 10:00:00 AM, [address] [place] [address], [address], [place], [address], Insurance Providers Payer Name Payer Address Payer Phone Subscriber Number Group Number Insured Name Patient Relationship to Insured Coverage Start Date Coverage End Date [facility] [address] [place] [address] [id number] BRIDGET RODRIGUEZ Self - patient is the insured Medical (General) History Medical History History ICD Code Gastroesophageal reflux disease Perforated diverticulitis Hyperlipidemia Hypertension Colonoscopy 09/16, tubular adenoma, 5-yea r follow-up Surgical History Surgery Date(Month/Year) Perforated diverticulitis with Alexander procedure and reversal 2019 Repair of large incisional hernia 04/19
== END 2025-05-22 09:21 | disposition home or self-care (01) ==
LOC: HO.HMCHD 08:54
PROVIDERS: PCP Physician Assistant; Visit Provider Physician Assistant
DX: I10 Essential (primary) hypertension (principal); E78.5 Hyperlipidemia, unspecified; F10.10 Alcohol abuse, uncomplicated; K76.0 Fatty (change of) liver, not elsewhere classified

== ENCOUNTER 2025-05-22 09:23 | Outpatient (REF) | payer BC, SELFPAY ==
[2025-05-22 10:48] LABS: MANUAL DIFF FLAG NO
[2025-05-22 10:49] LABS: Hematocrit 35.9 % (37.0-47.0); Hemoglobin 11.6 g/dl (12.0-16.0); Imm Gran Abs Auto 0.03 X10*3/uL (0.00-0.03); Imm Gran Pct Auto 0.4 % (0.0-0.4); Lymphocytes Absolute Auto 1.1 X10*3/uL (1.2-4.9); Mean Corpuscular HGB Conc 32.3 g/dl (31.0-35.0); Mean Corpuscular Hemoglobin 33.1 pg (27.0-33.0); Mean Corpuscular Volume 102.6 fL (80.0-98.0); NRBC Abs Auto 0.000 X10*3/uL (0.0-0.012); NRBC Pct Auto 0.0 /100WBC (0.0-0.2); Platelet Count 199 X10*3/uL (160-400); Red Blood Count 3.50 X10*6/uL (4.20-5.50); White Blood Count 7.8 X10*3/uL (4.8-10.8)
[2025-05-22 11:17] LABS: Alanine Aminotransferase 36 U/L (0-31); Albumin Level 4.0 g/dL (3.5-5.0); Alkaline Phosphatase 117 U/L (39-117); Anion Gap 14 (12-20); Aspartate Amino Transferase 65 U/L (5-31); Blood Urea Nitrogen 13 mg/dL (9-16); Calcium 9.2 mg/dL (8.4-10.2); Carbon Dioxide 22 mmol/L (22-29); Chloride 106 mmol/L (96-108); Cholesterol 208 mg/dL (<200); Estimated Glomerular Filt Rate > 60; HDL Cholesterol 78 mg/dL (>40); Potassium 4.5 mmol/L (3.3-5.1); Sodium 137 mmol/L (135-145); Total Protein 7.1 g/dL (6.5-8.0); Triglycerides 96 mg/dL (<150)
== END 2025-05-22 09:24 | disposition home or self-care (01) ==
LOC: HO.10HDL 09:23
PROVIDERS: Visit Provider Physician Assistant
DX: I10 Essential (primary) hypertension (principal); K76.0 Fatty (change of) liver, not elsewhere classified; D53.9 Nutritional anemia, unspecified; F10.10 Alcohol abuse, uncomplicated; E78.5 Hyperlipidemia, unspecified; E55.9 Vitamin D deficiency, unspecified; Z79.899 Other long term (current) drug therapy
CPT/HCPCS: 36415; 80048; 80061; 80076; 82306; 85025